=== PATIENT | female | born 1945 | race Caucasian/White ===

== ENCOUNTER 2017-10-24 13:12 | Day surgery (SDC) | payer MEDICARE, OTHER, SELFPAY ==
--- NOTE | 2017-10-24 | PATH_ITS ---
[facility] Accession Number: [id number] . 01 Material submitted: . PART A: ASCENDING COLON BIOPSY PART B: TRANSVERSE COLON BIOPSY . 02 Diagnosis: A. Ascending Colon Polyp, Biopsy: Tubular adenoma. . B. Transverse Colon Polyp, Biopsy: Tubular adenoma. MRV/10/25/2017 . 02 Electronically signed: . Shireen Yee MD, Pathologist NPI- [id number] . 01 Gross description: . Received two formalin-filled containers, both labeled with the patient's name: . A. In a container labeled ascending colon, the specimen consists of a 0.3 cm portion of tissue, entirely submitted in cassette A. B. In a container labeled transverse colon, the specimen consists of three 0.1-0.2 cm portions of tissue, entirely submitted in cassette B. ([id number]) /FRR . 02 Pathologist provided ICD-10: D12.2, D12.3 . 02 CPT . 359688, [id number] Performed at: 01 [facility] [address] [facility], [place], [place] [id number] MD Manny Evans MD Phone: [phone] Performed at: 02 [facility] [address] [place], [place] [id number] MD Shin Crenshaw MD Phone: [phone]
--- NOTE | 2017-10-24 13:34 | PM.HP.1 ---
History of Present Illness Date Patient Seen: 10/24/17 Chief complaint: [id number] COLONOSCOPY W/POSS BX Narrative: 72-year-old female with a family history of colon cancer in her father who is here for screening colonoscopy. She has had 3 prior colonoscopies all of which have been normal. Her last colonoscopy was performed 7 years ago. She is otherwise asymptomatic from a GI standpoint and is stable for the procedure Review of Systems Review of Systems All systems reviewed & are unremarkable except as noted in HPI and below Exam Narrative Exam Narrative: General: Patient is well developed, not in apparent distress Cardiovascular: Regular rate and rhythm, no murmurs, rubs, or gallops; no evidence of edema; no palpable abdominal aortic aneurysm Gastrointestinal: Normoactive bowel sounds, soft, nontender, nondistended, no rebound tenderness, no hepatosplenomegaly, no evidence of hernia Assessment & Plan Plan: Assessment/Plan Narrative: 72-year-old with a family history of colon cancer in her father who is here for screening colonoscopy. Her mother was recently diagnosed with colon cancer as well. Regarding the procedure(s), the risks and potential complications, benefits, and alternatives (including not doing the procedure) were discussed with the patient. The risks include but are not limited to bleeding, infection, perforation which may require surgical intervention, missed lesions, and adverse reactions to sedative medicines. After a question and answer period, the patient agreed to proceed with the procedure(s) and gives informed consent.
[2017-10-24 13:35] VITALS: BP 119/73; PULSE 74; RESP 15; TEMP 36.1; O2SAT 97; BMI 24.3
[2017-10-24] MEDS: SODIUM CHLORIDE 0.9% 1,000 ML 70 ML IV (13:35)
--- NOTE | 2017-10-24 14:14 | P.OP.ENDO_ITS ---
Operative Date/Time/Diagnoses Date of procedure: 10/24/17 Procedure Notes Procedure in detail: Surgeon: Barber George MD Procedure: Colonoscopy with polypectomy Preoperative diagnosis: Colon cancer screening, family history of colon cancer , last colonoscopy 7 years ago Postoperative diagnosis: Colon polyps status post polypectomy, sigmoid diverticulosis, grade 1 internal hemorrhoids Medications: Conscious sedation using 6 mg IV of Midazolam and 150 mcg IV of Fentanyl Preanesthesia Assessment An H and P was performed/updated and the Px?s ASA class is 2. The procedure was discussed in detail with the patient. The potential risks and complications including infection, bleeding, missed lesions, perforation, need for surgery in case of perforation, prolonged hospital stay, and were explained. A brief question and answer period was allotted and once all questions were answered, informed consent was obtained. The patient was brought back to the procedure room and placed on standard monitoring. The patient?s vital signs were monitored continuously throughout the entire procedure. Prior to starting, a timeout was performed to confirm the patient?s identity, allergies, medications, and procedure. Procedure in detail The patient was placed in left lateral decubitus position and once adequate sedation was obtained a NE[place] was performed. The digital rectal examination revealed no palpable lesions. The tip of the colonoscope was placed in the anal canal and advanced with some difficulty to the cecum. There was note of significant looping in the sigmoid colon which was rectified by increasing sedation and shortening of the scope. The cecum was identified by the appendiceal orifice and ileocecal valve. The terminal ileum was intubated to a distance of 5 cm with no note of mucosal abnormality. The colonoscope was brought back to the cecum and careful examination of all dwyer of the colon was performed with irrigation of any residual stool. In the ascending colon there was note of a 3 mm sessile polyp which was removed in its entirety by means of a cold Jumbo forceps with minimal bleeding. In the transverse colon there was note of a 3 mm sessile polyp removed in its entirety by means of cold Jumbo forceps with minimal bleeding. In the sigmoid colon there is note of a few medium-sized diverticula. Further examination of the remainder of the colon revealed no other mucosal abnormalities. Retroflexion was performed in the rectum which revealed grade 1 internal hemorrhoids The patient tolerated the procedure well and will be brought back to the recovery area to be discharged once criteria are met. The prep was judged to be good/excellent and adequate to identify polyps less than 5 mm. The withdrawal time was 11 min. The total procedure time from initial sedation was 24 min. Complications There were no complications and estimated blood loss was minimal. Recommendations: Resume previous diet Continue outPx medications Follow up pathology results Repeat colonoscopy in 5 years for surveillance An emergency contact number was given to the patient for any complications related to the procedure
--- NOTE | 2017-10-24 14:22 | SUR.OPER ---
SHORT PERIOD OF EXTERNAL ABDOMINAL PRESSURE
[2017-10-24] MEDS: MIDAZOLAM 5 MG/5 ML VIAL IV (14:24)
[2017-10-24] MEDS: fentaNYL 250 MCG/5 ML INJ IV (14:25)
[2017-10-24 14:40] VITALS: BP 123/72; PULSE 60; RESP 15; TEMP 36.6; O2SAT 100
--- NOTE | 2017-10-24 14:40 | PM.DS.1 ---
History of Present Illness Chief complaint: [id number] COLONOSCOPY W/POSS BX Narrative: 72-year-old female with a family history of colon cancer in her father who is here for screening colonoscopy. She has had 3 prior colonoscopies all of which have been normal. Her last colonoscopy was performed 7 years ago. She is otherwise asymptomatic from a GI standpoint and is stable for the procedure Discharge Providers Primary care physician: Gita Pabon MD Discharge provider: Barber George MD Exam Vital Signs (past 8 hours): - 10/24/17 13:35 Temperature 96.9 F L Pulse Rate 74 Respiratory Rate 15 Blood Pressure 119/73 Pulse Oximetry 97 Oxygen Delivery Method Room Air Narrative Exam Narrative: General: Patient is well developed, not in apparent distress Cardiovascular: Regular rate and rhythm, no murmurs, rubs, or gallops; no evidence of edema; no palpable abdominal aortic aneurysm Gastrointestinal: Normoactive bowel sounds, soft, nontender, nondistended, no rebound tenderness, no hepatosplenomegaly, no evidence of hernia Discharge Plan Discharge Plan Patient Disposition: Home, Self-Care Discharge Med Rec/Prescriptions Discharge Orders: Discharge (Order); Ordered 10/24/17 Ordered By: Barber George Provider Discharge Instructions Diet: Diet as Tolerated Visit Report/Discharge Packet Stand Alone Forms: Surgery Discharge Discharge Data Primary Care Provider: Gita Pabon Attending Provider: Barber George
[2017-10-24 15:15] VITALS: BP 139/72; PULSE 56; RESP 16; TEMP 36.2; O2SAT 100
== END 2017-10-24 15:39 | disposition home or self-care (01) ==
PROVIDERS: Family Provider Internal Medicine; PCP Internal Medicine; Visit Provider Internal Medicine Gastroenterology
PROC: 0DJD8ZZ Inspection of Lower Intestinal Tract, Via Natural or Artificial Opening Endoscopic (ICD-10-PCS; CPT 45378; principal; 2017-10-24 14:00)
DX: Z12.11 Encounter for screening for malignant neoplasm of colon (principal); Z80.0 Family history of malignant neoplasm of digestive organs; K57.30 Diverticulosis of large intestine without perforation or abscess without bleeding; K64.0 First degree hemorrhoids; D12.2 Benign neoplasm of ascending colon; D12.3 Benign neoplasm of transverse colon
CPT/HCPCS: 45380; 88305; J2250; J3010

== ENCOUNTER → 2017-12-19 12:34 | Outpatient (CLI) | payer MEDICARE, SELFPAY ==
--- NOTE | 2017-12-19 | DI.MG.S_ITS ---
BILATERAL DIGITAL SCREENING MAMMOGRAM 3D/2D WITH CAD: 12/19/2017 CLINICAL: Routine screening. Comparison is made to exams dated: 12/27/2016 mammogram, 12/27/2015 mammogram, and 11/19/2014 mammogram - [facility]. There are scattered fibroglandular elements in both breasts. Current study was also evaluated with a Computer Aided Detection (CAD) system. There is a benign biopsy clip in the left breast. There are bilateral linear scar markers overlying the breasts bilaterally. No significant masses, calcifications, or other findings are seen in either breast. There has been no significant interval change. IMPRESSION: There is no mammographic evidence of malignancy. A 1 year screening mammogram is recommended.(12/20/2018) This exam was interpreted at Station ID: [id number]. NOTE: For mammograms, a report in lay terms will be sent to the patient. Approximately 15% of breast malignancies will not be visualized mammographically. In the management of a palpable breast mass, a negative mammogram must not discourage biopsy of a clinically suspicious lesion. Electronically Signed By: Damaso Mcgraw M.D. ecl/:12/20/2017 05:42:47 letter sent: Normal Exam ACR BI-RADS Category 2: Benign Finding(s) 3342F
== END ==
PROVIDERS: Family Provider Internal Medicine; PCP Internal Medicine; Visit Provider Internal Medicine
DX: Z12.31 Encounter for screening mammogram for malignant neoplasm of breast (principal)
CPT/HCPCS: 77063; 77067

== ENCOUNTER → 2017-12-20 10:46 | Outpatient (CLI) | payer MEDICARE, OTHER, SELFPAY ==
--- NOTE | 2017-12-20 | DI.US.S_ITS ---
PROCEDURE: US THYROID INDICATIONS: INFLAMED THYROID GLAND TECHNIQUE: Real-time scanning was performed of the thyroid gland, with image documentation. COMPARISON: None. FINDINGS: Right: Thyroid lobe measures 4.1 x 1.6 x 1.7 cm. Left: Thyroid lobe measures 3.3 x 1.4 x 1 cm, and is homogenous in echotexture. Isthmus: 2 mm thick. Nodule number: 1 Location: Right inferior thyroid Size: 0.7 x 0.4 x 0.6 cm. Composition: Solid Echogenicity: Hypoechoic Shape: wider than tall. Margins: Smooth Echogenic foci: None Total points: 4 ACR TI-RADS category: 4, moderately suspicious. No specific imaging followup is recommended for this subcentimeter nodule. IMPRESSION: Subcentimeter right thyroid nodule, for which no specific imaging followup is recommended by published criteria. Dictated by: Akshat Madden M.D. on 12/20/2017 at 10:37 Approved by: Akshat Madden M.D. on 12/20/2017 at 10:39
== END ==
PROVIDERS: Family Provider Internal Medicine; PCP Internal Medicine; Visit Provider Internal Medicine
DX: E06.9 Thyroiditis, unspecified (principal); E04.1 Nontoxic single thyroid nodule
CPT/HCPCS: 76536

== ENCOUNTER 2018-01-22 05:41 | Emergency (ER) | payer MEDICARE, OTHER, SELFPAY ==
--- NOTE | 2018-01-22 05:59 | DI.US.S_ITS ---
PROCEDURE: US ABDOMEN COMPLETE INDICATIONS: PAIN TECHNIQUE: Real-time scanning was performed of the abdominal and retroperitoneal organs, with image documentation. COMPARISON: None. FINDINGS: Liver: Liver is normal in size and homogeneous in echotexture. Gallbladder: There is a 1.8 cm gallstone lodged in the gallbladder neck. No gallbladder wall thickening, pericholecystic fluid or sonographic Smith's sign. Biliary ducts: Intrahepatic bile ducts are non-dilated. Extrahepatic bile duct caliber measures 5.6 mm. Normal is 6-7 mm or less in diameter, or 10 mm or less post-cholecystectomy. Pancreas: Visualized portions of the pancreas are sonographically normal. Spleen: Spleen is normal in size and homogeneous in echotexture. Kidneys: Kidneys are normal in size and echotexture. Right kidney measures 10.0 cm long; left kidney measures 10.2 cm long. No hydronephrosis or nephrolithiasis. No solid masses. Aorta: Visualized aorta is normal in caliber at less than 3 cm. Iliacs: Proximal common iliac arteries are obscured by overlying bowel gas. IVC: Intrahepatic inferior vena cava is patent. Miscellaneous: No free abdominal fluid. IMPRESSION: Cholelithiasis. There is a 1.8 cm gallstone lodged in the gallbladder neck. No ultrasound evidence for acute cholecystitis. Recommend clinical correlation. Dictated by: Tara Decker M.D. on 01/22/2018 at 8:14 Approved by: Tara Decker M.D. on 01/22/2018 at 8:16
[2018-01-22 06:00] VITALS: BP 129/49; PULSE 83; RESP 18; TEMP 36.9; O2SAT 100; BMI 25.1
--- NOTE | 2018-01-22 06:00 | DI.RAD.S_ITS ---
PROCEDURE: XR CHEST 1V INDICATIONS: chest pain TECHNIQUE: One view of the chest was acquired. COMPARISON: None. FINDINGS: Surgical changes and devices: Surgical clips in the left breast. Lungs and pleura: Hyperinflation suggesting COPD. There is left basilar scars. No pleural effusions or pneumothorax. Mediastinum: Mediastinal contours appear normal. Heart size is normal. Bones and chest wall: There is a round sclerotic density in the left humeral head. Overlying soft tissues appear unremarkable. IMPRESSION: 1. Suspect COPD. 2. Left basilar scars. 3. A round sclerosis in the left humeral head. X-ray of the left shoulder is suggested for followup. Dictated by: Tara Decker M.D. on 01/22/2018 at 8:32 Approved by: Tara Decker M.D. on 01/22/2018 at 8:33
--- NOTE | 2018-01-22 06:03 | ED_ITS ---
HPI - Chest Pain General Chief Complaint: Chest Pain Stated Complaint: SEVERE CHEST PAIN Time Seen by Provider: 01/22/18 05:54 Source: patient Mode of arrival: ambulatory Limitations: no limitations History of Present Illness HPI narrative: The patient is a 72-year-old female presents with epigastric pain. She thought it was indigestion as kept her from sleeping and radiates up to her right shoulder. She feels nauseated no vomiting. She denies any shortness of breath no fever. She has no heart palpitations though she does have a history of heart palpitations. Related Data Previous Rx's Medication Instructions Recorded hydrocodone-acetaminophen 1 tab PO Q4-6H PRN #10 tab 01/22/18 ondansetron 4 mg PO Q6-8H PRN #10 tab 01/22/18 Allergies Allergy/AdvReac Type Severity Reaction Status Date / Time chlorhexidine Allergy Unknown Verified 01/22/18 06:07 Review of Systems Review of Systems GENERAL: Denies chills, fatigue, malaise, fever, sweats, travel HEENT: Denies sinus pain, ear pain, sore throat, difficulty swallowing, neck pain RESPIRATORY: Denies dyspnea, cough, wheezing, hemoptysis, sputum. CARDIOVASCULAR: Chest pain, see HPI GASTROINTESTINAL: + epigastric pain : Denies dysuria, frequency, incontinence, hematuria, urinary retention, flank pain. MUSCULOSKELETAL: Denies weakness, joint pain, or bony pain SKIN: No rash, no erythema, no pruritus NEUROLOGIC: Denies weakness, dizziness, headache, numbness, change in speech, confusion PSYCHIATRIC: No concerning psychosocial issues. 12 point review of systems is negative except for those stated above and HPI [facility] Social History household members: spouse Smoking Status: Never smoker Exam Initial Vital Signs Initial Vital Signs: Vital Signs Temperature 98.5 F 01/22/18 06:00 Pulse Rate 83 01/22/18 06:00 Respiratory Rate 18 01/22/18 06:00 Blood Pressure 129/49 L 01/22/18 06:00 Pulse Oximetry 100 01/22/18 06:00 GENERAL: Alert oriented x3 and in no acute distress. HEENT: Head atraumatic,EOMI, pupils reactive, face symmetric, moist mucous membranes CARDIOVASCULAR: Regular rate and rhythm without murmurs, rubs or gallops. RESPIRATORY: Breath sounds equal bilaterally, no wheezes rales or rhonchi. ABDOMEN: Soft, tender epigastric area and right upper quadrant positive Smith sign no lower abdominal pain no guarding or rebound EXTREMITIES: Normal range of motion, no clubbing or edema. Neurovascularly intact NEUROLOGICAL: Alert and oriented x4.Normal gait and speech. Cranial nerves II through XII grossly intact. SKIN: Warm, dry, no laceration, no petechiae, no rashes or lesions. Course Orders Ordered: Discontinued Medications Sodium Chloride (Normal Saline 0.9%) 1,000 mls @ 150 mls/hr IV CONT DALJIT Last Infusion: 01/22/18 09:00 Dose: 150 mls/hr Admin: 01/22/18 06:10 Dose: 150 mls/hr Ketorolac Tromethamine (Toradol) 15 mg IV NOW ONE Stop: 01/22/18 06:00 Last Admin: 01/22/18 06:10 Dose: 15 mg Morphine Sulfate (Morphine) 2 mg IV NOW ONE Stop: 01/22/18 07:47 Ondansetron HCl (Zofran) 4 mg IV NOW ONE Stop: 01/22/18 06:00 Last Admin: 01/22/18 06:10 Dose: 4 mg MDM - Chest Pain Lab Data Attestation: I reviewed the patient's lab results. Result diagrams: 01/22/18 05:52 01/22/18 05:52 Lab Results 01/22/18 01/22/18 Range/Units 05:52 05:52 WBC 11.0 (4.5-11.0) X10^3/uL RBC 3.74 L (4.0-5.2) X10^6/uL Hgb 11.9 L (12.0-16.0) g/dL Hct 33.8 L (36-46) % MCV 90.6 (80-100) fL MCH 31.9 (26-34) PG MCHC 35.3 (30-36) % RDW 13.2 (11.6-14.8) % Plt Count 349 (150-400) X10^3/uL Neut % (Auto) 71.2 (50-75) % Lymph % (Auto) 16.8 L (25-40) % Mora % (Auto) 9.6 (3-14) % Eos % (Auto) 1.1 L (2-4) % Baso % (Auto) 1.3 (0-2) % Neut # (Auto) 7800 H (2669-2442) /uL Sodium 138 (137-145) mmol/L Potassium 3.7 (3.4-5.1) mmol/L Chloride 100 (98-107) mmol/L Carbon Dioxide 27 (22-32) mmol/L BUN 11 (7-17) mg/dL Creatinine 0.70 (0.52-1.04) mg/dL Estimated GFR > 60.0 (>60) mL/min BUN/Creatinine Ratio 15.7 (6-22) Glucose 117 H (80-110) mg/dL Calcium 9.0 (8.4-10.2) mg/dL Total Bilirubin 0.6 (0.2-1.3) mg/dL AST 35 (14-36) IU/L ALT 25 (9-52) IU/L Alkaline Phosphatase 159 H (38-126) U/L Total Creatine Kinase < 20 L (30-135) U/L CK-MB (CK-2) TNP CK-MB (CK-2) Rel Index TNP Troponin I < 0.012 (0.01-0.034) ng/mL Total Protein 7.5 (6.3-8.2) g/dL Albumin 4.1 (3.5-5.0) g/dL Globulin 3.4 (1.7-4.1) g/dL Albumin/Globulin Ratio 1.2 (1.0-2.8) Lipase 87 (23-300) U/L Imaging Data US - abdomen: Radiologist's impression: PROCEDURE: US ABDOMEN COMPLETE INDICATIONS: PAIN TECHNIQUE: Real-time scanning was performed of the abdominal and retroperitoneal organs, with image documentation. COMPARISON: None. FINDINGS: Liver: Liver is normal in size and homogeneous in echotexture. Gallbladder: There is a 1.8 cm gallstone lodged in the gallbladder neck. No gallbladder wall thickening, pericholecystic fluid or sonographic Smith's sign. Biliary ducts: Intrahepatic bile ducts are non-dilated. Extrahepatic bile duct caliber measures 5.6 mm. Normal is 6-7 mm or less in diameter, or 10 mm or less post-cholecystectomy. Pancreas: Visualized portions of the pancreas are sonographically normal. Spleen: Spleen is normal in size and homogeneous in echotexture. Kidneys: Kidneys are normal in size and echotexture. Right kidney measures 10.0 cm long; left kidney measures 10.2 cm long. No hydronephrosis or nephrolithiasis. No solid masses. Aorta: Visualized aorta is normal in caliber at less than 3 cm. Iliacs: Proximal common iliac arteries are obscured by overlying bowel gas. IVC: Intrahepatic inferior vena cava is patent. Miscellaneous: No free abdominal fluid. IMPRESSION: Cholelithiasis. There is a 1.8 cm gallstone lodged in the gallbladder neck. No ultrasound evidence for acute cholecystitis. Recommend clinical correlation. Dictated by: Tara Decker M.D. on 01/22/2018 at 8:14 Chest x-ray: Radiologist's impression: PROCEDURE: XR CHEST 1V INDICATIONS: chest pain TECHNIQUE: One view of the chest was acquired. COMPARISON: None. FINDINGS: Surgical changes and devices: Surgical clips in the left breast. Lungs and pleura: Hyperinflation suggesting COPD. There is left basilar scars. No pleural effusions or pneumothorax. Mediastinum: Mediastinal contours appear normal. Heart size is normal. Bones and chest wall: There is a round sclerotic density in the left humeral head. Overlying soft tissues appear unremarkable. IMPRESSION: 1. Suspect COPD. 2. Left basilar scars. 3. A round sclerosis in the left humeral head. X-ray of the left shoulder is suggested for followup. Dictated by: Tara Decker M.D. on 01/22/2018 at 8:32 ECG Data Attestation: I personally reviewed and interpreted this ECG as follows: Prior ECG tracings: not available for review Interpretation: sinus rhythm rate [address] changes artifact noted CA interval 184 QRS 90 QTC 430 MDM Narrative Medical decision making narrative: patient has no leukocytosis with normal bilirubin and afebrile. Discussed case with Dr. ENRIQUEZ, patient can follow up as outpatient. I discussed all findings with the patient and , Education has been performed regarding treatment plan, diagnosis, warning signs and symptoms and all concerns have been addressed. Verbally agree with and understood all of the above. Discharge Plan Departure Patient Disposition: Home Clinical Impression: Cholelithiasis Discharge Date/Time: 01/22/18 08:08 Interventions: ED Discharge Assessment Last Done: 01/22/18 08:06 Instructions: DI for Gallstones Activity Restrictions/Additional Instructions: *You have been diagnosed with gallstones *What to do: You will need gallbladder surgery however it is not emergent at this time. It is better if it is an elective surgery. *Continue to take medications as directed -Zofran 4 mg every 6-8 hours if needed for nausea or vomiting -Motrin 600 mg every 6-8 hours if needed for [id number] -[place] 1 tablet every 6 hr if needed for severe pain *Follow up with your primary care provider in 2-3 days, [facility] today to schedule follow-up appointment. I did talk with Dr. Enriquez today *Return to ER if you should have fever, increasing pain, persistent vomiting or any new, worsening or concerning symptoms Prescriptions: New hydrocodone-acetaminophen 5-325 mg tablet 1 tab PO Q4-6H PRN (Reason: pain) Qty: 10 RF: 0 ondansetron 4 mg tablet,disintegrating 4 mg PO Q6-8H PRN (Reason: nausea and vomiting) Qty: 10 RF: 0 Referrals: [facility] [Provider Group] (Cholelithiasis) Gita Pabon MD [Primary Care Provider] -
[2018-01-22 06:09] LABS: Add Manual Diff / Slide Review NO; Basophils Percent Auto 1.3 % (0-2); Eosinophils Percent Auto 1.1 % (2-4); Hematocrit 33.8 % (36-46); Hemoglobin 11.9 g/dL (12.0-16.0); Lymphocytes Percent Auto 16.8 % (25-40); Mean Corpuscular HGB Conc 35.3 % (30-36); Mean Corpuscular Hemoglobin 31.9 PG (26-34); Mean Corpuscular Volume 90.6 fL (80-100); Monocytes Percent Auto 9.6 % (3-14); Neutrophils Absolute Auto 7800 /uL (3000-5900); Neutrophils Percent Auto 71.2 % (50-75); Platelet Count 349 X10^3/uL (150-400); Red Blood Cell Count 3.74 X10^6/uL (4.0-5.2); Red Cell Distribution Width 13.2 % (11.6-14.8)
[2018-01-22] MEDS: KETOROLAC 60 MG/2 ML VIAL 15 MG IV (06:10)
[2018-01-22] MEDS: ONDANSETRON 4 MG/2 ML INJ IV (06:10)
[2018-01-22] MEDS: SODIUM CHLORIDE 0.9% 1,000 ML 150 ML IV (06:10)
[2018-01-22 06:15] LABS: Alanine Aminotransferase 25 IU/L (9-52); Albumin 4.1 g/dL (3.5-5.0); Albumin Globulin Ratio 1.2 (1.0-2.8); Alkaline Phosphatase 159 U/L (38-126); Aspartate Aminotransferase 35 IU/L (14-36); BUN Creatinine Ratio 15.7 (6-22); Bilirubin Total 0.6 mg/dL (0.2-1.3); Blood Urea Nitrogen 11 mg/dL (7-17); Carbon Dioxide 27 mmol/L (22-32); Chloride 100 mmol/L (98-107); Creatine Kinase < 20 U/L (30-135); Estimated Glomerular Filt Rate > 60.0 mL/min (>60); Globulin 3.4 g/dL (1.7-4.1); Glucose 117 mg/dL (80-110); HEMOLYSIS < 15 (0-50); Lipase 87 U/L (23-300); Potassium 3.7 mmol/L (3.4-5.1); Sodium 138 mmol/L (137-145); Total Protein 7.5 g/dL (6.3-8.2)
[2018-01-22 06:28] LABS: Troponin I < 0.012 ng/mL (0.01-0.034)
[2018-01-22 06:50] VITALS: BP 126/45; PULSE 71; RESP 16; O2SAT 99
[2018-01-22 07:30] VITALS: BP 130/46; PULSE 79; RESP 21; O2SAT 90
[2018-01-22 08:06] VITALS: BP 134/55; PULSE 75; RESP 18; O2SAT 100
== END 2018-01-22 08:08 | disposition home or self-care (01) ==
PROVIDERS: Emergency Provider Emergency Medicine; Family Provider Internal Medicine; PCP Internal Medicine
DX: K80.20 Calculus of gallbladder without cholecystitis without obstruction (principal)
CPT/HCPCS: 36591; 71045; 76700; 80053; 82550; 83690; 84484; 85025; 93005; J1885; J2405

== ENCOUNTER 2018-01-22 20:00 | Emergency (ER) | payer MEDICARE, OTHER, SELFPAY ==
[2018-01-22 20:12] VITALS: BP 144/60; PULSE 87; RESP 18; TEMP 38.2; O2SAT 97
[2018-01-22 20:48] VITALS: BP 128/53; PULSE 88; RESP 14; O2SAT 97
[2018-01-22 20:56] LABS: Add Manual Diff / Slide Review NO; Basophils Percent Auto 0.5 % (0-2); Eosinophils Percent Auto 0.1 % (2-4); Hematocrit 35.6 % (36-46); Hemoglobin 12.3 g/dL (12.0-16.0); Lymphocytes Percent Auto 4.3 % (25-40); Mean Corpuscular HGB Conc 34.4 % (30-36); Mean Corpuscular Hemoglobin 31.2 PG (26-34); Mean Corpuscular Volume 90.5 fL (80-100); Monocytes Percent Auto 3.1 % (3-14); Neutrophils Absolute Auto 14600 /uL (3000-5900); Platelet Count 334 X10^3/uL (150-400); Red Blood Cell Count 3.93 X10^6/uL (4.0-5.2); Red Cell Distribution Width 12.8 % (11.6-14.8); White Blood Cell Count 15.8 X10^3/uL (4.5-11.0)
[2018-01-22 21:08] LABS: Alanine Aminotransferase 268 IU/L (9-52); Albumin 4.2 g/dL (3.5-5.0); Albumin Globulin Ratio 1.2 (1.0-2.8); Alkaline Phosphatase 432 U/L (38-126); Aspartate Aminotransferase 414 IU/L (14-36); Bilirubin Total 2.9 mg/dL (0.2-1.3); Blood Urea Nitrogen 7 mg/dL (7-17); Calcium 8.7 mg/dL (8.4-10.2); Carbon Dioxide 26 mmol/L (22-32); Chloride 96 mmol/L (98-107); Estimated Glomerular Filt Rate > 60.0 mL/min (>60); Globulin 3.5 g/dL (1.7-4.1); Glucose 147 mg/dL (80-110); HEMOLYSIS < 15 (0-50); Lactate (Lactic Acid) 1.4 mmol/L (0.7-2.1); Potassium 3.5 mmol/L (3.4-5.1); Sodium 134 mmol/L (137-145); Total Protein 7.7 g/dL (6.3-8.2)
[2018-01-22 21:14] VITALS: TEMP 38.2
[2018-01-22] MEDS: SODIUM CHLORIDE 0.9% 1,000 ML 1000 ML IV (21:14)
[2018-01-22] MEDS: ACETAMINOPHEN 325 MG TABLET 650 MG PO (21:14)
[2018-01-22] MEDS: levoFLOXacin 750 MG/150 ML PIGGYBACK 100 MG IV (21:15)
--- NOTE | 2018-01-22 21:32 | PC.NURSE ---
reports sudden right upper abdominal pain onset last night, with radiating pain right shoulder and rib area, with abdominal distentions, normal bm yesterday. pt has been treated for GERD with nausea and fever today. pt alert and talkative, skin hot to touch, dry pink, s/p right knee arthroscopy 2 weeks ago.
--- NOTE | 2018-01-22 21:33 | DI.US.S_ITS ---
PROCEDURE: US ABDOMEN LIMITED INDICATIONS: KNOWN GALLSTONE; WORSENING PAIN TECHNIQUE: Real-time focused scanning was performed of the abdomen, with image documentation. COMPARISON: [facility], , US ABDOMEN COMPLETE, 01/22/2018, 7:09. FINDINGS: 2.1 cm mobile stone present gallbladder wall is thickened and edematous measuring 8.9 mm. Positive sonographic Smith sign. No biliary dilatation. IMPRESSION: Cholelithiasis with thickened edematous gallbladder wall and positive sonographic Smith sign consistent with acute cholecystitis. Note: These findings are concordant with the preliminary interpretation. Dictated by: Gutierrez Hassan [facility] Interpreted: Ryan Barroso MD on 01/23/2018 at 8:14 Approved by: Ryan Barroso M.D. on 01/23/2018 at 10:36
--- NOTE | 2018-01-22 21:34 | PC.NURSE ---
had applesauce at 530pm.
[2018-01-22 21:45] VITALS: BP 111/55; PULSE 83; RESP 16; O2SAT 97
[2018-01-22 22:01] LABS: Lipase 4778 U/L (23-300)
[2018-01-22 22:15] VITALS: BP 125/40; PULSE 80; RESP 14; O2SAT 96
[2018-01-22 22:22] VITALS: TEMP 37.9
[2018-01-22] MEDS: MORPHINE 2 MG/ML INJ IV (22:22)
--- NOTE | 2018-01-22 22:29 | PC.NURSE ---
noted pt desat at 88% with good pleth. oxygen at 2lpm via nc applied.
--- NOTE | 2018-01-23 00:01 | ED_ITS ---
HPI - Abdominal Pain General Chief Complaint: Abdominal Pain Stated Complaint: GALLBLADDER PAIN Time Seen by Provider: 01/22/18 20:40 Source: patient and old records reviewed Mode of arrival: ambulatory Limitations: no limitations History of Present Illness HPI narrative: patient is a 72-year-old female who presents with right upper quadrant pain diagnosed with cholelithiasis this morning now presenting with fever. She has had increased pain over the afternoon developed a fever as well. She has been nauseated no vomiting. MD complaint: abdominal pain Onset (ago): hour(s) Pain Consistency: constant Related Data Home Medications Medication Instructions Recorded Confirmed amitriptyline 10 mg PO DAILY 01/22/18 01/22/18 aspirin 162 mg PO DAILY 01/22/18 01/22/18 diltiazem HCl [DILT-XR] 120 mg PO DAILY 01/22/18 01/22/18 gabapentin 100 mg PO DAILY 01/22/18 01/22/18 omeprazole 20 mg PO BID 01/22/18 01/22/18 Previous Rx's Medication Instructions Recorded hydrocodone-acetaminophen 1 tab PO Q4-6H PRN #10 tab 01/22/18 ondansetron 4 mg PO Q6-8H PRN #10 tab 01/22/18 Allergies Allergy/AdvReac Type Severity Reaction Status Date / Time chlorhexidine Allergy Unknown Verified 01/22/18 06:07 epinephrine AdvReac Verified 01/22/18 21:25 Review of Systems Review of Systems All systems reviewed & are unremarkable except as noted in HPI and below Constitutional Reports fever(s) Cardiovascular Denies chest pain, Denies irregular heart rhythm, Denies lightheadedness, Denies palpitations, Denies dyspnea, Denies dyspnea on exertion and Denies orthopnea Respiratory Denies cough, Denies dyspnea, Denies dyspnea on exertion and Denies wheezing Gastrointestinal Gastrointestinal: Reports as per HPI Musculoskeletal Denies back pain, Denies muscle weakness, Denies numbness and Denies tingling Integumentary/Breasts Denies pruritus, Denies erythema, Denies rash and Denies wounds Neurologic Denies numbness and Denies tingling Endocrine Denies palpitations Allergic/Immunologic Denies wheezing PFSH Medical History Hypertension (Acute) Social History household members: spouse Smoking Status: Never smoker Exam Initial Vital Signs Initial Vital Signs: Vital Signs Temperature 100.8 F H 01/22/18 20:12 Pulse Rate 87 01/22/18 20:12 Respiratory Rate 18 01/22/18 20:12 Blood Pressure 144/60 H 01/22/18 20:12 Pulse Oximetry 97 01/22/18 20:12 GENERAL: patient appears in pain does appear slightly worse than this morning but overall alert and oriented x3 HEENT: Head atraumatic,EOMI, pupils reactive, face symmetric CARDIOVASCULAR: Regular rate and rhythm without murmurs, rubs or gallops. RESPIRATORY: Breath sounds equal bilaterally, no wheezes rales or rhonchi. ABDOMEN: Soft, n tender right upper quadrant positive Smith's mild epigastric pain no guarding no rebound EXTREMITIES: Normal range of motion, no clubbing or edema. Neurovascularly intact NEUROLOGICAL: Alert and oriented x4.Normal gait and speech. Cranial nerves II through XII grossly intact. SKIN: Warm, dry, no laceration, no petechiae, no rashes or lesions. Course Orders Ordered: ED Orders 01/22/18 20:31 CBC [Complete Blood Count AUTO DIFF] Stat CMP [Comprehensive Metabolic Panel] Stat Lactate (Lactic Acid) Stat Lipase Stat 01/22/18 21:03 Blood Culture Stat 01/22/18 21:33 US abdomen limited Stat Discontinued Medications Acetaminophen (Tylenol) 650 mg PO NOW ONE Stop: 01/22/18 21:01 Last Admin: 01/22/18 21:14 Dose: 650 mg Levofloxacin (Levaquin) 750 mg in 150 mls @ 100 mls/hr IV NOW ONE Stop: 01/22/18 22:29 Last Infusion: 01/22/18 22:49 Dose: 0 mls/hr Admin: 01/22/18 21:15 Dose: 100 mls/hr Sodium Chloride (Normal Saline 0.9%) 1,000 mls @ 1,000 mls/hr IV BOLUS ONE Stop: 01/22/18 21:59 Last Infusion: 01/22/18 23:27 Dose: 0 mls/hr Infusion: 01/22/18 22:36 Dose: 1,000 mls/hr Infusion: 01/22/18 21:15 Dose: 350 mls/hr Admin: 01/22/18 21:14 Dose: 1,000 mls/hr Sodium Chloride (Normal Saline 0.9%) 1,000 mls @ 1,000 mls/hr IV BOLUS ONE Stop: 01/23/18 00:59 Last Infusion: 01/23/18 01:57 Dose: 0 mls/hr Admin: 01/23/18 00:20 Dose: 1,000 mls/hr Morphine Sulfate (Morphine) 2 mg IV NOW ONE Stop: 01/22/18 22:17 Last Admin: 01/22/18 22:22 Dose: 2 mg Vital Signs - 8 hr 01/22/18 20:12 01/22/18 20:48 01/22/18 21:14 Temperature 100.8 F H 100.8 F H Pulse Rate 87 88 Respiratory Rate 18 14 Blood Pressure 144/60 H Blood Pressure [Left Arm] 128/53 L Pulse Oximetry 97 97 01/22/18 21:45 01/22/18 22:15 01/22/18 22:22 Temperature 100.3 F H Pulse Rate 83 80 Respiratory Rate 16 14 Blood Pressure Blood Pressure [Left Arm] 111/55 L 125/40 L Pulse Oximetry 97 96 01/23/18 00:25 Temperature 98.6 F Pulse Rate 80 Respiratory Rate 14 Blood Pressure Blood Pressure [Left Arm] 122/52 L Pulse Oximetry 98 MDM - Abdominal Pain Medical Records Attestation: I reviewed the patient's medical records. Lab Data Attestation: I reviewed the patient's lab results. Result diagrams: 01/22/18 20:31 01/22/18 20:31 Lab Results 01/22/18 01/22/18 01/22/18 Range/Units 20:31 20:31 20:31 WBC 15.8 H (4.5-11.0) X10^3/uL RBC 3.93 L (4.0-5.2) X10^6/uL Hgb 12.3 (12.0-16.0) g/dL Hct 35.6 L (36-46) % MCV 90.5 (80-100) fL MCH 31.2 (26-34) PG MCHC 34.4 (30-36) % RDW 12.8 (11.6-14.8) % Plt Count 334 (150-400) X10^3/uL Neut % (Auto) 92.0 H D (50-75) % Lymph % (Auto) 4.3 L (25-40) % Lamar % (Auto) 3.1 (3-14) % Eos % (Auto) 0.1 L (2-4) % Baso % (Auto) 0.5 (0-2) % Neut # (Auto) 91211 H (9028-2756) /uL Sodium 134 L (137-145) mmol/L Potassium 3.5 (3.4-5.1) mmol/L Chloride 96 L (98-107) mmol/L Carbon Dioxide 26 (22-32) mmol/L BUN 7 (7-17) mg/dL Creatinine 0.50 L (0.52-1.04) mg/dL Estimated GFR > 60.0 (>60) mL/min BUN/Creatinine Ratio 14.0 (6-22) Glucose 147 H (80-110) mg/dL Lactate 1.4 (0.7-2.1) mmol/L Calcium 8.7 (8.4-10.2) mg/dL Total Bilirubin 2.9 H (0.2-1.3) mg/dL AST 414 H (14-36) IU/L ALT 268 H (9-52) IU/L Alkaline Phosphatase 432 H D (38-126) U/L Total Protein 7.7 (6.3-8.2) g/dL Albumin 4.2 (3.5-5.0) g/dL Globulin 3.5 (1.7-4.1) g/dL Albumin/Globulin Ratio 1.2 (1.0-2.8) Lipase (23-300) U/L 01/22/18 Range/Units 20:31 WBC (4.5-11.0) X10^3/uL RBC (4.0-5.2) X10^6/uL Hgb (12.0-16.0) g/dL Hct (36-46) % MCV (80-100) fL MCH (26-34) PG MCHC (30-36) % RDW (11.6-14.8) % Plt Count (150-400) X10^3/uL Neut % (Auto) (50-75) % Lymph % (Auto) (25-40) % Lamar % (Auto) (3-14) % Eos % (Auto) (2-4) % Baso % (Auto) (0-2) % Neut # (Auto) (8664-7546) /uL Sodium (137-145) mmol/L Potassium (3.4-5.1) mmol/L Chloride (98-107) mmol/L Carbon Dioxide (22-32) mmol/L BUN (7-17) mg/dL Creatinine (0.52-1.04) mg/dL Estimated GFR (>60) mL/min BUN/Creatinine Ratio (6-22) Glucose (80-110) mg/dL Lactate (0.7-2.1) mmol/L Calcium (8.4-10.2) mg/dL Total Bilirubin (0.2-1.3) mg/dL AST (14-36) IU/L ALT (9-52) IU/L Alkaline Phosphatase (38-126) U/L Total Protein (6.3-8.2) g/dL Albumin (3.5-5.0) g/dL Globulin (1.7-4.1) g/dL Albumin/Globulin Ratio (1.0-2.8) Lipase 4778 H D (23-300) U/L Imaging Data US - abdomen: 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 Very distended measuring 4.6 cm in diameter 2 cm nonobstructing stone with thickened wall and edematous appearance. Common bile duct measures 5.5 mm MDM Narrative Medical decision making narrative: patient has gallstone pancreatitis she has a normal common bile duct however based on blood work possibility of stone. Pain is improved after morphine. She is hemodynamically stable does not appear septic. 10:[address] Marquez, updated on patient's symptoms test results current lab recommends patient be transferred will likely need an ERCP 11:30 p.m. spoke with surgery at [facility] will need ERCP is unsure if it is available tomorrow. ERCP is not available tomorrow, recommend transferring to another facility midnight: Dr. Shay, hospitalist at [facility] updated on patient's symptoms and test results happily accepts patient. Discharge Plan Departure Patient Disposition: [facility] Clinical Impression: Choledocholithiasis with acute cholecystitis Prescriptions: No Action hydrocodone-acetaminophen 5-325 mg tablet 1 tab PO Q4-6H PRN (Reason: pain) Qty: 10 RF: 0 ondansetron 4 mg tablet,disintegrating 4 mg PO Q6-8H PRN (Reason: nausea and vomiting) Qty: 10 RF: 0 aspirin 81 mg Tablet,Chewable 162 mg PO DAILY RF: 0 amitriptyline 10 mg tablet 10 mg PO DAILY RF: 0 diltiazem HCl [DILT-XR] 120 mg capsule,ext.rel 24h degradable 120 mg PO DAILY RF: 0 omeprazole 20 mg capsule,delayed release(DR/EC) 20 mg PO BID RF: 0 gabapentin 100 mg capsule 100 mg PO DAILY RF: 0
[2018-01-23] MEDS: SODIUM CHLORIDE 0.9% 1,000 ML 1000 ML IV (00:20)
[2018-01-23 00:25] VITALS: BP 122/52; PULSE 80; RESP 14; TEMP 37; O2SAT 98
--- NOTE | 2018-01-23 00:49 | PC.NURSE ---
pt ambulated to the restroom unassisted. slow and steady gate. urine sample provided. Pt returned to room and reattached to monitor.
--- NOTE | 2018-01-23 01:58 | PC.NURSE ---
Pt ambulated to restroom. steady gate. denies needs at this time.
[2018-01-23] MEDS: MORPHINE 2 MG/ML INJ IV (02:38)
== END 2018-01-23 02:41 | disposition short-term general hospital (02) ==
PROVIDERS: Emergency Provider Emergency Medicine; Family Provider Internal Medicine; PCP Internal Medicine
DX: K80.42 Calculus of bile duct with acute cholecystitis without obstruction (principal); K80.20 Calculus of gallbladder without cholecystitis without obstruction
CPT/HCPCS: 36591; 71045; 76700; 76705; 80053; 82550; 83605; 83690; 84484; 85025; 87040; 93005; 96361; 96365; 96366; 96375; 96376; 99283; 99285; J1885; J1956; J2270; J2405

== ENCOUNTER 2018-02-16 14:37 | Emergency (ER) | payer MEDICARE, OTHER, SELFPAY ==
--- NOTE | 2018-02-16 14:52 | ED_ITS ---
HPI - General Adult General Chief complaint: Arrhythmia/Palpitations Stated complaint: IRREGULAR PULSE Time Seen by Provider: 02/16/18 14:51 Source: patient Mode of arrival: ambulatory Limitations: no limitations History of Present Illness HPI narrative: Patient is a 72-year-old female here for evaluation of palpitations and a slow heart rate. Patient states that earlier today she was sitting looking at pictures when she suddenly felt her heart pounding heart. Had no other symptoms associated with it to include no chest pain, shortness of breath, lightheadedness. She states she took her pulse and it was in the 40s. She states she has had a history of atrial fibrillation in the past. She is on diltiazem. States she feels better after arrival here in the ER. Related Data Home Medications Medication Instructions Recorded Confirmed amitriptyline 10 mg PO DAILY 01/22/18 01/22/18 aspirin 162 mg PO DAILY 01/22/18 01/22/18 diltiazem HCl [DILT-XR] 120 mg PO DAILY 01/22/18 01/22/18 gabapentin 100 mg PO DAILY 01/22/18 01/22/18 omeprazole 20 mg PO BID 01/22/18 01/22/18 Previous Rx's Medication Instructions Recorded hydrocodone-acetaminophen 1 tab PO Q4-6H PRN #10 tab 01/22/18 ondansetron 4 mg PO Q6-8H PRN #10 tab 01/22/18 Allergies Allergy/AdvReac Type Severity Reaction Status Date / Time chlorhexidine Allergy Unknown Verified 02/16/18 15:01 epinephrine AdvReac Verified 02/16/18 15:01 Review of Systems Constitutional Denies fever(s) and Denies headache(s) ENT Ears, Nose, Mouth, and Throat: Denies vertigo, Denies dizziness and Denies headache(s) Cardiovascular Denies chest pain, Denies chest pain with activity, Denies diaphoresis, Reports irregular heart rhythm, Denies leg edema, Denies lightheadedness, Reports palpitations, Denies dyspnea and Reports slow heart rate Respiratory Denies dyspnea Gastrointestinal Gastrointestinal: Denies abdominal pain, Denies nausea and Denies vomiting Genitourinary Denies dysuria Musculoskeletal Denies myalgias and Denies arthralgias Integumentary/Breasts Denies rash Neurologic Denies vertigo, Denies dizziness and Denies headache(s) Endocrine Reports palpitations PFSH Medical History Atrial fibrillation (Acute) Hypertension (Acute) Surgical History History of cholecystectomy (Acute) Social History marital status: household members: spouse Smoking Status: Never smoker Exam Initial Vital Signs Initial Vital Signs: Vital Signs Temperature 97.7 F 02/16/18 14:57 Pulse Rate 56 L 02/16/18 14:57 Respiratory Rate 20 02/16/18 14:57 Blood Pressure 147/59 H 02/16/18 14:57 Pulse Oximetry 99 02/16/18 14:57 Const General: cooperative, comfortable, well developed, well groomed and No acute distress Orientation: alert, awake and oriented x3 Resp Effort & Inspection: normal respiratory effort Auscultation: clear to auscultation bilaterally Cardio Rate: bradycardic Rhythm: regular rhythm Heart Sounds: no murmurs Pulses: radial pulses present GI Inspection: non-distended Palpation: soft, No firm and No tender Skin Lesions: no lesions Rashes: no rashes Neuro General: alert, awake and oriented x3 Extrem General: No edema Psych Appearance: grossly normal and well kempt Course Orders Ordered: ED Orders 02/16/18 14:53 EKG-12 Lead Stat 02/16/18 15:05 Basic Metabolic Panel Stat Complete Blood Count AUTO DIFF Stat Hepatic (Liver) Panel Stat Lipase Stat Magnesium Stat Phosphorous Stat Troponin I Stat Vital Signs - 8 hr 02/16/18 14:57 02/16/18 16:00 Temperature 97.7 F Pulse Rate 56 L 53 L Respiratory Rate 20 17 Blood Pressure 147/59 H Blood Pressure [Left Arm] 126/47 L Pulse Oximetry 99 97 Medical Decision Making Lab Data Lab results reviewed: Yes I reviewed the patient's lab results. Result diagrams: 02/16/18 15:05 02/16/18 15:05 Lab Results 02/16/18 02/16/18 02/16/18 Range/Units 15:05 15:05 15:05 WBC 8.2 (4.5-11.0) X10^3/uL RBC 4.42 (4.0-5.2) X10^6/uL Hgb 13.6 (12.0-16.0) g/dL Hct 40.2 (36-46) % MCV 90.9 (80-100) fL MCH 30.8 (26-34) PG MCHC 33.9 (30-36) % RDW 13.4 (11.6-14.8) % Plt Count 369 (150-400) X10^3/uL Neut % (Auto) 43.7 L (50-75) % Lymph % (Auto) 37.9 (25-40) % [place] % (Auto) 8.1 (3-14) % Eos % (Auto) 8.9 H (2-4) % Baso % (Auto) 1.4 (0-2) % Neut # (Auto) 3600 (9896-4790) /uL Sodium 144 (137-145) mmol/L Potassium 3.8 (3.4-5.1) mmol/L Chloride 101 (98-107) mmol/L Carbon Dioxide 28 (22-32) mmol/L BUN 14 (7-17) mg/dL Creatinine 0.70 (0.52-1.04) mg/dL Estimated GFR > 60.0 (>60) mL/min BUN/Creatinine Ratio 20.0 (6-22) Glucose 104 (80-110) mg/dL Calcium 10.0 (8.4-10.2) mg/dL Phosphorus 4.0 (2.8-4.1) mg/dL Magnesium 2.0 (1.6-2.3) mg/dL Total Bilirubin 0.5 (0.2-1.3) mg/dL Conjugated Bilirubin 0.0 (0.0-0.3) md/dL Unconjugated Bilirubin 0.1 (0.0-1.1) mg/dL AST 36 (14-36) IU/L ALT 27 (9-52) IU/L Alkaline Phosphatase 150 H (38-126) U/L Troponin I < 0.012 (0.01-0.034) ng/mL Total Protein 8.8 H (6.3-8.2) g/dL Albumin 4.8 (3.5-5.0) g/dL Globulin 4.0 (1.7-4.1) g/dL Albumin/Globulin Ratio 1.2 (1.0-2.8) Lipase 133 (23-300) U/L ECG Data Attestation: I personally reviewed and interpreted this ECG as follows: Prior ECG tracings: not available for review Interpretation: Sinus rhythm Ventricular rate of 48 Pac Normal QRS Normal axis Normal QTC Nonspecific ST T wave changes MDM Narrative Medical decision making narrative: Patient has sinus rhythm however heart rate is in the 50s. She was able to ambulate to the bathroom without symptoms. Patient is taking 180 mg Cardizem on a daily basis. She has been doing this for the past 2 weeks. Discussed with the patient regarding her symptoms. Will have her check her heart rate tomorrow and if it is less than 70 will have her skip her dose of Cardizem. Will have her call her primary care doctor on Sunday for follow-up. She was given return precautions. Both her and her expressed understanding and agreement with plan. Discharge Plan Departure Patient Disposition: Home Clinical Impression: Palpitations, Bradycardia Instructions: DI for Bradycardia, DI for Palpitations Activity Restrictions/Additional Instructions: Recommend that tomorrow morning before you take your dose of Cardizem that you check your heart rate. If it is less than 70 recommend you skip your dose of Cardizem. On Sunday contact your primary doctor for follow-up. Return to the emergency department for any new symptoms, worsening symptoms, lightheadedness, chest pain, shortness of breath or any other concerning symptoms. Prescriptions: No Action hydrocodone-acetaminophen 5-325 mg tablet 1 tab PO Q4-6H PRN (Reason: pain) Qty: 10 RF: 0 ondansetron 4 mg tablet,disintegrating 4 mg PO Q6-8H PRN (Reason: nausea and vomiting) Qty: 10 RF: 0 aspirin 81 mg Tablet,Chewable 162 mg PO DAILY RF: 0 amitriptyline 10 mg tablet 10 mg PO DAILY RF: 0 diltiazem HCl [DILT-XR] 120 mg capsule,ext.rel 24h degradable 120 mg PO DAILY RF: 0 omeprazole 20 mg capsule,delayed release(DR/EC) 20 mg PO BID RF: 0 gabapentin 100 mg capsule 100 mg PO DAILY RF: 0
[2018-02-16 14:57] VITALS: BP 147/59; PULSE 56; RESP 20; TEMP 36.5; O2SAT 99; BMI 25.1
[2018-02-16 15:16] LABS: Add Manual Diff / Slide Review NO; Basophils Percent Auto 1.4 % (0-2); Eosinophils Percent Auto 8.9 % (2-4); Hematocrit 40.2 % (36-46); Hemoglobin 13.6 g/dL (12.0-16.0); Lymphocytes Percent Auto 37.9 % (25-40); Mean Corpuscular HGB Conc 33.9 % (30-36); Mean Corpuscular Hemoglobin 30.8 PG (26-34); Mean Corpuscular Volume 90.9 fL (80-100); Monocytes Percent Auto 8.1 % (3-14); Neutrophils Absolute Auto 3600 /uL (3000-5900); Neutrophils Percent Auto 43.7 % (50-75); Platelet Count 369 X10^3/uL (150-400); Red Blood Cell Count 4.42 X10^6/uL (4.0-5.2); Red Cell Distribution Width 13.4 % (11.6-14.8); White Blood Cell Count 8.2 X10^3/uL (4.5-11.0)
[2018-02-16 15:27] LABS: Alanine Aminotransferase 27 IU/L (9-52); Albumin 4.8 g/dL (3.5-5.0); Albumin Globulin Ratio 1.2 (1.0-2.8); Alkaline Phosphatase 150 U/L (38-126); Aspartate Aminotransferase 36 IU/L (14-36); Bilirubin Total 0.5 mg/dL (0.2-1.3); Bilirubin Unconjugated 0.1 mg/dL (0.0-1.1); HEMOLYSIS < 15 (0-50); Lipase 133 U/L (23-300); Total Protein 8.8 g/dL (6.3-8.2)
[2018-02-16 15:28] LABS: Blood Urea Nitrogen 14 mg/dL (7-17); Carbon Dioxide 28 mmol/L (22-32); Chloride 101 mmol/L (98-107); Estimated Glomerular Filt Rate > 60.0 mL/min (>60); Glucose 104 mg/dL (80-110); HEMOLYSIS < 15 (0-50); Potassium 3.8 mmol/L (3.4-5.1); Sodium 144 mmol/L (137-145)
[2018-02-16 15:46] LABS: Troponin I < 0.012 ng/mL (0.01-0.034)
[2018-02-16 16:00] VITALS: BP 126/47; PULSE 53; RESP 17; O2SAT 97
[2018-02-16 16:30] VITALS: BP 129/50; PULSE 55; RESP 16; O2SAT 99
== END 2018-02-16 16:59 | disposition home or self-care (01) ==
PROVIDERS: Emergency Provider Emergency Medicine; Family Provider Internal Medicine; PCP Internal Medicine
DX: R00.1 Bradycardia, unspecified (principal); R00.2 Palpitations
CPT/HCPCS: 36591; 80048; 80076; 83690; 83735; 84100; 84484; 85025; 93005; 99282; 99284

== ENCOUNTER → 2018-04-18 09:36 | Outpatient (CLI) | payer MEDICARE, OTHER, SELFPAY ==
[2018-04-18 10:13] LABS: Add Manual Diff / Slide Review NO; Basophils Absolute Auto 100 /uL (0-100); Basophils Percent Auto 1.1 % (0-2); Eosinophils Absolute Auto 500 /uL (0-450); Eosinophils Percent Auto 5.8 % (2-4); Hematocrit 38.4 % (36-46); Hemoglobin 13.3 g/dL (12.0-16.0); Lymphocytes Absolute Auto 3200 /uL (1100-4500); Lymphocytes Percent Auto 35.5 % (25-40); Mean Corpuscular HGB Conc 34.6 % (30-36); Mean Corpuscular Hemoglobin 31.1 PG (26-34); Mean Corpuscular Volume 89.8 fL (80-100); Monocytes Absolute Auto 800 /uL (0-900); Monocytes Percent Auto 9.4 % (3-14); Neutrophils Absolute Auto 4300 /uL (1500-7000); Neutrophils Percent Auto 48.2 % (50-75); Platelet Count 276 X10^3/uL (150-400); Red Blood Cell Count 4.27 X10^6/uL (4.0-5.2); White Blood Cell Count 8.9 X10^3/uL (4.5-11.0)
[2018-04-18 10:16] LABS: BUN Creatinine Ratio 21.3 (6-22); Blood Urea Nitrogen 17 mg/dL (7-17); Calcium 9.7 mg/dL (8.4-10.2); Carbon Dioxide 30 mmol/L (22-32); Chloride 99 mmol/L (98-107); Cholesterol 211 mg/dL (140-199); Estimated Glomerular Filt Rate > 60.0 mL/min (>60); Glucose 97 mg/dL (80-110); HDL Cholesterol 55 mg/dL (40-60); HEMOLYSIS < 15 (0-50); LDL Cholesterol Calculated 137 mg/dL (<100); Potassium 4.8 mmol/L (3.4-5.1); Sodium 138 mmol/L (137-145); Triglycerides 95 mg/dL (35-150)
== END ==
PROVIDERS: Family Provider Internal Medicine; PCP Internal Medicine; Visit Provider Internal Medicine Cardiovascular Disease
DX: I10 Essential (primary) hypertension (principal)
CPT/HCPCS: 36415; 80048; 80061; 85025

== ENCOUNTER 2018-11-06 12:53 | Day surgery (SDC) | payer MEDICARE, OTHER, SELFPAY ==
[2018-11-06] VITALS (7 sets, daily range): BP systolic 126–154; BP diastolic 62–70; PULSE 60–68; RESP 12–18; TEMP 36.3–36.9; O2SAT 91–100; BMI 25.1
--- NOTE | 2018-11-06 | PATH_ITS ---
[facility] Accession Number: [id number] . 01 Material submitted: . PART A: gastrointestinal site - GASTRIC BIOPSIES PART B: esophagus - ESOPHAGEAL BIOPSIES . 01 Clinical history: . A: RULE OUT H.PYLORI . 02 Diagnosis: A. Gastric Biopsy: Mild chronic gastritis involving antral mucosa. Negative for evidence of Helicobacter on H/E stain. Negative for intestinal metaplasia. Negative for dysplasia and malignancy. . B. Esophageal Biopsies: Fragments of squamous mucosa with mild chronic esophagitis and reactive squamous epithelial changes. No glandular mucosa identified. Negative for dysplasia and malignancy. [facility]/11/08/2018 . 02 Electronically signed: . Zaid Macdonald MD, Pathologist NPI- [id number] . 01 Gross description: . Part A: GASTRIC BIOPSIES: Received in formalin are 2 fragment(s) of givens, soft tissue measuring 0.3 x 0.2 x 0.2 cm to 0.2 x 0.1 x 0.1 cm submitted entirely in 1 cassette(s) Part B: ESOPHAGEAL BIOPSIES: Received in formalin are multiple fragment(s) of givens, soft tissue measuring 0.2 x 0.1 x 0.1 cm submitted entirely in 1 cassette(s) /CKI /CKI . 02 Pathologist provided ICD-10: K29.70 . 02 CPT . 903637, [id number] Performed at: 01 [facility] [address] [place] [address], [place], [place] [id number] MD Manny Evans MD Phone: [phone] Performed at: 02 [facility] [address] [place], [place] [id number] MD Shireen Yee MD Phone: [phone]
--- NOTE | 2018-11-06 13:54 | PM.HP.1 ---
History of Present Illness Date Patient Seen: 11/06/18 Time Patient Seen: 13:54 Chief complaint: [id number] EGD W/BX Narrative: GE reflux and hoarseness Patient History Medical History (Updated 11/05/18 @ 15:45 by Margret Serrato RN) Gastric reflux (Acute) History of pancreatitis (Acute) Hoarseness (Acute) Atrial fibrillation (Acute) Hypertension (Acute) Surgical History (Updated 11/05/18 @ 15:45 by Margret Serrato RN) History of arthroscopy (Acute) History of lumpectomy (Acute) History of tonsillectomy (Acute) History of cholecystectomy (Acute) Social History (Updated 02/16/18 @ 15:28 by Italo Smith DO) marital status: household members: spouse Smoking Status: Never smoker Family & Social History Social History: household members spouse Tobacco & Substance use: Smoking Status Never smoker alcohol intake frequency holiday/special occasion Substance Use Type does not use Meds Home Medications Medication Instructions Recorded Confirmed Type amitriptyline 10 mg PO DAILY 01/22/18 01/22/18 History aspirin 162 mg PO DAILY 01/22/18 01/22/18 History diltiazem HCl [DILT-XR] 120 mg PO DAILY 01/22/18 01/22/18 History gabapentin 100 mg PO DAILY 01/22/18 01/22/18 History hydrocodone-acetaminophen 1 tab PO Q4-6H PRN #10 tab 01/22/18 Rx omeprazole 20 mg PO BID 01/22/18 01/22/18 History ondansetron 4 mg PO Q6-8H PRN #10 tab 01/22/18 Rx Allergies Allergy/AdvReac Type Severity Reaction Status Date / Time chlorhexidine Allergy Unknown Verified 02/16/18 15:01 epinephrine AdvReac Verified 02/16/18 15:01 Exam Narrative Exam Narrative: Oropharynx free of lesions Chest clear to auscultation percussion Cardiac exam reveals no S3 or murmur Assessment & Plan Assessment & Plan narrative: GE reflux with hoarseness rule out underlying esophagitis. Risks, benefits, alternatives have been explained. EGD will be performed today.
--- NOTE | 2018-11-06 13:55 | PM.OP.ENDO ---
Operative Date/Time/Diagnoses Date of procedure: 11/06/18 Time of procedure: 13:55 Pre-op diagnosis: See indication and findings Procedure & Clinicians Study performed: EGD Same procedure as scheduled: Yes Indications: GE reflux and hoarseness Surgeon: Zen Wade Procedure Notes Procedure in detail: After informed consent was obtained the patient was placed in left lateral decubitus position. The video upper scope was placed into the oropharynx with the patient's health swallowed into the esophagus. The esophagus, stomach, duodenum were carefully examined. On withdrawal, retroflexed view the GE junction was performed. The scope was removed. The patient tolerated the procedure well. Blood loss none Complications none Sedation Total sedation time 5 mg fentanyl 100 mg IV titration Findings 1. Subtle furrows in the distal esophagus biopsies taken to rule out eosinophilic esophagitis 2. Linear gastric erythema in the antrum biopsies taken to rule out Helicobacter 3. Normal duodenal bulb and sweep Patient will be called by the office to be set up for a [employer] LPR monitor to help workup her hoarseness.
[2018-11-06] MEDS: MIDAZOLAM 5 MG/5 ML VIAL IV (16:07)
[2018-11-06] MEDS: fentaNYL 250 MCG/5 ML INJ IV (16:08)
== END 2018-11-06 16:51 | disposition home or self-care (01) ==
PROVIDERS: Family Provider Internal Medicine; PCP Internal Medicine; Visit Provider Internal Medicine Gastroenterology
PROC: 0DJ08ZZ Inspection of Upper Intestinal Tract, Via Natural or Artificial Opening Endoscopic (ICD-10-PCS; CPT 43235; principal; 2018-11-06 15:00)
DX: K21.0 Gastro-esophageal reflux disease with esophagitis (principal); K29.50 Unspecified chronic gastritis without bleeding; R49.0 Dysphonia; I10 Essential (primary) hypertension; I48.91 Unspecified atrial fibrillation
CPT/HCPCS: 43239; 88305; J2250; J3010

== ENCOUNTER → 2018-12-20 11:07 | Outpatient (CLI) | payer MEDICARE, OTHER, SELFPAY ==
--- NOTE | 2018-12-20 | DI.MG.S_ITS ---
BILATERAL DIGITAL SCREENING MAMMOGRAM 3D/2D WITH CAD: 12/20/2018 CLINICAL: Routine screening. Comparison is made to exams dated: 12/19/2017 mammogram - [facility], 01/12/2017 specimen, and 01/12/2017 stereotactic biopsy - [facility] [place] [facility]. There are scattered fibroglandular elements in both breasts. Current study was also evaluated with a Computer Aided Detection (CAD) system. There are benign post operative findings in the right breast. There also are benign post operative findings and biopsy clip in the left breast. No significant masses, calcifications, or other findings are seen in either breast. There has been no significant interval change. IMPRESSION: There is no mammographic evidence of malignancy. A 1 year screening mammogram is recommended. This exam was interpreted at Station ID: [id number]. NOTE: For mammograms, a report in lay terms will be sent to the patient. Approximately 15% of breast malignancies will not be visualized mammographically. In the management of a palpable breast mass, a negative mammogram must not discourage biopsy of a clinically suspicious lesion. Electronically Signed By: Florinda neff/toi:12/20/2018 14:40:21 letter sent: Normal Exam ACR BI-RADS Category 2: Benign Finding(s) 3342F
== END ==
PROVIDERS: Family Provider Internal Medicine; PCP Internal Medicine; Visit Provider Internal Medicine
DX: Z12.31 Encounter for screening mammogram for malignant neoplasm of breast (principal)
CPT/HCPCS: 77063; 77067

== ENCOUNTER → 2019-12-22 12:10 | Outpatient (CLI) | payer MEDICARE, OTHER, SELFPAY ==
--- NOTE | 2019-12-22 | DI.MG.S_ITS ---
BILATERAL DIGITAL SCREENING MAMMOGRAM 3D/2D WITH CAD: 12/22/2019 CLINICAL: Routine screening. Comparison is made to exams dated: 12/20/2018 mammogram, 12/19/2017 mammogram, 12/27/2016 mammogram, 12/27/2015 mammogram, and 11/19/2014 mammogram - [facility]. There are scattered fibroglandular elements in both breasts. Current study was also evaluated with a Computer Aided Detection (CAD) system. There are benign post operative findings in both breasts. No significant masses, calcifications, or other findings are seen in either breast. There has been no significant interval change. IMPRESSION: BENIGN There is no mammographic evidence of malignancy. A 1 year screening mammogram is recommended. This exam was interpreted at Station ID: [id number]. NOTE: For mammograms, a report in lay terms will be sent to the patient. Approximately 15% of breast malignancies will not be visualized mammographically. In the management of a palpable breast mass, a negative mammogram must not discourage biopsy of a clinically suspicious lesion. Electronically Signed By: Gianluca johnson/toi:12/22/2019 15:06:58 letter sent: Normal Exam ACR BI-RADS Category 2: Benign Finding(s) 3342F
== END ==
PROVIDERS: Family Provider Internal Medicine; PCP Internal Medicine; Referring Provider Internal Medicine; Visit Provider Internal Medicine
DX: Z12.31 Encounter for screening mammogram for malignant neoplasm of breast (principal)
CPT/HCPCS: 77063; 77067

== ENCOUNTER → 2019-12-23 09:23 | Outpatient (CLI) | payer MEDICARE, OTHER, SELFPAY ==
[2019-12-23 11:56] LABS: Alanine Aminotransferase 19 IU/L (<35); Albumin 4.6 g/dL (3.5-5.0); Albumin Globulin Ratio 1.4 (1.0-2.8); Alkaline Phosphatase 101 U/L (38-126); Aspartate Aminotransferase 30 IU/L (14-36); BUN Creatinine Ratio 15.6 (6-22); Bilirubin Total 0.6 mg/dL (0.2-1.3); Blood Urea Nitrogen 12 mg/dL (7-17); Calcium 9.6 mg/dL (8.4-10.2); Carbon Dioxide 32 mmol/L (22-32); Chloride 90 mmol/L (98-107); Cholesterol 212 mg/dL (140-199); Estimated Glomerular Filt Rate > 60.0 mL/min (>60); Globulin 3.2 g/dL (1.7-4.1); Glucose 88 mg/dL (80-110); HDL Cholesterol 51 mg/dL (40-60); HEMOLYSIS < 15 (0-50); LDL Cholesterol Calculated 118 mg/dL (<100); Potassium 4.7 mmol/L (3.4-5.1); Sodium 130 mmol/L (137-145); Total Protein 7.8 g/dL (6.3-8.2); Triglycerides 214 mg/dL (35-150)
== END ==
PROVIDERS: Family Provider Internal Medicine; PCP Internal Medicine; Referring Provider Internal Medicine; Visit Provider Internal Medicine
DX: I10 Essential (primary) hypertension (principal); E78.5 Hyperlipidemia, unspecified
CPT/HCPCS: 36415; 80053; 80061

== ENCOUNTER 2020-01-13 11:12 | Emergency (ER) | payer MEDICARE, OTHER, SELFPAY ==
[2020-01-13] VITALS (24 sets, daily range): BP systolic 141–218; BP diastolic 71–130; PULSE 58–134; RESP 8–34; TEMP 36.7; O2SAT 94–100; BMI 25.0
--- NOTE | 2020-01-13 11:31 | ED_ITS ---
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 Symptoms started this morning. She took her regular dose of diltiazem and then took an extra dose of the diltiazem in the still feeling palpitations. No chest pain. No shortness of breath. No lightheadedness. Related Data Home Medications Medication Instructions Recorded Confirmed amitriptyline 10 mg PO DAILY 01/22/18 11/06/18 aspirin 162 mg PO DAILY 01/22/18 11/06/18 gabapentin 100 mg PO DAILY 01/22/18 11/06/18 omeprazole 20 mg PO BID 01/22/18 11/06/18 fluticasone propionate [Flonase 1 spray INTRANASAL DAILY 11/06/18 11/06/18 Allergy Relief] diltiazem HCl 30 mg PO BID 01/13/20 01/13/20 Allergies Allergy/AdvReac Type Severity Reaction Status Date / Time chlorhexidine Allergy Unknown Verified 01/13/20 11:26 epinephrine AdvReac Verified 01/13/20 11:26 Review of Systems Constitutional Constitutional: Denies fever(s) and Denies headache(s) ENT Ears, Nose, Mouth, and Throat: Denies headache(s) Cardiovascular Cardiovascular: Denies chest pain, Reports rapid heart rate, Reports irregular h eart rhythm and Denies dyspnea Respiratory Respiratory: Denies dyspnea Gastrointestinal Gastrointestinal: Denies abdominal pain, Denies nausea and Denies vomiting Integumentary/Breasts Skin/Breast: Denies lesions and Denies rash Neurologic Neurologic: Denies behavioral changes and Denies headache(s) Psychiatric Psychiatric: Denies behavioral changes Hematologic/Lymphatic Hematologic/Lymphatic: Denies easy bleeding and Denies easy bruising Patient History Medical History Atrial fibrillation (Acute) Gastric reflux (Acute) History of pancreatitis (Acute) Hoarseness (Acute) Hypertension (Acute) Surgical History (Updated 11/05/18 @ 15:45 by Margret Serrato RN) History of arthroscopy (Acute) History of cholecystectomy (Acute) History of lumpectomy (Acute) History of tonsillectomy (Acute) Social History marital status: household members: spouse Smoking Status: Never smoker Smoking Status: Never smoker alcohol intake frequency: holidays/special occasions only Substance Use Type: does not use Exam Initial Vital Signs Initial Vital Signs: Vital Signs Temperature 98.1 F 01/13/20 11:15 Pulse Rate 122 H 01/13/20 11:15 Respiratory Rate 24 01/13/20 11:15 Blood Pressure 185/83 H 01/13/20 11:15 Pulse Oximetry 95 01/13/20 11:15 Const General: cooperative and comfortable Limitations: mental status not altered HENMT Head: normal to inspection and normocephalic Resp Effort & Inspection: normal respiratory effort Auscultation: clear to auscultation bilaterally Cardio Rate: tachycardic Rhythm: abnormal rhythm Pulses: radial pulses present Skin Lesions: no lesions Rashes: no rashes Neuro General: patient alert and patient awake Cognition: normal cognition Speech: speech normal Extrem General: normal to inspection, capillary refill normal and No edema Psych Appearance: grossly normal and well kempt Procedures Cardioversion Consent Signed: Yes Indication: AFib Stability: Stable Number of attempts (shocks): 1 Joules used: 150 Cardiac rhythm post-cardioversion: Sinus rhythm Procedural Sedation Consent signed: Yes Time out performed: Yes Indication: cardioversion Presedation Evaluation: See note ASA Class: II Mallampati Airway Classification: Class II Preparation: security monitor applied, pulse oximeter, capnometry used, supplemental O2 applied and suction/airway equipment at bedside Fentanyl: IV Fentanyl dose (mcg): 50 IV Propofol dose (mg): 80 ED Sedation Level: Moderate (Concious) Complications: hypoventilation Interventions: Airway repositioned and Assist by BVM Scores GCS [place] coma scale eye opening: Spontaneous [place] coma scale verbal response: Orientated [place] coma scale motor response: Obey commands Rito coma scale total score: 15 Course Orders Ordered: ED Orders 01/13/20 11:15 EKG-12 Lead Stat 01/13/20 12:11 EKG-12 Lead Stat Sodium Chloride (Normal Saline 0.9%) 1,000 mls @ 125 mls/hr IV CONT DALJIT Last Infusion: 01/13/20 13:07 Dose: 0 mls/hr Documented by: Admin: 01/13/20 11:53 Dose: 125 mls/hr Documented by: MARLEEN Discontinued Medications Fentanyl (Sublimaze) 50 mcg IV NOW ONE Stop: 01/13/20 11:37 Last Admin: 01/13/20 12:00 Dose: 50 mcg Documented by: MARLEEN Propofol (Diprivan) 80 mg 1 mg/kg (80 mg) IV NOW ONE Stop: 01/13/20 11:37 Last Admin: 01/13/20 12:02 Dose: 80 mg Documented by: MARLEEN Vital Signs Vital signs: Vital Signs - 8 hr 01/13/20 11:15 01/13/20 11:31 01/13/20 11:33 Temperature 98.1 F Pulse Rate 122 H 107 H 106 H Respiratory Rate 24 33 H 30 H Blood Pressure 185/83 H 218/130 H Pulse Oximetry 95 94 99 01/13/20 11:35 01/13/20 11:40 01/13/20 11:45 Temperature Pulse Rate 134 H 101 H 90 Respiratory Rate 34 H 11 L 12 Blood Pressure 185/112 H Pulse Oximetry 98 99 100 01/13/20 11:50 01/13/20 11:57 01/13/20 12:00 Temperature Pulse Rate 92 H 101 H 98 H Respiratory Rate 22 27 H 28 H Blood Pressure 205/129 H 185/104 H Pulse Oximetry 99 99 98 01/13/20 12:05 01/13/20 12:10 01/13/20 12:11 Temperature Pulse Rate 93 H 69 68 Respiratory Rate 21 28 H 24 Blood Pressure 193/125 H 179/106 H Pulse Oximetry 100 100 100 01/13/20 12:15 01/13/20 12:16 01/13/20 12:20 Temperature Pulse Rate 67 67 66 Respiratory Rate 25 H 24 18 Blood Pressure 171/71 H 141/75 H Pulse Oximetry 100 99 99 01/13/20 12:25 01/13/20 12:30 01/13/20 12:35 Temperature Pulse Rate 63 64 58 L Respiratory Rate 24 17 25 H Blood Pressure 145/88 H 146/96 H 143/91 H Pulse Oximetry 99 98 99 01/13/20 12:40 01/13/20 12:45 01/13/20 12:50 Temperature Pulse Rate 61 64 58 L Respiratory Rate 20 15 16 Blood Pressure 143/98 H Pulse Oximetry 98 96 100 01/13/20 12:55 01/13/20 13:00 Temperature Pulse Rate 59 L 62 Respiratory Rate 8 L 9 L Blood Pressure 155/83 H Pulse Oximetry 99 97 MDM - Arrhythmia/Palpitations Lab Data Labs: Point of Care Testing Test Results Not applicable ECG Data Attestation: I personally reviewed and interpreted this ECG as follows: Prior ECG tracings: not available for review Interpretation: AFib Ventricular rate 103 Normal axis Normal QRS QTC No ST T wave changes Post cardioversion EKG Sinus rhythm Ventricular rate is 71 Normal axis Normal QRS Normal QTC No ST T wave changes MDM Narrative Medical decision making narrative: Patient is stable AFib with RVR that has persisted after taking her normal dose of diltiazem and also a extra dose. She is certain that she has taking her anticoagulation every day for at least the last month and she thinks at least for the past several months she has been on anticoagulation on a daily basis without missing a dose. Discussed with her the risks and benefits of sedation and cardioversion after this discussion she did sign consent form. Patient was sedated with propofol and converted with 1 150 joule shock. Post cardioversion EKG shows sinus rhythm. Patient did have a short episode of apnea after the propofol but had no desaturations and recovered quickly. Bag-valve mask was provided for assistance in helping her breathe during this time. Will have her continue all of her medications to include her anticoagulation however contact her primary provider. She expressed understanding and agreement. Discharge Plan Departure Patient Disposition: Home Clinical Impression: Atrial fibrillation Instructions: DI for Atrial Fibrillation Activity Restrictions/Additional Instructions: Continue all of your medications as directed to include your diltiazem and also your blood thinners. Contact her primary provider for follow-up. Return to the emergency department for any new or worsening symptoms Prescriptions: No Action aspirin 81 mg Tablet,Chewable 162 mg PO DAILY RF: 0 amitriptyline 10 mg tablet 10 mg PO DAILY RF: 0 omeprazole 20 mg capsule,delayed release(DR/EC) 20 mg PO BID RF: 0 gabapentin 100 mg capsule 100 mg PO DAILY RF: 0 fluticasone propionate [Flonase Allergy Relief] 50 mcg/actuation [place],Susp ension 1 spray INTRANASAL DAILY RF: 0 diltiazem HCl 30 mg tablet 30 mg PO BID RF: 0 Referrals: Gita Pabon MD [Primary Care Provider] -
[2020-01-13] MEDS: SODIUM CHLORIDE 0.9% 1,000 ML 125 ML IV (11:53)
[2020-01-13] MEDS: fentaNYL 100 MCG/2 ML INJ 50 MCG IV (12:00)
[2020-01-13] MEDS: propofoL 200 MG/20 ML VIAL 80 MG IV (12:02)
== END 2020-01-13 13:27 | disposition home or self-care (01) ==
PROVIDERS: Emergency Provider Emergency Medicine; Family Provider Internal Medicine; PCP Internal Medicine
DX: I48.91 Unspecified atrial fibrillation (principal); R00.0 Tachycardia, unspecified; Z79.01 Long term (current) use of anticoagulants
CPT/HCPCS: 36415; 92960; 93005; 93010; 94770; 96360; 99285; 99291; J2704; J3010

== ENCOUNTER → 2020-01-15 09:24 | Outpatient (CLI) | payer MEDICARE, OTHER, SELFPAY ==
[2020-01-15 11:32] LABS: BUN Creatinine Ratio 19.4 (6-22); Blood Urea Nitrogen 14 mg/dL (7-17); Calcium 9.5 mg/dL (8.4-10.2); Carbon Dioxide 31 mmol/L (22-32); Chloride 100 mmol/L (98-107); Estimated Glomerular Filt Rate > 60.0 mL/min (>60); Glucose 91 mg/dL (80-110); HEMOLYSIS < 15 (0-50); Potassium 4.1 mmol/L (3.4-5.1); Sodium 136 mmol/L (137-145)
== END ==
PROVIDERS: Family Provider Internal Medicine; PCP Internal Medicine; Referring Provider Internal Medicine; Visit Provider Internal Medicine
DX: I10 Essential (primary) hypertension (principal)
CPT/HCPCS: 36415; 80048

== ENCOUNTER → 2020-08-31 09:37 | Outpatient (CLI) | payer MEDICARE, OTHER, SELFPAY ==
[2020-08-31 11:56] LABS: BUN Creatinine Ratio 18.9 (6-22); Blood Urea Nitrogen 14 mg/dL (7-17); Calcium 9.4 mg/dL (8.4-10.2); Carbon Dioxide 28 mmol/L (22-32); Chloride 100 mmol/L (98-107); Estimated Glomerular Filt Rate > 60.0 mL/min (>60); Glucose 81 mg/dL (80-110); HEMOLYSIS < 15 (0-50); Magnesium 2.1 mg/dL (1.6-2.3); Potassium 4.8 mmol/L (3.4-5.1); Sodium 136 mmol/L (137-145)
[2020-08-31 12:22] LABS: Thyroid Stimulating Hormone 2.24 uIU/mL (0.47-4.68)
--- OUTSIDE RECORDS SUMMARY | 2020-09-08 08:18 | XMS_ITS | Referral Summary ---
:[address] [facility] Address [address] [place] [id number] Care Team Providers Name Role Phone Aram PabonHomer Primary Care Provider Reason for Referral Diagnostic Imaging (Routine) Status Reason Specialty Diagnoses / Referred By Referred To Procedures Contact Contact Authorized Specialty Radiology Diagnoses Typical atrial flutter (CMS/HCC) Pramod Mansfield, [facility] Special Services Required Procedures SI EP ABLATION SVT Imaging [facility] [address] [place] [address] [place] [address] Phone: Electronically signed by Pramod Mansfield MD atConsultation (Routine) Status Reason Specialty Diagnoses / Referred By Referred To Procedures Contact Contact Closed Specialty Diagnoses Paroxysmal atrial fibrillation (CMS/HCC) Typical atrial flutter (CMS/HCC) [facility] Trenton Colunga MD [address] [facility] [address] [place] [address] [address] [phone] [place], [place] Phone: [phone] Electronically signed by Eros Amaya MD atDurable Medical Equipment (Routine) Status Reason Specialty Diagnoses / Procedures Referred By C ontact Referred To Contact Closed Cardiology Diagnoses Paroxysmal atrial fibrillation (CMS/HCC) Typical atrial flutter (CMS/HCC) Eros Amaya, Elise Nelda Cardiology Procedures Monitor - 7 Day Placed During Visit [facility], [address] [place] [address] [address] [place] [phone] Phone: Phone: Fax: Electronically signed by Eros Amaya MD at Reason for Visit Reason Comments Palpitations Atrial Fibrillation Encounter Details Date Type Department Care Team Description 08/30/2020 Office Visit [facility] Eros Amaya Paroxysmal atrial fibrillation (CMS/HCC) (Primary Dx); Clinics Cardiology SMD Homer Palpitations; [place] [address] [place] [address] Typical atrial flutter (CMS/ HCC); [address] [place] [address], [address] Essential hypertension; [address] [place], [place] [id number] Allergies Active Allergy Reactions Severity Noted Date Comments Budesonide Rash Low 01/15/2017 Chlorhexidine Rash Low 11/15/2015 Other reaction (s): red rash, itchi ng, burning Skin prep Other reaction( s): red rash, itchi ng, burning Epinephrine Other (see comments) 12/31/2009 Pulse i s increasing Other reaction( s): rapid pulse Other reaction( s): rapid pulse Triamcinolone Acetonide Rash Medium 01/15/2017 documented as of this encounter (statuses as of 09/07/2020) Medications Medication Sig Dispensed Refills Start End Date Status Date fexofenadine Take 180 mg by 0 Ac tive (MICHAEL) 60 mg mouth as needed tablet prn ycxjfcoe-ccv-zjog- daily. 0 A ctive FA-lutein (CENTRUM 0 SILVER WOMEN) 8 mg iron-400 mcg-300 mcg tablet clindamycin apply by 0 Active (CLEOCIN T) 1 % topical route 2 5 lotion times every day a thin layer to the affected area(s) for 4 weeks clobetasol every 12 hours. 0 Act jon (TEMOVATE) 0.05 % prn 5 external solution omeprazole 40 mg 2 (two) 0 Activ e (PriLOSEC) 20 mg times a day capsule magnesium 250 mg Take by mouth 0 Active tablet daily. CHOLECALCIFEROL, Take by mouth 0 Active VITAMIN D3, daily. (D3-2000 ORAL) CYANOCOBALAMIN, Take by mouth. 0 Active VITAMIN B-12, (LIQUID B 12 ORAL) biotin 1 mg tablet Take 1,000 mcg 0 Active by mouth daily. timolol (TIMOPTIC) Administer 1 0 Active 0.25 % ophthalmic drop into both solution eyes 2 (two) times a day acetaminophen Take 650 mg by 0 A ctive (TYLENOL) 650 mg 8 mouth daily hr tablet with breakfast loratadine Take 10 mg by 0 Activ e (CLARITIN) 10 mg mouth as needed tablet amitriptyline Take 20-30 mg 0 Ac tive (ELAVIL) 10 mg by mouth tablet nightly calcium daily 0 Active carbonate-vitamin D3 500 mg(1,250mg) -200 unit per tablet gabapentin Take 200 mg by 0 Acti ve (NEURONTIN) 100 mg mouth nightly capsule famotidine (PEPCID Take 1 tablet 0 Active ORAL) by mouth daily apixaban (ELIQUIS) Take 1 tablet 180 tablet 3 Active 5 mg tablet (5 mg total) by 0 mouth 2 (two) times a day flecainide Take 2 tablets 6 tablet 1 Acti ve (TAMBOCOR) 100 mg (200 mg total) 0 tablet by mouth daily as needed (Persistent atrial fibrillation) Go to ER to be monitored on first use. Do not take more than 200 mg in any 24 hr period. losartan (COZAAR) Take 50 mg by 0 08/31/19 Discontinued 100 mg tablet mouth daily 0 21 diltiazem Take 1 tablet 270 tablet 3 08/31/19 Disco ntinued (CARDIZEM) 30 mg (30 mg total) 0 21 (Dose tablet by mouth 3 adjustmen t) (three) times a day diltiazem CD Take 180 mg by 0 09/05/19 Di scontinued (CARDIZEM CD) 180 mouth 2 (two) 1 21 (Reorder) mg 24 hr capsule times a day documented as of this encounter (statuses as of 09/07/2020) Active Problems Problem Noted Date Dyslipidemia 05/30/2018 Palpitations 04/15/2018 Paroxysmal atrial fibrillation 04/15/2018 Essential hypertension 04/15/2018 SVT (supraventricular tachycardia) 04/15/2018 Raynaud's phenomenon without gangrene 04/15/2018 Hypokalemia 04/15/2018 Tear of meniscus of right knee as current injury 12/05 Overview: Added automatically from request for christen walsh [id number] Lateral knee pain, right 10/17/2017 Status post unicompartmental knee replacement, right 1 Osteoarthritis of right knee 01/02/2017 Last Assessment & Plan: Impression: The diagnosis of osteoarthritis of the l ateral knee as the primary source of the patient's symptoms was discussed with the patient. The natural history of the disease and the principles of management we re reviewed. Nonsurgical management util izing activity modifications, braces and orthotic appliances, assisted devices, medications for pain management, physical therapy, and injections were reviewed with the patient. An injection of synvisc mixed with corti sone was performed today using proper aseptic technique. Written consent was obtained from the patient. Plan: Synvisc with cortisone injection given t sofi. I hope you will obtain sustained relief from this. Please refer to the injection handout. You are welcome to return as you see indicated. Eczema 03/23/2014 documented as of this encounter (statuses as of 09/07/2020) Social History Tobacco Use Types Packs/Day Years Used Date Never Smoker Smokeless Tobacco: Never Used Alcohol Use Standard Drinks/Week Comments Yes 2 (1 standard drink = 0.6 oz pure alcoho l) Sex Assigned at Date Recorded Not on file Job Start Date Occupation Industry Not on file Not on file Not on file documented as of this encounter Last Filed Vital Signs Vital Sign Reading Time Taken Comments Blood Pressure 158/60 08/30/2020 2:07 PM PDT Pulse 82 08/30/2020 2:07 PM PDT Temperature - - Respiratory Rate - - Oxygen Saturation - - Inhaled Oxygen Concentration - - Weight 83.9 kg (185 lb) 08/30/2020 2:07 PM PDT Height 176.5 cm (5' 9.49) 08/30/2020 2:07 PM PDT Body Mass Index 26.94 08/30/2020 2:07 PM PDT documented in this encounter Patient Instructions Patient InstructionsEros Amaya MD - 08/30/2020 2:00 PM PDT Images from the original note were not included. Patient Education A-fib (Atrial Fibrillation) WHAT YOU NEED TO KNOW: A-fib may come and go, or it may be a long-term condition. A-fib can cause blood clots, stroke, or heart failure. These conditions may become life-threatening. It is important to treat and manage A-fibto help prevent a blood clot, stroke, or heart failure. DISCHARGE INSTRUCTIONS: Call your local emergency number (911 in the ) or have someone call if: ?? You have any of the following signs of a heart attack: ? Squeezing, pressure, or pain in your chest ? You may also have any of the following: ?? Discomfort or pain in your back, neck, jaw, stomach, or arm ?? Shortness of breath ?? Nausea or vomiting ?? Lightheadedness or a sudden cold sweat ?? You have any of the following signs of a stroke: ? Numbness or drooping on one side of your face ? Weakness in an arm or leg ? Confusion or difficulty speaking ? Dizziness, a severe headache, or vision loss Call your doctor or journeyman power plant operator if: ?? Your arm or leg feels warm, tender, and painful. It may look swollen and red. ?? Your heart rate is more than 110 beats per minute. ?? You have new or worsening swelling in your legs, feet, ankles, or abdomen. ?? You are short of breath, even at rest. ?? You have questions or concerns about your condition or care. Medicines: You may need any of the following: ?? Heart medicines help control your heart rate or rhythm. You may need more than one medicine to treat your symptoms. ?? Blood thinners help prevent blood clots. Clots can cause strokes, heart attacks, and . The following are general safety guidelines to follow while you are taking a blood thinner: ? Watch for bleeding and bruising while you take blood thinners. Watch for bleeding from your gums or nose. Watch for blood in your urine and bowel movements. Use a soft washcloth on your skin, and a soft toothbrush to brush your teeth. This can keep your skin and gums from bleeding. If you shave, usean electric shaver. Do not play contact sports. ? Tell your dentist and other healthcare providers that you take a blood thinner. Wear a bracelet ornecklace that says you take this medicine. ? Do not start or stop any other medicines unless your healthcare provider tells you to. Many medicines cannot be used with blood thinners. ? Take your blood thinner exactly as prescribed by your healthcare provider. Do not skip does or take less than prescribed. Tell your provider right away if you forget to take your blood thinner, or ifyou take too much. ? Warfarin is a blood thinner that you may need to take. The following are things you should be aware of if you take warfarin: ?? Foods and medicines can affect the amount of warfarin in your blood. Do not make major changes toyour diet while you take warfarin. Warfarin works best when you eat about the same amount of vitaminK every day. Vitamin K is found in green leafy vegetables and certain other foods. Ask for more information about what to eat when you are taking warfarin. ?? You will need to see your healthcare provider for follow-up visits when you are on warfarin. You will need regular blood tests. These tests are used to decide how much medicine you need. ?? Antiplatelets , such as aspirin, help prevent blood clots. Take your antiplatelet medicine exactly as directed. These medicines make it more likely for you to bleed or bruise. If you are told to take aspirin, do not take acetaminophen or ibuprofen instead. ?? Take your medicine as directed. Contact your healthcare provider if you think your medicine is not helping or if you have side effects. Tell him or her if you are allergic to any medicine. Keep a list of the medicines, vitamins, and herbs you take. Include the amounts, and when and why you take them. Bring the list or the pill bottles to follow-up visits. Carry your medicine list with you in caseof an emergency. Manage A-fib: ?? Know your target heart rate. Learn how to check your pulse and monitor your heart rate. ?? Know the risks if you choose to drink alcohol. Alcohol can increase your risk for A-fib or make A-fib harder to manage. Ask your healthcare provider if it is okay for you to drink any alcohol. He or she can help you set limits for the number of drinks you have in 24 hours and in a week. A drink ofalcohol is 12 ounces of beer, 5 ounces of wine, or 1?? ounces of liquor. ?? Do not smoke. Nicotine can cause heart damage and make it more difficult to manage your A-fib. Do not use e-cigarettes or smokeless tobacco in place of cigarettes or to help you quit. They still contain nicotine. Ask your healthcare provider for information if you currently smoke and need help quitting. ?? Eat heart-healthy foods. Heart healthy foods will help keep your cholesterol low. These include fruits, vegetables, whole-grain breads, low-fat dairy products, beans, lean meats, and fish. Replace butter and margarine with heart- healthy oils such as olive oil and canola oil. ?? Maintain a healthy weight. Ask your healthcare provider what a healthy weight is for you. Ask him or her to help you create a safe weight loss plan if you are overweight. Even a small goal of a 10%weight loss can improve your heart health. ?? Get regular physical activity. Physical activity helps improve your heart health. Get at least 150 minutes of moderate aerobic physical activity each week. Your healthcare provider can help you create an activity plan. ?? Manage other health conditions. This includes high blood pressure or cholesterol, sleep apnea, diabetes, and other heart conditions. Take medicine as directed and follow your treatment plan. Your healthcare provider may need to change a medicine you are taking if it is causing your A-fib. Do not stop taking any medicine unless directed by your provider. Follow up with your doctor or journeyman power plant operator as directed: You will need regular blood tests and monitoring. Write down your questions so you remember to ask them during your visits. ?? Copyright [employer] 2019 Information is for End User's use only and may not be sold, redistributed or otherwise used for commercial purposes. All illustrations and images included in CareNotes?? are the copyrighted property of [employer] or [employer] The above information is an home care and home health aides teacher only. It is not intended as medical advice for individual conditions or treatments. Talk to your doctor, nurse or pharmacist before following any medical regimen to see if it is safe and effective for you. documented in this encounter Progress Notes Eros Amaya MD - 08/30/2020 2:00 PM PDT Subjective Patient ID: Abby Bartlett is a 75 y.o. female that had concerns including Palpitations and AtrialFibrillation. HPI: This 75 years old present female who has history of atrial fibrillation In with fast ventricular rate during acute cholecystitis and gallstone pancreatitis for which she had laparoscopic cholecystectomy at [facility], status post IV diltiazem drip, conversion to sinus rhythm, later on bradycardia on Cardizem 180 mg daily dose for which does was decreased to 120 mg daily followed by short acting Cardizem 30 mg twice a day, recurrence of A. fib on Holter monitor, seen by EP in January 2020 with recommendation of flecainide as pill in pocket approach, history of essential hypertension, fibromyalgia, Raynaud disease, history of SVT in remote past for which she was started on calcium channel veronica many years ago, who refused statin, now on anticoagulation with Eliquis 5 mg twice a day today came for follow-up. Patient on February 22, 2020 presented in the ER with recurrence of the A. fib. She was hypertensive as well. Losartan was decreased from 100 to 25 mg daily however Cardizem was increased 280 mg daily. She presented to the ER few weeks later with palpitation and found to be in sinus rhythm. CartiaXT was further increased to 120 mg twice a day. She was seen by journeyman power plant operator Dr. Mccoy at [place]. As she had 3 episodes of A. fib since December 2019, she was referred for A. fib ablation. subsequently patient underwent atrial fibrillation by in [place] on July 06, 2020. With this background history today she came for follow-up. According to the patient after A. fib ablation she was given Holter monitor and there was no recurrence of A. fib however from August 24, 2020, she is in and out of atrial fibrillation. When she gets A. fib she feels fatigued and tired. Most of the episodes happens in the night during sleep. Drinks 2 cups of coffee and 1 glass of wine 3-4 times a week. No typical anginal pain or bleeding or strokelike symptoms. She is taking Eliquis 5 mg twice a day regularly as well as after ablation Cardizem CD was increased to 180 mg twice a day whichshe has been taking it. She never took flecainide. ?ECHO: March 04, 2020: At [facility]: LVEF 65 to 70%, normal RV, moderate aortic regurgitation, mild TR and pulmonary artery systolic pressure 35 to 40 mmHg with mild left atrial enlargement. 2-D echo on January 24, 2018: INTERPRETATION SUMMARY Mild concentric left ventricular hypertrophy and normal systolic function with an estimated ejectionfraction of 60-65%. Normal right ventricular size and systolic function. Mild mitral regurgitation. Mild aortic valve insufficiency. Mild tricuspid regurgitation with right ventricular systolic pressure at upper limits of normal; 30-35 mmHg. Borderline left atrial enlargement. Rhythm is atrial fibrillation. ?? HOLTER: Holter monitor for about 6 days started January 07, 2020: Predominant underlying rhythm was Sinus with min HR of 51 bpm, max HR of 171 bpm, and avg HR of 71 bpm. 8 Supraventricular Tachycardia runs occurred, the run with the fastest interval lasting 9 beats with a max rate of 148 bpm, the longest lasting 9 beats with an avg rate of 106 bpm. Some episodes of Supraventricular Tachycardia may be possible Atrial Tachycardia with variable block and short runs of Atrial Flutter/afib. Atrial Flutter occurred (5% burden), ranging from 73-171 bpm (avg of 116 bpm), the longest lasting 6 hours 31 mins with an avg rate of 116 bpm happened on January 13, 2020 at about 5:24. Atrial Flutter was detected within +/- 45 seconds of symptomatic patient event(s) with symptoms of palpitation,lightheadedness, pounding etc Holter monitor done on April 24, 2018 for about 7 days. Predominant rhythm sinus with average heart rate 68 minimum 52 maximum 129 and first-degree AV block. 7 short run of SVT seen. No obvious A. fib seen. No ventricular tachycardia. Overall PVCs PACs burden less than 1%. In April 14, 2018 at about 10:15 p.m. she was lying on bed and felt irregular heart beat and heart racing that time rhythm was sinus with hearted about 81 and some isolated PACs. STRESS TEST: ?? Exercise stress test in May 14, 2018: Patient walked on Akash protocol for 5 minutes 19 seconds, achieved functional aerobic impairment +3%, 101% of target heart rate and hypertensive blood pressure response. Peak blood pressure 205/88. Baseline EKG revealed sinus rhythm with flattening as well as up to 0.[address] depression in inferolateral leads. During exercise there was up to 1 mm some horizontal and upsloping ST depression in inferolateral leads. Those changes quickly returned to baseline in recovery. In the recovery patient has PACs, atrial couplets as well as short burst of atrial tachycardia. No obvious A. fib. Occasional PVCs. No ventricular tachycardia. No chest discomfort. Had shortness of breath, nausea and fatigue. Conclusion: Exercise stress test is inconclusive for inducible ischemia due to baseline EKG changes.In recovery patient has some PACs, atrial couplets as well as short burst of atrial tachycardia. No A. fib or ventricular tachycardia. Hypertensive blood pressure response. Diminished exercise capacity. LABS: ?? April 18, 2018 sodium 138 potassium 4.8 BUN 17 creatinine 0.8 calcium 9.7, total cholesterol 211, HDL 55, LDL 137, triglyceride 95 my hemoglobin 13.3, platelets 276 In January 25, 2018, hemoglobin 10.2 with MCV 91.6, platelets 311, normal CPK and troponin I, BUN 5,creatinine 0.67, sodium 140, potassium 3.4, bilirubin 1.6, alkaline phosphatase 285, AST 107, ALT 142, lipase 145. In January 23, 2018 lipase 661, magnesium 1.8, TSH 1.25 ?? With this background history today she came for follow-up. According to the patient she was on Cardizem 120 mg daily for long time but her heart rate was in 50s hence discontinued by PCP. Then for blood pressure control she was started on amlodipine 5 mg daily. November 22, she felt irregular heart rate up to 80s lasted for couple of hours. That time she took 1. 120 mg Cardizem tablet. On November 28 and she felt lightheaded. She was laying down in the night and turned to the right side and she was very much lightheaded. No typical vertigo- like episodes. Denies any deafness or tinnitus or fever. On she was working on the floor and when she stood up she felt lightheaded. Her blood pressure was in 100 systolic. No significant bradycardia at that time. Since then she is doing okay. No fever or chills or bleeding or PND or orthopnea or chest pain or strokelike symptoms. EK08/30/2020: Typical atrial flutter with variable AV block, ventricular rate about 82 bpm. QTc 4 4 2 ms. Past Medical History: Diagnosis Date ??? Arrhythmia ??? Arthritis ??? Atypical ductal hyperplasia of breast, bilateral ??? Fibromyalgia ??? GERD (gastroesophageal reflux disease) ??? History of palpitations ??? Hyperlipidemia ??? Hypertension ??? Pneumonia ??? Syncope 2002 ??? 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 BREAST SURGERY tala bx ??? CATARACT EXTRACTION, BILATERAL 2016 ??? EXCISION / CURETTAGE TUMOR RADIUS Right ??? KNEE ARTHROSCOPY Right 2010 ??? PARTIAL KNEE ARTHROPLASTY Right 2017 ??? MS KNEE SCOPE,MED/LAT MENISECTOMY Right 01/07/2018 Procedure: RIGHT KNEE ARTHROSCOPY WITH MEDIAL MENISCECTOMY; Surgeon: Ankush Pryor MD; Location: [facility]; Service: Orthopedics ??? MS PLASTY KNEE,MED OR LAT COMPARTMT Right 01/15/2017 Procedure: RIGHT MEDIAL UNI KNEE ARTHROPLAST; Surgeon: Ankush Pryor MD; Location: [facility] OR; Service: Orthopedics ??? VASCULAR SURGERY vein stripping Family History Problem Relation Age of Onset ??? Cancer Mother ??? Heart attack Mother 80 [place] ??? Heart disease Mother ??? Arthritis Mother ??? Cancer Father ??? Cancer Maternal Grandmother ??? Cancer Maternal Grandfather Social History Socioeconomic History ??? Marital status: Spouse name: Not on file ??? Number of children: Not on file ??? Years of education: Not on file ??? Highest education level: Not on file Tobacco Use ??? Smoking status: Never Smoker ??? Smokeless tobacco: Never Used Substance and Sexual Activity ??? Alcohol use: Yes Alcohol/week: 2.0 - 3.0 standard drinks Types: 2 - 3 Glasses of wine per week ??? Drug use: No ??? Sexual activity: Defer control/protection: Post-menopausal Allergies Allergen Reactions ??? Triamcinolone Acetonide Rash ??? Epinephrine Other (see comments) Pulse is increasing Other reaction(s): rapid pulse Other reaction(s): rapid pulse ??? Budesonide Rash ??? Chlorhexidine Rash Other reaction(s): red rash, itching, burning Skin prep Other reaction(s): red rash, itching, burning Current Medication List Sig acetaminophen (TYLENOL) 650 mg 8 hr tablet Take 650 mg by mouth daily with breakfast amitriptyline (ELAVIL) 10 mg tablet Take 20-30 mg by mouth nightly apixaban (ELIQUIS) 5 mg tablet Take 1 tablet (5 mg total) by mouth 2 (two) times a day biotin 1 mg tablet Take 1,000 mcg by mouth daily. calcium carbonate-vitamin D3 500 mg(1,250mg) -200 unit per tablet daily CHOLECALCIFEROL, VITAMIN D3, (D3-2000 ORAL) Take by mouth daily. clindamycin (CLEOCIN T) 1 % lotion apply by topical route 2 times every day a thin layer to the affected area(s) for 4 weeks clobetasol (TEMOVATE) 0.05 % external solution every 12 hours. prn CYANOCOBALAMIN, VITAMIN B-12, (LIQUID B 12 ORAL) Take by mouth. diltiazem CD (CARDIZEM CD) 180 mg 24 hr capsule Take 180 mg by mouth 2 (two) times a day famotidine (PEPCID ORAL) Take 1 tablet by mouth daily fexofenadine (MICHAEL) 60 mg tablet Take 180 mg by mouth as needed prn flecainide (TAMBOCOR) 100 mg tablet Take 2 tablets (200 mg total) by mouth daily as needed (Persistent atrial fibrillation) Go to ER to be monitored on first use. Do not take more than 200 mg in any 24 hr period. gabapentin (NEURONTIN) 100 mg capsule Take 200 mg by mouth nightly loratadine (CLARITIN) 10 mg tablet Take 10 mg by mouth as needed magnesium 250 mg tablet Take by mouth daily. tgyiglsi-bft-xokk-FA-lutein (CENTRUM SILVER WOMEN) 8 mg iron-400 mcg-300 mcg tablet daily. omeprazole (PriLOSEC) 20 mg capsule 40 mg 2 (two) times a day timolol (TIMOPTIC) 0.25 % ophthalmic solution Administer 1 drop into both eyes 2 (two) times a day diltiazem (CARDIZEM) 30 mg tablet (Discontinued) Take 1 tablet (30 mg total) by mouth 3 (three) times a day losartan (COZAAR) 100 mg tablet (Discontinued) Take 50 mg by mouth daily Review of Systems Constitutional: Positive for fatigue. Negative for fever. HENT: Negative for hearing loss. Eyes: Negative for visual disturbance. Respiratory: Negative for chest tightness and shortness of breath. Cardiovascular: Positive for palpitations. Negative for chest pain and leg swelling. Gastrointestinal: Negative for blood in stool. Endocrine: Negative for polydipsia. Genitourinary: Negative for hematuria. Musculoskeletal: Negative for gait problem. Skin: Negative for rash. Neurological: Negative for dizziness, weakness and light-headedness. Hematological: Does not bruise/bleed easily. Psychiatric/Behavioral: Negative for agitation. The patient is not nervous/anxious. Objective BP (!) 158/60 (BP Location: Left arm, Patient Position: Sitting) Pulse 82 Ht 1.765 m Wt 83.9 kg LMP (LMP Unknown) BMI 26.94 kg/m?? Physical Exam: General Appearance: Overweight, pleasant, cooperative, no apparent distress HENT: No obvious jaundice, no xanthelasma Neck: No obvious JVD Respiratory: clear to auscultation and percussion, no rales or wheeze Cardiovascular: Irregular rhythm, S1 variable, P2 appears normal, no S3 no S4, no significant murmur Pulses: No carotid bruit, no obvious abdominal bruit, no evidence of critical limb ischemia Abdomen: Nontender, no hepatosplenomegaly, no obvious pulsatile mass Extremities: No clubbing, cyanosis or significant edema. Bilateral varicose veins Neuro: Alert oriented to time place and person, no obvious motor or sensory deficit. Psych: Appropriate affect, normal mentation and memory Skin: No gangrene Or ulcer ?? Assessment/Plan Diagnoses and all orders for this visit: Paroxysmal atrial fibrillation (CMS/HCC) - ECG 12 Lead (Clinic - Same Day) - Basic Metabolic Panel Expires 12 Months; Future - Magnesium Expires 12 Months; Future - TSH; Future - Monitor - 7 Day Placed During Visit; Future - [facility] MV Referral to [facility] Sleep Clinic Palpitations Typical atrial flutter (CMS/HCC) - Monitor - 7 Day Placed During Visit; Future - [facility] MV Referral to [facility] Sleep Clinic Essential hypertension - Basic Metabolic Panel Expires 12 Months; Future - Magnesium Expires 12 Months; Future - TSH; Future Dyslipidemia Assessment/Plan Comments: At present patient is in typical atrial flutter with controlled ventricular rate. She has variable AV block. After A. fib ablation which was done in [place] on July 06, 2020, Cardizem CD was increased to 180 mg twice a day. I discussed with the patient about DC cardioversion however at present patient decided to wait. She agreed to have repeat Holter monitor to assess persistent versus paroxysmal nature of atrial flutter/fib. We will repeat electrolytes again. At home blood pressure is controlled with about 135/69 mmHg. 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 Patient understood. ER precautions discussed. Follow-up after the tests. In the interim, if patient develops worsening of cardiovascular symptoms, advised to call us. This note was generated utilizing voice recognition software. While attempts have been made to correct mistakes, common errors may occur, including substitution of words that sound phonetically similar to the intended word as well as random substitution errors. Please take this into consideration and use clinical context when necessary. Electronically signed by Eros Amaya MD 08/30/2020 4:01 PM documented in this encounter Miscellaneous Notes Addendum Note - Pramod Mansfield MD - 08/30/2020 2:00 PM PDT Addended by: PRAMOD MANSFIELD on: 09/02/2020 06:44 PM Modules accepted: Orders, SmartSet documented in this encounter Plan of Treatment Upcoming Encounters Date Type Specialty Care Team Description 10/05/2020 Appointment Radiology Pramod Mansfield MD [address] [place], [place] [phone] Pending Results Name Type Priority Associated Diagnoses Date/Ti me ECG 12 Lead (Clinic ECG Routine Paroxysmal atrial 09/2020 2:06 PM PDT - Same Day) fibrillation ([facility]) Scheduled Orders Name Type Priority Associated Diagnoses Order S chedule Monitor - 7 Day Cardiac Services Routine Paroxysmal atrial Exp ected: Placed During Visit fibrillation ([facility]) 08/30/2020, Typical atrial flutter Expir es: ([facility]) 08/30/2022 SI EP ABLATION SVT Imaging Routine Typical atrial flutter Expected: (CMS/HCC) 10/05/2020, Expires: 12/03/2021 Scheduled Referrals Name Type Priority Associated Diagnoses Order S neris [facility] MV Referral to Outpatient Referral Routine Paroxysmal atri al Ordered: [facility] Sleep Clinic fibrillation 08/30/2020 (CMS/HCC) Typical atrial flutter ([facility]/HCC) documented as of this encounter Implants Implanted Type Area Nurse Practitioner Home Assessments Device Identifier Shelf Model / Expiration Serial / Lot Date Cement, Palacos R Radiopaque - [id number] - [id number] Right: Lloyd 09/22/2021 [id number] / Implanted: Qty: 1 on 01/15/2017 by Ankush Luu MD at [facility] Knee [id number] / [id number] Tibial, Partial F R Medial - [id number] - [id number] Right: BIOMET [id number] 06/23/2026 [id number] / Implanted: Qty: 1 on 01/15/2017 by Ankush Luu MD at [facility] Knee [id number] / [id number] Surface, Art Part Sz F 8mm - [id number] - [id number] Right: BI OMET 10/23/2020 [id number] / Implanted: Qty: 1 on 01/15/2017 by Ankush Luu MD at [facility] Knee [id number] / [id number] Femur, Partial Sz 3 R Medial - [id number] - [id number] Rig t: BIOMET [id number] 04/25/2026 [id number] / Implanted: Qty: 1 on 01/15/2017 by Ankush Luu MD at [facility] Knee [id number] / [id number] documented as of this encounter Results TSH (08/31/2020) Specimen Blood - Venous blood (substance) Narrative Performed At This result has an attachment that is no t available. Magnesium Expires 12 Months (08/31/2020) Specimen Blood - Venous blood (substance) Narrative Performed At This result has an attachment that is no t available. Basic Metabolic Panel Expires 12 Months (08/31/2020) Specimen Blood - Venous blood (substance) Narrative Performed At This result has an attachment that is no t available. documented in this encounter Visit Diagnoses Diagnosis Paroxysmal atrial fibrillation (CMS/HCC) - Primary Atrial fibrillation Palpitations Typical atrial flutter (CMS/HCC) Essential hypertension Unspecified essential hypertension Dyslipidemia Other and unspecified hyperlipidemia documented in this encounter Insurance Payer Benefit Plan / Subscriber ID Effective Dates Phone Addre ss Type Group MEDICARE MEDICARE PART A [id number] 2009-Present AND B [facility] [id number] 2016-Present [facility] [employer] SUPP documented as of this encounter Advance Directives Documents on File Type Date Recorded 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
== END ==
PROVIDERS: Family Provider Internal Medicine; PCP Internal Medicine; Referring Provider Internal Medicine Cardiovascular Disease; Visit Provider Internal Medicine Cardiovascular Disease
DX: I48.0 Paroxysmal atrial fibrillation (principal); I10 Essential (primary) hypertension
CPT/HCPCS: 36415; 80048; 83735; 84443

== ENCOUNTER → 2020-10-02 10:03 | Outpatient (CLI) | payer MEDICARE, OTHER, SELFPAY ==
[2020-10-02 11:15] LABS: COVID19 -Nasal RAPID Negative (Negative)
== END ==
PROVIDERS: Family Provider Internal Medicine; PCP Internal Medicine; Referring Provider Physician Assistant; Visit Provider Physician Assistant
DX: Z01.812 Encounter for preprocedural laboratory examination (principal); Z20.822 Contact with and (suspected) exposure to COVID-19
CPT/HCPCS: 87635; C9803

== ENCOUNTER → 2020-12-23 11:11 | Outpatient (CLI) | payer MEDICARE, OTHER, SELFPAY ==
--- NOTE | 2020-12-23 | DI.MG.S_ITS ---
BILATERAL DIGITAL SCREENING MAMMOGRAM 3D/2D WITH CAD: 12/23/2020 CLINICAL: Routine screening. Comparison is made to exams dated: 12/22/2019 mammogram, 12/20/2018 mammogram, and 12/19/2017 mammogram - [facility]. There are scattered fibroglandular elements in both breasts. Current study was also evaluated with a Computer Aided Detection (CAD) system. There are benign post operative findings in both breasts. No significant masses, calcifications, or other findings are seen in either breast. There has been no significant interval change. IMPRESSION: BENIGN There is no mammographic evidence of malignancy. A 1 year screening mammogram is recommended. This exam was interpreted at Station ID: [id number]. NOTE: For mammograms, a report in lay terms will be sent to the patient. Approximately 15% of breast malignancies will not be visualized mammographically. In the management of a palpable breast mass, a negative mammogram must not discourage biopsy of a clinically suspicious lesion. Electronically Signed By: Leroy Gilman acr/penrad:12/23/2020 11:53:40 letter sent: Normal Exam ACR BI-RADS Category 2: Benign Finding(s) 3342F
== END ==
PROVIDERS: Family Provider Internal Medicine; PCP Internal Medicine; Referring Provider Internal Medicine; Visit Provider Internal Medicine
DX: Z12.31 Encounter for screening mammogram for malignant neoplasm of breast (principal)
CPT/HCPCS: 77063; 77067

== ENCOUNTER 2020-12-28 18:39 | Inpatient (IN) | payer MEDICARE, OTHER, SELFPAY ==
[2020-12-28] VITALS (15 sets, daily range): BP systolic 158–201; BP diastolic 73–88; PULSE 70–121; RESP 15–41; TEMP 36.2; O2SAT 81–99; BMI 26.2
--- NOTE | 2020-12-28 | DI.ECHO.S_ITS ---
[facility] +---------+ [facility] +---------+ : : [address] : : : : [id number] : : : : Phone: [phone]+ Echocardiogram Report + + :Name: MORRIS LARIOS Study Date: 12/29/2020 Height: 69 in : :[facility] ReadingLocation: Weight: 178 lb: : Gender: Female BSA: 2.0 m2 : :: 1945 Age: 75 yrs : :Reason For Study: ARF CHF VS COPD : :Ordering Physician: NYDIA, : :PAULINA Performed By: Thuy Nicole : :Referring: PAULINA STAFFORD : + + Interpretation Summary The ejection fraction is estimated to be 60-65%. Unable to grade diastolic function. The right ventricle is at the upper limits of normal in size. The right ventricular systolic function is normal. Visually the left atrium is moderately dilated. There is mild mitral regurgitation. There is mild aortic regurgitation. Pulmonary artery pressures cannot be estimated. Procedure: A two-dimensional transthoracic echocardiogram with color flow and Doppler was performed. The study quality was technically difficult. The patient had an echocardiogram, but there is no comparison study available. The patient was in atrial fibrillation with heart rates between 94-118 bpm during the exam. Left Ventricle: The left ventricle is normal in size and wall thickness. The ejection fraction is estimated to be 60-65%. Diastolic function could not be accurately assessed due to unobtainable data. Right Ventricle: The right ventricle is at the upper limits of normal in size. The right ventricular systolic function is normal. Atria: Visually the left atrium is moderately dilated. Right atrial size is normal. There is no Doppler evidence for an interatrial shunt. Mitral Valve: The mitral valve leaflets appear mildly thickened, but open well. There is mild mitral annular calcification. There is mild mitral regurgitation. Aortic Valve: The aortic valve is trileaflet. The aortic valve opens well. There is no aortic valve stenosis. There is mild aortic regurgitation. Tricuspid Valve: The tricuspid valve is normal in structure and function. There is trace tricuspid regurgitation. Pulmonary artery pressures cannot be estimated because of the lack of a measurable TR jet velocity. Pulmonic Valve: The pulmonic valve is not well visualized. There is trace pulmonic regurgitation. Great Vessels: The aortic root is normal size. The dimensions of the ascending aorta are normal. The IVC is of normal diameter and collapses greater than 50% with a sniff. This suggests a low right atrial pressure of 3 mm Hg. Pericardium/ Pleura There is no pericardial effusion. There is no pleural effusion. MMode/2D Measurements & Calculations LVIDd: 3.8 cm LVOT diam: 2.1 cm LVIDs: 2.6 cm Ao root diam: 3.4 cm FS: 30.4 % asc Aorta Diam: 3.0 cm IVSd: 0.91 cm Ao Arch Diam (Prox Trans): 2.6 cm LVPWd: 0.99 cm LV pereira. diameter/BSA (cm/m^2): 1.9 LV sys. diameter/BSA (cm/m^2): 1.3 LA A2 area: 22.9 cm2 RA long axis: 4.8 cm LA A4 area: 25.9 cm2 RA area: 17.7 cm2 LA length (vol): 6.2 cm RA vol: 56.2 ml LA vol: 81.3 ml RA : 28.6 ml/m2 LA vol index: 41.4 ml/m2 IVC diam: 1.5 cm RVD1 (basal): 4.1 cm RVD2 (mid): 3.7 cm TAPSE: 2.1 cm Doppler Measurements & Calculations Ao V2 max: 114.5 cm/sec LVOT Max Deion: 93.9 cm/sec Ao V2 mean: 77.6 cm/sec LV V1 max P.5 mmHg Ao max P.2 mmHg LV V1 VTI: 19.6 cm Ao mean P.7 mmHg DOUGLAS(I,D): 3.7 cm2 Ao V2 VTI: 18.7 cm DOUGLAS(V,D): 2.9 cm2 sev ratio: 1.0 DOUGLAS indexed to BSA (cm^2/m^2): 1.9 AI P1/2t: 730.4 msec AI dec slope: 177.2 cm/sec2 MV E max deion: 111.6 cm/sec TR max deion: 224.1 cm/sec MV A max deion: 2.3 cm/sec TR max P.1 mmHg MV E/A: 49.6 PA V2 max: 94.6 cm/sec Med Peak E' Deion: 10.4 cm/sec PA V2 mean: 59.7 cm/sec E/E' med: 10.8 PA mean P.7 mmHg Lat Peak E' Deion: 11.3 cm/sec PA pr(Accel): 39.6 mmHg E/E' lat: 9.8 E/e' average: 10.3 MV dec time: 0.17 sec SVLVOT): 69.1 ml Reading Physician:11:52 AM
[2020-12-28 19:13] LABS: COVID19 -Nasal RAPID Negative (Negative)
--- NOTE | 2020-12-28 19:17 | DI.RAD.S_ITS ---
PROCEDURE: XR CHEST 1V INDICATIONS: shortness of breath TECHNIQUE: One view of the chest was acquired. COMPARISON: [facility], CR, XR CHEST 1V, 01/22/2018, 5:58. FINDINGS: Surgical changes and devices: None. Lungs and pleura: Diffuse interstitial reticulations are seen throughout both lungs. Possible mild blunting of the bilateral costophrenic angles could indicate small pleural effusions. No pneumothorax. Lungs are mildly hyperexpanded. Mediastinum: Mediastinal contours appear normal. Heart size is normal. Bones and chest wall: Previously seen sclerosis projecting over the left humeral head is no longer present, possibly outside of the patient on the prior study. Overlying soft tissues appear unremarkable. IMPRESSION: 1. Diffuse bilateral interstitial thickening is nonspecific, but could represent pulmonary edema versus an atypical pneumonia or less likely chronic fibrotic changes. 2. Mild blunting of the costophrenic angles could represent tiny bilateral pleural effusions. 3. Hyperexpanded lungs can be seen in the setting of COPD. Dictated by: Kishor Medellin M.D. on 12/28/2020 at 19:34 Approved by: Kishor Medellin M.D. on 12/28/2020 at 19:38
--- NOTE | 2020-12-28 19:27 | ED.SOB ---
HPI - SOB/Dyspnea General Chief Complaint: Shortness of Breath/Dyspnea Stated Complaint: SOB, Time Seen by Provider: 12/28/20 19:11 Source: patient and family (spouse) Mode of arrival: Ambulatory Limitations: no limitations History of Present Illness HPI Narrative: This is a 75-year-old female comes in with increasing dyspnea with exertion which has rapidly progressed in the last 24 hours. Patient states she noted initially just with walking long distance. She also noticed she felt tired in her upper shoulders, had no energy. She states her primary care told her CRP was 2 times and engage her to start prednisone but they discussed she continued to feel short of breath and they discussed there was concern for CHF. Patient states she has only felt short of breath she denied any chest pain or pressure had any point. No abdominal pain. No fevers, cough cold or congestion. She denies any orthopnea. She has not had any edema in her lower extremities. She felt mildly bloated in her abdomen today but that improved with bowel movement. She has had some chronic underlying constipation was also with Colace. No bright red blood or melanotic stools. No issues with urination. She has felt lightheaded occasionally but not for the past 2 weeks. She does have a history significant for ablation x2 initially for AFib in July 06 in [place] followed by atrial flutter in October [address] Mansfield at [facility]. She does not take any diuretics Lasix. She is on Eliquis b.i.d.. She has not had any pulmonary emboli. She was started on flecainide 50 mg b.i.d. a couple weeks and her diltiazem was decreased from 180 mg b.i.d. to 180 mg daily. He has also had some prior cholecystectomy, knee replacement. No tobacco, 1-2 alcoholic drinks weekly, no illicit. Her primary care is Dr. Pabon, Dr. Amaya is her coating and baking operator and Dr. Mansfield is her EP. Related Data Home Medications Medication Instructions Recorded Confirmed amitriptyline 10 mg tablet 10 mg PO DAILY 01/22/18 12/28/20 aspirin 81 mg chewable tablet 162 mg PO DAILY 01/22/18 12/28/20 gabapentin 100 mg capsule 100 mg PO DAILY 01/22/18 12/28/20 omeprazole 20 mg capsule,delayed 20 mg PO BID 01/22/18 12/28/20 release diltiazem HCl 30 mg tablet 30 mg PO BID 01/13/20 12/21/20 apixaban 5 mg tablet (Eliquis) 5 mg PO BID 12/21/20 12/28/20 famotidine 20 mg tablet 20 mg PO BEDTIME 12/21/20 12/28/20 timolol maleate 0.25 % eye drops drp EYE-BOTH 12/21/20 12/21/20 (Timoptic) flecainide 50 mg tablet 50 mg PO Q12H 12/28/20 12/28/20 Allergies Allergy/AdvReac Type Severity Reaction Status Date / Time chlorhexidine Allergy Unknown Verified 12/21/20 09:55 budesonide AdvReac Unknown hives Verified 12/21/20 09:55 epinephrine AdvReac Verified 12/21/20 09:55 Review of Systems Review of Systems ROS Unobtainable: All systems reviewed & are unremarkable except as noted in HPI and below Patient History Medical History (Updated 12/29/20 @ 03:49 by MORGAN Moore) Atrial fibrillation Gastric reflux History of infection due to Haemophilus influenzae type B History of pancreatitis History of pneumonia Hoarseness Hypertension Insomnia Surgical History History of arthroscopy History of cholecystectomy History of lumpectomy History of tonsillectomy Family History (Updated 12/29/20 @ 03:48 by MORGAN Moore) Mother Sick sinus syndrome Heart attack Colon cancer Father Colon cancer Social History marital status: household members: spouse Smoking Status: Never smoker Smoking Status: Never smoker alcohol intake frequency: holidays/special occasions only Substance Use Type: does not use Exam Narrative Exam Narrative: GENERAL: Alert and oriented x three, female in distress. HEENT: Head normocephalic, atraumatic, EOMI, pupils reactive, face symmetric, moist mucous membranes, patient has nasal cannula in place. NECK: Supple, full range of motion CARDIOVASCULAR: Regular rate and rhythm without murmurs, rubs or gallops. No JVD. No swelling bilateral lower extremities. RESPIRATORY: Breath sounds equal bilaterally, no wheezes, rhonchi. Patient has crackles bilateral bases. Positive for tachypnea. Patient speaks in 4-5 word sentences. ABDOMEN: Soft, nontender. Normoactive bowel sounds all 4 quadrants. No guarding or rebound, rigidity, no mass : No CVA tenderness EXTREMITIES: Normal range of motion, no clubbing or edema. Neurovascularly intact. 2+ pulses bilateral lower extremities. NEUROLOGICAL: Cranial nerves II through XII grossly intact. Moving all extremities SKIN: Warm, dry, no petechiae, no rashes or lesions. Initial Vital Signs Initial Vital Signs: Vital Signs Temperature 97.2 F L 12/28/20 18:45 Pulse Rate 76 12/28/20 18:45 Respiratory Rate 28 H 12/28/20 18:45 Blood Pressure 201/88 H 12/28/20 18:45 Pulse Oximetry 92 12/28/20 18:45 Course Orders Ordered: ED Orders 12/28/20 18:51 COVID19 -Nasal swab/Pre-Proc Stat 12/28/20 18:58 EKG-12 Lead Routine 12/28/20 19:10 Complete Blood Count AUTO DIFF Stat Comprehensive Metabolic Panel Stat D Dimer Stat Lactate (Lactic Acid) Stat Magnesium Urgent NT-proBNP (BNP-Adult 18+) Stat Phosphorous Urgent Procalcitonin Stat Prothrombin Time INR Stat Troponin & CK Cardiac Panel Stat 12/28/20 19:17 XR chest 1V Stat Measure peak expiratory flow ONCE RT Consult Eval and Treat Now 12/28/20 20:20 Urinalysis and Microscopic Stat 12/28/20 21:17 Blood Culture Stat 12/28/20 21:32 Education, smoking cessation ONGOING 12/28/20 21:37 RT Consult Eval and Treat Now 12/28/20 21:39 Respiratory Panel (Film Array) Urgent 12/29/20 05:00 Complete Blood Count AUTO DIFF DAILY Comprehensive Metabolic Panel DAILY Lipid Panel Routine NT-proBNP (BNP-Adult 18+) Routine 12/30/20 05:00 Complete Blood Count AUTO DIFF DAILY Comprehensive Metabolic Panel DAILY 12/31/20 05:00 Complete Blood Count AUTO DIFF DAILY Comprehensive Metabolic Panel DAILY 01/01/21 05:00 Complete Blood Count AUTO DIFF DAILY Comprehensive Metabolic Panel DAILY Acetaminophen (Acetaminophen 325 Mg Tablet) 650 mg PO Q6HR PRN PRN Reason: Fever/Mild Pain (1-3) Albuterol (Albuterol 2.5 Mg/3 Ml Neb (Adult)) 2.5 mg INH [id number] PRN PRN Reason: Shortness Of Breath Albuterol/Ipratropium (Albuterol/Ipratropium 3 Ml Ampul) 3 ml INH [id number] DALJIT Naloxone HCl (Naloxone 0.4 Mg/Ml Vial) 0.2 mg IV Q2MIN PRN PRN Reason: Opiate Reversal Ondansetron HCl (Ondansetron 4 Mg/2 Ml Inj) 4 mg IV Q8HR PRN PRN Reason: Nausea And Vomiting Prednisone (Prednisone 20 Mg Tablet) 40 mg PO DAILY DALJIT Stop: 01/03/21 08:59 Discontinued Medications Albuterol/Ipratropium (Albuterol/Ipratropium 3 Ml Ampul) 3 ml INH NOW ONE Stop: 12/28/20 19:26 Last Admin: 12/28/20 19:28 Dose: 3 ml Documented by: KURT Furosemide (Furosemide 40 Mg/4 Ml Vial) 40 mg IV NOW ONE Stop: 12/28/20 19:26 Last Admin: 12/28/20 19:48 Dose: 40 mg Documented by: VALENCIA Methylprednisolone (Methylprednisolone 125 Mg/2 Ml Vial) 125 mg IV NOW ONE Stop: 12/28/20 20:30 Last Admin: 12/28/20 20:47 Dose: 125 mg Documented by: VALENCIA Metoprolol Tartrate (Metoprolol Tartrate 5 Mg/5 Ml Inj) 5 mg IV Q5M ONE Stop: 12/29/20 00:02 Last Admin: 12/29/20 00:14 Dose: 5 mg Documented by: VALENCIA Consultations Consultation #1: DEMAR Burch accepts for admission, Consultation #2: Dr. Langley, states the recommend getting an echo in the morning. He with state read contacting with Cardiology. Would be appropriate to give Lasix at felt was appropriate clinically. He does note that typically patients who are on flecainide with her history have been evaluated to make sure that all have any coronary artery disease or CHF is this medication be contraindicated in this patient. But he does not have access the patient's records. Time: 21:07 Vital Signs Vital signs: Vital Signs - 8 hr 12/28/20 20:00 12/28/20 20:30 12/28/20 20:39 Pulse Rate 73 70 Respiratory Rate 17 21 26 H Blood Pressure Pulse Oximetry 93 96 81 L 12/28/20 21:00 12/28/20 21:27 12/28/20 21:30 Pulse Rate 72 97 H 103 H Respiratory Rate 28 H 26 H 37 H Blood Pressure 184/75 H Pulse Oximetry 94 95 93 MDM - SOB/Dyspnea Lab Data Result diagrams: 12/28/20 19:10 12/28/20 19:10 Labs: Lab Results 12/28/20 12/28/20 12/28/20 Range/Units 18:51 19:10 19:10 WBC 7.7 (4.5-11.0) X10^3/uL RBC 3.76 L (4.0-5.2) X10^6/uL Hgb 11.0 L (12.0-16.0) g/dL Hct 32.5 L (36-46) % MCV 86.3 (80-100) fL MCH 29.3 (26-34) PG MCHC 34.0 (30-36) % RDW 14.6 (11.6-14.8) % Plt Count 356 (150-400) X10^3/uL Neut % (Auto) 61.5 (50-75) % Lymph % (Auto) 26.0 (25-40) % [place] % (Auto) 9.3 (3-14) % Eos % (Auto) 1.9 L (2-4) % Baso % (Auto) 1.3 (0-2) % Neut # (Auto) 4700 (9053-6210) /uL Lymph # (Auto) 2000 (9125-4489) /uL [place] # (Auto) 700 (0-900) /uL Eos # (Auto) 100 (0-450) /uL Baso # (Auto) 100 (0-100) /uL PT (10.1-12.7) SECONDS INR (0.9-1.3) D-Dimer (<230) ng/mL Sodium 130 L (137-145) mmol/L Potassium 4.4 (3.4-5.1) mmol/L Chloride 94 L (98-107) mmol/L Carbon Dioxide 29 (22-32) mmol/L BUN 19 H (7-17) mg/dL Creatinine 0.80 (0.52-1.04) mg/dL Estimated GFR > 60.0 (>60) mL/min BUN/Creatinine Ratio 23.8 H (6-22) Glucose 110 (80-110) mg/dL Lactate (0.7-2.1) mmol/L Calcium 9.6 (8.4-10.2) mg/dL Phosphorus (2.8-4.1) mg/dL Magnesium (1.6-2.3) mg/dL Total Bilirubin 0.4 (0.2-1.3) mg/dL AST 108 H (14-36) IU/L ALT 78 H (<35) IU/L Alkaline Phosphatase 138 H (38-126) U/L Total Creatine Kinase (30-135) U/L CK-MB (CK-2) CK-MB (CK-2) Rel Index Troponin I (0.01-0.034) ng/mL NT-Pro-B Natriuret Pep 228 (<450) pg/mL Total Protein 8.2 (6.3-8.2) g/dL Albumin 4.6 (3.5-5.0) g/dL Globulin 3.6 (1.7-4.1) g/dL Albumin/Globulin Ratio 1.3 (1.0-2.8) Procalcitonin (<0.5) ng/mL Urine Color Urine Appearance Urine pH (4.5-8.0) Ur Specific [place] (1.000-1.035) Urine Protein (Negative) Urine Glucose (UA) (Negative) g/dL Urine Ketones (NEGATIVE) Urine Occult Blood (Negative) Urine Nitrate (Negative) Urine Bilirubin (NEGATIVE) Urine Urobilinogen (0.2) E.U./dL Ur Leukocyte Esterase (NEGATIVE) Urine RBC (0-5/HPF) Urine WBC (0-5/HPF) Ur Squamous Epith Cells (0-5/HPF) Urine Bacteria (None) Ur Culture Indicated? Chlamy pneumoniae PCR (Not Detect) Adenovirus (PCR) (Not Detect) B. pertussis DNA (PCR) (Not Detecte) B.parapertussis DNA PCR (Not Detecte) Coronavirus OC43 (PCR) (Not Detect) Coronavirus HKU1 (PCR) (Not Detect) Coronavirus 229E (PCR) (Not Detect) SARS-CoV-2 (PCR) Negative (Negative) Coronavirus NL63 (PCR) (Not Detect) Human Metapneumovir PCR (Not Detect) Influenza Type A (PCR) (Not Detect) Influenza Type B (PCR) (Not Detect) M. pneumoniae (PCR) (Not Detect) Parainfluenza 1 (PCR) (Not Detect) Parainfluenza 2 (PCR) (Not Detect) Parainfluenza 3 (PCR) (Not Detect) Parainfluenza 4 (PCR) (Not Detect) RSV (PCR) (Not Detect) Entero/Rhino (PCR) (Not Detect) 12/28/20 12/28/20 12/28/20 Range/Units 19:10 19:10 19:10 WBC (4.5-11.0) X10^3/uL RBC (4.0-5.2) X10^6/uL Hgb (12.0-16.0) g/dL Hct (36-46) % MCV (80-100) fL MCH (26-34) PG MCHC (30-36) % RDW (11.6-14.8) % Plt Count (150-400) X10^3/uL Neut % (Auto) (50-75) % Lymph % (Auto) (25-40) % [place] % (Auto) (3-14) % Eos % (Auto) (2-4) % Baso % (Auto) (0-2) % Neut # (Auto) (2598-8453) /uL Lymph # (Auto) (1182-5055) /uL [place] # (Auto) (0-900) /uL Eos # (Auto) (0-450) /uL Baso # (Auto) (0-100) /uL PT 13.8 H (10.1-12.7) SECONDS INR 1.2 (0.9-1.3) D-Dimer < 200 (<230) ng/mL Sodium (137-145) mmol/L Potassium (3.4-5.1) mmol/L Chloride (98-107) mmol/L Carbon Dioxide (22-32) mmol/L BUN (7-17) mg/dL Creatinine (0.52-1.04) mg/dL Estimated GFR (>60) mL/min BUN/Creatinine Ratio (6-22) Glucose (80-110) mg/dL Lactate 0.9 (0.7-2.1) mmol/L Calcium (8.4-10.2) mg/dL Phosphorus (2.8-4.1) mg/dL Magnesium (1.6-2.3) mg/dL Total Bilirubin (0.2-1.3) mg/dL AST (14-36) IU/L ALT (<35) IU/L Alkaline Phosphatase (38-126) U/L Total Creatine Kinase (30-135) U/L CK-MB (CK-2) CK-MB (CK-2) Rel Index Troponin I (0.01-0.034) ng/mL NT-Pro-B Natriuret Pep (<450) pg/mL Total Protein (6.3-8.2) g/dL Albumin (3.5-5.0) g/dL Globulin (1.7-4.1) g/dL Albumin/Globulin Ratio (1.0-2.8) Procalcitonin (<0.5) ng/mL Urine Color Urine Appearance Urine pH (4.5-8.0) Ur Specific [place] (1.000-1.035) Urine Protein (Negative) Urine Glucose (UA) (Negative) g/dL Urine Ketones (NEGATIVE) Urine Occult Blood (Negative) Urine Nitrate (Negative) Urine Bilirubin (NEGATIVE) Urine Urobilinogen (0.2) E.U./dL Ur Leukocyte Esterase (NEGATIVE) Urine RBC (0-5/HPF) Urine WBC (0-5/HPF) Ur Squamous Epith Cells (0-5/HPF) Urine Bacteria (None) Ur Culture Indicated? Chlamy pneumoniae PCR (Not Detect) Adenovirus (PCR) (Not Detect) B. pertussis DNA (PCR) (Not Detecte) B.parapertussis DNA PCR (Not Detecte) Coronavirus OC43 (PCR) (Not Detect) Coronavirus HKU1 (PCR) (Not Detect) Coronavirus 229E (PCR) (Not Detect) SARS-CoV-2 (PCR) (Negative) Coronavirus NL63 (PCR) (Not Detect) Human Metapneumovir PCR (Not Detect) Influenza Type A (PCR) (Not Detect) Influenza Type B (PCR) (Not Detect) M. pneumoniae (PCR) (Not Detect) Parainfluenza 1 (PCR) (Not Detect) Parainfluenza 2 (PCR) (Not Detect) Parainfluenza 3 (PCR) (Not Detect) Parainfluenza 4 (PCR) (Not Detect) RSV (PCR) (Not Detect) Entero/Rhino (PCR) (Not Detect) 12/28/20 12/28/20 12/28/20 Range/Units 19:10 19:10 19:10 WBC (4.5-11.0) X10^3/uL RBC (4.0-5.2) X10^6/uL Hgb (12.0-16.0) g/dL Hct (36-46) % MCV (80-100) fL MCH (26-34) PG MCHC (30-36) % RDW (11.6-14.8) % Plt Count (150-400) X10^3/uL Neut % (Auto) (50-75) % Lymph % (Auto) (25-40) % [place] % (Auto) (3-14) % Eos % (Auto) (2-4) % Baso % (Auto) (0-2) % Neut # (Auto) (0278-6955) /uL Lymph # (Auto) (1108-2591) /uL [place] # (Auto) (0-900) /uL Eos # (Auto) (0-450) /uL Baso # (Auto) (0-100) /uL PT (10.1-12.7) SECONDS INR (0.9-1.3) D-Dimer (<230) ng/mL Sodium (137-145) mmol/L Potassium (3.4-5.1) mmol/L Chloride (98-107) mmol/L Carbon Dioxide (22-32) mmol/L BUN (7-17) mg/dL Creatinine (0.52-1.04) mg/dL Estimated GFR (>60) mL/min BUN/Creatinine Ratio (6-22) Glucose (80-110) mg/dL Lactate (0.7-2.1) mmol/L Calcium (8.4-10.2) mg/dL Phosphorus 4.2 H (2.8-4.1) mg/dL Magnesium 2.0 (1.6-2.3) mg/dL Total Bilirubin (0.2-1.3) mg/dL AST (14-36) IU/L ALT (<35) IU/L Alkaline Phosphatase (38-126) U/L Total Creatine Kinase 33 (30-135) U/L CK-MB (CK-2) TNP CK-MB (CK-2) Rel Index TNP Troponin I < 0.012 (0.01-0.034) ng/mL NT-Pro-B Natriuret Pep (<450) pg/mL Total Protein (6.3-8.2) g/dL Albumin (3.5-5.0) g/dL Globulin (1.7-4.1) g/dL Albumin/Globulin Ratio (1.0-2.8) Procalcitonin < 0.03 (<0.5) ng/mL Urine Color Urine Appearance Urine pH (4.5-8.0) Ur Specific [place] (1.000-1.035) Urine Protein (Negative) Urine Glucose (UA) (Negative) g/dL Urine Ketones (NEGATIVE) Urine Occult Blood (Negative) Urine Nitrate (Negative) Urine Bilirubin (NEGATIVE) Urine Urobilinogen (0.2) E.U./dL Ur Leukocyte Esterase (NEGATIVE) Urine RBC (0-5/HPF) Urine WBC (0-5/HPF) Ur Squamous Epith Cells (0-5/HPF) Urine Bacteria (None) Ur Culture Indicated? Chlamy pneumoniae PCR (Not Detect) Adenovirus (PCR) (Not Detect) B. pertussis DNA (PCR) (Not Detecte) B.parapertussis DNA PCR (Not Detecte) Coronavirus OC43 (PCR) (Not Detect) Coronavirus HKU1 (PCR) (Not Detect) Coronavirus 229E (PCR) (Not Detect) SARS-CoV-2 (PCR) (Negative) Coronavirus NL63 (PCR) (Not Detect) Human Metapneumovir PCR (Not Detect) Influenza Type A (PCR) (Not Detect) Influenza Type B (PCR) (Not Detect) M. pneumoniae (PCR) (Not Detect) Parainfluenza 1 (PCR) (Not Detect) Parainfluenza 2 (PCR) (Not Detect) Parainfluenza 3 (PCR) (Not Detect) Parainfluenza 4 (PCR) (Not Detect) RSV (PCR) (Not Detect) Entero/Rhino (PCR) (Not Detect) 12/28/20 12/28/20 Range/Units 20:20 21:39 WBC (4.5-11.0) X10^3/uL RBC (4.0-5.2) X10^6/uL Hgb (12.0-16.0) g/dL Hct (36-46) % MCV (80-100) fL MCH (26-34) PG MCHC (30-36) % RDW (11.6-14.8) % Plt Count (150-400) X10^3/uL Neut % (Auto) (50-75) % Lymph % (Auto) (25-40) % [place] % (Auto) (3-14) % Eos % (Auto) (2-4) % Baso % (Auto) (0-2) % Neut # (Auto) (8114-1492) /uL Lymph # (Auto) (9577-2069) /uL [place] # (Auto) (0-900) /uL Eos # (Auto) (0-450) /uL Baso # (Auto) (0-100) /uL PT (10.1-12.7) SECONDS INR (0.9-1.3) D-Dimer (<230) ng/mL Sodium (137-145) mmol/L Potassium (3.4-5.1) mmol/L Chloride (98-107) mmol/L Carbon Dioxide (22-32) mmol/L BUN (7-17) mg/dL Creatinine (0.52-1.04) mg/dL Estimated GFR (>60) mL/min BUN/Creatinine Ratio (6-22) Glucose (80-110) mg/dL Lactate (0.7-2.1) mmol/L Calcium (8.4-10.2) mg/dL Phosphorus (2.8-4.1) mg/dL Magnesium (1.6-2.3) mg/dL Total Bilirubin (0.2-1.3) mg/dL AST (14-36) IU/L ALT (<35) IU/L Alkaline Phosphatase (38-126) U/L Total Creatine Kinase (30-135) U/L CK-MB (CK-2) CK-MB (CK-2) Rel Index Troponin I (0.01-0.034) ng/mL NT-Pro-B Natriuret Pep (<450) pg/mL Total Protein (6.3-8.2) g/dL Albumin (3.5-5.0) g/dL Globulin (1.7-4.1) g/dL Albumin/Globulin Ratio (1.0-2.8) Procalcitonin (<0.5) ng/mL Urine Color Yellow Urine Appearance Clear Urine pH 6.5 (4.5-8.0) Ur Specific [place] 1.015 (1.000-1.035) Urine Protein Negative (Negative) Urine Glucose (UA) Negative (Negative) g/dL Urine Ketones Negative (NEGATIVE) Urine Occult Blood Negative (Negative) Urine Nitrate Negative (Negative) Urine Bilirubin Negative (NEGATIVE) Urine Urobilinogen 0.2 (0.2) E.U./dL Ur Leukocyte Esterase Negative (NEGATIVE) Urine RBC None seen (0-5/HPF) Urine WBC 0-1/hpf (0-5/HPF) Ur Squamous Epith Cells 0-1 /hpf (0-5/HPF) Urine Bacteria None seen (None) Ur Culture Indicated? Cult not indicated Chlamy pneumoniae PCR Not detected (Not Detect) Adenovirus (PCR) Not detected (Not Detect) B. pertussis DNA (PCR) Not detected (Not Detecte) B.parapertussis DNA PCR Not detected (Not Detecte) Coronavirus OC43 (PCR) Not detected (Not Detect) Coronavirus HKU1 (PCR) Not detected (Not Detect) Coronavirus 229E (PCR) Not detected (Not Detect) SARS-CoV-2 (PCR) Not detected (Negative) Coronavirus NL63 (PCR) Not detected (Not Detect) Human Metapneumovir PCR Not detected (Not Detect) Influenza Type A (PCR) Not detected (Not Detect) Influenza Type B (PCR) Not detected (Not Detect) M. pneumoniae (PCR) Not detected (Not Detect) Parainfluenza 1 (PCR) Not detected (Not Detect) Parainfluenza 2 (PCR) Not detected (Not Detect) Parainfluenza 3 (PCR) Not detected (Not Detect) Parainfluenza 4 (PCR) Not detected (Not Detect) RSV (PCR) Not detected (Not Detect) Entero/Rhino (PCR) Not detected (Not Detect) Imaging Data Chest x-ray: Radiologist's Impression: [address] [address] XRay Report Signed Patient: Abby Bartlett MR#: [id number] : 1945 Acct:[id number] Age/Sex: 75 / F Date of Service: 12/28/20 Loc: ED Accession Number: [id number] ?? Procedure: XR chest 1V Ordering Provider: Raquel Hudson D.O. PROCEDURE:? XR CHEST 1V ? INDICATIONS:? shortness of breath ? TECHNIQUE:? One view of the chest was acquired.? ? COMPARISON:? [facility], CR, XR CHEST 1V, 01/22/2018, 5:58. ? FINDINGS:? ? Surgical changes and devices:? None.? ? Lungs and pleura:? Diffuse interstitial reticulations are seen throughout both lungs.? Possible mild blunting of the bilateral costophrenic angles could indicate small pleural effusions.? No pneumothorax.? Lungs are mildly hyperexpanded. ? Mediastinum:? Mediastinal contours appear normal.? Heart size is normal.? ? Bones and chest wall:? Previously seen sclerosis projecting over the left humeral head is no longer present, possibly outside of the patient on the prior study.? Overlying soft tissues appear unremarkable.? ? IMPRESSION:? 1. Diffuse bilateral interstitial thickening is nonspecific, but could represent pulmonary edema versus an atypical pneumonia or less likely chronic fibrotic changes. ? 2. Mild blunting of the costophrenic angles could represent tiny bilateral pleural effusions. ? 3. Hyperexpanded lungs can be seen in the setting of COPD. ? ? Dictated by: Kishor Medellin M.D. on 12/28/2020 at 19:34 ? ? Approved by: Kishor Medellin M.D. on 12/28/2020 at 19:38?? ECG Data Attestation: I personally reviewed and interpreted this ECG as follows: Prior ECG tracings: available for review Interpretation: Rate of 75 DC 222, QRS of 100 and QTC of 446. Nonspecific change. Patient has first-degree block. Patient has prior EKG from 01/13/2020 which does not show any new significant EKG changes. MDM Narrative Medical decision making narrative: Female comes emergency department with complaint of worsening exertional dyspnea which has become acutely more progressive even when seated not exerting himself. She is hypoxic and drops down to the 80s on room air with ambulation. She does respond about 3 L of O2. Patient's hemoglobin is 11 today but no other signs of acute bleeding. She is appropriately anticoagulated, negative D-dimer. Patient's sodium is 130, 19 is slightly elevated BUN but otherwise no major electrolyte abnormalities except for chloride of 94. Patient does a mild elevation her LFTs but was significantly more elevated in the past after she had a choledocholithiasis. Troponin is negative BNP is negative as well. Chest x-ray shows interstitial changes, some blunting of the costophrenic angles with pulmonary edema verses infection. Patient has been sinus rhythm so far in the department with no acute EKG changes appreciated. She has recently had her medications adjusted with flecainide added in her diltiazem decreased secondary to frequent irregular beats this is about 3 weeks ago. She does not any known history of CHF coronary artery disease and does have a history of ablation in the past. She does note the remotely she had a muscle is influenza pneumonia and afterwards had to see a access specialist for asthma. She has COPD like changes on exam and was given steroids and a breathing treatment which had minimal improvement. She was also given Lasix for diuresis and case was also discussed with coating and baking operator as well as the hospitalist who accepts for admission. Discharge Plan Departure Patient Disposition: Admitted As Inpatient Clinical Impression: Acute exacerbation of chronic obstructive airways disease Admit Date/Time: 12/28/20 21:47 Admit Provider: Irina Burch
[2020-12-28] MEDS: ALBUTEROL/IPRATROPIUM 3 ML AMPUL INH (19:28)
[2020-12-28] MEDS: FUROSEMIDE 40 MG/4 ML VIAL IV (19:48)
[2020-12-28 19:51] LABS: Add Manual Diff / Slide Review NO; Basophils Absolute Auto 100 /uL (0-100); Basophils Percent Auto 1.3 % (0-2); Eosinophils Absolute Auto 100 /uL (0-450); Eosinophils Percent Auto 1.9 % (2-4); Hematocrit 32.5 % (36-46); Lymphocytes Absolute Auto 2000 /uL (1100-4500); Mean Corpuscular Hemoglobin 29.3 PG (26-34); Mean Corpuscular Volume 86.3 fL (80-100); Monocytes Absolute Auto 700 /uL (0-900); Monocytes Percent Auto 9.3 % (3-14); Neutrophils Absolute Auto 4700 /uL (1500-7000); Neutrophils Percent Auto 61.5 % (50-75); Platelet Count 356 X10^3/uL (150-400); Red Blood Cell Count 3.76 X10^6/uL (4.0-5.2); Red Cell Distribution Width 14.6 % (11.6-14.8); White Blood Cell Count 7.7 X10^3/uL (4.5-11.0)
[2020-12-28 19:54] LABS: INR 1.2 (0.9-1.3); Prothrombin Time 13.8 SECONDS (10.1-12.7)
--- NOTE | 2020-12-28 19:54 | PC.NURSE ---
Pt 88% on 2L. increased to 3L. Speaking in short few word sentences. state she feels a band around her chest. COVID neg and vaccinated. anterior lungs wheezy, posterior lungs with some rales. given breathing tx without relief. given lasix at this time. commode at bedside and call peterson in reach.
[2020-12-28 19:57] LABS: Lactate (Lactic Acid) 0.9 mmol/L (0.7-2.1)
[2020-12-28 19:58] LABS: Alanine Aminotransferase 78 IU/L (<35); Albumin 4.6 g/dL (3.5-5.0); Albumin Globulin Ratio 1.3 (1.0-2.8); Alkaline Phosphatase 138 U/L (38-126); Aspartate Aminotransferase 108 IU/L (14-36); BUN Creatinine Ratio 23.8 (6-22); Bilirubin Total 0.4 mg/dL (0.2-1.3); Blood Urea Nitrogen 19 mg/dL (7-17); Calcium 9.6 mg/dL (8.4-10.2); Carbon Dioxide 29 mmol/L (22-32); Chloride 94 mmol/L (98-107); Estimated Glomerular Filt Rate > 60.0 mL/min (>60); Globulin 3.6 g/dL (1.7-4.1); Glucose 110 mg/dL (80-110); HEMOLYSIS < 15 (0-50); Potassium 4.4 mmol/L (3.4-5.1); Sodium 130 mmol/L (137-145); Total Protein 8.2 g/dL (6.3-8.2)
[2020-12-28 19:59] LABS: Creatine Kinase 33 U/L (30-135)
[2020-12-28 20:07] LABS: D Dimer < 200 ng/mL (<230); NT-proBNP (BNP-Adult 18+) 228 pg/mL (<450)
[2020-12-28 20:10] LABS: Troponin I < 0.012 ng/mL (0.01-0.034)
[2020-12-28] MEDS: ONDANSETRON 4 MG/2 ML INJ (20:24)
[2020-12-28 20:38] LABS: Appearance Urine UA CLEAR; Bilirubin Urine UA NEGATIVE (NEGATIVE); Color Urine UA YELLOW; Glucose Urine UA NEGATIVE (Negative); Ketones Urine UA NEGATIVE (NEGATIVE); Leukocyte Esterase Urine UA NEGATIVE (NEGATIVE); Nitrite Urine UA NEGATIVE (Negative); Occult Blood Urine UA NEGATIVE (Negative); Protein Urine UA NEGATIVE (Negative); Specific Gravity Urine UA 1.015 (1.000-1.035); Urobilinogen Urine UA 0.2 E.U./dL (0.2)
[2020-12-28 20:41] LABS: pH Urine UA 6.5 (4.5-8.0)
[2020-12-28] MEDS: methylPREDNISolone 125 MG/2 ML VIAL IV (20:47)
[2020-12-28 20:55] LABS: Bacteria Urine None Seen; Culture Indicated Urine Cult Not Indicated; RBC Urine None Seen (0-5/HPF); Squamous Epithelial Cell Urine 0-1 /HPF (0-5/HPF); WBC Urine 0-1/HPF (0-5/HPF)
--- NOTE | 2020-12-28 21:00 | PC.NURSE ---
Pt asking to take her night meds. Provider ok for pt to take personal dose of eliquis 5mg but to hold the flecainide
--- NOTE | 2020-12-28 21:12 | PC.NURSE ---
Pt to and from commode. after transferring from commode pt HR increases to 106-110 and pt gets nauseous and weak. the last transfer from commode to bed pt more SOB, 81% on 3L, and pt converted into AFib at 110. remains in afib at 95-100. Dr Hudson made aware. Pt to use bed reed for future voiding.
[2020-12-28 21:53] LABS: Phosphorous 4.2 mg/dL (2.8-4.1)
[2020-12-28 22:11] LABS: Procalcitonin < 0.03 ng/mL (<0.5)
--- NOTE | 2020-12-28 22:46 | PC.NURSE ---
Pt boarding in the ED maikel. states she is taking her gabapentin and amitriptyline from home. OK'd by ED provider. pt declined to have an inpatient bed brought into her room at this time. Advised if she is uncomfortable throughout the night, make RN aware and inpt bed can be provided. HR 116 ST. Pt converts intermittently to Afib. BP 184/75. 96% on 3L NC. SPO2 seems to be improving s/p lasix. Pt able to speak in longer sentences and appears more comfortable when resting. breathing continues to be labored with exertion when voiding.
[2020-12-28 23:32] LABS: Adenovirus Not Detected (Not Detect); SARS- CoV-2 Not Detected (Not Detecte)
[2020-12-28 23:33] LABS: B. parapertussis Not Detected (Not Detecte); Bordetella pertussis Not Detected (Not Detecte); Chlamydophila pneumoniae Not Detected (Not Detect); Coronavirus 229E Not Detected (Not Detect); Coronavirus HKU1 Not Detected (Not Detect); Coronavirus NL 63 Not Detected (Not Detect); Coronavirus OC43 Not Detected (Not Detect); Human Metapneumovirus Not Detected (Not Detect); Human Rhinovirus/Enterovirus Not Detected (Not Detect); Influenza A Not Detected (Not Detect); Influenza B Not Detected (Not Detect); Mycoplasma pneumoniae Not Detected (Not Detect); Parainfluenza Virus 1 Not Detected (Not Detect); Parainfluenza Virus 2 Not Detected (Not Detect); Parainfluenza Virus 3 Not Detected (Not Detect); Parainfluenza Virus 4 Not Detected (Not Detect); Respiratory Syncytial Virus Not Detected (Not Detect)
[2020-12-29] VITALS (33 sets, daily range): BP systolic 110–172; BP diastolic 54–76; PULSE 68–127; RESP 13–24; TEMP 36–36.7; O2SAT 93–99; BMI 26.2
[2020-12-29] MEDS: METOPROLOL TARTRATE 5 MG/5 ML INJ IV (00:14)
--- NOTE | 2020-12-29 01:02 | PC.NURSE ---
Pt weaned from 3L to 2L and sustaining 97%. Given Lopressor IV for HR which improved to 90-100 ST with intermittent Afib. BP 120/56. Handoff report given to GRACE Justice.
--- NOTE | 2020-12-29 02:56 | P.HP_ITS ---
History of Present Illness History of Present Illness Date Patient Seen: 12/28/20 Time Patient Seen: 21:40 Chief complaint: SOB, Narrative: Abby Bartlett is a 75-year-old female with a significant history of atrial fibrillation with RVR on Eliquis, hypertension, GERD, and insomnia comes in with increasing dyspnea with exertion which has rapidly progressed in the last 24 hours.? Patient states she noted SOB initially just with walking long distance starting about one month ago.? Then eariler today about 1pm today after returning from the store, she notes that her symptoms significantly worsened, noticing she felt tired in her upper shoulders, had no energy.? Patient notes that when she has been getting up at night to use the restroom she has had an elevated heart rate and felt as if she has been having atrial fib exacerbation symptoms and chest tightness. Patient was recently evaluated and recommended for a sleep study for evaluation of insomnia related to respiratory distress and discomfort in relation to her atrial fibrillation. She states her primary care told her CRP was elevated x2 and engaged her to start prednisone but they discussed she continued to feel short of breath and they discussed there was concern for CHF.? Patient states she has only felt short of breath she denied any chest pain, only tightness that began today.? No abdominal pain, nausea, vomting, urinary/bowel symptoms, hematuria or melena.? No fevers, cough cold or congestion.? No recent exposure to illness, other than her neighbors who were all postive for COVID-19 and hospitalized 3 months ago and approximately 4-5 months ago her had positive blood cultures for strep and later was diagnosed & continues f/u for endocarditis at [facility]. Patient denies any orthopnea.? She has not had any edema in her lower extremities.? She felt mildly bloated in her abdomen today but that improved with bowel movement.?She has felt lightheaded occasionally, at night when she gets up to use the bathroom and has an elevated irregular heartbeat.? She does have a history significant for atrial fibrillation with RVR, ablation x2 initially for AFib in July 06 2020 in [place] followed by atrial flutter in October 05, [address] Mansfield at [facility].? She does not take any diuretics.? She is on Eliquis b.i.d..? She denies hx of blood clots.? She was started on flecainide 50 mg b.i.d. a couple weeks and her diltiazem was decreased from 180 mg b.i.d. to 180 mg daily.? Patient does report that she was exposed to her stepfather's cigar smoking as a child, also had Haemophilus B infection several years ago has had severe pneumonia x3, and had been advised previously that she has an at risk respiratory system. Never smoked, 1-2 alcoholic drinks weekly, no illicit.? Her primary care is Dr. Pabon, Dr. Amaya is her rug shampooer and Dr. Mansfield is her EP.? Patient was examined for admit down in the emergency department patient's initial presenting blood pressure in the ED was 201/88, with a heart rate in the 60s and 70s in normal sinus rhythm patient was complaining of shortness of breath. As patient was getting up to urinate following IV Lasix dosage patient demonstrated atrial fibrillation with RVR blood pressure 184/75 heart rate bet ween 104 in 126 with a respiratory rate tachypneic at 39, patient was satting at 94% on 3 L nasal cannula. Initial workup demonstrated patient's HGB 11, HCT 32.5 which is decreased from her baseline mild hyponatremia sodium 130, chloride 94, BUN 19, PT 13.8, with elevated liver enzymes AST 108, ALT 78, alk-phos 138, phosphorus 4.2. Urinalysis, lactate, troponin, procalcitonin, D-dimer, COVID, respiratory panel, and BNP all WNL. The patient's chest x-ray demonstrated nonspecific diffuse bilateral interstitial thickening that could represent pulmonary edema versus an atypical pneumonia or less likely chronic fibrotic changes. Noted mild blunting of the costophrenic angles could represent tiny bilateral pleural effusions and hyperexpanded lungs suggestive of COPD. Patient's EKG had nonspecific changes with a ventricular rate of 75, with first- degree AV block initially in ED, on admit patient continued to a cycle in and out of atrial fibrillation with RVR rate between 104-146. Patient admitted with acute respiratory failure with hypoxia, elevated transaminase, hyponatremia, and atrial fibrillation with RVR. Patient History Medical History (Updated 12/29/20 @ 03:49 by JENNIFER Moore-JEANNA) Atrial fibrillation Gastric reflux History of infection due to Haemophilus influenzae type B History of pancreatitis History of pneumonia Hoarseness Hypertension Insomnia Surgical History (Updated 12/29/20 @ 03:50 by MORGAN Moore) History of arthroscopy History of cholecystectomy History of lumpectomy History of tonsillectomy Personal history of prior ablation treatment Family & Social History Family History (Updated 12/29/20 @ 03:48 by MORGAN Moore) Mother Sick sinus syndrome Heart attack Colon cancer Father Colon cancer Social History: household members spouse Safety & Behavioral: Feels Safe in Current Yes Environment Been Physically Hurt or No Threatened By a Person Tobacco & Substance use: Smoking Status Never smoker alcohol intake frequency holiday/special occasion Substance Use Type does not use Meds Home Medications and Allergies Home Medications Medication Instructions Recorded Confirmed Type amitriptyline 10 mg tablet 10 mg PO DAILY 01/22/18 12/28/20 History aspirin 81 mg chewable tablet 162 mg PO DAILY 01/22/18 12/28/20 History gabapentin 100 mg capsule 100 mg PO DAILY 01/22/18 12/28/20 History omeprazole 20 mg capsule,delayed 20 mg PO BID 01/22/18 12/28/20 History release diltiazem HCl 30 mg tablet 30 mg PO BID 01/13/20 12/21/20 History apixaban 5 mg tablet (Eliquis) 5 mg PO BID 12/21/20 12/28/20 History famotidine 20 mg tablet 20 mg PO BEDTIME 12/21/20 12/28/20 History timolol maleate 0.25 % eye drops drp EYE-BOTH 12/21/20 12/21/20 History (Timoptic) flecainide 50 mg tablet 50 mg PO Q12H 12/28/20 12/28/20 History Allergies Allergy/AdvReac Type Severity Reaction Status Date / Time chlorhexidine Allergy Unknown Verified 12/21/20 09:55 budesonide AdvReac Unknown hives Verified 12/21/20 09:55 epinephrine AdvReac Verified 12/21/20 09:55 Review of Systems Review of Systems Narrative: All 12 point systems reviewed with the patient and are negative except otherwise documented. Exam Vital Signs (past 8 hours): - 12/28/20 19:20 12/28/20 19:34 12/28/20 19:37 Pulse Rate 74 74 Respiratory Rate 24 15 24 Blood Pressure Pulse Oximetry 92 95 92 12/28/20 20:00 12/28/20 20:30 12/28/20 20:39 Pulse Rate 73 70 Respiratory Rate 17 21 26 H Blood Pressure Pulse Oximetry 93 96 81 L 12/28/20 21:00 12/28/20 21:27 12/28/20 21:30 Pulse Rate 72 97 H 103 H Respiratory Rate 28 H 26 H 37 H Blood Pressure 184/75 H Pulse Oximetry 94 95 93 12/28/20 22:00 12/28/20 22:30 12/28/20 23:00 Pulse Rate 108 H 110 H 107 H Respiratory Rate 16 28 H 30 H Blood Pressure Pulse Oximetry 98 97 12/28/20 23:30 12/28/20 23:58 12/29/20 00:00 Pulse Rate 121 H 119 H 116 H Respiratory Rate 29 H 41 H 15 Blood Pressure 158/73 H Pulse Oximetry 99 97 12/29/20 00:01 12/29/20 00:30 12/29/20 01:00 Pulse Rate 109 H 112 H 102 H Respiratory Rate 17 18 13 Blood Pressure 172/66 H 142/70 H 120/56 L Pulse Oximetry 99 96 95 Oxygen Delivery Method Nasal Cannula Oxygen Flow Rate 2 Narrative Exam Narrative: General: Patient is a well-developed, well-nourished pleasant female mild SOB with talking and movement causing elevated HR due to Atrial Fib with RVR, in mild distress at this time. HEENT: Normocephalic, atraumatic, extraocular muscles intact, oral pharynx is clear and mucous membranes are moist. Neck is supple and symmetric, trachea is midline, no adenopathy, no thyroid enlargement, nontender, no masses palpated. Negative for JVD Chest: Normal AP diameter and contour without kyphoscoliosis, no nasal flaring, or retractions. Positive tachypneic labored work of breathing. Lungs: Auscultation of all lung alvarado are decreased but equal without wheezes, positive for bilateral crackles in bases. Patient is able to speak in almost full sentences. Cardio: Irregular rate and rhythm without murmur, rubs, or gallops, no carotid bruit, no cardiac pulsations present. Abdomen: Soft nontender, negative for organomegaly, or masses. Bowel sounds are present hypoactive in all 4 quadrants without guarding or rebound, no CVA tenderness. Musculoskeletal: Muscle strength and tone are equal within normal limits, no deformity, crepitus, effusions, cyanosis, or clubbing present. Full range of motion intact radial and pedal pulses are normal. Skin: Warm dry and intact without rashes, ulcerations or petechiae. Neuro: Alert and orientated x3, strength is +5/5 in all extremities, sensation to touch intact, no gross deficits noted of cranial nerves. Psych: Patient has a well-kept appearance, appropriate affect, mental status attitude thought context and judgment are appropriate for age. Objective Labs Result Diagrams: 12/28/20 19:10 12/28/20 19:10 Labs: Laboratory Results - last 24 hr 12/28/20 12/28/20 12/28/20 18:51 19:10 19:10 WBC 7.7 RBC 3.76 L Hgb 11.0 L Hct 32.5 L MCV 86.3 MCH 29.3 MCHC 34.0 RDW 14.6 Plt Count 356 Neut % (Auto) 61.5 Lymph % (Auto) 26.0 [place] % (Auto) 9.3 Eos % (Auto) 1.9 L Baso % (Auto) 1.3 Neut # (Auto) 4700 Lymph # (Auto) 2000 [place] # (Auto) 700 Eos # (Auto) 100 Baso # (Auto) 100 PT INR D-Dimer Sodium 130 L Potassium 4.4 Chloride 94 L Carbon Dioxide 29 BUN 19 H Creatinine 0.80 Estimated GFR > 60.0 BUN/Creatinine Ratio 23.8 H Glucose 110 Lactate Calcium 9.6 Phosphorus Magnesium Total Bilirubin 0.4 AST 108 H ALT 78 H Alkaline Phosphatase 138 H Total Creatine Kinase CK-MB (CK-2) CK-MB (CK-2) Rel Index Troponin I NT-Pro-B Natriuret Pep 228 Total Protein 8.2 Albumin 4.6 Globulin 3.6 Albumin/Globulin Ratio 1.3 Procalcitonin Urine Color Urine Appearance Urine pH Ur Specific [place] Urine Protein Urine Glucose (UA) Urine Ketones Urine Occult Blood Urine Nitrate Urine Bilirubin Urine Urobilinogen Ur Leukocyte Esterase Urine RBC Urine WBC Ur Squamous Epith Cells Urine Bacteria Ur Culture Indicated? Chlamy pneumoniae PCR Adenovirus (PCR) B. pertussis DNA (PCR) B.parapertussis DNA PCR Coronavirus OC43 (PCR) Coronavirus HKU1 (PCR) Coronavirus 229E (PCR) SARS-CoV-2 (PCR) Negative Coronavirus NL63 (PCR) Human Metapneumovir PCR Influenza Type A (PCR) Influenza Type B (PCR) M. pneumoniae (PCR) Parainfluenza 1 (PCR) Parainfluenza 2 (PCR) Parainfluenza 3 (PCR) Parainfluenza 4 (PCR) RSV (PCR) Entero/Rhino (PCR) 12/28/20 12/28/20 12/28/20 19:10 19:10 19:10 WBC RBC Hgb Hct MCV MCH MCHC RDW Plt Count Neut % (Auto) Lymph % (Auto) [place] % (Auto) Eos % (Auto) Baso % (Auto) Neut # (Auto) Lymph # (Auto) [place] # (Auto) Eos # (Auto) Baso # (Auto) PT 13.8 H INR 1.2 D-Dimer < 200 Sodium Potassium Chloride Carbon Dioxide BUN Creatinine Estimated GFR BUN/Creatinine Ratio Glucose Lactate 0.9 Calcium Phosphorus Magnesium Total Bilirubin AST ALT Alkaline Phosphatase Total Creatine Kinase CK-MB (CK-2) CK-MB (CK-2) Rel Index Troponin I NT-Pro-B Natriuret Pep Total Protein Albumin Globulin Albumin/Globulin Ratio Procalcitonin Urine Color Urine Appearance Urine pH Ur Specific [place] Urine Protein Urine Glucose (UA) Urine Ketones Urine Occult Blood Urine Nitrate Urine Bilirubin Urine Urobilinogen Ur Leukocyte Esterase Urine RBC Urine WBC Ur Squamous Epith Cells Urine Bacteria Ur Culture Indicated? Chlamy pneumoniae PCR Adenovirus (PCR) B. pertussis DNA (PCR) B.parapertussis DNA PCR Coronavirus OC43 (PCR) Coronavirus HKU1 (PCR) Coronavirus 229E (PCR) SARS-CoV-2 (PCR) Coronavirus NL63 (PCR) Human Metapneumovir PCR Influenza Type A (PCR) Influenza Type B (PCR) M. pneumoniae (PCR) Parainfluenza 1 (PCR) Parainfluenza 2 (PCR) Parainfluenza 3 (PCR) Parainfluenza 4 (PCR) RSV (PCR) Entero/Rhino (PCR) 12/28/20 12/28/20 12/28/20 19:10 19:10 19:10 WBC RBC Hgb Hct MCV MCH MCHC RDW Plt Count Neut % (Auto) Lymph % (Auto) [place] % (Auto) Eos % (Auto) Baso % (Auto) Neut # (Auto) Lymph # (Auto) [place] # (Auto) Eos # (Auto) Baso # (Auto) PT INR D-Dimer Sodium Potassium Chloride Carbon Dioxide BUN Creatinine Estimated GFR BUN/Creatinine Ratio Glucose Lactate Calcium Phosphorus 4.2 H Magnesium 2.0 Total Bilirubin AST ALT Alkaline Phosphatase Total Creatine Kinase 33 CK-MB (CK-2) TNP CK-MB (CK-2) Rel Index TNP Troponin I < 0.012 NT-Pro-B Natriuret Pep Total Protein Albumin Globulin Albumin/Globulin Ratio Procalcitonin < 0.03 Urine Color Urine Appearance Urine pH Ur Specific [place] Urine Protein Urine Glucose (UA) Urine Ketones Urine Occult Blood Urine Nitrate Urine Bilirubin Urine Urobilinogen Ur Leukocyte Esterase Urine RBC Urine WBC Ur Squamous Epith Cells Urine Bacteria Ur Culture Indicated? Chlamy pneumoniae PCR Adenovirus (PCR) B. pertussis DNA (PCR) B.parapertussis DNA PCR Coronavirus OC43 (PCR) Coronavirus HKU1 (PCR) Coronavirus 229E (PCR) SARS-CoV-2 (PCR) Coronavirus NL63 (PCR) Human Metapneumovir PCR Influenza Type A (PCR) Influenza Type B (PCR) M. pneumoniae (PCR) Parainfluenza 1 (PCR) Parainfluenza 2 (PCR) Parainfluenza 3 (PCR) Parainfluenza 4 (PCR) RSV (PCR) Entero/Rhino (PCR) 12/28/20 12/28/20 20:20 21:39 WBC RBC Hgb Hct MCV MCH MCHC RDW Plt Count Neut % (Auto) Lymph % (Auto) [place] % (Auto) Eos % (Auto) Baso % (Auto) Neut # (Auto) Lymph # (Auto) [place] # (Auto) Eos # (Auto) Baso # (Auto) PT INR D-Dimer Sodium Potassium Chloride Carbon Dioxide BUN Creatinine Estimated GFR BUN/Creatinine Ratio Glucose Lactate Calcium Phosphorus Magnesium Total Bilirubin AST ALT Alkaline Phosphatase Total Creatine Kinase CK-MB (CK-2) CK-MB (CK-2) Rel Index Troponin I NT-Pro-B Natriuret Pep Total Protein Albumin Globulin Albumin/Globulin Ratio Procalcitonin Urine Color Yellow Urine Appearance Clear Urine pH 6.5 Ur Specific [place] 1.015 Urine Protein Negative Urine Glucose (UA) Negative Urine Ketones Negative Urine Occult Blood Negative Urine Nitrate Negative Urine Bilirubin Negative Urine Urobilinogen 0.2 Ur Leukocyte Esterase Negative Urine RBC None seen Urine WBC 0-1/hpf Ur Squamous Epith Cells 0-1 /hpf Urine Bacteria None seen Ur Culture Indicated? Cult not indicated Chlamy pneumoniae PCR Not detected Adenovirus (PCR) Not detected B. pertussis DNA (PCR) Not detected B.parapertussis DNA PCR Not detected Coronavirus OC43 (PCR) Not detected Coronavirus HKU1 (PCR) Not detected Coronavirus 229E (PCR) Not detected SARS-CoV-2 (PCR) Not detected Coronavirus NL63 (PCR) Not detected Human Metapneumovir PCR Not detected Influenza Type A (PCR) Not detected Influenza Type B (PCR) Not detected M. pneumoniae (PCR) Not detected Parainfluenza 1 (PCR) Not detected Parainfluenza 2 (PCR) Not detected Parainfluenza 3 (PCR) Not detected Parainfluenza 4 (PCR) Not detected RSV (PCR) Not detected Entero/Rhino (PCR) Not detected Assessment & Plan Assessment & Plan narrative: Abby Bartlett is a 75-year-old female with a significant history of atrial fibrillation with RVR on Eliquis, (previous ablat ion x2) hypertension, GERD, and insomnia comes in with increasing dyspnea with exertion which has rapidly progressed in the last 24 hours. Patient admitted with acute respiratory failure with hypoxia, elevated transaminase, hyponatremia, and atrial fibrillation with RVR. 1. Acute respiratory failure with hypoxia, acute, present on admission -suspect acute respiratory failure with hypoxia in the setting of chronic COPD exacerbation acute on chronic, versus possible CHF exacerbation -do want to rule out diaphragmatic inflammation secondary to pancreatitis, pleural effusion or acute respiratory distress syndrome. -patient on 3 L nasal cannula, Urinalysis, WBC, lactate, troponin, procalcitonin, D-dimer, COVID, respiratory panel, and BNP all WNL. -chest x-ray demonstrated nonspecific diffuse bilateral interstitial thickening that could represent pulmonary edema versus an atypical pneumonia or less likely chronic fibrotic changes. Noted mild blunting of the costophrenic angles could represent tiny bilateral pleural effusions and hyperexpanded lungs suggestive of COPD. -IV Lasix 40 mg given in the ED- IV Lasix 20mg Qday -respiratory rate tachypneic at 39, patient was satting at 94% on 3 L nasal cannula. -titrate oxygen to and O2 saturation goal of > 94% -DuoNeb q.6 hours as needed for shortness of breath -prednisone 40 mg q.day x 5 days -Repeat BNP -blood cultures collected in the ED pending-exposure to spouse's strep bacteremia leading to endocarditis 2. 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 -Tele-medicine, pt boarding in ED until bed available -continue patient's Elidorys Diltiazem -Dr. Langley cardiology consulted via phone in ED recommended holding patient's flecainide overnight and and reconsult with him tomorrow following echo results. -hold patient's flecainide-as it is not recommended in patients with coronary artery disease or CHF.-echo for further evaluation -patient have echo tomorrow -metoprolol 5 mg Q 15 minutes x3 to be given if heart rate sustained greater than 115 for longer than 30 minute. -Goal SBP< 180 - DBP <100 3. Hyponatremia, acute, present on admission - sodium 130, chloride 94, BUN 19- monitor electrolytes -R/o hypertonic hyponatremia, pseudo hyponatremia due to hyperlipidemia, SIADH, hypothyroidism, secondary adrenal insufficiency, acquired reset Osmostat of chronic illness, thiazide- induced hyponatremia. -this is possibly secondary to undiagnosised heart failure. -may start gentle hydration with NS@60cc/Hr based on fluid balance -CMP, TSH in am 4. Elevated transaminase, acute, present on admission -rule out pancreatitis (possible risk with severe acute pancreatitis-dyspnea due to diaphragmatic inflammatory secondary to pancreatitis), peptic ulcer disease, Family Hx of Colon Cancer (metastatic disease) -AST 108, ALT 78, alk-phos 138, phosphorus 4.2. -hemoglobin 11, hematocrit 32.5- repeat CBC in am -ordered: Amylase and lipase- if elevated recommend ABD u/s 5. Insomnia, acute on chronic, present on admission -Continue patient's gabapentin and amitriptyline 6. GERD, chronic, present on admission -Continue patient's omeprazole Code status:Full Surrogate decision maker: Spouse COVID PCR:Negative COVID vaccination: Complete May 2020 [employer] DVT/VTE prophylaxis: SCDs only patient on Eliquis Disposition: Patient admitted to acute care expected length of stay longer than 2 midnights. I have utilized all available immediate resources to obtain, update, or review the patient's current medications. I confirmed that the patient's advanced care plan is present, Code status is documented and/or surrogate decision maker is listed in the patient's medical record. Time Spent With Patient Critical Care time: I spent a total of [] minutes of critical care time on this patient's care today; this time is exclusive of procedural time.
[2020-12-29 04:43] LABS: Add Manual Diff / Slide Review NO; Basophils Absolute Auto 100 /uL (0-100); Basophils Percent Auto 0.6 % (0-2); Eosinophils Absolute Auto 0 /uL (0-450); Eosinophils Percent Auto 0.1 % (2-4); Hematocrit 35.8 % (36-46); Hemoglobin 11.9 g/dL (12.0-16.0); Lymphocytes Absolute Auto 800 /uL (1100-4500); Lymphocytes Percent Auto 8.4 % (25-40); Mean Corpuscular HGB Conc 33.2 % (30-36); Mean Corpuscular Hemoglobin 28.7 PG (26-34); Mean Corpuscular Volume 86.4 fL (80-100); Monocytes Absolute Auto 100 /uL (0-900); Monocytes Percent Auto 1.3 % (3-14); Neutrophils Absolute Auto 8200 /uL (1500-7000); Neutrophils Percent Auto 89.6 % (50-75); Platelet Count 359 X10^3/uL (150-400); Red Blood Cell Count 4.14 X10^6/uL (4.0-5.2); Red Cell Distribution Width 14.2 % (11.6-14.8); White Blood Cell Count 9.2 X10^3/uL (4.5-11.0)
[2020-12-29 04:47] LABS: Alanine Aminotransferase 73 IU/L (<35); Albumin 4.9 g/dL (3.5-5.0); Albumin Globulin Ratio 1.3 (1.0-2.8); Alkaline Phosphatase 152 U/L (38-126); Amylase 55 U/L (30-110); Aspartate Aminotransferase 85 IU/L (14-36); Bilirubin Total 0.6 mg/dL (0.2-1.3); Blood Urea Nitrogen 17 mg/dL (7-17); Calcium 9.7 mg/dL (8.4-10.2); Carbon Dioxide 32 mmol/L (22-32); Chloride 92 mmol/L (98-107); Cholesterol 234 mg/dL (140-199); Estimated Glomerular Filt Rate > 60.0 mL/min (>60); Globulin 3.8 g/dL (1.7-4.1); Glucose 167 mg/dL (80-110); HDL Cholesterol 62 mg/dL (40-60); HEMOLYSIS < 15 (0-50); LDL Cholesterol Calculated 156 mg/dL (<100); Lipase 57 U/L (23-300); Potassium 3.5 mmol/L (3.4-5.1); Sodium 135 mmol/L (137-145); Total Protein 8.7 g/dL (6.3-8.2); Triglycerides 82 mg/dL (35-150)
[2020-12-29 04:55] LABS: NT-proBNP (BNP-Adult 18+) 564 pg/mL (<450)
[2020-12-29 06:19] LABS: TSH w/ Reflex to FT4 1.22 uIU/mL (0.47-4.68)
--- NOTE | 2020-12-29 10:11 | PC.NURSE ---
Pt received from ER in bed at approximately 0906. No acute distress. Denies pain. Resting comfortably in bed. Stand by assist up to bathroom and pt voiding without difficulty. Tele leads applied and pt remains in a-fib with variable HR in low 100's. Admission assessment completed. Pt does not want to lock up any of her valuables at bedside at this time. Oriented to room/call light and to call when she needs to get up to use restroom. SCD's applied by Carolyn CUEVAS. Will continue to monitor.
[2020-12-29] MEDS: INFLUENZA HD VACCINE 0.7 ML SYRINGE IM (10:54)
[2020-12-29] MEDS: FUROSEMIDE 20 MG/2 ML VIAL IV (10:56)
[2020-12-29] MEDS: predniSONE 20 MG TABLET 40 MG PO (10:56)
[2020-12-29] MEDS: APIXABAN 5 MG TABLET PO ×2 (11:51→22:32)
[2020-12-29] MEDS: dilTIAZem CD 180 MG CAP PO (11:51)
[2020-12-29] MEDS: METOPROLOL ER 50 MG TABLET PO ×2 (16:22→22:32)
[2020-12-29] MEDS: GABAPENTIN 100 MG CAPSULE PO ×2 (22:32→23:59)
[2020-12-29] MEDS: FAMOTIDINE 20 MG TABLET PO (22:32)
[2020-12-29] MEDS: AMITRIPTYLINE 10 MG TABLET PO (22:33)
[2020-12-29] MEDS: AMITRIPTYLINE 10 MG TABLET 20 MG PO (23:58)
[2020-12-30] VITALS (7 sets, daily range): BP systolic 107–126; BP diastolic 64–72; PULSE 66–67; RESP 14–18; TEMP 36.1–36.4; O2SAT 96–100
[2020-12-30 06:11] LABS: Add Manual Diff / Slide Review NO; Basophils Absolute Auto 0 /uL (0-100); Basophils Percent Auto 0.1 % (0-2); Eosinophils Absolute Auto 0 /uL (0-450); Hematocrit 33.1 % (36-46); Hemoglobin 10.9 g/dL (12.0-16.0); Lymphocytes Absolute Auto 1400 /uL (1100-4500); Lymphocytes Percent Auto 8.4 % (25-40); Mean Corpuscular Hemoglobin 28.6 PG (26-34); Mean Corpuscular Volume 86.5 fL (80-100); Monocytes Absolute Auto 1500 /uL (0-900); Monocytes Percent Auto 8.6 % (3-14); Neutrophils Absolute Auto 14100 /uL (1500-7000); Neutrophils Percent Auto 82.9 % (50-75); Platelet Count 365 X10^3/uL (150-400); Red Blood Cell Count 3.82 X10^6/uL (4.0-5.2); Red Cell Distribution Width 14.5 % (11.6-14.8)
[2020-12-30 06:21] LABS: Alanine Aminotransferase 44 IU/L (<35); Albumin 4.3 g/dL (3.5-5.0); Albumin Globulin Ratio 1.3 (1.0-2.8); Alkaline Phosphatase 120 U/L (38-126); Aspartate Aminotransferase 38 IU/L (14-36); BUN Creatinine Ratio 30.4 (6-22); Bilirubin Total 0.3 mg/dL (0.2-1.3); Blood Urea Nitrogen 21 mg/dL (7-17); Calcium 9.4 mg/dL (8.4-10.2); Carbon Dioxide 29 mmol/L (22-32); Chloride 95 mmol/L (98-107); Estimated Glomerular Filt Rate > 60.0 mL/min (>60); Globulin 3.3 g/dL (1.7-4.1); Glucose 112 mg/dL (80-110); HEMOLYSIS < 15 (0-50); Sodium 132 mmol/L (137-145); Total Protein 7.6 g/dL (6.3-8.2)
[2020-12-30] MEDS: PANTOPRAZOLE DR 20 MG TABLET PO (06:42)
[2020-12-30] MEDS: FUROSEMIDE 20 MG/2 ML VIAL 40 MG IV (09:45)
[2020-12-30] MEDS: ASPIRIN 81 MG CHEW TAB 162 MG PO (09:48)
[2020-12-30] MEDS: APIXABAN 5 MG TABLET PO (09:48)
[2020-12-30] MEDS: dilTIAZem CD 180 MG CAP PO (09:48)
[2020-12-30] MEDS: METOPROLOL ER 50 MG TABLET PO (09:48)
--- NOTE | 2020-12-30 11:14 | P.DS_ITS ---
History of Present Illness History of Present Illness Chief complaint: SOB, Narrative: Per Irina Burch Abby Bartlett is a 75-year-old female with a significant history of atrial fibrillation with RVR on Eliquis, hypertension, GERD, and? insomnia comes in with increasing dyspnea with exertion which has rapidly progressed in the last 24 hours.? Patient states she noted SOB? initially just with walking long distance starting about one month ago.? Then eariler today about 1pm today after returning from the store, she notes that her symptoms significantly worsened, noticing she felt tired in her upper shoulders, had no energy.? Patient notes that when she has been getting up at night to use the restroom she has had an elevated heart rate and felt as if she has been having atrial fib exacerbation symptoms and chest tightness.? Patient was recently evaluated and recommended for a sleep study for evaluation of insomnia related to respiratory distress and discomfort in relation to her atrial fibrillation. She states her primary care told her CRP was elevated x2 and engaged her to start prednisone but they discussed she continued to feel short of breath and they discussed there was concern for CHF.? Patient states she has only felt short of breath she denied any chest pain, only tightness that began today.? No abdominal pain, nausea, vomting, urinary/bowel symptoms, hematuria or melena.? No fevers, cough cold or congestion.? No recent? exposure to illness, other than her neighbors who were all postive for COVID-19 and hospitalized 3 months ago and approximately 4-5 months ago her had positive blood cultures for strep and later was diagnosed & [place] [facility] [place] denies any orthopnea.? She has not had any edema in her lower extremities.? She felt mildly bloated in her abdomen today but that improved with bowel movement.?She has felt lightheaded occasionally, at night when she gets up to use the bathroom and has an elevated irregular heartbeat.? She does have a history significant for atrial fibrillation with RVR, ablation x2 initially for AFib in July 06 2020 in [place] followed by atrial flutter in October 05, [address] Mansfield at [facility].? She does not take any diuretics.? She is on Eliquis b.i.d..? She denies hx of blood clots.? She was started on flecainide 50 mg b.i.d. a couple weeks and her diltiazem was decreased from 180 mg b.i.d. to 180 mg daily.? Patient does report that she was exposed to her stepfather's cigar smoking as a child, also had Haemophilus B infection several years ago has had? severe pneumonia x3, and had been advised previously that she has an at risk respiratory system. Never smoked, 1-2 alcoholic drinks weekly, no illicit.? Her primary care is Dr. Pabon, Dr. Amaya is her cosmetic account coordinator and Dr. Mansfield is her EP.? Patient was examined for admit down in the emergency department patient's initial presenting blood pressure in the ED was 201/88, with a heart rate in the 60s and 70s in normal sinus rhythm patient was complaining of shortness of breath.? As patient was getting up to urinate following IV Lasix dosage patient demonstrated atrial fibrillation with RVR blood pressure 184/75 heart rate between 104 in 126 with a respiratory rate tachypneic at 39, patient was satting at 94% on 3 L nasal cannula.? Initial workup demonstrated patient's HGB 11, HCT 32.5 which is decreased from her baseline mild hyponatremia sodium 130, chloride 94, BUN 19, PT 13.8, with elevated liver enzymes AST 108, ALT 78, alk-phos 138, phosphorus 4.2. Urinalysis, lactate, troponin, procalcitonin, D-dimer, COVID, respiratory panel, and BNP all WNL.? The patient's chest x-ray demonstrated nonspecific?diffuse bilateral interstitial thickening that could represent pulmonary edema versus an atypical pneumonia or less likely chronic fibrotic changes. Noted mild blunting of the costophrenic angles could represent tiny bilateral pleural effusions and hyperexpanded lungs suggestive of COPD.? Patient's EKG had nonspecific changes with a ventricular rate of 75, with first- degree AV block initially in ED, on admit patient continued to a cycle in and out of atrial fibrillation with RVR rate between 104-146.? Patient admitted with acute respiratory failure with hypoxia, elevated transaminase, hyponatremia,? and atrial fibrillation with RVR. Discharge Providers Provider Date of admission: 12/28/20 21:47 Discharge Date: 12/30/20 Primary care physician: Gita Pabon MD Discharge provider: Julius Thornton MD Summary Hospital Course Discharge Diagnosis: 1. Acute respiratory failure with acute congestive heart failure with reduced EF 2. Atrial fibrillation with RVR, paroxysmal 3. GERD 4. Insomnia Hospital Course: Ms. Bartlett was admitted with shortness of breath, found to be in CHF exacerbation. She was diuresed and quickly her respiratory status improved to baseline. She also had afib with RVR. It was thought her precipitating factor was probably the fleicanide, this was stopped after discussion with cardiology. She also had salty foods prior to this admission. She was continued on diltiazem, and started on metoprolol. Her heart rate improved and she remained in paroxysmal afib. Her ECHO showed a preserved EF. She had an elevated white count likely due to getting steroids, as initially there was a concern about reactive airway causing her symptoms, but steroids were discontinued. Exam Vital Signs (past 8 hours): Oxygen Delivery Method Room Air Oxygen Flow Rate 0 Narrative Exam Narrative: General no acute distress CV irregular, rate controlled Pulm clear bilaterally Objective Labs Result Diagrams: 12/30/20 05:30 12/30/20 05:30 [facility] Medical History (Updated 12/29/20 @ 03:49 by JENNIFER Moore-JEANNA) Atrial fibrillation Gastric reflux History of infection due to Haemophilus influenzae type B History of pancreatitis History of pneumonia Hoarseness Hypertension Insomnia Surgical History (Updated 12/29/20 @ 03:50 by MORGAN Moore) History of arthroscopy History of cholecystectomy History of lumpectomy History of tonsillectomy Personal history of prior ablation treatment Family History (Updated 12/29/20 @ 03:48 by MORGAN Moore) Mother Sick sinus syndrome Heart attack Colon cancer Father Colon cancer Social History marital status: household members: spouse Smoking Status: Never smoker Discharge Plan Discharge Plan Patient Disposition: Home Provider Discharge Comment: Ms. Bartlett came in to the hospital with trouble breathing, she was retaining fluid. She was in atrial fibrillation. She had good improvement with lasix to remove fluid. This may have been caused by fleicanide so this was stopped. She was started on metoprolol and her heart improved. In addition she is being considered for possibly having polymyalgia rheumatica, she will hold off on her steroids for now and follow up closely with her PCP to see if she should start this medication. Discharge orders & Medications Prescriptions: New metoprolol succinate 50 mg Tablet Extended Release 24 Hr 50 mg PO BID Qty: 60 RF: 0 Continued diltiazem HCl 180 mg capsule,extended release 24hr 180 mg PO DAILY RF: 0 amitriptyline 10 mg tablet 10 mg PO DAILY RF: 0 omeprazole 20 mg capsule,delayed release(DR/EC) 20 mg PO BID RF: 0 gabapentin 100 mg capsule 100 mg PO DAILY RF: 0 Eliquis 5 mg tablet 5 mg PO BID RF: 0 timolol maleate [Timoptic] 0.25 % drops 0.25 drp EYE-BOTH BID RF: 0 famotidine 20 mg tablet 20 mg PO BEDTIME RF: 0 Discontinued flecainide 50 mg Tablet 50 mg PO Q12H RF: 0 aspirin 81 mg Tablet,Chewable 162 mg PO DAILY RF: 0 Follow up/Referrals: Eros Amaya MD [Physician] - 01/07/21 1:50 pm (01/07 @ 1:50 @ [facility] cardiology in [facility] please arrive 15 min prior to your scheduled appointment time new CHF, recently started fleicanide, now stopped, replaced with metoprolol, in afib with rvr initially but controlled with metoprolol) Gita Pabon MD [Primary Care Provider] - Diet/Activity/Treatments Diet: Low-sodium Discharge Data Primary Care Provider: Gita Pabon Quality VTE Deep Vein Thrombosis/Pulmonary Embolism Present on Admission: No
--- NOTE | 2020-12-30 13:20 | CM.IDA ---
Initial DCP Assessment Note Pt is a 75 yo female, resident of [place], presents SOB in resp. distress, h/o heart ablation x2, afib w/RVR on Eliquis, hypertension, GERD, followed by Compliance Lead: Dr Amaya PCP: Gita Pabon Payer: [facility] Reviewed chart, pt discussed in multidisciplinary rounds this morning. Patient is indp. at her baseline, drove herself and spouse to the ER because spouse does not drive. Dr Thornton expects to DC patient home if her heart rate can be controlled today Met w/patient, introduced role. Patient is in good spirits, explains that her middle son just arrived at [facility] this morning, from [place], and will be staying over the weekend. Patient expects no DC needs from this ACCESS TECH, left contact information in case any DC needs or concerns arise. No needs expected from DC planning team although will remain available in case this changes today. PAYAM Rhoades Discharge Planning/Care Management CM Discharge Assessment Start: 12/30/20 13:13 Freq: Status: Active Protocol: Document 12/30/20 13:13 PHILIPP (Rec: 12/30/20 13:19 PHILIPP [id number]) Discharge Planning Assessment Assigned [employer] PAYAM Vega DPOA/Assigned Designee Name Pablo Bartlett spouse Contact Information [phone] Advance Directives? Yes Advance Directives on File No History Provided By Patient Prior Living Arrangements House Household Members spouse Comment Spouse suffered a stroke a few months ago, no longer drives Type of transporation used prior to Drives own vehicle admit Independent with ADL's Yes Is patient alert and oriented? Yes Barriers to Discharge No Discharge Plan Home Transportation Arrangement Friend vs taxi, spouse does not drive Referrals Initiated None needed Additional Comment At this time Whiteboard Updated in Patient Room with Yes name and ext. # of [employer]
--- NOTE | 2020-12-30 13:33 | PC.NURSE ---
Patient given discharge instructions regarding f/u with [employer] Operator and PCP, discontinuation of medication and new Rx for Metoprolol. Discussed s/s of worsening condition. Patient verbalized understanding. IV removed without complication, tele off. Patient getting dressed independently. Denies belongings in safe or pharmacy. Awaiting ride.
== END 2020-12-30 14:39 | disposition home or self-care (01) | DRG 291 ==
LOC: ED 19:11 → AC 21:48
PROVIDERS: Admitting Provider Nurse Practitioner Family; Emergency Provider Emergency Medicine; Family Provider Internal Medicine; PCP Internal Medicine; Referring Provider Emergency Medicine; Visit Provider Nurse Practitioner Family
DX: I11.0 Hypertensive heart disease with heart failure (principal); J96.01 Acute respiratory failure with hypoxia; I50.33 Acute on chronic diastolic (congestive) heart failure; E87.1 Hypo-osmolality and hyponatremia; R74.01 Elevation of levels of liver transaminase levels; I48.0 Paroxysmal atrial fibrillation; T46.2X5A Adverse effect of other antidysrhythmic drugs, initial encounter; G47.00 Insomnia, unspecified; K21.9 Gastro-esophageal reflux disease without esophagitis; Z79.01 Long term (current) use of anticoagulants; Z20.822 Contact with and (suspected) exposure to COVID-19; Z23 Encounter for immunization
CPT/HCPCS: 36415; 71045; 80053; 80061; 81001; 82150; 82550; 83605; 83690; 83735; 83880; 84100; 84145; 84443; 84484; 85025; 85379; 85610; 87040; 87633; 87635; 90471; 90662; 93005; 93306; 94150; 94640; 96374; 96375; 99285; C9803; A9270; J1940; J2405; J2930

== ENCOUNTER → 2021-01-11 10:48 | Outpatient (CLI) | payer MEDICARE, OTHER, SELFPAY ==
[2020-12-29 09:06] VITALS: BMI 26.2
[2021-01-11 11:35] LABS: BUN Creatinine Ratio 22.9 (6-22); Blood Urea Nitrogen 22 mg/dL (7-17); Calcium 9.7 mg/dL (8.4-10.2); Carbon Dioxide 31 mmol/L (22-32); Chloride 96 mmol/L (98-107); Estimated Glomerular Filt Rate 56.5 mL/min (>60); Glucose 78 mg/dL (80-110); HEMOLYSIS < 15 (0-50); Potassium 4.1 mmol/L (3.4-5.1); Sodium 135 mmol/L (137-145)
== END ==
PROVIDERS: Internal Medicine Cardiovascular Disease; Family Provider Internal Medicine; PCP Internal Medicine; Referring Provider Internal Medicine; Visit Provider Internal Medicine
DX: I48.0 Paroxysmal atrial fibrillation (principal); I50.9 Heart failure, unspecified
CPT/HCPCS: 36415; 80048

== ENCOUNTER 2021-01-18 05:17 | Inpatient (IN) | payer MEDICARE, OTHER, SELFPAY ==
[2020-12-29 09:06] VITALS: BMI 26.2
[2021-01-18] VITALS (22 sets, daily range): BP systolic 98–211; BP diastolic 41–93; PULSE 62–108; RESP 16–30; TEMP 36.1–36.7; O2SAT 86–97; BMI 27.6
--- NOTE | 2021-01-18 05:25 | DI.RAD.S_ITS ---
PROCEDURE: XR CHEST 1V INDICATIONS: SOB TECHNIQUE: One view of the chest was acquired. COMPARISON: [facility], CR, XR CHEST 1V, 12/28/2020, 19:24. FINDINGS: Surgical changes and devices: Surgical clips in the left breast.. Lungs and pleura: Bilateral interstitial thickening not significantly changed compared to December 28, 2020. No pleural effusions or pneumothorax. Lungs hyperinflated suggesting COPD. Mediastinum: Mediastinal contours appear normal. Heart size is normal. Bones and chest wall: No suspicious bony lesions. Overlying soft tissues appear unremarkable. IMPRESSION: Bilateral, diffuse lung interstitial thickening. Finding could represent chronic lung disease, pulmonary edema or atypical pneumonia. Dictated by: Crystal Freeman MD, PhD on 01/18/2021 at 7:42 Approved by: Crystal Freeman MD, PhD on 01/18/2021 at 7:44
--- NOTE | 2021-01-18 05:37 | ED.GENADULT ---
HPI - General Adult <Italo Smith DO - Last Filed: 01/18/21 18:11> General Chief complaint: Shortness of Breath/Dyspnea Stated complaint: hard time breathing x1 day Time Seen by Provider: 01/18/21 05:24 Source: patient Mode of arrival: Ambulatory History of Present Illness HPI narrative: Patient is a 75-year-old female. Has a history of atrial fibrillation port is on anticoagulation. Also has a history of COPD. Is currently on steroids per approximately 2 weeks ago was admitted to the hospital for shortness of breath. She was diuresed. [place] better. Had an echocardiogram. Flecainide was discontinued and she is now on diltiazem and metoprolol. She did take her metoprolol dose last evening. Over the past 24 hours has had progressive worsening shortness of breath. EMS was called early this morning. They evaluated her. Oxygen saturations were in the mid 90s. She declined to come by EMS and came by private vehicle. She denies chest pain. No abdominal pain. No headache. No sore throat. Related Data Home Medications Medication Instructions Recorded Confirmed amitriptyline 10 mg tablet 10 mg PO DAILY 01/22/18 12/29/20 gabapentin 100 mg capsule 100 mg PO DAILY 01/22/18 12/29/20 omeprazole 20 mg capsule,delayed 20 mg PO BID 01/22/18 12/29/20 release apixaban 5 mg tablet (Eliquis) 5 mg PO BID 12/21/20 12/29/20 famotidine 20 mg tablet 20 mg PO BEDTIME 12/21/20 12/29/20 timolol maleate 0.25 % eye drops 0.25 drp EYE-BOTH BID 12/21/20 12/30/20 (Timoptic) diltiazem HCl 180 mg 180 mg PO DAILY 12/29/20 12/29/20 capsule,extended release 24 hr Previous Rx's Medication Instructions Recorded metoprolol succinate 50 mg 50 mg PO BID #60 tab 12/30/20 tablet,extended release 24 hr Allergies Allergy/AdvReac Type Severity Reaction Status Date / Time chlorhexidine Allergy Unknown Verified 01/18/21 05:32 budesonide AdvReac Unknown hives Verified 01/18/21 05:32 epinephrine AdvReac Verified 01/18/21 05:32 Review of Systems <Italo Smith DO - Last Filed: 01/18/21 18:11> Constitutional Constitutional: Reports system reviewed and no additional complaints, except as documented ENT Ears, Nose, Mouth, and Throat: Reports as per HPI Cardiovascular Cardiovascular: Reports as per HPI and Reports system reviewed and no additional complaints, except as documented Respiratory Respiratory: Reports as per HPI and Reports system reviewed and no additional complaints, except as documented Gastrointestinal Gastrointestinal: Reports system reviewed and no additional complaints, except as documented Genitourinary Genitourinary: Reports system reviewed and no additional complaints, except as documented Musculoskeletal Musculoskeletal: Reports system reviewed and no additional complaints, except as documented Integumentary/Breasts Skin/Breast: Reports system reviewed and no additional complaints, except as documented Neurologic Neurologic: Reports system reviewed and no additional complaints, except as documented Hematologic/Lymphatic On Anticoagulants: Yes Allergic/Immunologic Allergic/Immunologic: Reports system reviewed and no additional complaints, except as documented Patient History <Italo Smith DO - Last Filed: 01/18/21 18:11> Medical History Atrial fibrillation Gastric reflux History of infection due to Haemophilus influenzae type B History of pancreatitis History of pneumonia Hoarseness Hypertension Insomnia Surgical History History of arthroscopy History of cholecystectomy History of lumpectomy History of tonsillectomy Personal history of prior ablation treatment Family History Mother Sick sinus syndrome Heart attack Colon cancer Father Colon cancer Social History marital status: household members: spouse Smoking Status: Never smoker Smoking Status: Never smoker alcohol intake frequency: holidays/special occasions only Substance Use Type: does not use Exam <Italo Smith DO - Last Filed: 01/18/21 18:11> Initial Vital Signs Initial Vital Signs: Vital Signs Temperature 98.0 F 01/18/21 05:29 Pulse Rate 64 01/18/21 05:29 Respiratory Rate 24 01/18/21 05:29 Blood Pressure 211/93 H 01/18/21 05:29 Pulse Oximetry 86 L 01/18/21 05:29 Const General: cooperative HENMT Head: normal to inspection and normocephalic Resp Effort & Inspection: not able to speak in complete sentences, no cough, labored, no retractions and tachypneic Auscultation: diminished lung sounds Cardio Rate: regular rate Rhythm: regular rhythm GI Inspection: normal to inspection Palpation: soft Skin General: no rashes or lesions noted Neuro General: patient alert, patient awake and patient oriented x3 Extrem General: No edema Psych Appearance: grossly normal and well kempt <Marsha Hawley, DO - Last Filed: 01/18/21 18:23> Initial Vital Signs Initial Vital Signs: Vital Signs Temperature 98.0 F 01/18/21 05:29 Pulse Rate 64 01/18/21 05:29 Respiratory Rate 24 01/18/21 05:29 Blood Pressure 211/93 H 01/18/21 05:29 Pulse Oximetry 86 L 01/18/21 05:29 Course <Italo Smith, DO - Last Filed: 01/18/21 18:11> Orders Ordered: Acetaminophen (Acetaminophen 325 Mg Tablet) 650 mg PO Q6HR PRN PRN Reason: Fever/Mild Pain (1-3) Last Admin: 01/18/21 14:33 Dose: 650 mg Documented by: SERINA Amitriptyline HCl (Amitriptyline 10 Mg Tablet) 10 mg PO DAILY [facility] Apixaban (Apixaban 5 Mg Tablet) 5 mg PO BID [facility] Last Admin: 01/18/21 14:16 Dose: Not Given Documented by: SERINA Azithromycin (Azithromycin 250 Mg Tablet) 500 mg PO DAILY [facility] Stop: 01/20/21 09:01 Last Admin: 01/18/21 14:32 Dose: 500 mg Documented by: SERINA Diltiazem HCl (Diltiazem Cd 180 Mg Cap) 180 mg PO DAILY [facility] Famotidine (Famotidine 20 Mg Tablet) 20 mg PO BEDTIME [facility] Gabapentin (Gabapentin 100 Mg Capsule) 100 mg PO BEDTIME [facility] Ipratropium [place] (Ipratropium 0.5 Mg/2.5 Ml Neb) 0.5 mg INH RTQ4HR [facility] Last Admin: 01/18/21 14:16 Dose: Not Given Documented by: MARY Metoprolol Succinate (Metoprolol Er 50 Mg Tablet) 50 mg PO BID [facility] Last Admin: 01/18/21 14:16 Dose: Not Given Documented by: SERINA Naloxone HCl (Naloxone 0.4 Mg/Ml Vial) 0.2 mg IV Q2MIN PRN PRN Reason: Opiate Reversal Ondansetron HCl (Ondansetron 4 Mg/2 Ml Inj) 4 mg IV Q8HR PRN PRN Reason: Nausea And Vomiting Pantoprazole Sodium (Pantoprazole Dr 20 Mg Tablet) 20 mg PO 0700,2100 [facility] Timolol Maleate (Timolol 0.25% Ophth) 1 drops EYE-BOTH BID [facility] Last Admin: 01/18/21 14:32 Dose: 1 1000units Documented by: SERINA Discontinued Medications Albuterol (Albuterol 2.5 Mg/3 Ml Neb (Adult)) 2.5 mg INH NOW ONE Stop: 01/18/21 05:45 Last Admin: 01/18/21 05:49 Dose: 2.5 mg Documented by: SHINE Albuterol (Albuterol 2.5 Mg/3 Ml Neb (Adult)) 2.5 mg INH NOW ONE Stop: 01/18/21 06:47 Last Admin: 01/18/21 07:49 Dose: 2.5 mg Documented by: ROSA Apixaban (Apixaban 5 Mg Tablet) 5 mg PO NOW ONE Stop: 01/18/21 09:00 Last Admin: 01/18/21 10:35 Dose: 5 mg Documented by: SERINA Furosemide (Furosemide 100 Mg/10 Ml Vial) 60 mg IV NOW ONE Stop: 01/18/21 05:45 Last Admin: 01/18/21 05:49 Dose: 60 mg Documented by: ELBERT Gabapentin (Gabapentin 100 Mg Capsule) 100 mg PO DAILY [facility] Metoprolol Succinate (Metoprolol Er 50 Mg Tablet) 50 mg PO NOW ONE Stop: 01/18/21 09:00 Last Admin: 01/18/21 10:35 Dose: 50 mg Documented by: SERINA Nitroglycerin (Nitroglycerin Oint 1 Inch/Gm Oint...G.) 1 inch TOP NOW ONE Stop: 01/18/21 05:45 Last Admin: 01/18/21 05:49 Dose: 1 inch Documented by: ELBERT Prednisone (Prednisone 20 Mg Tablet) 20 mg PO NOW ONE Stop: 01/18/21 09:02 Last Admin: 01/18/21 10:36 Dose: 20 mg Documented by: SERINA Vital Signs Vital signs: Vital Signs - 8 hr 01/18/21 05:29 01/18/21 05:30 01/18/21 05:31 Temperature 98.0 F Pulse Rate 64 64 64 Respiratory Rate 24 27 H 24 Blood Pressure 211/93 H 201/84 H Pulse Oximetry 86 L 94 97 01/18/21 05:49 01/18/21 05:56 01/18/21 06:00 Temperature Pulse Rate 64 62 Respiratory Rate 28 H 23 Blood Pressure 173/71 H 159/60 H Pulse Oximetry 94 97 93 01/18/21 06:30 01/18/21 07:50 Temperature Pulse Rate 89 92 H Respiratory Rate 19 16 Blood Pressure 161/68 H Pulse Oximetry 95 93 <Marsha Hawley, - Last Filed: 01/18/21 18:23> Orders Ordered: Acetaminophen (Acetaminophen 325 Mg Tablet) 650 mg PO Q6HR PRN PRN Reason: Fever/Mild Pain (1-3) Last Admin: 01/18/21 14:33 Dose: 650 mg Documented by: SERINA Amitriptyline HCl (Amitriptyline 10 Mg Tablet) 10 mg PO DAILY [facility] Apixaban (Apixaban 5 Mg Tablet) 5 mg PO BID [facility] Last Admin: 01/18/21 14:16 Dose: Not Given Documented by: SERINA Azithromycin (Azithromycin 250 Mg Tablet) 500 mg PO DAILY [facility] Stop: 01/20/21 09:01 Last Admin: 01/18/21 14:32 Dose: 500 mg Documented by: SERINA Diltiazem HCl (Diltiazem Cd 180 Mg Cap) 180 mg PO DAILY [facility] Famotidine (Famotidine 20 Mg Tablet) 20 mg PO BEDTIME [facility] Gabapentin (Gabapentin 100 Mg Capsule) 100 mg PO BEDTIME [facility] Ipratropium [place] (Ipratropium 0.5 Mg/2.5 Ml Neb) 0.5 mg INH RTQ4HR [facility] Last Admin: 01/18/21 14:16 Dose: Not Given Documented by: MARY Metoprolol Succinate (Metoprolol Er 50 Mg Tablet) 50 mg PO BID [facility] Last Admin: 01/18/21 14:16 Dose: Not Given Documented by: SERINA Naloxone HCl (Naloxone 0.4 Mg/Ml Vial) 0.2 mg IV Q2MIN PRN PRN Reason: Opiate Reversal Ondansetron HCl (Ondansetron 4 Mg/2 Ml Inj) 4 mg IV Q8HR PRN PRN Reason: Nausea And Vomiting Pantoprazole Sodium (Pantoprazole Dr 20 Mg Tablet) 20 mg PO 0700,2100 [facility] Timolol Maleate (Timolol 0.25% Ophth) 1 drops EYE-BOTH BID [facility] Last Admin: 01/18/21 14:32 Dose: 1 1000units Documented by: SERINA Discontinued Medications Albuterol (Albuterol 2.5 Mg/3 Ml Neb (Adult)) 2.5 mg INH NOW ONE Stop: 01/18/21 05:45 Last Admin: 01/18/21 05:49 Dose: 2.5 mg Documented by: SHINE Albuterol (Albuterol 2.5 Mg/3 Ml Neb (Adult)) 2.5 mg INH NOW ONE Stop: 01/18/21 06:47 Last Admin: 01/18/21 07:49 Dose: 2.5 mg Documented by: ROSA Apixaban (Apixaban 5 Mg Tablet) 5 mg PO NOW ONE Stop: 01/18/21 09:00 Last Admin: 01/18/21 10:35 Dose: 5 mg Documented by: SERINA Furosemide (Furosemide 100 Mg/10 Ml Vial) 60 mg IV NOW ONE Stop: 01/18/21 05:45 Last Admin: 01/18/21 05:49 Dose: 60 mg Documented by: ELBERT Gabapentin (Gabapentin 100 Mg Capsule) 100 mg PO DAILY [facility] Metoprolol Succinate (Metoprolol Er 50 Mg Tablet) 50 mg PO NOW ONE Stop: 01/18/21 09:00 Last Admin: 01/18/21 10:35 Dose: 50 mg Documented by: SERINA Nitroglycerin (Nitroglycerin Oint 1 Inch/Gm Oint...G.) 1 inch TOP NOW ONE Stop: 01/18/21 05:45 Last Admin: 01/18/21 05:49 Dose: 1 inch Documented by: ELBERT Prednisone (Prednisone 20 Mg Tablet) 20 mg PO NOW ONE Stop: 01/18/21 09:02 Last Admin: 01/18/21 10:36 Dose: 20 mg Documented by: SERINA Vital Signs Vital signs: Vital Signs - 8 hr 01/18/21 05:29 01/18/21 05:30 01/18/21 05:31 Temperature 98.0 F Pulse Rate 64 64 64 Respiratory Rate 24 27 H 24 Blood Pressure 211/93 H 201/84 H Pulse Oximetry 86 L 94 97 01/18/21 05:49 01/18/21 05:56 01/18/21 06:00 Temperature Pulse Rate 64 62 Respiratory Rate 28 H 23 Blood Pressure 173/71 H 159/60 H Pulse Oximetry 94 97 93 01/18/21 06:30 01/18/21 07:50 Temperature Pulse Rate 89 92 H Respiratory Rate 19 16 Blood Pressure 161/68 H Pulse Oximetry 95 93 Medical Decision Making <Italo Smith, DO - Last Filed: 01/18/21 18:11> Lab Data Lab results reviewed: Yes I reviewed the patient's lab results. Result diagrams: 01/18/21 05:25 01/18/21 05:25 Labs: Lab Results 01/18/21 01/18/21 01/18/21 Range/Units 05:20 05:25 05:25 WBC 18.1 H (4.5-11.0) X10^3/uL RBC 3.87 L (4.0-5.2) X10^6/uL Hgb 11.0 L (12.0-16.0) g/dL Hct 33.2 L (36-46) % MCV 85.7 (80-100) fL MCH 28.3 (26-34) PG MCHC 33.1 (30-36) % RDW 15.1 H (11.6-14.8) % Plt Count 426 H (150-400) X10^3/uL Neut % (Auto) 74.9 (50-75) % Lymph % (Auto) 18.0 L (25-40) % Sullivan % (Auto) 5.6 (3-14) % Eos % (Auto) 0.7 L (2-4) % Baso % (Auto) 0.8 (0-2) % Neut # (Auto) 08013 H (2530-1674) /uL Lymph # (Auto) 3300 (9345-0852) /uL Sullivan # (Auto) 1000 H (0-900) /uL Eos # (Auto) 100 (0-450) /uL Baso # (Auto) 100 (0-100) /uL PT (10.1-12.7) SECONDS INR (0.9-1.3) APTT (26.4-36.2) SECONDS Sodium 137 (137-145) mmol/L Potassium 3.8 (3.4-5.1) mmol/L Chloride 96 L (98-107) mmol/L Carbon Dioxide 34 H (22-32) mmol/L BUN 14 (7-17) mg/dL Creatinine 0.77 (0.52-1.04) mg/dL Estimated GFR > 60.0 (>60) mL/min BUN/Creatinine Ratio 18.2 (6-22) Glucose 104 (80-110) mg/dL Calcium 9.4 (8.4-10.2) mg/dL Magnesium 2.2 (1.6-2.3) mg/dL Total Bilirubin 0.6 (0.2-1.3) mg/dL AST 68 H (14-36) IU/L ALT 108 H (<35) IU/L Alkaline Phosphatase 118 (38-126) U/L Total Creatine Kinase < 20 L (30-135) U/L CK-MB (CK-2) TNP CK-MB (CK-2) Rel Index TNP Troponin I < 0.012 (0.01-0.034) ng/mL NT-Pro-B Natriuret Pep 825 H (<450) pg/mL Total Protein 8.1 (6.3-8.2) g/dL Albumin 4.6 (3.5-5.0) g/dL Globulin 3.5 (1.7-4.1) g/dL Albumin/Globulin Ratio 1.3 (1.0-2.8) Lipase 73 (23-300) U/L Procalcitonin < 0.03 (<0.5) ng/mL Chlamy pneumoniae PCR (Not Detect) Adenovirus (PCR) (Not Detect) B. pertussis DNA (PCR) (Not Detecte) B.parapertussis DNA PCR (Not Detecte) Coronavirus OC43 (PCR) (Not Detect) Coronavirus HKU1 (PCR) (Not Detect) Coronavirus 229E (PCR) (Not Detect) SARS-CoV-2 (PCR) Negative (Negative) Coronavirus NL63 (PCR) (Not Detect) Human Metapneumovir PCR (Not Detect) Influenza Type A (PCR) (Not Detect) Influenza Type B (PCR) (Not Detect) M. pneumoniae (PCR) (Not Detect) Parainfluenza 1 (PCR) (Not Detect) Parainfluenza 2 (PCR) (Not Detect) Parainfluenza 3 (PCR) (Not Detect) Parainfluenza 4 (PCR) (Not Detect) RSV (PCR) (Not Detect) Entero/Rhino (PCR) (Not Detect) 01/18/21 01/18/21 Range/Units 06:32 06:34 WBC (4.5-11.0) X10^3/uL RBC (4.0-5.2) X10^6/uL Hgb (12.0-16.0) g/dL Hct (36-46) % MCV (80-100) fL MCH (26-34) PG MCHC (30-36) % RDW (11.6-14.8) % Plt Count (150-400) X10^3/uL Neut % (Auto) (50-75) % Lymph % (Auto) (25-40) % Sullivan % (Auto) (3-14) % Eos % (Auto) (2-4) % Baso % (Auto) (0-2) % Neut # (Auto) (1166-7435) /uL Lymph # (Auto) (4249-7952) /uL Sullivan # (Auto) (0-900) /uL Eos # (Auto) (0-450) /uL Baso # (Auto) (0-100) /uL PT 13.2 H (10.1-12.7) SECONDS INR 1.2 (0.9-1.3) APTT 32 (26.4-36.2) SECONDS Sodium (137-145) mmol/L Potassium (3.4-5.1) mmol/L Chloride (98-107) mmol/L Carbon Dioxide (22-32) mmol/L BUN (7-17) mg/dL Creatinine (0.52-1.04) mg/dL Estimated GFR (>60) mL/min BUN/Creatinine Ratio (6-22) Glucose (80-110) mg/dL Calcium (8.4-10.2) mg/dL Magnesium (1.6-2.3) mg/dL Total Bilirubin (0.2-1.3) mg/dL AST (14-36) IU/L ALT (<35) IU/L Alkaline Phosphatase (38-126) U/L Total Creatine Kinase (30-135) U/L CK-MB (CK-2) CK-MB (CK-2) Rel Index Troponin I (0.01-0.034) ng/mL NT-Pro-B Natriuret Pep (<450) pg/mL Total Protein (6.3-8.2) g/dL Albumin (3.5-5.0) g/dL Globulin (1.7-4.1) g/dL Albumin/Globulin Ratio (1.0-2.8) Lipase (23-300) U/L Procalcitonin (<0.5) ng/mL Chlamy pneumoniae PCR Not detected (Not Detect) Adenovirus (PCR) Not detected (Not Detect) B. pertussis DNA (PCR) Not detected (Not Detecte) B.parapertussis DNA PCR Not detected (Not Detecte) Coronavirus OC43 (PCR) Not detected (Not Detect) Coronavirus HKU1 (PCR) Not detected (Not Detect) Coronavirus 229E (PCR) Not detected (Not Detect) SARS-CoV-2 (PCR) Not detected (Negative) Coronavirus NL63 (PCR) Not detected (Not Detect) Human Metapneumovir PCR Not detected (Not Detect) Influenza Type A (PCR) Not detected (Not Detect) Influenza Type B (PCR) Not detected (Not Detect) M. pneumoniae (PCR) Not detected (Not Detect) Parainfluenza 1 (PCR) Not detected (Not Detect) Parainfluenza 2 (PCR) Not detected (Not Detect) Parainfluenza 3 (PCR) Not detected (Not Detect) Parainfluenza 4 (PCR) Not detected (Not Detect) RSV (PCR) Not detected (Not Detect) Entero/Rhino (PCR) Not detected (Not Detect) Imaging Data Chest x-ray: Radiologist's Impression: Hazy interstitial and airspace opacities bilateral which may indicate edema or pneumonia ECG Data Attestation: I personally reviewed and interpreted this ECG as follows: Interpretation: Sinus rhythm Ventricular rate of 65 Normal axis Normal QRS Normal QTC No ST T wave changes MDM Narrative Medical decision making narrative: Arrived in mild respiratory distress. Speaking in one-word sentences. Was hypertensive. In sinus rhythm. Received a nebulizer treatment which she states helped her symptoms quite a bit. Nitro paste was placed in this improved her blood pressure. She did diurese approximately 900 cc of urine. BNP slightly elevated. Chest x-ray does show fluid. He is improving. Plan will be is to repeat nebulizer treatment is the seems to help her symptoms quite a bit. Care turned over to Dr. Hawley to follow up and disposition. <Marsha Hawley, DO - Last Filed: 01/18/21 18:23> Lab Data Labs: Lab Results 01/18/21 01/18/21 01/18/21 Range/Units 05:20 05:25 05:25 WBC 18.1 H (4.5-11.0) X10^3/uL RBC 3.87 L (4.0-5.2) X10^6/uL Hgb 11.0 L (12.0-16.0) g/dL Hct 33.2 L (36-46) % MCV 85.7 (80-100) fL MCH 28.3 (26-34) PG MCHC 33.1 (30-36) % RDW 15.1 H (11.6-14.8) % Plt Count 426 H (150-400) X10^3/uL Neut % (Auto) 74.9 (50-75) % Lymph % (Auto) 18.0 L (25-40) % Sullivan % (Auto) 5.6 (3-14) % Eos % (Auto) 0.7 L (2-4) % Baso % (Auto) 0.8 (0-2) % Neut # (Auto) 71291 H (4457-3173) /uL Lymph # (Auto) 3300 (6853-0354) /uL Sullivan # (Auto) 1000 H (0-900) /uL Eos # (Auto) 100 (0-450) /uL Baso # (Auto) 100 (0-100) /uL PT (10.1-12.7) SECONDS INR (0.9-1.3) APTT (26.4-36.2) SECONDS Sodium 137 (137-145) mmol/L Potassium 3.8 (3.4-5.1) mmol/L Chloride 96 L (98-107) mmol/L Carbon Dioxide 34 H (22-32) mmol/L BUN 14 (7-17) mg/dL Creatinine 0.77 (0.52-1.04) mg/dL Estimated GFR > 60.0 (>60) mL/min BUN/Creatinine Ratio 18.2 (6-22) Glucose 104 (80-110) mg/dL Calcium 9.4 (8.4-10.2) mg/dL Magnesium 2.2 (1.6-2.3) mg/dL Total Bilirubin 0.6 (0.2-1.3) mg/dL AST 68 H (14-36) IU/L ALT 108 H (<35) IU/L Alkaline Phosphatase 118 (38-126) U/L Total Creatine Kinase < 20 L (30-135) U/L CK-MB (CK-2) TNP CK-MB (CK-2) Rel Index TNP Troponin I < 0.012 (0.01-0.034) ng/mL NT-Pro-B Natriuret Pep 825 H (<450) pg/mL Total Protein 8.1 (6.3-8.2) g/dL Albumin 4.6 (3.5-5.0) g/dL Globulin 3.5 (1.7-4.1) g/dL Albumin/Globulin Ratio 1.3 (1.0-2.8) Lipase 73 (23-300) U/L Procalcitonin < 0.03 (<0.5) ng/mL Chlamy pneumoniae PCR (Not Detect) Adenovirus (PCR) (Not Detect) B. pertussis DNA (PCR) (Not Detecte) B.parapertussis DNA PCR (Not Detecte) Coronavirus OC43 (PCR) (Not Detect) Coronavirus HKU1 (PCR) (Not Detect) Coronavirus 229E (PCR) (Not Detect) SARS-CoV-2 (PCR) Negative (Negative) Coronavirus NL63 (PCR) (Not Detect) Human Metapneumovir PCR (Not Detect) Influenza Type A (PCR) (Not Detect) Influenza Type B (PCR) (Not Detect) M. pneumoniae (PCR) (Not Detect) Parainfluenza 1 (PCR) (Not Detect) Parainfluenza 2 (PCR) (Not Detect) Parainfluenza 3 (PCR) (Not Detect) Parainfluenza 4 (PCR) (Not Detect) RSV (PCR) (Not Detect) Entero/Rhino (PCR) (Not Detect) 01/18/21 01/18/21 Range/Units 06:32 06:34 WBC (4.5-11.0) X10^3/uL RBC (4.0-5.2) X10^6/uL Hgb (12.0-16.0) g/dL Hct (36-46) % MCV (80-100) fL MCH (26-34) PG MCHC (30-36) % RDW (11.6-14.8) % Plt Count (150-400) X10^3/uL Neut % (Auto) (50-75) % Lymph % (Auto) (25-40) % Sullivan % (Auto) (3-14) % Eos % (Auto) (2-4) % Baso % (Auto) (0-2) % Neut # (Auto) (7028-3171) /uL Lymph # (Auto) (4928-0527) /uL Sullivan # (Auto) (0-900) /uL Eos # (Auto) (0-450) /uL Baso # (Auto) (0-100) /uL PT 13.2 H (10.1-12.7) SECONDS INR 1.2 (0.9-1.3) APTT 32 (26.4-36.2) SECONDS Sodium (137-145) mmol/L Potassium (3.4-5.1) mmol/L Chloride (98-107) mmol/L Carbon Dioxide (22-32) mmol/L BUN (7-17) mg/dL Creatinine (0.52-1.04) mg/dL Estimated GFR (>60) mL/min BUN/Creatinine Ratio (6-22) Glucose (80-110) mg/dL Calcium (8.4-10.2) mg/dL Magnesium (1.6-2.3) mg/dL Total Bilirubin (0.2-1.3) mg/dL AST (14-36) IU/L ALT (<35) IU/L Alkaline Phosphatase (38-126) U/L Total Creatine Kinase (30-135) U/L CK-MB (CK-2) CK-MB (CK-2) Rel Index Troponin I (0.01-0.034) ng/mL NT-Pro-B Natriuret Pep (<450) pg/mL Total Protein (6.3-8.2) g/dL Albumin (3.5-5.0) g/dL Globulin (1.7-4.1) g/dL Albumin/Globulin Ratio (1.0-2.8) Lipase (23-300) U/L Procalcitonin (<0.5) ng/mL Chlamy pneumoniae PCR Not detected (Not Detect) Adenovirus (PCR) Not detected (Not Detect) B. pertussis DNA (PCR) Not detected (Not Detecte) B.parapertussis DNA PCR Not detected (Not Detecte) Coronavirus OC43 (PCR) Not detected (Not Detect) Coronavirus HKU1 (PCR) Not detected (Not Detect) Coronavirus 229E (PCR) Not detected (Not Detect) SARS-CoV-2 (PCR) Not detected (Negative) Coronavirus NL63 (PCR) Not detected (Not Detect) Human Metapneumovir PCR Not detected (Not Detect) Influenza Type A (PCR) Not detected (Not Detect) Influenza Type B (PCR) Not detected (Not Detect) M. pneumoniae (PCR) Not detected (Not Detect) Parainfluenza 1 (PCR) Not detected (Not Detect) Parainfluenza 2 (PCR) Not detected (Not Detect) Parainfluenza 3 (PCR) Not detected (Not Detect) Parainfluenza 4 (PCR) Not detected (Not Detect) RSV (PCR) Not detected (Not Detect) Entero/Rhino (PCR) Not detected (Not Detect) MDM Narrative Medical decision making narrative: Arrived in mild respiratory distress. Speaking in one-word sentences. Was hypertensive. In sinus rhythm. Received a nebulizer treatment which she states helped her symptoms quite a bit. Nitro paste was placed in this improved her blood pressure. She did diurese approximately 900 cc of urine. BNP slightly elevated. Chest x-ray does show fluid. He is improving. Plan will be is to repeat nebulizer treatment is the seems to help her symptoms quite a bit. Care turned over to Dr. Hawley to follow up and disposition. [id number] seen and evaluated patient myself. Currently sleeping on room air 88% easily awakens and O2 goes up to 92%. She states she is overall significantly better. She is back in AFib but rate controlled in the 90s. She says she goes in and out of atrial fibrillation frequently. She overall feels significantly better she. She has mild leukocytosis likely secondary to prednisone rather than infection. She started prednisone for probable new diagnosis of polymyalgia rheumatica. Patient ambulated O2 sat dropped to 86% dyspneic. She remains in rate controlled atrial fibrillation. He unlikely pulmonary embolism she is anticoagulated on Eliquis. She has urinated quite a bit Lasix. Dr. sands updated patient's symptoms test results and happily accepts patient Discharge Plan Departure Patient Disposition: Admitted as Observation Clinical Impression: Acute exacerbation of chronic obstructive airways disease, Insomnia Congestive heart failure Qualifiers: Heart failure type: other Qualified Code(s): I50.9 - Heart failure, unspecified Atrial fibrillation Qualifiers: Atrial fibrillation type: paroxysmal Qualified Code(s): I48.0 - Paroxysmal atrial fibrillation Admit Date/Time: 01/18/21 08:48 Admit Provider: Laurie Sands
[2021-01-18 05:40] LABS: COVID19 -Nasal RAPID Negative (Negative)
[2021-01-18 05:43] LABS: Add Manual Diff / Slide Review NO; Basophils Absolute Auto 100 /uL (0-100); Basophils Percent Auto 0.8 % (0-2); Eosinophils Absolute Auto 100 /uL (0-450); Eosinophils Percent Auto 0.7 % (2-4); Hematocrit 33.2 % (36-46); Lymphocytes Absolute Auto 3300 /uL (1100-4500); Mean Corpuscular HGB Conc 33.1 % (30-36); Mean Corpuscular Hemoglobin 28.3 PG (26-34); Mean Corpuscular Volume 85.7 fL (80-100); Monocytes Absolute Auto 1000 /uL (0-900); Monocytes Percent Auto 5.6 % (3-14); Neutrophils Absolute Auto 13600 /uL (1500-7000); Neutrophils Percent Auto 74.9 % (50-75); Platelet Count 426 X10^3/uL (150-400); Red Blood Cell Count 3.87 X10^6/uL (4.0-5.2); Red Cell Distribution Width 15.1 % (11.6-14.8); White Blood Cell Count 18.1 X10^3/uL (4.5-11.0)
[2021-01-18] MEDS: NITROGLYCERIN OINT 1 INCH/GM OINT...G. TOP (05:49)
[2021-01-18] MEDS: FUROSEMIDE 100 MG/10 ML VIAL 60 MG IV (05:49)
[2021-01-18] MEDS: ALBUTEROL 2.5 MG/3 ML NEB (ADULT) INH ×2 (05:49→07:49)
[2021-01-18 05:52] LABS: Alanine Aminotransferase 108 IU/L (<35); Albumin 4.6 g/dL (3.5-5.0); Albumin Globulin Ratio 1.3 (1.0-2.8); Alkaline Phosphatase 118 U/L (38-126); Aspartate Aminotransferase 68 IU/L (14-36); BUN Creatinine Ratio 18.2 (6-22); Bilirubin Total 0.6 mg/dL (0.2-1.3); Blood Urea Nitrogen 14 mg/dL (7-17); Calcium 9.4 mg/dL (8.4-10.2); Carbon Dioxide 34 mmol/L (22-32); Chloride 96 mmol/L (98-107); Creatine Kinase < 20 U/L (30-135); Estimated Glomerular Filt Rate > 60.0 mL/min (>60); Globulin 3.5 g/dL (1.7-4.1); Glucose 104 mg/dL (80-110); HEMOLYSIS < 15 (0-50); Lipase 73 U/L (23-300); Magnesium 2.2 mg/dL (1.6-2.3); Potassium 3.8 mmol/L (3.4-5.1); Sodium 137 mmol/L (137-145); Total Protein 8.1 g/dL (6.3-8.2)
[2021-01-18 06:04] LABS: NT-proBNP (BNP-Adult 18+) 825 pg/mL (<450); Troponin I < 0.012 ng/mL (0.01-0.034)
[2021-01-18 06:08] LABS: Procalcitonin < 0.03 ng/mL (<0.5)
--- NOTE | 2021-01-18 06:42 | PC.NURSE ---
Up to bedside commode, patient reports she could feel her heart go into irregular rhythm. Patient in afib on monitor. Dr Smith aware.
[2021-01-18 06:48] LABS: INR 1.2 (0.9-1.3); Prothrombin Time 13.2 SECONDS (10.1-12.7)
[2021-01-18 06:51] LABS: PTT Partial Thromboplastin Tim 32 SECONDS (26.4-36.2)
[2021-01-18 07:26] LABS: Adenovirus Not Detected (Not Detect); B. parapertussis Not Detected (Not Detecte); Bordetella pertussis Not Detected (Not Detecte); Chlamydophila pneumoniae Not Detected (Not Detect); Coronavirus 229E Not Detected (Not Detect); Coronavirus HKU1 Not Detected (Not Detect); Coronavirus NL 63 Not Detected (Not Detect); Coronavirus OC43 Not Detected (Not Detect); Human Metapneumovirus Not Detected (Not Detect); Human Rhinovirus/Enterovirus Not Detected (Not Detect); Influenza A Not Detected (Not Detect); Influenza B Not Detected (Not Detect); Mycoplasma pneumoniae Not Detected (Not Detect); Parainfluenza Virus 1 Not Detected (Not Detect); Parainfluenza Virus 2 Not Detected (Not Detect); Parainfluenza Virus 3 Not Detected (Not Detect); Parainfluenza Virus 4 Not Detected (Not Detect); Respiratory Syncytial Virus Not Detected (Not Detect); SARS- CoV-2 Not Detected (Not Detecte)
--- NOTE | 2021-01-18 07:41 | PC.NURSE ---
Nitro paste off at [address] Hawley
--- NOTE | 2021-01-18 08:29 | PC.NURSE ---
Ambulated with pt around the ER. O2 dropped to 87%. When resting back in bed her O2 sat returns to 95%
[2021-01-18] MEDS: METOPROLOL ER 50 MG TABLET PO (10:35)
[2021-01-18] MEDS: APIXABAN 5 MG TABLET PO ×2 (10:35→21:28)
[2021-01-18] MEDS: predniSONE 20 MG TABLET PO (10:36)
--- NOTE | 2021-01-18 11:13 | PC.NURSE ---
Pt received into room 202 at 0945. Pt is A & O x 4. She c/o SOB with activity but sats are mid 90's at rest and she is on RA. Pt has been placed on tele per ER order and given her morning meds.
--- NOTE | 2021-01-18 13:57 | P.HP_ITS ---
History of Present Illness History of Present Illness Date Patient Seen: 01/18/21 Time Patient Seen: 14:00 Chief complaint: Dyspnea, chest heaviness Narrative: This is a late entry history and physical as the patient was admitted at 7:00 a.m.. Ailyn Wright is a 75-year-old female with a history of paroxysmal atrial fibrillation currently anticoagulated on apixaban that was diagnosed approximately 3 years ago. At 5:00 p.m. yesterday she got ?winded while she was at the pharmacy picking up her 's medications. Then she developed chest heaviness at 11:00 p.m.. Normally sleeps on her right side and was not able to sleep on her right side last night. She went to a recliner at 3:30 a.m. to for she continued to have a heavy sensation in her chest with no pain. She called EMS, they took her vitals and shoulder her blood pressure was quite high. She denies a productive or dry cough or fever. Her who was recently had a stroke with right-sided visual cut defects cannot drive so she drove herself to the emergency department. She has had a headache continuously since this morning. She complains of bloating, she has no nausea or vomiting but she has been urinating a lot due to the Lasix they gave her. She does not have any ankle swelling. She takes Colace for constipation and has significant leg cramps that she takes magnesium for. Patient had had postoperative atrial fibrillation after having a gallbladder removal in 2017 which was managed well until later this year. In June of this year when she was in [facility] and developed atrial fibrillation and was cardioverted in the emergency department there. She returned to this area and went into atrial fibrillation and underwent ablation. In November she was started on flecainide but found that it made her feel really horrible so she discontinued that. Her last echocardiogram was done on the 28 of December and saw atrial fibrillation and was determined to have a 60-65% ejection fraction. She was actually started on oral prednisone 20 mg daily appearing to have started this on January 13, and referred to Rheumatology for a diagnosis of polymyalgia rheumatica. Chest x-ray done in the emergency department indicated ?Bilateral, diffuse lung interstitial thickening.? Finding could represent chronic lung disease, pulmonary edema or atypical pneumonia. ED note stated that did not administer her antibiotics because they felt that the elevated white count was due to her taking prednisone. She was diuresed with IV Lasix with good effect. Current vitals are temperature of 97.6?, blood pressure 134/71, heart rate 101, respi ratory rate 18, she has an oxygen saturation of 95% on 2 L, she weighs 80 kg with a BMI of 27.6. Her white count is 18.1, RBC 3.87 hemoglobin 11 hematocrit 33.2 platelet count 426 neutrophil count was 13,600, sodium 137 potassium 3.8 chloride 94 bicarb 34 BUN 14 creatinine 0.77 with a GFR greater than 60 Mag 2.2 AST 68 ALT 108 total bili 0.6 creatinine kinase is less than 20 proBNP 825 lipase 73 and procalcitonin normal, COVID-19 PCR is negative. Patient History Medical History Atrial fibrillation Gastric reflux History of infection due to Haemophilus influenzae type B History of pancreatitis History of pneumonia Hoarseness Hypertension Insomnia Surgical History History of arthroscopy History of cholecystectomy History of lumpectomy History of tonsillectomy Personal history of prior ablation treatment Family & Social History Family History Mother Sick sinus syndrome Heart attack Colon cancer Father Colon cancer Social History: household members spouse Prior Living Arrangements House Safety & Behavioral: Feels Safe in Current Yes Environment Been Physically Hurt or No Threatened By a Person Suicidal Ideation Description None Suicide Plan Description No Plan Tobacco & Substance use: Smoking Status Never smoker alcohol intake frequency holiday/special occasion Substance Use Type does not use Meds Home Medications and Allergies Home Medications Medication Instructions Recorded Confirmed Type amitriptyline 10 mg tablet 10 mg PO DAILY 01/22/18 12/29/20 History gabapentin 100 mg capsule 100 mg PO DAILY 01/22/18 12/29/20 History omeprazole 20 mg capsule,delayed 20 mg PO BID 01/22/18 12/29/20 History release apixaban 5 mg tablet (Eliquis) 5 mg PO BID 12/21/20 12/29/20 History famotidine 20 mg tablet 20 mg PO BEDTIME 12/21/20 12/29/20 History timolol maleate 0.25 % eye drops 0.25 drp EYE-BOTH BID 12/21/20 12/30/20 History (Timoptic) diltiazem HCl 180 mg 180 mg PO DAILY 12/29/20 12/29/20 History capsule,extended release 24 hr metoprolol succinate 50 mg 50 mg PO BID #60 tab 12/30/20 Rx tablet,extended release 24 hr Allergies Allergy/AdvReac Type Severity Reaction Status Date / Time chlorhexidine Allergy Unknown Verified 01/18/21 05:32 budesonide AdvReac Unknown hives Verified 01/18/21 05:32 epinephrine AdvReac Verified 01/18/21 05:32 Review of Systems Review of Systems ROS: Yes All systems reviewed with the patient and are negative except as otherwise documented Exam Vital Signs (past 8 hours): - 01/18/21 06:00 01/18/21 06:30 01/18/21 07:00 Temperature Pulse Rate 62 89 91 H Respiratory Rate 23 19 17 Blood Pressure 159/60 H 161/68 H Pulse Oximetry 93 95 89 L 01/18/21 07:01 01/18/21 07:30 01/18/21 07:31 Temperature Pulse Rate 94 H 92 H 90 Respiratory Rate 25 H 28 H 21 Blood Pressure 149/70 H 136/62 Pulse Oximetry 89 L 93 91 01/18/21 07:50 01/18/21 08:00 01/18/21 08:01 Temperature Pulse Rate 92 H 103 H 108 H Respiratory Rate 16 30 H Blood Pressure 120/53 L Pulse Oximetry 93 90 L 92 01/18/21 08:16 01/18/21 09:35 Temperature 97.6 F Pulse Rate 97 H 101 H Respiratory Rate 21 18 Blood Pressure 124/58 L 134/71 Pulse Oximetry 95 95 Oxygen Delivery Method Room Air Oxygen Flow Rate 2 Narrative Exam Narrative: Gen: Alert, oriented, well-developed 75 y.o. female, appears to be resting comfortably HEENT: normocephalic, atraumatic, conjunctiva clear, sclera non-icteric, oral mucosa pink and moist Neck: supple, full ROM, no JVD, trachea is midline Resp: Lungs CTA, no wheezes or rhonchi non-labored breathing CV: RRR, no murmur or rubs Abd: soft, non-tender, normoactive BTs Skin: no lesions or rashes, dry and intact Neuro: Alert and oriented X 4 w/no focal deficits. Speech clear and coherent. Extremities: no edema currently, moves all 4 extremities, is ambulatory, negative Jose Manuel?s sign Psyche: normal mood and affect. Objective Labs Result Diagrams: 01/18/21 05:25 01/18/21 05:25 Labs: Laboratory Results - last 24 hr 01/18/21 01/18/21 01/18/21 05:20 05:25 05:25 WBC 18.1 H RBC 3.87 L Hgb 11.0 L Hct 33.2 L MCV 85.7 MCH 28.3 MCHC 33.1 RDW 15.1 H Plt Count 426 H Neut % (Auto) 74.9 Lymph % (Auto) 18.0 L [place] % (Auto) 5.6 Eos % (Auto) 0.7 L Baso % (Auto) 0.8 Neut # (Auto) 45635 H Lymph # (Auto) 3300 [place] # (Auto) 1000 H Eos # (Auto) 100 Baso # (Auto) 100 PT INR APTT Sodium 137 Potassium 3.8 Chloride 96 L Carbon Dioxide 34 H BUN 14 Creatinine 0.77 Estimated GFR > 60.0 BUN/Creatinine Ratio 18.2 Glucose 104 Calcium 9.4 Magnesium 2.2 Total Bilirubin 0.6 AST 68 H ALT 108 H Alkaline Phosphatase 118 Total Creatine Kinase < 20 L CK-MB (CK-2) TNP CK-MB (CK-2) Rel Index TNP Troponin I < 0.012 NT-Pro-B Natriuret Pep 825 H Total Protein 8.1 Albumin 4.6 Globulin 3.5 Albumin/Globulin Ratio 1.3 Lipase 73 Procalcitonin < 0.03 Chlamy pneumoniae PCR Adenovirus (PCR) B. pertussis DNA (PCR) B.parapertussis DNA PCR Coronavirus OC43 (PCR) Coronavirus HKU1 (PCR) Coronavirus 229E (PCR) SARS-CoV-2 (PCR) Negative Coronavirus NL63 (PCR) Human Metapneumovir PCR Influenza Type A (PCR) Influenza Type B (PCR) M. pneumoniae (PCR) Parainfluenza 1 (PCR) Parainfluenza 2 (PCR) Parainfluenza 3 (PCR) Parainfluenza 4 (PCR) RSV (PCR) Entero/Rhino (PCR) 01/18/21 01/18/21 06:32 06:34 WBC RBC Hgb Hct MCV MCH MCHC RDW Plt Count Neut % (Auto) Lymph % (Auto) [place] % (Auto) Eos % (Auto) Baso % (Auto) Neut # (Auto) Lymph # (Auto) [place] # (Auto) Eos # (Auto) Baso # (Auto) PT 13.2 H INR 1.2 APTT 32 Sodium Potassium Chloride Carbon Dioxide BUN Creatinine Estimated GFR BUN/Creatinine Ratio Glucose Calcium Magnesium Total Bilirubin AST ALT Alkaline Phosphatase Total Creatine Kinase CK-MB (CK-2) CK-MB (CK-2) Rel Index Troponin I NT-Pro-B Natriuret Pep Total Protein Albumin Globulin Albumin/Globulin Ratio Lipase Procalcitonin Chlamy pneumoniae PCR Not detected Adenovirus (PCR) Not detected B. pertussis DNA (PCR) Not detected B.parapertussis DNA PCR Not detected Coronavirus OC43 (PCR) Not detected Coronavirus HKU1 (PCR) Not detected Coronavirus 229E (PCR) Not detected SARS-CoV-2 (PCR) Not detected Coronavirus NL63 (PCR) Not detected Human Metapneumovir PCR Not detected Influenza Type A (PCR) Not detected Influenza Type B (PCR) Not detected M. pneumoniae (PCR) Not detected Parainfluenza 1 (PCR) Not detected Parainfluenza 2 (PCR) Not detected Parainfluenza 3 (PCR) Not detected Parainfluenza 4 (PCR) Not detected RSV (PCR) Not detected Entero/Rhino (PCR) Not detected Assessment & Plan Assessment & Plan narrative: Abby Bartlett is a 75-year-old female admitted for a COPD exacerbation likely bacterial in nature, mild congestive heart failure exacerbation. 1. COPD exacerbation, acute, present on admission * She is given ipratropium/albuterol nebulizers q.4 hours as needed for dyspnea * I have started her on oral azithromycin for presumed bacterial pneumonia given x-ray findings were other than her elevated white count which may be due to prednisone intake 2. Question new onset CHF, acute, present on admission * Daily weights with a low-sodium diet * Her last echo was done on December 28 with the ejection fraction of 60-65% an atrial fibrillation 3. Atrial fibrillation, chronic, paroxysmal with recent ablation * She has had 2 cardiac ablations this year and sees Dr. Howard, cardiology * Continue metoprolol 50 mg twice daily and diltiazem that she takes mid day of 180 mg * Continue anticoagulation with apixaban 5 mg p.o. b.i.d. 4. Hypertension, appears to be controlled at this time present on admission * Continue metoprolol and diltiazem 5. Leg cramps, chronic normally takes magnesium * Magnesium is normal at 2.2 and will hold VTE Prophylaxis: Wells risk score 3Patient is currently anticoagulated on Apixaban. Patient is admitted to the inpatient service due to the severity of disease, risks of further disease progression and this stay is expected to exceed 2 midnights. FEN: IV fluids: saline lock, diet: low sodium heart healthy diet, labs: CBC, C/BMP, liver enzymes, Mag, PT/INR Consultants None Dispo: Probable discharge to home Code status: Full codeas discussed with the patient who identifies Pablo Rosenthal surrogate and POA. [X] I have utilized all available immediate resources to obtain, update, or review of the patient's current medications COVID-19 COVID-19 status: Negative Result date/Date tested (Pos, Neg/Pending): 01/18/21 Time Spent With Patient Critical Care time: I spent a total of [] minutes of critical care time on this patient's care today; this time is exclusive of procedural time. Scores Wells' Criteria for PE Clinical signs and symptoms of DVT: Yes PE is #1 Dx or equally likely: No Heart rate > 100: No Immobilization at least 3 days or surg in previous 4 weeks: No History of PE or DVT: No Hemoptysis: No Malignancy w/Treatment within 6 months or palliative: No Wells' PE Score total: 3 Quality VTE Deep Vein Thrombosis/Pulmonary Embolism Present on Admission: No MIPS - Admit I confirm the patient?s Advance Care Plan is present, Code status is documented, Surrogate decision maker is in patient?s record [If Yes, STOP here]: Yes MIPS - DC The patient has current or prior documentation of left ventricular ejection fraction (LVEF) less than 40%, or moderate or severely depressed left ventricular systolic function.: No
[2021-01-18] MEDS: AZITHROMYCIN 250 MG TABLET 500 MG PO (14:32)
[2021-01-18] MEDS: TIMOLOL 0.25% OPHTH 1 DROPS EYE-BOTH ×2 (14:32→22:14)
[2021-01-18] MEDS: ACETAMINOPHEN 325 MG TABLET 650 MG PO (14:33)
[2021-01-18] MEDS: GABAPENTIN 100 MG CAPSULE PO (21:27)
[2021-01-18] MEDS: FAMOTIDINE 20 MG TABLET PO (22:13)
[2021-01-18] MEDS: PANTOPRAZOLE DR 20 MG TABLET PO (22:14)
[2021-01-18] MEDS: AMITRIPTYLINE 10 MG TABLET PO (22:37)
[2021-01-19] VITALS (15 sets, daily range): BP systolic 87–120; BP diastolic 41–67; PULSE 67–99; RESP 14–18; TEMP 36.2–36.9; O2SAT 94–99
[2021-01-19] MEDS: IPRATROPIUM 0.5 MG/2.5 ML NEB INH ×2 (07:41→11:28)
[2021-01-19] MEDS: AZITHROMYCIN 250 MG TABLET 500 MG PO (09:06)
[2021-01-19] MEDS: PANTOPRAZOLE DR 20 MG TABLET PO ×2 (09:06→21:53)
[2021-01-19] MEDS: METOPROLOL ER 50 MG TABLET PO (09:08)
[2021-01-19] MEDS: APIXABAN 5 MG TABLET PO ×2 (09:09→21:25)
[2021-01-19] MEDS: TIMOLOL 0.25% OPHTH 1 DROPS EYE-BOTH ×2 (09:10→21:26)
--- NOTE | 2021-01-19 10:34 | CM.DANOTE ---
DCP: Case received, EMR reviewed and met with patient. Introduced self and role. Was able to obtain information regarding patient's baseline activity status prior to hospitalization. DCP assessment completed with information currently available. Patient is a 75 year old female who admitted yesterday morning to the care of the hospitalist team. PCP: Dr. Gita Pabon. Payer: confirmed: Medicare. Patient came to the hospital via family vehicle secondary to her having chest pain. EMS had already been to her house, and patient decided to drive herself after being checked by them. Patient was also having some shortness of breath. Patient does have cardiac history. Patient was hospitalized for COPD exacerbation. Met with patient in her room. She is alert and oriented, pleasant. She resides here in [place] with her , Pablo. Patient is independent, her does have health issues, and is no longer driving secondary to his visual alvarado secondary to hemorrhagic CVA. P: DCP to continue to follow. Patient should be able to go home when she is deemed medically stable. Jeanette Lee RN/Computerized Table Cutter Discharge Planning/Care Management Advanced directive, confirm from FAMILY Start: 01/18/21 10:58 Freq: Q24H Status: Active Protocol: Document 01/18/21 10:58 [facility] (Rec: 01/18/21 11:04 [facility] [id number]) Advance Directive, confirm on record Time 10:45 Person contacted patient Copy received No CM Discharge Assessment Start: 01/19/21 09:33 Freq: Status: Active Protocol: Document 01/19/21 09:33 (Rec: 01/19/21 09:37 [id number]) Discharge Planning Assessment Assigned Maintenance Journeyman Jeanette Lee RN/Computerized Table Cutter Advance Directives? Yes Advance Directives on File No History Provided By Patient,Medical Record Prior Living Arrangements House Household Members spouse Type of transporation used prior to Drives own vehicle admit Independent with ADL's Yes Is patient alert and oriented? Yes Caregiver for Another has health problems, but highly functional Barriers to Discharge No Discharge Plan Home Transportation Arrangement Friend vs taxi, spouse does not drive Referrals Initiated None needed Additional Comment At this time Whiteboard Updated in Patient Room with Yes name and ext. # of Maintenance Journeyman Review Status In Process Next Review Type Continued Stay Review
[2021-01-19] MEDS: dilTIAZem CD 180 MG CAP PO (14:59)
--- NOTE | 2021-01-19 17:13 | PM.PN.1 ---
Subjective Subjective Date Patient Seen: 01/19/21 Interval history: Patient is a 75-year-old female with a history of atrial fibrillation, diastolic dysfunction, admitted to the hospital with a rapid atrial fibrillation and shortness of breath. Patient received 60 mg of Lasix last night. Breathing is improved. Patient does report still feeling weak, although no further palpitations. Her heart rate is improved. Held though her blood pressure is somewhat low. Exam Vital Signs (past 8 hours): - 01/19/21 11:29 01/19/21 12:24 01/19/21 12:30 Temperature 98.4 F Pulse Rate 85 67 Pulse Rate [Orthostatic Lying] Pulse Rate [Orthostatic Sitting] Pulse Rate [Orthostatic Standing] Respiratory Rate 14 Blood Pressure 101/55 L 102/67 Blood Pressure [Orthostatic Lying] Blood Pressure [Orthostatic Sitting] Blood Pressure [Orthostatic Standing] Pulse Oximetry 97 98 01/19/21 13:30 01/19/21 15:15 Temperature 97.1 F L Pulse Rate 92 H Pulse Rate [Orthostatic Lying] 85 Pulse Rate [Orthostatic Sitting] 89 Pulse Rate [Orthostatic Standing] 89 Respiratory Rate 17 Blood Pressure 98/56 L Blood Pressure [Orthostatic Lying] 100/52 L Blood Pressure [Orthostatic Sitting] 90/41 L Blood Pressure [Orthostatic Standing] 95/48 L Pulse Oximetry 98 Oxygen Delivery Method Room Air Oxygen Flow Rate 0 Narrative Exam Narrative: Pleasant female lying in bed in no obvious distress Resp Other: Lungs clear to auscultation Cardio Other: Cardiac exam: Irregularly irregular, normal S1-S2 GI Other: Abdomen: Soft nontender nondistended Extrem Other: Extremities: No edema Objective Labs Result Diagrams: 01/18/21 05:25 01/18/21 05:25 [facility] Medical History Atrial fibrillation Gastric reflux History of infection due to Haemophilus influenzae type B History of pancreatitis History of pneumonia Hoarseness Hypertension Insomnia Surgical History History of arthroscopy History of cholecystectomy History of lumpectomy History of tonsillectomy Personal history of prior ablation treatment Family History Mother Sick sinus syndrome Heart attack Colon cancer Father Colon cancer Social History marital status: household members: spouse Smoking Status: Never smoker Assessment & Plan Assessment & Plan narrative: 1. Chronic paroxysmal atrial fibrillation -patient very symptomatic with rapid ventricular response, in addition to rate control -she has had ablation x2, and DC cardioversion -patient reports morning dizziness, likely related to hypotension. She has had previous hypotensive episodes where she has actually passed out. -discussed with Dr. Donovan, will decrease Cardizem CD to 120 q.day. will continue metoprolol at 50 b.i.d. and continue apixaban -Dr. Childress will arrange outpatient DC cardioversion next week 2. Congestive heart failure Echo finding he ejection fraction is estimated to be 60-65%. Unable to grade diastolic function.The right ventricle is at the upper limits of normal in size.The right ventricular systolic function is normal. Visually the left atrium is moderately dilated.There is mild mitral regurgitation.There is mild aortic regurgitation. Patient to start on spironolactone 12.5 daily 3. COPD -patient has no history of COPD, she is not a smoker, has not been diagnosed. -discontinue nebulized 4. GERD continue pepcid Time Spent With Patient Critical Care time: I spent a total of [] minutes of critical care time on this patient's care today; this time is exclusive of procedural time. Quality VTE Deep Vein Thrombosis/Pulmonary Embolism Present on Admission: No
--- NOTE | 2021-01-19 19:12 | PC.NURSE ---
Addendum entered by Cynthia Watkins R.N. 01/19/21 22:39: Blood pressures repeated several times utilizing manual and automatic cuff. VAHID Burch was informed of all readings obtained this evening and orders to hold hs metoprolol obtained. Pt denies concerns or complaints. Home meds reconciled by Yajaira menezes RN, and pt's home med doses adjusted with VAHID Burch as per discussion with pt. Original Note: Pt resting quietly in bed awake, alert. Able to speak in complete sentences. Denies dyspnea when up to bathroom. Denies pain. Telemetry in place. Orthostatic blood pressure and pulse by TRAINING AND QUALITY MANAGER. Pt does become hypotensive with standing and admits feels need to sit down. Requested pt use bedside commode with these findings and with this statement by pt. Pt is agreeable.
--- NOTE | 2021-01-19 21:09 | PC.NURSE ---
Addendum entered by Miguelangel Greene 01/19/21 22:28: This student RN spoke to Nurse Practitioner Irina regarding this patient's blood pressures from the evening and whether or not to hold the 50 mg of metoprolol. Per DEMAR Arevalo this student nurse was instructed to take a manual blood pressure while patient was supine, as well as a blood pressure with MAP. Her manual BP was 112/62 on Left arm. Automatic BP on Left arm was 94/59 with MAP of 73. Right arm automatic BP was 115/55 with MAP of 75. Reported all of these to PHOTOGRAMMETRIC STEREO COMPILER Irina and was told to hold the 50 mg of metoprolol. Original Note: Patient blood pressure is 112/66 and HR of 82 when supine. After 5 minutes of standing her blood pressure was 99/54 and HR 91. Medications were reconciled with GRACE Gates, see updated home medication list for reference.
[2021-01-19] MEDS: FAMOTIDINE 20 MG TABLET PO (21:26)
[2021-01-19] MEDS: AMITRIPTYLINE 10 MG TABLET 30 MG PO (21:53)
[2021-01-19] MEDS: GABAPENTIN 100 MG CAPSULE 200 MG PO (21:53)
[2021-01-19] MEDS: SODIUM CHLORIDE 0.9% FLUSH 10 ML IV (21:54)
[2021-01-20] VITALS (7 sets, daily range): BP systolic 92–142; BP diastolic 50–70; PULSE 58–127; RESP 16–19; TEMP 36.1–36.6; O2SAT 96–99
[2021-01-20 06:27] LABS: Add Manual Diff / Slide Review NO; Basophils Absolute Auto 100 /uL (0-100); Eosinophils Absolute Auto 300 /uL (0-450); Eosinophils Percent Auto 2.6 % (2-4); Hematocrit 34.3 % (36-46); Hemoglobin 11.3 g/dL (12.0-16.0); Lymphocytes Absolute Auto 3400 /uL (1100-4500); Lymphocytes Percent Auto 34.3 % (25-40); Mean Corpuscular Hemoglobin 28.2 PG (26-34); Mean Corpuscular Volume 85.4 fL (80-100); Monocytes Absolute Auto 900 /uL (0-900); Monocytes Percent Auto 9.4 % (3-14); Neutrophils Absolute Auto 5300 /uL (1500-7000); Neutrophils Percent Auto 52.7 % (50-75); Platelet Count 388 X10^3/uL (150-400); Red Blood Cell Count 4.02 X10^6/uL (4.0-5.2)
[2021-01-20 06:35] LABS: BUN Creatinine Ratio 25.3 (6-22); Blood Urea Nitrogen 22 mg/dL (7-17); Calcium 8.8 mg/dL (8.4-10.2); Carbon Dioxide 33 mmol/L (22-32); Chloride 91 mmol/L (98-107); Estimated Glomerular Filt Rate > 60.0 mL/min (>60); Glucose 96 mg/dL (80-110); HEMOLYSIS < 15 (0-50); Potassium 3.7 mmol/L (3.4-5.1); Sodium 130 mmol/L (137-145)
[2021-01-20] MEDS: PANTOPRAZOLE DR 20 MG TABLET PO (06:56)
--- NOTE | 2021-01-20 08:15 | DI.CT.S_ITS ---
PROCEDURE: CT ANGIO CHEST PE PROTOCOL INDICATIONS: shortness of breath TECHNIQUE: After the administration of intravenous contrast, 2 mm thick sections acquired from the pulmonary apices to the posterior costophrenic angles. 3-dimensional maximum intensity projection (MIP) coronal and sagittal reformats were then acquired through the thorax. For radiation dose reduction, the following was used: automated exposure control, adjustment of mA and/or kV according to patient size. COMPARISON: None. FINDINGS: Image quality: Excellent. Pulmonary arteries: Pulmonary arteries are normal in size, and demonstrate no intraluminal filling defects to suggest central pulmonary embolism. Lungs and pleura: Nonspecific very subtle patchy bilateral ground-glass opacities. These are nonspecific. No airspace consolidation. Minimal right pleural effusion. Central and peripheral airways are patent. Mediastinum: Heart size is normal, without pericardial effusion. No mediastinal or hilar adenopathy. Thoracic aorta is normal in caliber and enhancement. Esophagus is normal in caliber, without hiatal hernia. Bones and chest wall: No suspicious bony lesions. Ribs and thoracic spine appear intact throughout. Thyroid gland is unremarkable. No axillary or supraclavicular adenopathy. Abdomen: Visualized upper abdominal solid organs appear normal in the early arterial phase of enhancement. IMPRESSION: 1. No evidence acute pulmonary emboli. 2. Minimal right pleural effusion. 3. Nonspecific very subtle patchy bilateral ground-glass opacities. This may potentially represent at active inflammation. Dictated by: Ben Garay M.D. on 01/20/2021 at 9:19 Approved by: Ben Garay M.D. on 01/20/2021 at 9:22
[2021-01-20 08:37] LABS: C-Reactive Protein Quant 4.7 mg/dL (<1.0)
[2021-01-20 08:55] LABS: Erythrocyte Sedimentation Rate 33 MM/HR (0-20)
[2021-01-20] MEDS: METOPROLOL ER 50 MG TABLET PO (09:10)
[2021-01-20] MEDS: APIXABAN 5 MG TABLET PO (09:11)
[2021-01-20] MEDS: SPIRONOLACTONE 25 MG TABLET 12.5 MG PO (09:11)
[2021-01-20] MEDS: TIMOLOL 0.25% OPHTH 1 DROPS EYE-BOTH (09:16)
[2021-01-20] MEDS: SODIUM CHLORIDE 0.9% FLUSH 10 ML IV (09:17)
[2021-01-20] MEDS: AMIODARONE 150 MG/100 ML PIGGYBACK 600 MG IV (10:46)
[2021-01-20] MEDS: AMIODARONE 200 MG TABLET 400 MG PO (10:46)
--- NOTE | 2021-01-20 11:49 | PC.NURSE ---
Pt is A&Ox3. She denies any SOB, or pain this a.m. VSS, afebrile on RA. LS CTA. BS + x4. No edema noted. MD at bedside this a.m. checking orthostatic BP with RN and noted approximately 20 pt drop in SBP from sitting to standing. Pt in SR HR 70's on telemetry. She is taken for CT angiogram and then per MD orders transferred to ICU for amiodorone IV. Pt ambulated in the hallway down to room in ICU on RA and tolerated activity well (98% on RA). Transported patient at approximately 0945 to room 227.
--- NOTE | 2021-01-20 15:39 | PM.DS.1 ---
History of Present Illness History of Present Illness Date Patient Seen: 01/20/21 Chief complaint: Dyspnea, chest heaviness Narrative: Ailyn Wright is a 75-year-old female with a history of paroxysmal atrial fibrillation currently anticoagulated on apixaban that was diagnosed approximately 3 years ago.? At 5:00 p.m. yesterday she got ?winded while she was at the pharmacy picking up her 's medications.? Then she developed chest heaviness at 11:00 p.m..? Normally sleeps on her right side and was not able to sleep on her right side last night.? She went to a recliner at 3:30 a.m. to for she continued to have a heavy sensation in her chest with no pain.? She called EMS, they took her vitals and shoulder her blood pressure was quite high.? She denies a productive or dry cough or fever. Her who was recently had a stroke with right-sided visual cut defects cannot drive so she drove herself to the emergency department.? She has had a headache continuously since this morning.? She complains of bloating, she has no nausea or vomiting but she has been urinating a lot due to the Lasix they gave her.? She does not have any ankle swelling.? She takes Colace for constipation and has significant leg cramps that she takes magnesium for. Patient had had postoperative atrial fibrillation after having a gallbladder removal in 2017 which was managed well until later this year.? In June of this year when she was in [facility] and developed atrial fibrillation and was cardioverted in the emergency department there.? She returned to this area and went into atrial fibrillation and underwent ablation.? In November she was started on flecainide but found that it made her feel really horrible so she discontinued that.? Her last echocardiogram was done on the 28 of December and saw atrial fibrillation and was determined to have a 60-65% ejection fraction.? She was actually started on oral prednisone 20 mg daily appearing to have started this on January 13, and referred to Rheumatology for a diagnosis of polymyalgia rheumatica. Chest x-ray done in the emergency department indicated ?Bilateral, diffuse lung interstitial thickening.? Finding could represent chronic lung disease, pulmonary edema or atypical pneumonia. ED note stated that did not administer her antibiotics because they felt that the elevated white count was due to her taking prednisone.? She was?diuresed with IV Lasix with good effect.? Current vitals are temperature of 97.6?, blood pressure 134/71, heart rate 101, respiratory rate 18, she has an oxygen saturation of 95% on 2 L, she weighs 80 kg with a BMI of 27.6.? Her white count is 18.1, RBC 3.87 hemoglobin 11 hematocrit 33.2 platelet count 426 neutrophil count was 13,600, sodium 137 potassium 3.8 chloride 94 bicarb 34 BUN 14 creatinine 0.77 with a GFR greater than 60 Mag 2.2 AST 68 ALT 108 total bili 0.6 creatinine kinase is less than 20 proBNP 825 lipase 73 and procalcitonin normal, COVID-19 PCR is negative. Discharge Providers Provider Date of admission: 01/18/21 08:48 Discharge Date: 01/20/21 Primary care physician: Gita Pabon MD Discharge provider: Laurie Sands MD Summary Hospital Course Discharge Diagnosis: 1. Paroxysmal atrial fibrillation 2. Acute congestive heart failure, secondary to diastolic dysfunction 3. COPD 4. Hypertension Hospital Course: Admitted to the hospital after evaluation in the emergency room for shortness of breath. She was given 60 mg of Lasix in the ER. In addition she also received albuterol and Atrovent inhalers. She was started on a prednisone as well. The patient had improvement of her shortness of breath. She had improvement of her atrial fibrillation as well. She was noted to be somewhat hypotensive. Her metoprolol was held in the evening twice. The patient had further workup of her complaints of shortness of breath to include a CT angio. This was negative for pulmonary embolus. The CTA did show nonspecific patchy bilateral ground-glass opacities. Unclear whether active inflammation or not. After discussion with Dr. Childress the patient's medications were adjusted. She was loaded on amiodarone, 150 mg IV. Patient will be discharged on amiodarone 400 mg twice daily for 7 days 200 mg twice daily for 7 days then 200 mg daily. Her Cardizem CD will be discontinued. She will continue on metoprolol 50 twice daily. In addition spironolactone 1212.5 mg daily will be added to her regimen for her diastolic dysfunction. Lasix which she was previously prescribed will be held. The patient was started on prednisone 20 mg a day for possible polymyalgia rheumatica. This was held and she will follow-up with Dr. Gita pabon regarding further treatment of this as well. Overall the patient appears to be improved. She was deemed appropriate for discharge and discharged home. Patient's ESR was 33, and CRP was elevated at 4.7. Status at Discharge Cognitive/behavioral status at discharge: oriented Functional status at discharge: independent ambulation Overall status at discharge: patient is progressing back to baseline Exam Vital Signs (past 8 hours): - 01/20/21 09:10 01/20/21 10:07 01/20/21 11:00 Pulse Rate 70 127 H 58 L Respiratory Rate 19 Blood Pressure 121/50 L 104/70 142/58 H Pulse Oximetry 97 Oxygen Delivery Method Room Air Oxygen Flow Rate 0 Narrative Exam Narrative: Pleasant female in no acute distress Resp Other: Lungs clear to auscultation Cardio Other: Cardiac exam: Regular rate and rhythm normal S1-S2 GI Other: Abdomen: Soft and non tender Extrem Other: Extremities: No edema Objective Labs Result Diagrams: 01/20/21 06:06 01/20/21 06:06 Labs: Laboratory Results - last 24 hr 01/20/21 01/20/21 01/20/21 06:06 06:06 06:06 WBC 10.0 RBC 4.02 Hgb 11.3 L Hct 34.3 L MCV 85.4 MCH 28.2 MCHC 33.0 RDW 15.0 H Plt Count 388 Neut % (Auto) 52.7 Lymph % (Auto) 34.3 [place] % (Auto) 9.4 Eos % (Auto) 2.6 Baso % (Auto) 1.0 Neut # (Auto) 5300 Lymph # (Auto) 3400 [place] # (Auto) 900 Eos # (Auto) 300 Baso # (Auto) 100 ESR Sodium 130 L Potassium 3.7 Chloride 91 L Carbon Dioxide 33 H BUN 22 H Creatinine 0.87 Estimated GFR > 60.0 BUN/Creatinine Ratio 25.3 H Glucose 96 Calcium 8.8 C-Reactive Protein 4.7 H 01/20/21 06:06 WBC RBC Hgb Hct MCV MCH MCHC RDW Plt Count Neut % (Auto) Lymph % (Auto) [place] % (Auto) Eos % (Auto) Baso % (Auto) Neut # (Auto) Lymph # (Auto) [place] # (Auto) Eos # (Auto) Baso # (Auto) ESR 33 H Sodium Potassium Chloride Carbon Dioxide BUN Creatinine Estimated GFR BUN/Creatinine Ratio Glucose Calcium C-Reactive Protein PFS Medical History Atrial fibrillation Gastric reflux History of infection due to Haemophilus influenzae type B History of pancreatitis History of pneumonia Hoarseness Hypertension Insomnia Surgical History History of arthroscopy History of cholecystectomy History of lumpectomy History of tonsillectomy Personal history of prior ablation treatment Family History Mother Sick sinus syndrome Heart attack Colon cancer Father Colon cancer Social History marital status: household members: spouse Smoking Status: Never smoker Discharge Assessment & Plan Assessment and Plan Assessment: Impression 1. Paroxysmal atrial fibrillation now in sinus rhythm 2. Acute congestive heart failure due to diastolic dysfunction 3. COPD 4. Hyponatremia 5. Hypertension 6. GERD Plan of Treatment: Discharge home as planned Follow-up with Dr. Mansfield next week Discharge Plan Discharge Plan Patient Disposition: Home Discharge orders & Medications Prescriptions: New spironolactone 25 mg Tablet 12.5 mg PO DAILY Qty: 30 RF: 0 amiodarone 200 mg Tablet 400 mg PO BIDWM Qty: 7 RF: 0 amiodarone 200 mg tablet 200 mg PO BID Qty: 60 RF: 0 Continued metoprolol succinate 50 mg Tablet Extended Release 24 Hr 50 mg PO BID Qty: 60 RF: 0 amitriptyline 10 mg tablet 30 mg PO BEDTIME RF: 0 omeprazole 20 mg capsule,delayed release(DR/EC) 40 mg PO BID RF: 0 gabapentin 100 mg capsule 200 mg PO BEDTIME RF: 0 Eliquis 5 mg tablet 5 mg PO BID RF: 0 timolol maleate [Timoptic] 0.25 % drops 0.25 drp EYE-BOTH BID RF: 0 famotidine 20 mg tablet 20 mg PO BEDTIME RF: 0 Discontinued diltiazem HCl 180 mg capsule,extended release 24hr 120 mg PO DAILY RF: 0 Follow up/Referrals: Gita Pabon MD [Primary Care Provider] - Discharge Data Primary Care Provider: Gita Pabon Quality VTE Deep Vein Thrombosis/Pulmonary Embolism Present on Admission: No
--- NOTE | 2021-01-20 17:41 | PC.NURSE ---
Patient with discharge orders, all discharge paperwork and education explained to and given to the patient. [facility]. Patient agreed to discharge and escorted in wheelchair by hospital staff to transportation.
== END 2021-01-20 17:20 | disposition home or self-care (01) | DRG 308 ==
LOC: ED 08:48 → AC 10:29 → ICU 01-20 09:23
PROVIDERS: Emergency Medicine; Nurse Practitioner Family; Admitting Provider Internal Medicine; Emergency Provider Emergency Medicine; Family Provider Internal Medicine; PCP Internal Medicine; Referring Provider Emergency Medicine; Visit Provider Internal Medicine
DX: I48.0 Paroxysmal atrial fibrillation (principal); I50.31 Acute diastolic (congestive) heart failure; I95.9 Hypotension, unspecified; I11.0 Hypertensive heart disease with heart failure; K21.9 Gastro-esophageal reflux disease without esophagitis; J44.9 Chronic obstructive pulmonary disease, unspecified; Z79.01 Long term (current) use of anticoagulants; Z20.822 Contact with and (suspected) exposure to COVID-19
CPT/HCPCS: 36415; 71045; 71275; 80048; 80053; 82550; 83690; 83735; 83880; 84145; 84484; 85025; 85610; 85651; 85730; 86140; 87633; 87635; 93005; 94640; 94762; 96374; 99284; 99285; C9803; A9270; J0282; J1940; J7613

== ENCOUNTER 2021-02-22 15:28 | Emergency (ER) | payer MEDICARE, OTHER, SELFPAY ==
[2021-01-18 10:40] VITALS: BMI 27.6
[2021-02-22 15:35] VITALS: BP 176/77; PULSE 65; RESP 14; TEMP 36.8; O2SAT 99; BMI 26.6
--- NOTE | 2021-02-22 15:49 | DI.RAD.S_ITS ---
PROCEDURE: XR FINGER RT MIN 2V INDICATIONS: fall TECHNIQUE: AP hand, 2 views of the right 4th finger(s) acquired. COMPARISON: None. FINDINGS: Bones: Nondisplaced fracture of the 4th distal phalanx. No definite disruption of the articular surface. There is a background of mild osteoarthritic change, more evident in the 3rd DIP joint. Bone alignment remains normal. Slightly decreased mineralization. Soft tissues: No suspicious soft tissue calcifications. No radiodense foreign bodies. IMPRESSION: Nondisplaced 4th distal phalanx fracture. Dictated by: Dulce Maria Izquierdo M.D. on 02/22/2021 at 16:51 Approved by: Dulce Maria Izquierdo M.D. on 02/22/2021 at 16:53
--- NOTE | 2021-02-22 15:49 | DI.CT.S_ITS ---
PROCEDURE: CT HEAD/BRAIN WO CON INDICATIONS: fall TECHNIQUE: Noncontrast 4.5 mm thick angled axial sections acquired from the foramen magnum to the vertex, with coronal and sagittal reformats. For radiation dose reduction, the following was used: automated exposure control, adjustment of mA and/or kV according to patient size. COMPARISON: None. FINDINGS: Image quality: Excellent. CSF spaces: Basal cisterns are patent. No extra-axial fluid collections. The ventricles are symmetric in size and shape. Brain: No intracranial bleeds or masses. There is cerebral volume loss for age, with resultant ventricular and sulcal prominence. There are periventricular and deep white matter chronic small vessel ischemic changes. There is intracranial internal carotid artery atherosclerosis. Skull and face: Calvarium and visualized facial bones appear intact, without suspicious lesions. Sinuses: Visualized sinuses and mastoids are clear. IMPRESSION: 1. Age-appropriate exam without CT evidence of acute intracranial trauma. 2. No visible fractures or significant soft tissue trauma. Dictated by: Dulce Maria Izquierdo M.D. on 02/22/2021 at 16:17 Approved by: Dulce Maria Izquierdo M.D. on 02/22/2021 at 16:18
--- NOTE | 2021-02-22 15:49 | DI.RAD.S_ITS ---
PROCEDURE: XR KNEE LT 3V INDICATIONS: fall TECHNIQUE: Three views of the knee were acquired. COMPARISON: None. FINDINGS: Bones: Moderate medial compartment joint space loss with spur formation. Minor lateral compartment joint space loss. There is hardware in the left patella which appears intact. Soft tissues: Moderate left joint effusion. Moderate lateral compartment chondrocalcinosis. IMPRESSION: 1. Interval development of moderate size left joint effusion. 2. Stable mild to moderate joint space loss and lateral compartment chondrocalcinosis. 3. Intact patellar hardware. Dictated by: Dulce Maria Izquierdo M.D. on 02/22/2021 at 16:49 Approved by: Dulce Maria Izquierdo M.D. on 02/22/2021 at 16:51
--- NOTE | 2021-02-22 16:47 | ED_ITS ---
HPI - Fall <Marquis Kimbrough PA-C - Last Filed: 02/22/21 18:57> General Chief Complaint: Fall Stated Complaint: fell backwards,left knee hurts, on blood thinners Time Seen by Provider: 02/22/21 16:22 Source: patient Mode of arrival: Ambulatory History of Present Illness HPI Narrative: Patient is a 75-year-old male presenting to the emergency department following a fall. Patient states that approximately 4 hours ago she fell while ascending stairs, noting that she fell backwards down 4 stairs. Patient states that she hit the left side of her head as a result of the fall but she denies feeling dizzy or lightheaded prior to falling and does not report loss of consciousness as a result of the fall. She presents today with pain in her right 4th finger and generalized left knee pain. Of note, patient is on Eliquis twice daily for atrial fibrillation. Patient denies fever, chills, chest pain, shortness of breath, cough, nausea, vomiting, diarrhea, abdominal pain, dysuria, hematuria, numbness or tingling, dizziness, or confusion. No other concerns reports that this time. Related Data Home Medications Medication Instructions Recorded Confirmed amitriptyline 10 mg tablet 30 mg PO BEDTIME 01/22/18 01/19/21 gabapentin 100 mg capsule 200 mg PO BEDTIME 01/22/18 01/19/21 omeprazole 20 mg capsule,delayed 40 mg PO BID 01/22/18 01/19/21 release apixaban 5 mg tablet (Eliquis) 5 mg PO BID 12/21/20 01/19/21 famotidine 20 mg tablet 20 mg PO BEDTIME 12/21/20 01/19/21 timolol maleate 0.25 % eye drops 0.25 drp EYE-BOTH BID 12/21/20 01/19/21 (Timoptic) Previous Rx's Medication Instructions Recorded metoprolol succinate 50 mg 50 mg PO BID #60 tab 12/30/20 tablet,extended release 24 hr amiodarone 200 mg tablet 200 mg PO BID #60 tab 01/20/21 amiodarone 200 mg tablet 400 mg PO BIDWM #7 tab 01/20/21 spironolactone 25 mg tablet 12.5 mg PO DAILY #30 tab 01/20/21 Allergies Allergy/AdvReac Type Severity Reaction Status Date / Time chlorhexidine Allergy Unknown Verified 02/22/21 15:42 budesonide AdvReac Unknown hives Verified 02/22/21 15:42 epinephrine AdvReac Verified 02/22/21 15:42 Review of Systems <Marquis Kimbrough PA-C - Last Filed: 02/22/21 18:57> Constitutional Constitutional: Denies chills, Denies fatigue, Denies fever(s), Denies frequent falls, Denies lethargy and Denies weakness Eyes Eyes: Denies loss of vision ENT Ears, Nose, Mouth, and Throat: Denies change in voice, Denies dizziness, Denies neck pain, Denies sore throat and Denies throat swelling Cardiovascular Cardiovascular: Denies chest pain, Denies irregular heart rhythm, Denies lightheadedness, Denies palpitations, Denies dyspnea, Denies dyspnea on exertion and Denies orthopnea Respiratory Respiratory: Denies cough, Denies dyspnea, Denies dyspnea on exertion and Denies wheezing Gastrointestinal Gastrointestinal: Denies abdominal pain, Denies change in bowel habits, Denies diarrhea, Denies nausea and Denies vomiting Genitourinary Genitourinary: Denies hematuria, Denies flank pain, Denies urinary incontinence and Denies urinary urgency Musculoskeletal Musculoskeletal: Denies back pain, Reports arthralgias (Left knee, right 4th finger), Reports joint swelling (Right 4th finger), Denies muscle weakness, Denies neck pain, Denies numbness and Denies tingling Integumentary/Breasts Skin/Breast: Denies pruritus, Denies erythema, Denies rash and Denies wounds Neurologic Neurologic: Denies behavioral changes, Denies confusion, Denies dizziness, Denies frequent falls, Denies loss of vision, Denies numbness, Denies tingling and Denies weakness Psychiatric Psychiatric: Denies behavioral changes and Denies confusion Endocrine Endocrine: Denies fatigue and Denies palpitations Allergic/Immunologic Allergic/Immunologic: Denies throat swelling and Denies wheezing Patient History <Marquis Kimbrough PA-C - Last Filed: 02/22/21 18:57> Medical History Atrial fibrillation Gastric reflux History of infection due to Haemophilus influenzae type B History of pancreatitis History of pneumonia Hoarseness Hypertension Insomnia Surgical History History of arthroscopy History of cholecystectomy History of lumpectomy History of tonsillectomy Personal history of prior ablation treatment Family History Mother Sick sinus syndrome Heart attack Colon cancer Father Colon cancer Social History marital status: household members: spouse Smoking Status: Never smoker Smoking Status: Never smoker alcohol intake frequency: holidays/special occasions only Substance Use Type: does not use Exam <Marquis Kimbrough PA-C - Last Filed: 02/22/21 18:57> Narrative Exam Narrative: GENERAL: 75 year old patient appears stated age. Well-developed patient, in no acute distress. HEAD: Atraumatic. Normocephalic. EYES: Pupils equal round and reactive. Extraocular motions intact. No scleral icterus. No injection or drainage. ENT: Nose without bleeding, purulent drainage. Throat without erythema, tonsillar hypertrophy or exudate. Airway patent. NECK: Trachea midline. Non tender CARDIOVASCULAR: Regular rate and rhythm without murmurs, gallops, or rubs. RESPIRATORY: Clear to auscultation. Breath sounds equal bilaterally. No wheezes, rales, or rhonchi. GASTROINTESTINAL: Abdomen soft, non-tender, nondistended. EXTREMITIES: Mild swelling noted about the left knee with mild popliteal fullness. Gross motor function intact throughout the bilateral lower extremities. Good sensation appreciated throughout the bilateral lower extremities to light touch. Mild swelling and ecchymosis noted over the right 4th finger DIP joint with tenderness to palpation. Patient able to flex and extend all fingers on the right hand. BACK: Nontender without deformity or crepitance. No flank tenderness. NEURO: AOx3. SKIN: No rash or erythema of visible areas Initial Vital Signs Initial Vital Signs: Vital Signs Temperature 98.2 F 02/22/21 15:35 Pulse Rate 65 02/22/21 15:35 Respiratory Rate 14 02/22/21 15:35 Blood Pressure 176/77 H 02/22/21 15:35 Pulse Oximetry 99 02/22/21 15:35 <Nathaniel Gayle MD - Last Filed: 03/08/21 01:33> Initial Vital Signs Initial Vital Signs: Vital Signs Temperature 98.2 F 02/22/21 15:35 Pulse Rate 65 02/22/21 15:35 Respiratory Rate 14 02/22/21 15:35 Blood Pressure 176/77 H 02/22/21 15:35 Pulse Oximetry 99 02/22/21 15:35 Course <Marquis Kimbrough PA-C - Last Filed: 02/22/21 18:57> Course Course Narrative: CT of the head, x-ray of the right hand, and x-ray of the left knee obtained. Orders Ordered: Discontinued Medications Acetaminophen (Acetaminophen 325 Mg Tablet) 975 mg PO NOW ONE Stop: 02/22/21 16:50 Last Admin: 02/22/21 17:01 Dose: 975 mg Documented by: LANCE Vital Signs Vital signs: Vital Signs - 8 hr 02/22/21 15:35 02/22/21 17:50 02/22/21 18:00 Temperature 98.2 F Pulse Rate 65 83 87 Respiratory Rate 14 Blood Pressure 176/77 H 162/75 H Pulse Oximetry 99 96 98 02/22/21 18:25 Temperature Pulse Rate 89 Respiratory Rate Blood Pressure 174/78 H Pulse Oximetry <Nathaniel Gayle MD - Last Filed: 03/08/21 01:33> Orders Ordered: Discontinued Medications Acetaminophen (Acetaminophen 325 Mg Tablet) 975 mg PO NOW ONE Stop: 02/22/21 16:50 Last Admin: 02/22/21 17:01 Dose: 975 mg Documented by: LANCE Vital Signs Vital signs: Vital Signs - 8 hr 02/22/21 15:35 02/22/21 17:50 02/22/21 18:00 Temperature 98.2 F Pulse Rate 65 83 87 Respiratory Rate 14 Blood Pressure 176/77 H 162/75 H Pulse Oximetry 99 96 98 02/22/21 18:25 Temperature Pulse Rate 89 Respiratory Rate Blood Pressure 174/78 H Pulse Oximetry MDM - Fall <Marquis Kimbrough PA-C - Last Filed: 02/22/21 18:57> Imaging Data Extremity x-ray #1: Radiologist's Impression: PROCEDURE:? XR KNEE LT 3V ? INDICATIONS:? fall ? TECHNIQUE:? Three views of the knee were acquired.? ? COMPARISON:? None. ? FINDINGS:? ? Bones:? Moderate medial compartment joint space loss with spur formation.? Minor lateral compartment joint space loss.? There is hardware in the left patella which appears intact. ? Soft tissues:? Moderate left joint effusion.? Moderate lateral compartment chondrocalcinosis. ? ? IMPRESSION:? 1. Interval development of moderate size left joint effusion. 2. Stable mild to moderate joint space loss and lateral compartment chondrocalcinosis. 3. Intact patellar hardware.? ? ? Dictated by: Dulce Maria Izquierdo M.D. on 02/22/2021 at 16:49 ? ? Approved by: Dulce Maria Izquierdo M.D. on 02/22/2021 at 16:51 ? Extremity x-ray #2: Radiologist's Impression: PROCEDURE:? XR FINGER RT MIN 2V ? INDICATIONS:? fall ? TECHNIQUE:? AP hand, 2 views of the right 4th finger(s) acquired.? ? COMPARISON:? None. ? FINDINGS:? ? Bones:? Nondisplaced fracture of the 4th distal phalanx.? No definite disruption of the articular surface.? There is a background of mild osteoarthritic change, more evident in the 3rd DIP joint.? Bone alignment remains normal.? Slightly decreased mineralization. ? Soft tissues:? No suspicious soft tissue calcifications.? No radiodense foreign bodies. ? IMPRESSION:? Nondisplaced 4th distal phalanx fracture. ? ? Dictated by: Dulce Maria Izquierdo M.D. on 02/22/2021 at 16:51 ? ? Approved by: Dulce Maria Izquierdo M.D. on 02/22/2021 at 16:53 ? CT scan - head: Radiologist's Impression: PROCEDURE:? CT HEAD/BRAIN WO CON ? INDICATIONS:? fall ? TECHNIQUE:? Noncontrast 4.5 mm thick angled axial sections acquired from the foramen magnum to the vertex, with coronal and sagittal reformats.? For radiation dose reduction, the following was used:? automated exposure control, adjustment of mA and/or kV according to patient size.? ? COMPARISON:? None. ? FINDINGS:? Image quality:? Excellent.? ? CSF spaces:? Basal cisterns are patent.? No extra-axial fluid collections.? The ventricles are symmetric in size and shape.? ? Brain:? No intracranial bleeds or masses.? There is cerebral volume loss for age, with resultant ventricular and sulcal prominence.? There are periventricular and deep white matter chronic small vessel ischemic changes.? There is intracranial internal carotid artery atherosclerosis.? ? Skull and face:? Calvarium and visualized facial bones appear intact, without suspicious lesions.? ? Sinuses:? Visualized sinuses and mastoids are clear.? ? IMPRESSION:? 1. Age-appropriate exam without CT evidence of acute intracranial trauma. 2. No visible fractures or significant soft tissue trauma.? ? ? Dictated by: Dulce Maria Izquierdo M.D. on 02/22/2021 at 16:17 ? ? Approved by: Dulce Maria Izquierdo M.D. on 02/22/2021 at 16:18 ? ECG Data Interpretation: Ventricular rate 85 beats per minute, atrial fibrillation, PRT axes * 56 71. MDM Narrative Medical decision making narrative: To consider fracture versus dislocation versus sprain versus strain versus epidural hematoma versus subdural hematoma. Overall physical examination history reassuring. Additionally imaging done in the emergency department today does show sign acute brain bleed. Discussed with patient the results of her imaging studies. At this time she feels comfortable being discharged home with strict return precautions discussed patient prior to discharge. Patient requested EKG prior to discharge stating ?I feel that I am in AFib. EKG did show AFib, however after discussing with patient she would prefer to not pursue any treatment at this time. Patient states that she feels comfortable with her current medication regimen and states that she has a recent upcoming appointment with her hosiery repairer. Discussed options to treat her AFib in the emergency department the patient declined. Discharge Plan Departure Patient Disposition: Home Clinical Impression: Effusion of left knee, Finger fracture, right Activity Restrictions/Additional Instructions: *You have been diagnosed with left knee effusion, right 4th finger fracture *What to do: *Please continue to take your regular medications as directed. [ ] New medication prescriptions sent to your pharmacy: [ ] [ ] New medication written as a paper prescription [X] No new medications given *Please follow up with your primary care provider in 2-3 days, call for an appointment. Let them know you were seen in the Emergency Department and that we ask that you be seen in follow up. We will electronically transmit a record of today's note if your PCP is in our system. *Please follow-up with [facility] for their earliest available appointment. Office can be reached at . *If you do not have a primary care provider please contact the [facility] Resource line at [phone]. They will ask some questions about your medical history and help get you set up with a doctor in the community. *Return to Emergency Department if you should have any new, worsening or co ncerning symptoms, such as [fever greater than 101 F, shaking chills, worsening pain, persistent vomiting or other bothersome symptoms] Prescriptions: No Action metoprolol succinate 50 mg Tablet Extended Release 24 Hr 50 mg PO BID Qty: 60 0RF amiodarone 200 mg Tablet 400 mg PO BIDWM Qty: 7 0RF spironolactone 25 mg Tablet 12.5 mg PO DAILY Qty: 30 0RF amiodarone 200 mg tablet 200 mg PO BID Qty: 60 0RF Rx Instructions: Take 400 mg twice daily for 7 days, then 200 mg twice daily for seven days, then 200 mg daily amitriptyline 10 mg tablet 30 mg PO BEDTIME 0RF omeprazole 20 mg capsule,delayed release(DR/EC) 40 mg PO BID 0RF gabapentin 100 mg capsule 200 mg PO BEDTIME 0RF Eliquis 5 mg tablet 5 mg PO BID 0RF timolol maleate [Timoptic] 0.25 % drops 0.25 drp EYE-BOTH BID 0RF Rx Instructions: One drop each eye, morning and night famotidine 20 mg tablet 20 mg PO BEDTIME 0RF Referrals: Maricruz Chua MD [Physician] - As soon as possible Gita Pabon MD [Primary Care Provider] - <Nathaniel Gayle MD - Last Filed: 03/08/21 01:33> Cosign ED Attending Cosignature Attestation: I was immediately available in the department for consultation. This documentation has been reviewed and I agree with assessment and plan. Supervised by Nathaniel Gayle MD
[2021-02-22] MEDS: ACETAMINOPHEN 325 MG TABLET 975 MG PO (17:01)
[2021-02-22 17:50] VITALS: BP 162/75; PULSE 83; O2SAT 96
[2021-02-22 18:00] VITALS: PULSE 87; O2SAT 98
--- NOTE | 2021-02-22 18:01 | PC.NURSE ---
While splinting pts finger, pt reports that she went into AFIB. States this happens all the time at home. Wanted to talk to provider before any new orders. Provider notified and EKG ordered. Pt agreeable to EKG
[2021-02-22 18:25] VITALS: BP 174/78; PULSE 89
== END 2021-02-22 18:25 | disposition home or self-care (01) ==
PROVIDERS: Emergency Provider Physician Assistant; Family Provider Internal Medicine; PCP Internal Medicine
DX: S62.664A Nondisplaced fracture of distal phalanx of right ring finger, initial encounter for closed fracture (principal); M25.462 Effusion, left knee; I48.91 Unspecified atrial fibrillation; W10.9XXA Fall (on) (from) unspecified stairs and steps, initial encounter; Z79.01 Long term (current) use of anticoagulants
CPT/HCPCS: 70450; 73140; 73562; 93005; 99284

== ENCOUNTER 2021-08-22 20:20 | Emergency (ER) | payer MEDICARE, OTHER, SELFPAY ==
[2021-01-18 10:40] VITALS: BMI 27.6
[2021-08-22] VITALS (11 sets, daily range): BP systolic 144–224; BP diastolic 65–94; PULSE 60–90; RESP 14–22; TEMP 36.8; O2SAT 92–100
--- NOTE | 2021-08-22 20:26 | DI.RAD.S_ITS ---
PROCEDURE: XR CHEST 1V INDICATIONS: chest pain TECHNIQUE: One view of the chest was acquired. COMPARISON: [facility], CR, XR CHEST 1V, 01/18/2021, 5:26. FINDINGS: Surgical changes and devices: There is a left chest wall pacemaker with leads projecting over the right atrium, right ventricle, and coronary sinus. Lungs and pleura: The visualized lungs are clear. There is hyperinflation of the lungs with flattening of the hemidiaphragms compatible with COPD. No pleural effusions or pneumothorax. Mediastinum: Mediastinal contours appear normal. Heart size is borderline enlarged. Bones and chest wall: No suspicious bony lesions. Overlying soft tissues appear unremarkable. IMPRESSION: 1. No definite acute cardiopulmonary disease. 2. Findings compatible with COPD. Dictated by: Manny Negrete M.D. on 08/22/2021 at 21:10 Approved by: Manny Negrete M.D. on 08/22/2021 at 21:16
[2021-08-22 20:43] LABS: Add Manual Diff / Slide Review NO; Basophils Absolute Auto 200 /uL (0-100); Eosinophils Absolute Auto 300 /uL (0-450); Hematocrit 39.9 % (36-46); Hemoglobin 13.6 g/dL (12.0-16.0); Lymphocytes Absolute Auto 2700 /uL (1100-4500); Lymphocytes Percent Auto 32.4 % (25-40); Mean Corpuscular HGB Conc 34.2 % (30-36); Mean Corpuscular Hemoglobin 32.9 PG (26-34); Mean Corpuscular Volume 96.3 fL (80-100); Monocytes Absolute Auto 1000 /uL (0-900); Monocytes Percent Auto 11.4 % (3-14); Neutrophils Absolute Auto 4300 /uL (1500-7000); Neutrophils Percent Auto 51.2 % (50-75); Platelet Count 273 X10^3/uL (150-400); Red Blood Cell Count 4.14 X10^6/uL (4.0-5.2); White Blood Cell Count 8.5 X10^3/uL (4.5-11.0)
--- NOTE | 2021-08-22 20:44 | ED.GENADULT ---
HPI - General Adult General Chief complaint: Hypertension Stated complaint: HIGH BLOOD PRESSURE Time Seen by Provider: 08/22/21 20:43 Source: patient Mode of arrival: Ambulatory History of Present Illness HPI narrative: 76-year-old woman with multiple episodes of atrial fibrillation, ablation, congestive heart failure. Initial ablation June 2020 in [place]. Recurrent atrial fibrillation that was treated with amiodarone. In December of 2020 she was admitted for congestive heart failure with atrial flutter. In June of 2021 she had an AV node ablation and pacemaker placed. Medications at changed significantly in her currently metoprolol succinate at HS 25 mg, spironolactone 25 mg daily in the morning and Xarelto 20 mg daily (initial Eliquis began to cause palm itching). In the past had been on amlodipine 2.5 mg and she did take half of an amlodipine prior to arrival today. She presents complaining of blood pressures increasing over the course of the day and on arrival initial triage blood pressure was 222/93. She complains of mild headache and mild neck pain. No other neurologic complaints, chest pain, patient has, abdominal pain, vomiting, abdominal pain, diarrhea, paresthesias or weakness in her does not note any cognitive deficits. Related Data Home Medications Medication Instructions Recorded Confirmed famotidine 20 mg tablet 20 mg PO BEDTIME 12/21/20 01/19/21 timolol maleate 0.25 % eye drops 0.25 drp EYE-BOTH BID 12/21/20 01/19/21 (Timoptic) rivaroxaban 20 mg tablet (Xarelto) 20 mg PO DAILY 08/22/21 08/22/21 spironolactone 25 mg tablet 25 mg PO DAILY 08/22/21 08/22/21 metoprolol succinate 25 mg mg PO BID 08/23/21 tablet,extended release 24 hr Allergies Allergy/AdvReac Type Severity Reaction Status Date / Time apixaban [From Eliquis] Allergy Mild ITCHING Verified 08/22/21 21:18 chlorhexidine Allergy Unknown Verified 02/22/21 15:42 budesonide AdvReac Unknown hives Verified 02/22/21 15:42 epinephrine AdvReac Verified 02/22/21 15:42 Review of Systems Review of Systems Narrative: Remainder of complete review of systems is otherwise unremarkable except for that included in the HPI. Patient History Medical History (Updated 08/23/21 @ 02:03 by Bertha Dill MD) Atrial fibrillation Gastric reflux History of infection due to Haemophilus influenzae type B History of pancreatitis History of pneumonia Hoarseness Hypertension Insomnia Pacemaker Surgical History (Updated 08/23/21 @ 01:55 by Bertha Dill MD) History of arthroscopy History of cholecystectomy History of lumpectomy History of tonsillectomy Hx of atrioventricular node ablation Personal history of prior ablation treatment Family History Mother Sick sinus syndrome Heart attack Colon cancer Father Colon cancer Social History marital status: household members: spouse Smoking Status: Never smoker Smoking Status: Never smoker alcohol intake frequency: holidays/special occasions only Substance Use Type: does not use Exam Initial Vital Signs Initial Vital Signs: Vital Signs Temperature 98.2 F 08/22/21 20:23 Pulse Rate 65 08/22/21 20:23 Respiratory Rate 18 08/22/21 20:23 Blood Pressure 224/94 H 08/22/21 20:23 Pulse Oximetry 100 08/22/21 20:23 General: Healthy appearing, in no acute distress. Able to give a complete and coherent history. Well-nourished well-developed HEENT: Moist mucous membranes, normal sclera with reactive pupils, Neck: No JVD, supple Respiratory: Lungs are clear to auscultation, no wheezing no rales no rhonchi. Full and symmetrical air movement Cardiac: Regular rate and rhythm no murmurs no bruits Abdomen: Soft, nontender, good bowel tones, no flank pain Skin: Warm and dry, no rashes Neurologic: Grossly neurologically intact with no obvious asymmetries or abnormalities Extremities: No trauma, well perfused Psych: Cooperative, appropriate insight and affect Course Orders Ordered: ED Orders 08/22/21 20:26 XR chest 1V Stat EKG-12 Lead Stat 08/22/21 20:35 Complete Blood Count AUTO DIFF Stat Comprehensive Metabolic Panel Stat Lipase Stat Magnesium Stat Troponin & CK Cardiac Panel Stat Discontinued Medications Acetaminophen (Acetaminophen 325 Mg Tablet) 975 mg PO NOW ONE Stop: 08/22/21 21:14 Last Admin: 08/22/21 21:27 Dose: 975 mg Documented by: ELBERT Amlodipine Besylate (Amlodipine 5 Mg Tablet) 2.5 mg PO NOW ONE Stop: 08/22/21 21:05 Last Admin: 08/22/21 21:27 Dose: 2.5 mg Documented by: ELBERT Metoprolol Tartrate (Metoprolol Ir 25 Mg Tablet) 25 mg PO NOW ONE Stop: 08/22/21 21:05 Last Admin: 08/22/21 21:28 Dose: 25 mg Documented by: ELBERT Vital Signs Vital signs: Vital Signs - 8 hr 08/22/21 20:23 08/22/21 20:42 08/22/21 20:46 Temperature 98.2 F Pulse Rate 65 66 66 Respiratory Rate 18 21 18 Blood Pressure 224/94 H 222/93 H Pulse Oximetry 100 92 99 08/22/21 21:00 08/22/21 21:26 08/22/21 21:30 Temperature Pulse Rate 65 63 62 Respiratory Rate 22 21 Blood Pressure 165/72 H Pulse Oximetry 96 95 08/22/21 22:00 08/22/21 22:03 08/22/21 22:30 Temperature Pulse Rate 60 60 60 Respiratory Rate 15 Blood Pressure 164/68 H Pulse Oximetry 97 97 96 08/22/21 22:31 08/22/21 23:32 Temperature Pulse Rate 60 90 Respiratory Rate 14 16 Blood Pressure 146/66 H 144/65 H Pulse Oximetry 95 96 Medical Decision Making Lab Data Result diagrams: 08/22/21 20:35 08/22/21 20:35 Labs: Lab Results 08/22/21 08/22/21 Range/Units 20:35 20:35 WBC 8.5 (4.5-11.0) X10^3/uL RBC 4.14 (4.0-5.2) X10^6/uL Hgb 13.6 (12.0-16.0) g/dL Hct 39.9 (36-46) % MCV 96.3 (80-100) fL MCH 32.9 (26-34) PG MCHC 34.2 (30-36) % RDW 13.0 (11.6-14.8) % Plt Count 273 (150-400) X10^3/uL Neut % (Auto) 51.2 (50-75) % Lymph % (Auto) 32.4 (25-40) % [place] % (Auto) 11.4 (3-14) % Eos % (Auto) 3.0 (2-4) % Baso % (Auto) 2.0 (0-2) % Neut # (Auto) 4300 (9192-6373) /uL Lymph # (Auto) 2700 (0054-1227) /uL [place] # (Auto) 1000 H (0-900) /uL Eos # (Auto) 300 (0-450) /uL Baso # (Auto) 200 H (0-100) /uL Sodium 139 (137-145) mmol/L Potassium 3.9 (3.4-5.1) mmol/L Chloride 98 (98-107) mmol/L Carbon Dioxide 30 (22-32) mmol/L BUN 13 (7-17) mg/dL Creatinine 1.27 H (0.52-1.04) mg/dL Estimated GFR 44 L (>60) mL/min BUN/Creatinine Ratio 10.2 (6-22) Glucose 102 (80-110) mg/dL Calcium 9.7 (8.4-10.2) mg/dL Magnesium 2.1 (1.6-2.3) mg/dL Total Bilirubin 0.6 (0.2-1.3) mg/dL AST 34 (14-36) IU/L ALT 18 (<35) IU/L Alkaline Phosphatase 105 (38-126) U/L Total Creatine Kinase 71 (30-135) U/L CK-MB (CK-2) TNP CK-MB (CK-2) Rel Index TNP Troponin I < 0.012 (0.01-0.034) ng/mL Total Protein 9.5 H (6.3-8.2) g/dL Albumin 5.2 H (3.5-5.0) g/dL Globulin 4.3 H (1.7-4.1) g/dL Albumin/Globulin Ratio 1.2 (1.0-2.8) Lipase 81 (23-300) U/L Urine Dip Bedside Urine Glucose Negative Bedside Urine Bilirubin - Negative Bedside Urine Ketone - Negative Urine Specific [place] 1.010 Bedside Urine Occult Blood - Negative Bedside Urine pH 6.5 Bedside Urine Protein - Negative Bedside Urine Urobilinogen - Negative Bedside Urine Nitrite - Negative Bedside Urine Leukocytes - Negative Esterase Point of care testing: Urine Dip Bedside Urine Glucose Negative Bedside Urine Bilirubin - Negative Bedside Urine Ketone - Negative Urine Specific [place] 1.010 Bedside Urine Occult Blood - Negative Bedside Urine pH 6.5 Bedside Urine Protein - Negative Bedside Urine Urobilinogen - Negative Bedside Urine Nitrite - Negative Bedside Urine Leukocytes - Negative Esterase Imaging Data Chest x-ray: Radiologist's Impression: FINDINGS:? ? Surgical changes and devices:? There is a left chest wall pacemaker with leads projecting over the right atrium, right ventricle, and coronary sinus. ? Lungs and pleura:? The visualized lungs are clear. There is hyperinflation of the lungs with flattening of the hemidiaphragms compatible with COPD. ? No pleural effusions or pneumothorax.? ? Mediastinum:? Mediastinal contours appear normal.? Heart size is borderline enlarged.? ? Bones and chest wall:? No suspicious bony lesions.? Overlying soft tissues appear unremarkable.? ? IMPRESSION:? ? 1. No definite acute cardiopulmonary disease. ? 2. Findings compatible with COPD. ? ? Dictated by: Manny Negrete M.D. on 08/22/2021 at 21:10 ? ? ECG Data Interpretation: Atrial sensed ventricular paced rhythm at a rate of 66 MDM Narrative Medical decision making narrative: 76-year-old woman with a history of atrial fibrillation, ablation x2, multiple medication changes over the last few months and had been doing well on the spironolactone 25 mg as well as metoprolol succinate 25 mg at . She has noticed that her blood pressures have been increasing over the last couple of days and today were increasing to ranges were she was uncomfortable without additional evaluation and she was noting a low-grade headache. On arrival in the emergency room she is alert and appropriate with no signs of acute coronary syndrome nor stroke or hypertensive emergency. She is given 25 mg of immediate release metoprolol as well as 2.5 mg of amlodipine. With rest she is feeling better and blood pressure is down to 145/67. Heart rate remains paced in the 60s. Workup is unremarkable and does not suggest need for additional workup or hospitalization at this time. Will ask her to her increase her metoprolol back to 25 mg succinate b.i.d., keep track of blood pressures and schedule appointment with either Dr. Pabon or Dr. Monique ray whichever has most immediate appointment. Questions are answered and she is safe for home discharge Discharge Plan Departure Patient Disposition: Home Clinical Impression: Hypertension Qualifiers: Hypertension type: primary hypertension Qualified Code(s): I10 - Essential (primary) hypertension Instructions: DI for High Blood Pressure Activity Restrictions/Additional Instructions: Thank you for coming in today Your blood pressure was significantly elevated in responded nicely to metoprolol 25 mg immediate release as well as 2.5 mg of amlodipine. Your blood work was reassuring and there is no evidence of acute stroke, heart attack or hypertensive crisis. There is no need for additional workup for hospital stay at this time. Your blood pressure has come down nicely with the addition of the oral medications. I a.m. going to suggest that we increase your metoprolol succinate 25 mg from once a day to twice a day. Of said you have enough medication to do this with out a changed prescription today. Please do keep track of your blood pressure You will need a follow-up appointment with either your power wood sawyer or your sleep medicine physician, I would suggest whichever has the earliest opening. If you find that you are getting worse or develop any new symptoms, please feel free to return to the emergency department for further evaluation. Prescriptions: No Action Xarelto 20 mg tablet 20 mg PO DAILY 0RF Label Comments: TAKE ONE TABLET BY MOUTH ONE TIME DAILY WITH FOOD spironolactone 25 mg tablet 25 mg PO DAILY 0RF metoprolol succinate 25 mg Tablet Extended Release 24 Hr PO BID 0RF timolol maleate [Timoptic] 0.25 % drops 0.25 drp EYE-BOTH BID 0RF Rx Instructions: One drop each eye, morning and night famotidine 20 mg tablet 20 mg PO BEDTIME 0RF Referrals: Gita Pabon MD [Primary Care Provider] -
[2021-08-22 20:56] LABS: Alanine Aminotransferase 18 IU/L (<35); Albumin 5.2 g/dL (3.5-5.0); Albumin Globulin Ratio 1.2 (1.0-2.8); Alkaline Phosphatase 105 U/L (38-126); Aspartate Aminotransferase 34 IU/L (14-36); BUN Creatinine Ratio 10.2 (6-22); Bilirubin Total 0.6 mg/dL (0.2-1.3); Blood Urea Nitrogen 13 mg/dL (7-17); Calcium 9.7 mg/dL (8.4-10.2); Carbon Dioxide 30 mmol/L (22-32); Chloride 98 mmol/L (98-107); Creatine Kinase 71 U/L (30-135); Estimated Glomerular Filt Rate 44 mL/min (>60); Globulin 4.3 g/dL (1.7-4.1); Glucose 102 mg/dL (80-110); HEMOLYSIS < 15 (0-50); Lipase 81 U/L (23-300); Magnesium 2.1 mg/dL (1.6-2.3); Potassium 3.9 mmol/L (3.4-5.1); Sodium 139 mmol/L (137-145); Total Protein 9.5 g/dL (6.3-8.2)
[2021-08-22 21:07] LABS: Troponin I < 0.012 ng/mL (0.01-0.034)
[2021-08-22] MEDS: AMLODIPINE 5 MG TABLET 2.5 MG PO (21:27)
[2021-08-22] MEDS: ACETAMINOPHEN 325 MG TABLET 975 MG PO (21:27)
[2021-08-22] MEDS: METOPROLOL IR 25 MG TABLET PO (21:28)
[2021-08-23 01:57] VITALS: BP 147/65; PULSE 60; O2SAT 94
== END 2021-08-23 02:13 | disposition home or self-care (01) ==
PROVIDERS: Emergency Provider Emergency Medicine; Family Provider Internal Medicine; PCP Internal Medicine
DX: I10 Essential (primary) hypertension (principal); R51.9 Headache, unspecified; M54.2 Cervicalgia; Z79.01 Long term (current) use of anticoagulants; R07.9 Chest pain, unspecified
CPT/HCPCS: 71045; 80053; 81003; 82550; 83690; 83735; 84484; 85025; 93005; 99283; 99284

== ENCOUNTER → 2021-12-29 15:55 | Outpatient (CLI) | payer MEDICARE, OTHER, SELFPAY ==
[2021-01-18 10:40] VITALS: BMI 27.6
--- NOTE | 2021-12-29 15:56 | DI.MG.S_ITS ---
BILATERAL DIGITAL SCREENING MAMMOGRAM 3D/2D WITH CAD: 12/29/2021 CLINICAL: Routine screening. Comparison is made to exams dated: 12/23/2020 mammogram, 12/22/2019 mammogram, and 12/20/2018 mammogram - [facility]. There are scattered areas of fibroglandular density in both breasts (category b / 25%-50% glandular tissue). Current study was also evaluated with a Computer Aided Detection (CAD) system. There are benign post operative findings in both breasts. No significant masses, calcifications, or other findings are seen in either breast. There has been no significant interval change. IMPRESSION: BENIGN There is no mammographic evidence of malignancy. A 1 year screening mammogram is recommended. Based on the Tyrer Cuzick model (a risk assessment model) the patient's lifetime risk is 14.1% and her 10 year risk is 0.0%. According to the ACR, ACS, and NCCN guidelines, an annual breast MRI exam along with mammogram is recommended if the patient's lifetime risk is 20% or greater. This exam was interpreted at Station ID: [id number]. NOTE: For mammograms, a report in lay terms will be sent to the patient. Approximately 15% of breast malignancies will not be visualized mammographically. In the management of a palpable breast mass, a negative mammogram must not discourage biopsy of a clinically suspicious lesion. Electronically Signed By: Vishal conde/toi:12/30/2021 08:41:22 letter sent: Normal Exam ACR BI-RADS Category 2: Benign Finding(s) 3342F
== END ==
PROVIDERS: Referring Provider Internal Medicine; Visit Provider Internal Medicine
DX: Z12.31 Encounter for screening mammogram for malignant neoplasm of breast (principal)
CPT/HCPCS: 77063; 77067

== ENCOUNTER → 2022-04-10 10:12 | Outpatient (CLI) | payer MEDICARE, OTHER, SELFPAY ==
[2021-01-18 10:40] VITALS: BMI 27.6
[2022-04-10 10:44] LABS: Add Manual Diff / Slide Review NO; Basophils Absolute Auto 100 /uL (0-100); Basophils Percent Auto 1.2 % (0-2); Eosinophils Absolute Auto 300 /uL (0-450); Eosinophils Percent Auto 4.9 % (2-4); Hemoglobin 12.8 g/dL (12.0-16.0); Lymphocytes Absolute Auto 1500 /uL (1100-4500); Mean Corpuscular HGB Conc 33.5 % (30-36); Mean Corpuscular Hemoglobin 30.9 PG (26-34); Mean Corpuscular Volume 92.2 fL (80-100); Monocytes Absolute Auto 600 /uL (0-900); Neutrophils Absolute Auto 2800 /uL (1500-7000); Neutrophils Percent Auto 53.9 % (50-75); Platelet Count 258 X10^3/uL (150-400); Red Blood Cell Count 4.12 X10^6/uL (4.0-5.2); Red Cell Distribution Width 13.3 % (11.6-14.8); White Blood Cell Count 5.2 X10^3/uL (4.5-11.0)
[2022-04-10 11:16] LABS: BUN Creatinine Ratio 18.4 (6-22); Blood Urea Nitrogen 14 mg/dL (7-17); Calcium 9.3 mg/dL (8.4-10.2); Carbon Dioxide 29 mmol/L (22-32); Chloride 100 mmol/L (98-107); Cholesterol 214 mg/dL (140-199); Estimated Glomerular Filt Rate > 60 mL/min (>60); Glucose 96 mg/dL (80-110); HDL Cholesterol 61 mg/dL (40-60); HEMOLYSIS < 15 (0-50); LDL Cholesterol Calculated 127 mg/dL (<100); Potassium 4.7 mmol/L (3.4-5.1); Sodium 137 mmol/L (137-145); Triglycerides 128 mg/dL (35-150)
== END ==
PROVIDERS: PCP Internal Medicine; Referring Provider Internal Medicine Cardiovascular Disease; Visit Provider Internal Medicine Cardiovascular Disease
DX: R07.89 Other chest pain (principal); E78.5 Hyperlipidemia, unspecified; I48.0 Paroxysmal atrial fibrillation
CPT/HCPCS: 36415; 80048; 80061; 85025

== ENCOUNTER 2022-06-01 10:03 | Emergency (ER) | payer MEDICARE, OTHER, SELFPAY ==
[2021-01-18 10:40] VITALS: BMI 27.6
[2022-06-01 10:10] VITALS: BP 128/58; PULSE 59; RESP 18; TEMP 36.6; O2SAT 98; BMI 26.2
--- NOTE | 2022-06-01 10:26 | DI.RAD.S_ITS ---
PROCEDURE: XR CHEST 1V INDICATIONS: cough, sick x 1 week, TECHNIQUE: One view of the chest was acquired. COMPARISON: [facility], CR, XR CHEST 1V, 08/22/2021, 21:01. FINDINGS: Surgical changes and devices: Pacemaker. Lungs and pleura: Lungs are clear. No pleural effusions or pneumothorax. Mediastinum: Mediastinal contours appear normal. Heart size is normal. Bones and chest wall: No suspicious bony lesions. Overlying soft tissues appear unremarkable. IMPRESSION: No acute pulmonary process. Dictated by: Saritha Crain M.D. on 06/01/2022 at 11:26 Approved by: Saritha Crain M.D. on 06/01/2022 at 11:26
[2022-06-01 11:27] LABS: Influenza A - CEPHEID Flu A NEGATIVE (NEGATIVE); Influenza B - CEPHEID Flu B NEGATIVE (NEGATIVE); Respiratory Syncytial Virus Negative (Negative)
[2022-06-01 11:28] LABS: COVID-19 CEPHEID 4-PLEX PCR Negative (Negative)
--- NOTE | 2022-06-01 13:26 | ED.URI ---
HPI - URI/Sore Throat <Feliciano Aden PA-C - Last Filed: 06/01/22 18:36> General Chief Complaint: Upper Respiratory Symptoms Stated Complaint: COC ref- saturation low need xray and labs SOB Time Seen by Provider: 06/01/22 13:13 Source: patient Mode of arrival: Ambulatory History of Present Illness HPI Narrative: This is a 77-year-old female presents to the emergency department due to a dry mild cough last week. She states that she is had no shortness of breath and denies any chest pain, nausea, vomiting, or any other concerning signs or symptoms. Her only concern is the mild dry cough. Denies any AMELIA inhibitor use. Denies any fevers. Related Data Home Medications Medication Instructions Recorded Confirmed famotidine 20 mg tablet 20 mg PO BEDTIME 12/21/20 06/01/22 timolol maleate 0.25 % eye drops 0.25 drp EYE-BOTH BID 12/21/20 06/01/22 (Timoptic) rivaroxaban 20 mg tablet (Xarelto) 20 mg PO DAILY 08/22/21 06/01/22 spironolactone 25 mg tablet 25 mg PO DAILY 08/22/21 06/01/22 metoprolol succinate 25 mg mg PO BID 08/23/21 06/01/22 tablet,extended release 24 hr amitriptyline PO 06/01/22 06/01/22 gabapentin PO 06/01/22 06/01/22 levothyroxine [Synthroid] PO 06/01/22 06/01/22 omeprazole PO 06/01/22 06/01/22 rosuvastatin PO 06/01/22 06/01/22 Previous Rx's Medication Instructions Recorded benzonatate 100 mg capsule 100 mg PO BID PRN cough 10 days 06/01/22 #20 caps Allergies Allergy/AdvReac Type Severity Reaction Status Date / Time apixaban [From Eliquis] Allergy Mild ITCHING Verified 06/01/22 09:32 chlorhexidine Allergy Unknown Verified 06/01/22 09:32 budesonide AdvReac Unknown hives Verified 06/01/22 09:32 epinephrine AdvReac Verified 06/01/22 09:32 Review of Systems <Feliciano Aden PA-C - Last Filed: 06/01/22 18:36> Review of Systems Narrative: GENERAL: Denies chills, fatigue, malaise, fever, sweats. HEENT: Reports dry mild cough. Denies any other symptoms. RESPIRATORY: Denies dyspnea, cough, wheezing, hemoptysis, sputum. CARDIOVASCULAR: Denies chest pain, palpitations, orthopnea, edema, GASTROINTESTINAL: Denies nausea, vomiting, abdominal pain, diarrhea, constipation, melena. : Denies dysuria, frequency, incontinence, hematuria, urinary retention. MUSCULOSKELETAL: denies weakness, joint pain, or bony pain SKIN: Denies rash, skin lesions, or other NEUROLOGIC: Denies weakness, headache, numbness, change in speech, confusion, seizures, incoordination. PSYCHIATRIC: No concerning psychosocial issues. 12 point review of systems is negative except for those stated above Patient History <Feliciano Aden PA-C - Last Filed: 06/01/22 18:36> Medical History Atrial fibrillation Gastric reflux History of infection due to Haemophilus influenzae type B History of pancreatitis History of pneumonia Hoarseness Hypertension Insomnia Pacemaker Surgical History History of arthroscopy History of cholecystectomy History of lumpectomy History of tonsillectomy Hx of atrioventricular node ablation Personal history of prior ablation treatment Family History Mother Sick sinus syndrome Heart attack Colon cancer Father Colon cancer Social History marital status: household members: spouse Smoking Status: Never smoker Smoking Status: Never smoker alcohol intake frequency: holidays/special occasions only Substance Use Type: does not use Exam <Feliciano Aden PA-C - Last Filed: 06/01/22 18:36> Narrative Exam Narrative: GENERAL: Well-developed patient, in mild distress. HEAD: Atraumatic. Normocephalic. EYES: Pupils equal round and reactive. Extraocular motions intact. No scleral icterus. No injection or drainage. ENT: Nose without bleeding, purulent drainage. Throat without erythema, tonsillar hypertrophy or exudate. Airway patent. NECK: Trachea midline. Non tender CARDIOVASCULAR: Regular rate and rhythm without murmurs, gallops, or rubs. RESPIRATORY: Clear to auscultation. Breath sounds equal bilaterally. No wheezes, rales, or rhonchi. GASTROINTESTINAL: Abdomen soft, non-tender, nondistended. EXTREMITIES: No edema or joint tenderness. BACK: Nontender without deformity or crepitance. No flank tenderness. NEURO: AOx3. SKIN: No rash or erythema of visible areas Initial Vital Signs Initial Vital Signs: Vital Signs Temperature 97.8 F 06/01/22 10:10 Pulse Rate 59 L 06/01/22 10:10 Respiratory Rate 18 06/01/22 10:10 Blood Pressure 128/58 L 06/01/22 10:10 Pulse Oximetry 98 06/01/22 10:10 Oxygen Delivery Method Room Air 06/01/22 10:10 <Raquel Hudson DO - Last Filed: 06/02/22 14:18> Initial Vital Signs Initial Vital Signs: Vital Signs Temperature 97.8 F 06/01/22 10:10 Pulse Rate 59 L 06/01/22 10:10 Respiratory Rate 18 06/01/22 10:10 Blood Pressure 128/58 L 06/01/22 10:10 Pulse Oximetry 98 06/01/22 10:10 Oxygen Delivery Method Room Air 06/01/22 10:10 Course <Feliciano Aden PA-C - Last Filed: 06/01/22 18:36> Orders Ordered: ED Orders 06/01/22 10:24 Covid-19 + FLU A/B + RSV - PCR Stat 06/01/22 10:26 XR chest 1V Stat Vital Signs Vital signs: Vital Signs - 8 hr 06/01/22 13:49 Temperature 98 F Pulse Rate 70 Respiratory Rate 18 Pulse Oximetry 97 Oxygen Delivery Method Room Air <Raquel Hudson DO - Last Filed: 06/02/22 14:18> Orders Ordered: ED Orders 06/01/22 10:24 Covid-19 + FLU A/B + RSV - PCR Stat 06/01/22 10:26 XR chest 1V Stat Vital Signs Vital signs: Vital Signs - 8 hr 06/01/22 13:49 Temperature 98 F Pulse Rate 70 Respiratory Rate 18 Pulse Oximetry 97 Oxygen Delivery Method Room Air MDM - URI/Sore Throat <ADITHYA Sorensen Last Filed: 06/01/22 18:36> Lab Data Labs: Lab Results 06/01/22 Range/Units 10:24 SARS-CoV-2 (PCR) Negative (Negative) Influenza A (RT-PCR) Flu a negative (NEGATIVE) Influenza B (RT-PCR) Flu b negative (NEGATIVE) RSV (PCR) Negative (Negative) Imaging Data Chest x-ray: Radiologist's Impression: [address] [id number] ReportSigned Patient: Abby Bartlett EMR#: [id number]: 5Acct:[id number]/Sex: 77 / FDate of Service: 06/01/22Loc: EDAccession Number: [id number] Procedure: XR chest 1V Ordering Provider: Raquel Hudson D.O. PROCEDURE: XR CHEST 1V INDICATIONS: cough, sick x 1 week, TECHNIQUE: One view of the chest was acquired. COMPARISON: [facility], CR, XR CHEST 1V, 08/22/2021, 21:01. FINDINGS: Surgical changes and devices: Pacemaker. Lungs and pleura: Lungs are clear. No pleural effusions or pneumothorax. Mediastinum: Mediastinal contours appear normal. Heart size is normal. Bones and chest wall: No suspicious bony lesions. Overlying soft tissues appear unremarkable. IMPRESSION: No acute pulmonary process. Dictated by: Saritha Crain M.D. on 06/01/2022 at 11:26 Approved by: Saritha Crain M.D. on 06/01/2022 at 11:26 MDM Narrative Medical decision making narrative: MDM * differential diagnosis includes but not limited to pneumonia, strep throat, PE, URI, COVID * Prior records reviewed: Per record review patient has a history of AFib, ablation, and CHF. Initial ablation was 2 years ago in [place]. In June 2021 she had a AV node ablation and pacemaker placed. History of hypertension, pancreatitis, pneumonia. Patient's ultimate seen in the emergency department due to acute shortness of breath where she was treated with a nebulizer treatment. * My lab interpretation: Viral panel negative * My imgaing interpretation: Negative for pneumonia or any other abnormal abnormalities * Clinical Decision Rules/Scores evaluated: Wells criteria - 0 * Independent discussions with: None ED Course: This is a 77-year-old female presents to the emergency department due to the so complaint of a dry cough for the last week. Possibly allergic in nature. Chest x-ray negative for any abnormalities. Negative for pneumonia. Recommended [id number] allergy medication in the event this is an allergic kind of reaction. Viral panel negative as well. Physical exam very reassuring, no evidence of acute pharyngitis, vitals within normal limits. Shared Decision Making: Discussed patient's with plan who is comfortable with discharge Social Considerations: None Disposition: Discharged to home <Raquel Hudson DO - Last Filed: 06/02/22 14:18> Lab Data Labs: Lab Results 06/01/22 Range/Units 10:24 SARS-CoV-2 (PCR) Negative (Negative) Influenza A (RT-PCR) Flu a negative (NEGATIVE) Influenza B (RT-PCR) Flu b negative (NEGATIVE) RSV (PCR) Negative (Negative) Discharge Plan Departure Patient Disposition: Home Clinical Impression: Cough Instructions: Cough Activity Restrictions/Additional Instructions: Thank you for coming to the [facility] Emergency Department today. Your chest x-ray was reassuring. There was no evidence of any kind pneumonia or other lung abnormality. Your viral panel was also negative. This cough may be allergic in nature. Please use the medications prescribed as well as an [id number] allergy medication to help with the symptoms. Your vitals are all within normal limits during this visit to the emergency department. I hope you feel better soon. Prescriptions: New benzonatate 100 mg capsule 100 mg PO BID PRN (Reason: cough) 10 Days Qty: 20 0RF No Action amitriptyline PO gabapentin PO levothyroxine [Synthroid] PO omeprazole PO rosuvastatin PO Xarelto 20 mg tablet 20 mg PO DAILY Patient Comments: TAKE ONE TABLET BY MOUTH ONE TIME DAILY WITH FOOD spironolactone 25 mg tablet 25 mg PO DAILY metoprolol succinate 25 mg Tablet Extended Release 24 Hr PO BID timolol maleate [Timoptic] 0.25 % drops 0.25 drp EYE-BOTH BID Rx Instructions: One drop each eye, morning and night famotidine 20 mg tablet 20 mg PO BEDTIME Referrals: Gita Pabon MD [Primary Care Provider] - Stand Alone Forms: Patient Portal/API <Raquel Hudson DO - Last Filed: 06/02/22 14:18> Cosign ED Attending Coslaurenature Attestation: I was immediately available in the department for consultation. Documentation has been reviewed.
[2022-06-01 13:49] VITALS: PULSE 70; RESP 18; TEMP 36.6; O2SAT 97
== END 2022-06-01 13:49 | disposition home or self-care (01) ==
PROVIDERS: Emergency Medicine; Emergency Provider Physician Assistant Medical; PCP Internal Medicine
DX: R05.9 Cough, unspecified (principal); Z20.822 Contact with and (suspected) exposure to COVID-19
CPT/HCPCS: 0241U; 71045; 99281; 99283

== ENCOUNTER 2022-11-02 18:31 | Emergency (ER) | payer MEDICARE, OTHER, SELFPAY ==
[2021-01-18 10:40] VITALS: BMI 27.6
[2022-11-02] VITALS (7 sets, daily range): BP systolic 132–150; BP diastolic 62–84; PULSE 60–64; RESP 18–23; TEMP 37.1; O2SAT 93–97; BMI 26.6
--- NOTE | 2022-11-02 18:56 | DI.RAD.S_ITS ---
PROCEDURE: XR CHEST 1V INDICATIONS: Shortness of breath TECHNIQUE: One view of the chest was acquired. COMPARISON: [facility], [place], XR CHEST 1V, 06/01/2022, 11:58. [facility], CR, XR CHEST 1V, 08/22/2021, 21:01. FINDINGS: Surgical changes and devices: None. Lungs and pleura: Lungs are clear. No pleural effusions or pneumothorax. Mediastinum: Mediastinal contours appear normal. Heart size is normal. Bones and chest wall: No suspicious bony lesions. Overlying soft tissues appear unremarkable. IMPRESSION: No acute cardiopulmonary process. Dictated by: Zeferino Churchill M.D. on 11/02/2022 at 19:52 Approved by: Zeferino Churchill M.D. on 11/02/2022 at 19:53
[2022-11-02 19:25] LABS: Add Manual Diff / Slide Review NO; Basophils Absolute Auto 100 /uL (0-100); Basophils Percent Auto 0.5 % (0-2); Eosinophils Absolute Auto 100 /uL (0-450); Eosinophils Percent Auto 0.4 % (2-4); Hematocrit 34.2 % (36-46); Lymphocytes Absolute Auto 1200 /uL (1100-4500); Lymphocytes Percent Auto 8.2 % (25-40); Mean Corpuscular HGB Conc 35.2 % (30-36); Mean Corpuscular Hemoglobin 32.3 PG (26-34); Mean Corpuscular Volume 91.7 fL (80-100); Monocytes Absolute Auto 1600 /uL (0-900); Monocytes Percent Auto 11.4 % (3-14); Neutrophils Absolute Auto 11400 /uL (1500-7000); Neutrophils Percent Auto 79.5 % (50-75); Platelet Count 230 X10^3/uL (150-400); Red Blood Cell Count 3.73 X10^6/uL (4.0-5.2); Red Cell Distribution Width 13.4 % (11.6-14.8); White Blood Cell Count 14.3 X10^3/uL (4.5-11.0)
[2022-11-02 19:32] LABS: INR 3.1 (0.9-1.3); Prothrombin Time 36.1 SECONDS (10.1-12.7)
[2022-11-02 19:36] LABS: Alanine Aminotransferase 41 IU/L (<35); Albumin 4.3 g/dL (3.5-5.0); Albumin Globulin Ratio 1.3 (1.0-2.8); Alkaline Phosphatase 165 U/L (38-126); Aspartate Aminotransferase 57 IU/L (14-36); BUN Creatinine Ratio 17.6 (6-22); Blood Urea Nitrogen 9 mg/dL (7-17); Carbon Dioxide 23 mmol/L (22-32); Chloride 95 mmol/L (98-107); Estimated Glomerular Filt Rate > 60 mL/min (>60); Globulin 3.4 g/dL (1.7-4.1); Glucose 122 mg/dL (80-110); HEMOLYSIS 15 (0-50); Potassium 3.8 mmol/L (3.4-5.1); Sodium 129 mmol/L (137-145); Total Protein 7.7 g/dL (6.3-8.2)
[2022-11-02 19:41] LABS: Lactate (Lactic Acid) 0.8 mmol/L (0.7-2.1)
[2022-11-02 19:47] LABS: NT-proBNP (BNP-Adult 18+) 1110 pg/mL (<450); Troponin I < 0.012 ng/mL (0.01-0.034)
[2022-11-02 21:16] LABS: Adenovirus Not Detected (Not Detect); Coronavirus 229E Not Detected (Not Detect); Coronavirus HKU1 Not Detected (Not Detect); Coronavirus NL 63 Not Detected (Not Detect); Coronavirus OC43 Not Detected (Not Detect); Human Metapneumovirus Not Detected (Not Detect); SARS- CoV-2 Not Detected (Not Detecte)
[2022-11-02 21:17] LABS: B. parapertussis Not Detected (Not Detecte); Bordetella pertussis Not Detected (Not Detecte); Chlamydophila pneumoniae Not Detected (Not Detect); Human Rhinovirus/Enterovirus Not Detected (Not Detect); Influenza A Not Detected (Not Detect); Influenza B Not Detected (Not Detect); Mycoplasma pneumoniae Not Detected (Not Detect); Parainfluenza Virus 1 Not Detected (Not Detect); Parainfluenza Virus 2 Not Detected (Not Detect); Parainfluenza Virus 3 Not Detected (Not Detect); Parainfluenza Virus 4 Not Detected (Not Detect); Respiratory Syncytial Virus Not Detected (Not Detect)
[2022-11-03] VITALS: PULSE 60; RESP 21; O2SAT 97
--- NOTE | 2022-11-03 00:06 | ED.SOB ---
HPI - SOB/Dyspnea General Chief Complaint: Shortness of Breath/Dyspnea Stated Complaint: SOB, L side pain Time Seen by Provider: 11/03/22 00:06 Source: patient Mode of arrival: Ambulatory Limitations: no limitations History of Present Illness HPI Narrative: Patient is a 77-year-old female history of atrial fibrillation with ablation pacemaker on Xarelto presenting today with increased difficulty breathing or last 3 days. She denies any orthopnea no real shortness of breath with exertion she is having small pain in her left lung she feels like her left lung isn't inflating all the way. She has no real chest pain. No abdominal pain nausea or vomiting. She is not had any fever or any other symptoms. Related Data Home Medications Medication Instructions Recorded Confirmed famotidine 20 mg tablet 20 mg PO BEDTIME 12/21/20 06/01/22 timolol maleate 0.25 % eye drops 0.25 drp EYE-BOTH BID 12/21/20 06/01/22 (Timoptic) rivaroxaban 20 mg tablet (Xarelto) 20 mg PO DAILY 08/22/21 06/01/22 spironolactone 25 mg tablet 25 mg PO DAILY 08/22/21 06/01/22 metoprolol succinate 25 mg mg PO BID 08/23/21 06/01/22 tablet,extended release 24 hr amitriptyline PO 06/01/22 06/01/22 gabapentin PO 06/01/22 06/01/22 levothyroxine [Synthroid] PO 06/01/22 06/01/22 omeprazole PO 06/01/22 06/01/22 rosuvastatin PO 06/01/22 06/01/22 Allergies Allergy/AdvReac Type Severity Reaction Status Date / Time apixaban [From Eliquis] Allergy Mild ITCHING Verified 11/02/22 18:50 chlorhexidine Allergy Unknown Verified 11/02/22 18:50 budesonide AdvReac Unknown hives Verified 11/02/22 18:50 epinephrine AdvReac Verified 11/02/22 18:50 Review of Systems Review of Systems ROS Unobtainable: All systems reviewed & are unremarkable except as noted in HPI and below Patient History Medical History Atrial fibrillation Gastric reflux History of infection due to Haemophilus influenzae type B History of pancreatitis History of pneumonia Hoarseness Hypertension Insomnia Pacemaker Surgical History History of arthroscopy History of cholecystectomy History of lumpectomy History of tonsillectomy Hx of atrioventricular node ablation Personal history of prior ablation treatment Family History Mother Sick sinus syndrome Heart attack Colon cancer Father Colon cancer Social History marital status: household members: spouse Smoking Status: Never smoker Smoking Status: Never smoker alcohol intake frequency: holidays/special occasions only Substance Use Type: does not use Exam Initial Vital Signs Initial Vital Signs: Vital Signs Temperature 98.8 F 11/02/22 18:43 Pulse Rate 64 11/02/22 18:43 Respiratory Rate 20 11/02/22 18:43 Blood Pressure 136/84 11/02/22 18:43 Pulse Oximetry 96 11/02/22 18:43 Oxygen Delivery Method Room Air 11/02/22 18:43 GENERAL: Alert very pleasant 77-year-old female HEENT: Head atraumatic,EOMI, pupils reactive, face symmetric, moist mucous membranes CARDIOVASCULAR: Regular rate and rhythm without murmurs, rubs or gallops. RESPIRATORY: Breath sounds equal bilaterally, no wheezes rales or rhonchi. No respiratory distress ABDOMEN: Soft, nontender. Normoactive bowel sounds all 4 quadrants. No guarding or rebound. Negative Smith sign EXTREMITIES: Normal range of motion, no clubbing or edema. Neurovascularly intact NEUROLOGICAL: Alert and oriented x4 SKIN: Warm, dry, no laceration, no petechiae, no rashes or lesions. Course Orders Ordered: ED Orders 11/02/22 18:54 Respiratory Panel (Film Array) Stat 11/02/22 18:56 XR chest 1V Stat EKG-12 Lead Stat Measure peak expiratory flow ONCE RT Consult Eval and Treat NOW 11/02/22 19:10 Complete Blood Count AUTO DIFF Stat Comprehensive Metabolic Panel Stat Lactate (Lactic Acid) Stat NT-proBNP (BNP-Adult 18+) Stat Prothrombin Time INR Stat Troponin I Stat Vital Signs Vital signs: Vital Signs - 8 hr 11/02/22 22:10 11/02/22 22:12 11/02/22 22:12 Pulse Rate 60 60 Respiratory Rate 21 22 Blood Pressure 145/66 H Pulse Oximetry 95 97 Oxygen Delivery Method 11/02/22 22:30 11/02/22 22:30 11/02/22 23:00 Pulse Rate 60 Respiratory Rate 18 Blood Pressure 135/62 150/65 H Pulse Oximetry 95 Oxygen Delivery Method 11/02/22 23:00 11/02/22 23:30 11/02/22 23:30 Pulse Rate 60 60 Respiratory Rate 23 18 Blood Pressure 144/65 H Pulse Oximetry 93 97 Oxygen Delivery Method Room Air Room Air 11/02/22 23:56 11/02/22 23:56 11/03/22 00:00 Pulse Rate 60 60 Respiratory Rate 22 21 Blood Pressure 132/73 Pulse Oximetry 95 97 Oxygen Delivery Method 11/03/22 00:30 Pulse Rate 60 Respiratory Rate 18 Blood Pressure Pulse Oximetry 96 Oxygen Delivery Method MDM - SOB/Dyspnea Lab Data 11/02/22 19:10 11/02/22 19:10 Labs: Lab Results 11/02/22 11/02/22 11/02/22 Range/Units 18:54 19:10 19:10 WBC 14.3 H (4.5-11.0) X10^3/uL RBC 3.73 L (4.0-5.2) X10^6/uL Hgb 12.0 (12.0-16.0) g/dL Hct 34.2 L (36-46) % MCV 91.7 (80-100) fL MCH 32.3 (26-34) PG MCHC 35.2 (30-36) % RDW 13.4 (11.6-14.8) % Plt Count 230 (150-400) X10^3/uL Neut % (Auto) 79.5 H (50-75) % Lymph % (Auto) 8.2 L (25-40) % [place] % (Auto) 11.4 (3-14) % Eos % (Auto) 0.4 L (2-4) % Baso % (Auto) 0.5 (0-2) % Neut # (Auto) 91845 H (6918-6271) /uL Lymph # (Auto) 1200 (5998-7523) /uL [place] # (Auto) 1600 H (0-900) /uL Eos # (Auto) 100 (0-450) /uL Baso # (Auto) 100 (0-100) /uL PT 36.1 H (10.1-12.7) SECONDS INR 3.1 H (0.9-1.3) Sodium (137-145) mmol/L Potassium (3.4-5.1) mmol/L Chloride (98-107) mmol/L Carbon Dioxide (22-32) mmol/L BUN (7-17) mg/dL Creatinine (0.52-1.04) mg/dL Estimated GFR (>60) mL/min BUN/Creatinine Ratio (6-22) Glucose (80-110) mg/dL Lactate (0.7-2.1) mmol/L Calcium (8.4-10.2) mg/dL Total Bilirubin (0.2-1.3) mg/dL AST (14-36) IU/L ALT (<35) IU/L Alkaline Phosphatase (38-126) U/L Troponin I (0.01-0.034) ng/mL NT-Pro-B Natriuret Pep (<450) pg/mL Total Protein (6.3-8.2) g/dL Albumin (3.5-5.0) g/dL Globulin (1.7-4.1) g/dL Albumin/Globulin Ratio (1.0-2.8) Chlamy pneumoniae PCR Not detected (Not Detect) Adenovirus (PCR) Not detected (Not Detect) B. pertussis DNA (PCR) Not detected (Not Detecte) B.parapertussis DNA PCR Not detected (Not Detecte) Coronavirus OC43 (PCR) Not detected (Not Detect) Coronavirus HKU1 (PCR) Not detected (Not Detect) Coronavirus 229E (PCR) Not detected (Not Detect) SARS-CoV-2 (PCR) Not detected (Not Detecte) Coronavirus NL63 (PCR) Not detected (Not Detect) Human Metapneumovir PCR Not detected (Not Detect) Influenza Type A (PCR) Not detected (Not Detect) Influenza Type B (PCR) Not detected (Not Detect) M. pneumoniae (PCR) Not detected (Not Detect) Parainfluenza 1 (PCR) Not detected (Not Detect) Parainfluenza 2 (PCR) Not detected (Not Detect) Parainfluenza 3 (PCR) Not detected (Not Detect) Parainfluenza 4 (PCR) Not detected (Not Detect) RSV (PCR) Not detected (Not Detect) Entero/Rhino (PCR) Not detected (Not Detect) 11/02/22 11/02/22 Range/Units 19:10 19:10 WBC (4.5-11.0) X10^3/uL RBC (4.0-5.2) X10^6/uL Hgb (12.0-16.0) g/dL Hct (36-46) % MCV (80-100) fL MCH (26-34) PG MCHC (30-36) % RDW (11.6-14.8) % Plt Count (150-400) X10^3/uL Neut % (Auto) (50-75) % Lymph % (Auto) (25-40) % [place] % (Auto) (3-14) % Eos % (Auto) (2-4) % Baso % (Auto) (0-2) % Neut # (Auto) (9451-7968) /uL Lymph # (Auto) (5087-5339) /uL [place] # (Auto) (0-900) /uL Eos # (Auto) (0-450) /uL Baso # (Auto) (0-100) /uL PT (10.1-12.7) SECONDS INR (0.9-1.3) Sodium 129 L (137-145) mmol/L Potassium 3.8 (3.4-5.1) mmol/L Chloride 95 L (98-107) mmol/L Carbon Dioxide 23 (22-32) mmol/L BUN 9 (7-17) mg/dL Creatinine 0.51 L (0.52-1.04) mg/dL Estimated GFR > 60 (>60) mL/min BUN/Creatinine Ratio 17.6 (6-22) Glucose 122 H (80-110) mg/dL Lactate 0.8 (0.7-2.1) mmol/L Calcium 9.0 (8.4-10.2) mg/dL Total Bilirubin 1.0 (0.2-1.3) mg/dL AST 57 H (14-36) IU/L ALT 41 H (<35) IU/L Alkaline Phosphatase 165 H (38-126) U/L Troponin I < 0.012 (0.01-0.034) ng/mL NT-Pro-B Natriuret Pep 1110 H (<450) pg/mL Total Protein 7.7 (6.3-8.2) g/dL Albumin 4.3 (3.5-5.0) g/dL Globulin 3.4 (1.7-4.1) g/dL Albumin/Globulin Ratio 1.3 (1.0-2.8) Chlamy pneumoniae PCR (Not Detect) Adenovirus (PCR) (Not Detect) B. pertussis DNA (PCR) (Not Detecte) B.parapertussis DNA PCR (Not Detecte) Coronavirus OC43 (PCR) (Not Detect) Coronavirus HKU1 (PCR) (Not Detect) Coronavirus 229E (PCR) (Not Detect) SARS-CoV-2 (PCR) (Not Detecte) Coronavirus NL63 (PCR) (Not Detect) Human Metapneumovir PCR (Not Detect) Influenza Type A (PCR) (Not Detect) Influenza Type B (PCR) (Not Detect) M. pneumoniae (PCR) (Not Detect) Parainfluenza 1 (PCR) (Not Detect) Parainfluenza 2 (PCR) (Not Detect) Parainfluenza 3 (PCR) (Not Detect) Parainfluenza 4 (PCR) (Not Detect) RSV (PCR) (Not Detect) Entero/Rhino (PCR) (Not Detect) Imaging Data Chest x-ray: Radiologist's Impression: PROCEDURE:? XR CHEST 1V ? INDICATIONS:? Shortness of breath ? TECHNIQUE:? One view of the chest was acquired.? ? COMPARISON:? [facility], , XR CHEST 1V, 06/01/2022, 11:58.? [facility], , XR CHEST 1V, 08/22/2021, 21:01. ? FINDINGS:? ? Surgical changes and devices:? None.? ? Lungs and pleura:? Lungs are clear.? No pleural effusions or pneumothorax.? ? Mediastinum:? Mediastinal contours appear normal.? Heart size is normal.? ? Bones and chest wall:? No suspicious bony lesions.? Overlying soft tissues appear unremarkable.? ? IMPRESSION:? No acute cardiopulmonary process. ? ? ? Dictated by: Zeferino Churchill M.D. on 11/02/2022 at 19:52 ECG Data Interpretation: Paced rhythm rate 60 looks like atrial flutter underlying a no ST changes MDM Narrative Medical decision making narrative: Patient is having some difficulty breathing left-sided pain. BNP is elevated 1100 higher than it has ever been. She is not clinically fluid overloaded not having any sort of respiratory distress not requiring oxygen. She reports that she is been in AFib more frequently which she says does cause some shortness of breath for her. Sodium is slightly low at 129 it previously was in the 130s. Liver enzymes also more elevated than they have been previously I suspect this is from some congestive heart failure. He is absolutely no abdominal pain and specifically right upper quadrant pain. I see no need for imaging at this time. She is a negative troponin. She overall appears well. Patient has a pacemaker she reports that Cardiology has been messing with a different modes and things to help with her frequent episodes of AFib. She is not had a syncopal episode. Offered pacemaker interrogation however declined at this time guess it happens regularly. Discharge Plan Departure Patient Disposition: Home Clinical Impression: Congestive heart failure Instructions: DI for Heart Failure Activity Restrictions/Additional Instructions: *You have been diagnosed with congestive heart failure *What to do: At this time please follow-up with Cardiology and her PCP. You need repeat blood work to check her sodium and other electrolytes next week. Have Cardiology check your pacemaker sounds like they have been messing with it *Continue to take medications as directed Lasix 20 mg once a day for the next 2-3 days then stop *Follow up with your primary care provider in 2-3 days or call [phone] *Return to ER if you should have increased shortness of breath chest pain passing out or any new, worsening or concerning symptoms Prescriptions: No Action amitriptyline PO gabapentin PO levothyroxine [Synthroid] PO omeprazole PO rosuvastatin PO Xarelto 20 mg tablet 20 mg PO DAILY Patient Comments: TAKE ONE TABLET BY MOUTH ONE TIME DAILY WITH FOOD spironolactone 25 mg tablet 25 mg PO DAILY metoprolol succinate 25 mg Tablet Extended Release 24 Hr PO BID timolol maleate [Timoptic] 0.25 % drops 0.25 drp EYE-BOTH BID Rx Instructions: One drop each eye, morning and night famotidine 20 mg tablet 20 mg PO BEDTIME Referrals: Gita Pabon MD [Primary Care Provider] - Stand Alone Forms: Patient Portal/API
[2022-11-03 00:30] VITALS: PULSE 60; RESP 18; O2SAT 96
== END 2022-11-03 00:49 | disposition home or self-care (01) ==
PROVIDERS: Emergency Provider Emergency Medicine; PCP Internal Medicine
DX: I50.9 Heart failure, unspecified (principal); R06.02 Shortness of breath; E87.1 Hypo-osmolality and hyponatremia; R79.89 Other specified abnormal findings of blood chemistry; Z95.0 Presence of cardiac pacemaker; Z79.01 Long term (current) use of anticoagulants; Z20.822 Contact with and (suspected) exposure to COVID-19
CPT/HCPCS: 36415; 71045; 80053; 83605; 83880; 84484; 85025; 85610; 87633; 93005; 93010; 99284

== ENCOUNTER → 2022-11-08 15:03 | Outpatient (CLI) | payer MEDICARE, OTHER, SELFPAY ==
[2021-01-18 10:40] VITALS: BMI 27.6
--- NOTE | 2022-11-08 | DI.US.S_ITS ---
PROCEDURE: US ABDOMEN LIMITED INDICATIONS: ABNORMAL LIVER FUNCTION/CHEST PAIN TECHNIQUE: Real-time focused scanning was performed of the abdomen, with image documentation. COMPARISON: [facility], CT, CT CHEST W CON, 11/08/2022, 15:27. [facility], US, US ABDOMEN LIMITED, 01/22/2018, 21:52. FINDINGS: The liver demonstrates normal size. The liver demonstrates generalized mildly increased echogenicity. This decreases ultrasound sensitivity for detection of hepatic masses. The gallbladder has been removed. There is no biliary dilatation, the common bile duct measures 6 mm. No significant pancreatic abnormality is seen on these images. IMPRESSION: Mild fatty liver infiltration. Status post cholecystectomy, without biliary dilatation. Dictated by: Akshat Madden M.D. on 11/08/2022 at 17:56 Approved by: Akshat Madden M.D. on 11/08/2022 at 17:57
--- NOTE | 2022-11-08 15:20 | DI.CT.S_ITS ---
PROCEDURE: CT CHEST W CON INDICATIONS: ABNORMAL LIVER FUNCTION/CHEST PAIN TECHNIQUE: After the administration of intravenous contrast, 5 mm thick sections acquired from the pulmonary apices to the posterior costophrenic angles. 1 mm axial lung, 5 mm thick coronal and sagittal reformats and 7 mm axial MIP were acquired. For radiation dose reduction, the following was used: automated exposure control, adjustment of mA and/or kV according to patient size. COMPARISON: [facility], CT, CT ANGIO CHEST PE PROTOCOL, 01/20/2021, 8:43. FINDINGS: Image quality: Excellent. Lungs and pleura: New patchy consolidation of the right middle lobe and lingula, without bronchiectasis period in a few regions of tree-in-bud nodules are also present. Mild smooth interstitial thickening. Minimal bronchial thickening. Mediastinum: Heart size is normal. No pericardial effusion. No mediastinal or hilar adenopathy by size criteria. Thoracic aorta and central pulmonary arteries are normal in size. Esophagus is normal in caliber. No hiatal hernia. Bones and chest wall: No suspicious bony lesions. No vertebral body compression fractures. No axillary or supraclavicular adenopathy by size criteria. Thyroid gland is unremarkable . Left chest wall pacemaker and ICD generator, with intravenous leads. Abdomen: Visualized upper abdominal solid organs appear normal. Upper abdominal bowel loops are normal in caliber. IMPRESSION: Patchy, mild consolidation in the right middle lobe and lingula, as well as superimposed tree-in-bud nodules. Findings could represents developing infection non tuberculosis mycoplasma bacterial infection or other nonspecific pneumonia. Recommend follow-up in 3-6 months to ensure resolution. Mild smooth interstitial thickening and bronchial thickening, suggestive of mild pulmonary edema. No findings in the left upper quadrant to explain the patient's pain. Dictated by: Zeferino Churchill M.D. on 11/08/2022 at 16:20 Approved by: Zeferino Churchill M.D. on 11/08/2022 at 16:23
== END ==
PROVIDERS: PCP Internal Medicine; Referring Provider Internal Medicine; Visit Provider Internal Medicine
DX: R07.9 Chest pain, unspecified (principal); R79.89 Other specified abnormal findings of blood chemistry; K76.0 Fatty (change of) liver, not elsewhere classified; Z90.49 Acquired absence of other specified parts of digestive tract
CPT/HCPCS: 71260; 76705

== ENCOUNTER → 2022-11-21 12:31 | Outpatient (CLI) | payer MEDICARE, OTHER, SELFPAY ==
[2021-01-18 10:40] VITALS: BMI 27.6
[2022-11-21 14:37] LABS: BUN Creatinine Ratio 17.4 (6-22); Blood Urea Nitrogen 12 mg/dL (7-17); Calcium 9.4 mg/dL (8.4-10.2); Carbon Dioxide 28 mmol/L (22-32); Chloride 96 mmol/L (98-107); Estimated Glomerular Filt Rate > 60 mL/min (>60); Glucose 108 mg/dL (80-110); HEMOLYSIS < 15 (0-50); Potassium 4.6 mmol/L (3.4-5.1); Sodium 133 mmol/L (137-145)
[2022-11-22 16:56] LABS: Osmolality, Serum 279 mOsmol/kg (280-301)
== END ==
PROVIDERS: PCP Internal Medicine; Referring Provider Internal Medicine Cardiovascular Disease; Visit Provider Internal Medicine Cardiovascular Disease
DX: E87.1 Hypo-osmolality and hyponatremia (principal)
CPT/HCPCS: 36415; 80048; 83930

== ENCOUNTER → 2022-12-11 13:46 | Outpatient (CLI) | payer MEDICARE, OTHER, SELFPAY ==
[2021-01-18 10:40] VITALS: BMI 27.6
[2022-12-11 14:27] LABS: BUN Creatinine Ratio 21.6 (6-22); Blood Urea Nitrogen 16 mg/dL (7-17); Calcium 9.9 mg/dL (8.4-10.2); Carbon Dioxide 28 mmol/L (22-32); Chloride 98 mmol/L (98-107); Estimated Glomerular Filt Rate > 60 mL/min (>60); Glucose 96 mg/dL (80-110); HEMOLYSIS < 15 (0-50); Potassium 4.5 mmol/L (3.4-5.1); Sodium 134 mmol/L (137-145)
== END ==
PROVIDERS: PCP Internal Medicine; Referring Provider Internal Medicine Cardiovascular Disease; Visit Provider Internal Medicine Cardiovascular Disease
DX: E87.1 Hypo-osmolality and hyponatremia (principal)
CPT/HCPCS: 36415; 80048

== ENCOUNTER → 2023-01-03 15:24 | Outpatient (CLI) | payer MEDICARE, OTHER, SELFPAY ==
[2021-01-18 10:40] VITALS: BMI 27.6
== END ==
PROVIDERS: PCP Internal Medicine; Referring Provider Family Medicine; Visit Provider Family Medicine
DX: Z23 Encounter for immunization (principal)
CPT/HCPCS: 90471; 90662

== ENCOUNTER → 2023-01-12 10:52 | Outpatient (CLI) | payer MEDICARE, OTHER, SELFPAY ==
[2021-01-18 10:40] VITALS: BMI 27.6
--- NOTE | 2023-01-12 | DI.MG.S_ITS ---
BILATERAL DIGITAL SCREENING MAMMOGRAM 3D/2D WITH CAD: 01/12/2023 CLINICAL: Routine screening. Comparison is made to exams dated: 12/29/2021 mammogram, 12/23/2020 mammogram, 12/22/2019 mammogram, and 12/20/2018 mammogram - [facility]. There are scattered areas of fibroglandular density in both breasts (category b / 25%-50% glandular tissue). Current study was also evaluated with a Computer Aided Detection (CAD) system. There are benign post operative findings in the right breast. There also are benign post operative findings and biopsy clip in the left breast. No significant masses, calcifications, or other findings are seen in either breast. There has been no significant interval change. IMPRESSION: BENIGN There is no mammographic evidence of malignancy. A 1 year screening mammogram is recommended. Based on the Tyrer Cuzick model (a risk assessment model) the patient's lifetime risk is 12.7% and her 10 year risk is 0.0%. According to the ACR, ACS, and NCCN guidelines, an annual breast MRI exam along with mammogram is recommended if the patient's lifetime risk is 20% or greater. This exam was interpreted at Station ID: [id number]. NOTE: For mammograms, a report in lay terms will be sent to the patient. Approximately 15% of breast malignancies will not be visualized mammographically. In the management of a palpable breast mass, a negative mammogram must not discourage biopsy of a clinically suspicious lesion. Electronically Signed By: Gianluca johnson/toi:01/12/2023 14:50:21 letter sent: Normal Exam ACR BI-RADS Category 2: Benign Finding(s) 3342F
== END ==
PROVIDERS: PCP Internal Medicine; Referring Provider Internal Medicine; Visit Provider Internal Medicine
DX: Z12.31 Encounter for screening mammogram for malignant neoplasm of breast (principal)
CPT/HCPCS: 77063; 77067

== ENCOUNTER 2023-01-22 11:08 | Day surgery (SDC) | payer MEDICARE, OTHER, SELFPAY ==
[2021-01-18 10:40] VITALS: BMI 27.6
--- NOTE | 2023-01-22 | PATH_ITS ---
[facility] Accession Number: [id number] No. of containers..02 Tissue . 01 Material submitted: . PART A: colon - ASCENDING COLON PART B: colon - SIGMOID COLON . 01 Diagnosis: A. Ascending Colon, Biopsy: Tubular adenoma. . B. Sigmoid Colon, Biopsy: Tubular adenoma. [facility] 01/26/2023 1514 Local . 01 Electronically signed: . Shireen Yee MD, Pathologist NPI- [id number] . 01 Gross description: . Part A: ASCENDING COLON: Received in formalin is 1 fragment(s) of givens, soft tissue measuring 0.3 x 0.3 x 0.3 cm submitted entirely in 1 cassette(s) Part B: SIGMOID COLON: Received in formalin is 1 fragment(s) of givens, soft tissue measuring 0.4 x 0.4 x 0.3 cm submitted entirely in 1 cassette(s) /[facility] 01/23/2023 1849 Local . 01 Pathologist provided ICD-10: D12.2, D12.5 . 01 CPT . 598353, 732641 Specimen Comment: A courtesy copy of this report has been sent to [phone] Performed at: 01 [facility] [address] [place] [address] [address], [place], [place] [id number] MD Manny Evans MD Phone: [phone]
[2023-01-22] MEDS: LACTATED RINGERS 1,000 ML 100 ML IV (11:30)
[2023-01-22 11:46] VITALS: BP 135/65; PULSE 67; RESP 16; TEMP 35.8; O2SAT 100; BMI 25.0
--- NOTE | 2023-01-22 12:11 | P.HP_ITS ---
History of Present Illness History of Present Illness Date Patient Seen: 01/22/23 Time Patient Seen: 12:12 Chief complaint: Dx Colonoscopy w/poss bx Narrative: 77-year-old female with a family history of colon cancer in both her parents and a personal history of colon polyps. She is here for surveillance. [facility] Medical History 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 History of pneumonia Insomnia History of pancreatitis Hoarseness Gastric reflux Atrial fibrillation Hypertension Surgical History Hx of atrioventricular node ablation Personal history of prior ablation treatment History of arthroscopy History of lumpectomy History of tonsillectomy History of cholecystectomy Family History Mother Sick sinus syndrome Heart attack Colon cancer Father Colon cancer Social History marital status: household members: spouse Smoking Status: Never smoker alcohol intake: current Meds Home Medications and Allergies Home Medications Medication Instructions Recorded Confirmed Type famotidine 20 mg tablet 20 mg PO BEDTIME 12/21/20 06/01/22 History timolol maleate 0.25 % eye drops 0.25 drp EYE-BOTH BID 12/21/20 06/01/22 History (Timoptic) rivaroxaban 20 mg tablet (Xarelto) 20 mg PO DAILY 08/22/21 06/01/22 History spironolactone 25 mg tablet 25 mg PO DAILY 08/22/21 06/01/22 History metoprolol succinate 25 mg mg PO BID 08/23/21 06/01/22 History tablet,extended release 24 hr gabapentin PO 06/01/22 06/01/22 History levothyroxine [Synthroid] PO 06/01/22 06/01/22 History omeprazole PO 06/01/22 06/01/22 History rosuvastatin PO 06/01/22 06/01/22 History diltiazem HCl 120 mg tablet 120 mg PO DAILY 01/22/23 01/22/23 History dofetilide 125 mcg capsule 125 mcg PO Q12H 01/22/23 01/22/23 History (Tikosyn) fluticasone propionate 50 1 spray intranasal DAILY 01/22/23 01/22/23 History mcg/actuation nasal spray,suspension furosemide 20 mg tablet (Lasix) 20 mg PO Q OTHER DAY 01/22/23 01/22/23 History Allergies Allergy/AdvReac Type Severity Reaction Status Date / Time flecainide Allergy Severe Anaphylaxis Verified 01/22/23 11:31 budesonide Allergy Unknown hives Verified 01/22/23 11:32 chlorhexidine Allergy Unknown Verified 01/22/23 11:31 triamcinolone Allergy Unknown Rash Verified 01/22/23 11:34 apixaban [From Eliquis] AdvReac Mild ITCHING Verified 01/22/23 11:32 epinephrine AdvReac Verified 01/22/23 11:30 Review of Systems Review of Systems ROS: Yes All systems reviewed with the patient and are negative except as otherwise documented Exam Vital Signs (past 8 hours): - 01/22/23 11:46 Temperature 96.5 F L Pulse Rate 67 Respiratory Rate 16 Blood Pressure 135/65 Pulse Oximetry 100 Oxygen Delivery Method Room Air Oxygen Delivery Method Room Air Const General: cooperative HENMT Head: normal to inspection Eyes General: appearance normal, both eyes and all related structures Neck Neck: normal visual inspection Chest Chest: normal inspection of the chest Resp Effort & Inspection: normal respiratory effort Cardio Rate: regular rate GI Inspection: normal to inspection Skin General: no rashes or lesions noted Neuro General: patient alert and patient awake Extrem General: normal to inspection and no pedal edema Psych Appearance: grossly normal Assessment & Plan Assessment & Plan narrative: 77-year-old female with family history of colon cancer and a personal history of colon polyps. She is off her Xarelto for 3 days. Colonoscopy is pursued today.
--- NOTE | 2023-01-22 12:13 | PM.PREOP ---
Pre-operative Note Interval Note History & Physical reviewed/Exam performed by Physician: Yes Changes to H&P: No ASA Class (for procedural sedation): III
--- NOTE | 2023-01-22 12:59 | PM.OP.COLON ---
Operative Date/Time/Diagnoses Date of procedure: 01/22/23 Time of procedure: 12:59 Pre-op diagnosis: Family history of colon cancer and a personal history of colon polyps. Post-op diagnosis: same Procedure & Clinicians Study performed: Colonoscopy with cold snare polypectomy and cold forceps polypectomy Same procedure as scheduled: Yes Indications: Family history of colon cancer and a personal history of colon polyps. Surgeon: Zaid Zamora Procedure Notes SCOAP/Timeout: Done Procedure in detail: After the risks and benefits were explained, written and verbal informed consent was obtained. The patient was brought into the procedure room and placed into the left lateral decubitus position. Please see anesthesia note for sedation details. Digital rectal examination was accomplished. The scope was introduced into the patient and advanced under direct visualization to the cecum as identified by the appendiceal orifice and ileocecal valve. The scope was slowly withdrawn to carefully examine the mucosa for any defects or lesions. Comprehensive imaging was accomplished throughout the rectum including the dentate line. The colon was decompressed, the scope was then removed from the patient who tolerated the procedure well. Pediatric colonoscope Bowel prep fair; with copious irrigation and suction this was rendered adequate. Scope withdrawal time: 18 minutes Sedation minutes: 25 Complications: none Impression: Patient had grade 2 internal hemorrhoids. There was diverticulosis all throughout the sigmoid. There was a diminutive polyp in the ascending colon removed with cold forceps. In the sigmoid colon there was an approximately 5 mm semi pedunculated polyp removed with cold snare. No additional significant pathology was appreciated. Endoscopic diagnosis 1. Hemorrhoids 2. Diverticulosis 3. Colon polyps Post-procedure Plan for aftercare: 1. Await histopathology 2. Repeat colonoscopy 5 years. 3. Okay to resume Xarelto starting tomorrow. Disposition: PACU
[2023-01-22 13:01] VITALS: BP 110/43; PULSE 61; RESP 17; TEMP 35.9; O2SAT 100
[2023-01-22 13:06] VITALS: BP 119/75; PULSE 60; RESP 26; O2SAT 100
[2023-01-22 13:11] VITALS: BP 136/63; PULSE 60; RESP 24; TEMP 36.3; O2SAT 98
[2023-01-22 13:13] VITALS: BP 134/71; PULSE 60; RESP 16; O2SAT 100
== END 2023-01-22 13:28 | disposition home or self-care (01) ==
PROVIDERS: PCP Internal Medicine; Referring Provider Internal Medicine Gastroenterology; Visit Provider Internal Medicine Gastroenterology
PROC: 0DJD8ZZ Inspection of Lower Intestinal Tract, Via Natural or Artificial Opening Endoscopic (ICD-10-PCS; CPT 45378; principal; 2023-01-22 12:30)
DX: Z12.11 Encounter for screening for malignant neoplasm of colon (principal); Z80.0 Family history of malignant neoplasm of digestive organs; Z86.010 Personal history of colon polyps; K64.8 Other hemorrhoids; K57.30 Diverticulosis of large intestine without perforation or abscess without bleeding; D12.2 Benign neoplasm of ascending colon; D12.5 Benign neoplasm of sigmoid colon
CPT/HCPCS: 45385; 45380; J2704

== ENCOUNTER → 2023-04-06 08:57 | Outpatient (CLI) | payer OTHER, SELFPAY ==
[2021-01-18 10:40] VITALS: BMI 27.6
[2023-04-06 10:09] LABS: Alanine Aminotransferase 15 IU/L (<35); Albumin 4.6 g/dL (3.5-5.0); Albumin Globulin Ratio 1.4 (1.0-2.8); Alkaline Phosphatase 88 U/L (38-126); Aspartate Aminotransferase 29 IU/L (14-36); BUN Creatinine Ratio 17.4 (6-22); Bilirubin Total 0.7 mg/dL (0.2-1.3); Blood Urea Nitrogen 12 mg/dL (7-17); Calcium 10.3 mg/dL (8.4-10.2); Carbon Dioxide 30 mmol/L (22-32); Chloride 100 mmol/L (98-107); Estimated Glomerular Filt Rate > 60 mL/min (>60); Globulin 3.4 g/dL (1.7-4.1); Glucose 98 mg/dL (80-110); HEMOLYSIS < 15 (0-50); Potassium 4.4 mmol/L (3.4-5.1); Sodium 137 mmol/L (137-145)
== END ==
LOC: LAB 09:01
PROVIDERS: PCP Internal Medicine; Referring Provider Physician Assistant Medical; Visit Provider Physician Assistant Medical
DX: I48.0 Paroxysmal atrial fibrillation (principal)
CPT/HCPCS: 36415; 80053; 83735

== ENCOUNTER 2023-08-12 14:33 | Emergency (ER) | payer OTHER, SELFPAY ==
[2021-01-18 10:40] VITALS: BMI 27.6
--- NOTE | 2023-08-12 | DI.RAD.S_ITS ---
PROCEDURE: XR WRIST LT MIN 3V INDICATIONS: FRACTURE TECHNIQUE: 4 views of the wrist were acquired. COMPARISON: None. FINDINGS: Bones: Comminuted distal intra-articular fracture of the radius with mild foreshortening. Nondisplaced distal ulnar styloid fracture. No suspicious bony lesions. Soft tissues: No suspicious soft tissue calcifications. IMPRESSION: Comminuted fracture of the distal radius and ulnar styloid. Dictated by: Nathaniel Smart M.D. on 08/12/2023 at 17:22 Approved by: Nathaniel Smart M.D. on 08/12/2023 at 17:25
[2023-08-12 14:40] VITALS: BP 165/67; PULSE 60; RESP 18; TEMP 36.4; O2SAT 99; BMI 24.8
--- NOTE | 2023-08-12 17:30 | PC.NURSE ---
Left wrist fracture from 08/10/23 when [place] fell [place]. Pt went to the ER at that time and had a splint placed. Pt reports since taking the flight home she has had increased swelling and pain which is not lowered with prescribed [place]. She states the ER told her she needed surgery and decided to fly home for care.
[2023-08-12] MEDS: OXYCODONE/ACETAMINOPHEN 5/325 TABLET 1 TAB PO (18:06)
--- NOTE | 2023-08-12 18:26 | ED.UPPEXIN ---
HPI - Extremity Injury (Upper) General Chief Complaint: Extremity Injury, Upper Stated Complaint: Left arm injury Time Seen by Provider: 08/12/23 17:34 Source: patient Mode of arrival: Ambulatory History of Present Illness HPI narrative: Patient 78-year-old female with unrelated history presenting today with left wrist pain. She fell and fractured her wrist 2 days ago in [place]. She went to the ED she was reduced and splinted. She flew on an airplane yesterday he did take 1 [place] while flying but today reports increase in pain and swelling. She has not been wearing her sling and has been icing intermittently. She is wanting referral orthopedics and different pain medication she reports that [place] is not working. She denies any numbness or tingling. She does have increased swelling in her fingertips today. Related Data Home Medications Medication Instructions Recorded Confirmed famotidine 20 mg tablet 20 mg PO BEDTIME 12/21/20 02/27/23 timolol maleate 0.25 % eye drops 0.25 drp EYE-BOTH BID 12/21/20 02/27/23 (Timoptic) rivaroxaban 20 mg tablet (Xarelto) 20 mg PO DAILY 08/22/21 02/27/23 spironolactone 25 mg tablet 25 mg PO DAILY 08/22/21 02/27/23 metoprolol succinate 25 mg 37.5 mg PO BID 08/23/21 02/27/23 tablet,extended release 24 hr gabapentin 300 mg PO DAILY 06/01/22 02/27/23 levothyroxine [Synthroid] 25 mcg PO DAILY 06/01/22 02/27/23 omeprazole 40 mg PO DAILY 06/01/22 02/27/23 rosuvastatin 5 mg PO DAILY 06/01/22 02/27/23 diltiazem HCl 120 mg tablet 120 mg PO DAILY 01/22/23 02/27/23 dofetilide 125 mcg capsule 125 mcg PO Q12H 01/22/23 02/27/23 (Tikosyn) fluticasone propionate 50 1 spray intranasal DAILY 01/22/23 02/27/23 mcg/actuation nasal spray,suspension furosemide 20 mg tablet (Lasix) 20 mg PO Q OTHER DAY 01/22/23 02/27/23 Previous Rx's Medication Instructions Recorded oxycodone-acetaminophen 5 mg-325 1 tab PO Q6H PRN pain #10 tabs 08/12/23 mg tablet (Percocet) Allergies Allergy/AdvReac Type Severity Reaction Status Date / Time flecainide Allergy Severe Anaphylaxis Verified 02/27/23 15:06 budesonide Allergy Unknown hives Verified 02/27/23 15:06 chlorhexidine Allergy Unknown Verified 02/27/23 15:06 triamcinolone Allergy Unknown Rash Verified 02/27/23 15:06 apixaban [From Eliquis] AdvReac Mild ITCHING Verified 02/27/23 15:06 epinephrine AdvReac Verified 02/27/23 15:06 Patient History Medical History 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 History of pneumonia Insomnia History of pancreatitis Hoarseness Gastric reflux Atrial fibrillation Hypertension Surgical History Hx of atrioventricular node ablation Personal history of prior ablation treatment History of arthroscopy History of lumpectomy History of tonsillectomy History of cholecystectomy Family History Mother Sick sinus syndrome Heart attack Colon cancer Father Colon cancer Social History marital status: household members: spouse Smoking Status: Never smoker alcohol intake: current Smoking Status: Never smoker alcohol intake frequency: a few times a week Substance Use Type: does not use Exam Initial Vital Signs Initial Vital Signs: Vital Signs Temperature 97.6 F 08/12/23 14:40 Pulse Rate 60 08/12/23 14:40 Respiratory Rate 18 08/12/23 14:40 Blood Pressure 165/67 H 08/12/23 14:40 Pulse Oximetry 99 08/12/23 14:40 Oxygen Delivery Method Room Air 08/12/23 14:40 GENERAL: Well-appearing, well-nourished and in no acute distress. CARDIOVASCULAR: peripheral pulses in tact, cap refill <2 sec RESPIRATORY: No respiratory distress, speaks in full sentences without difficulty EXTREMITIES: Normal range of motion, no clubbing or edema. Neurovascularly intact Left upper extremity splint is placed but cap refill less than 2 seconds, able to move fingertips NEUROLOGICAL: Cranial nerves II through XII grossly intact. Normal gait and speech. SKIN: Warm, dry, no petechiae, no rashes or lesions. Course Orders Ordered: Discontinued Medications Oxycodone/Acetaminophen (Oxycodone/Acetaminophen 5/325 Tablet) 1 tab PO NOW ONE Stop: 08/12/23 17:35 Last Admin: 08/12/23 18:06 Dose: 1 tab Documented By: LOW Oxycodone/Acetaminophen (Oxycodone/Apap 5/325 Prepack) 1 bottle MISC DIRECTED ONE Stop: 08/12/23 18:26 Last Admin: 08/12/23 18:33 Dose: 1 bottle Documented By: LOW Vital Signs Vital signs: Vital Signs - 8 hr 08/12/23 14:40 08/12/23 18:53 Temperature 97.6 F Pulse Rate 60 61 Respiratory Rate 18 16 Blood Pressure 165/67 H Pulse Oximetry 99 98 Oxygen Delivery Method Room Air Room Air MDM - Extremity Injury (Upper) Imaging Data Extremity x-ray #1: Radiologist's Impression: PROCEDURE: XR WRIST LT MIN 3V INDICATIONS: FRACTURE TECHNIQUE: 4 views of the wrist were acquired. COMPARISON: None. FINDINGS: Bones: Comminuted distal intra-articular fracture of the radius with mild foreshortening. Nondisplaced distal ulnar styloid fracture. No suspicious bony lesions. Soft tissues: No suspicious soft tissue calcifications. IMPRESSION: Comminuted fracture of the distal radius and ulnar styloid. Dictated by: Nathaniel Smart M.D. on 08/12/2023 at 17:22 MDM Narrative Medical decision making narrative: Patient is 78-year-old female with known distal radial fracture presents today with increasing pain and swelling. Fracture overall appears stable there is no evidence of compartment syndrome cast and splint is quite open. She says some swelling. We discussed elevation ice and supportive care. She does not feel like she is getting any sort of relief with [place] will try her on Percocet. Discussion that she will need a facial orthopedic referral from PCP but will give her the information. Discharge Plan Departure Patient Disposition: Home Clinical Impression: Distal radius fracture, left Instructions: DI for Wrist Fracture Activity Restrictions/Additional Instructions: *You have been diagnosed with distal radial fracture *What to do: Keep splint on at all times use a plastic bag in order to bathe. I recommend using sling while active. Elevate while at rest. Ice 20-30 minutes at a time. *Continue to take medications as directed Do not combine [place] and Percocet together Percocet 1-2 tablets every 6 hours if needed for severe pain->safeway *Follow up with your primary care provider in 2-3 days or call [phone] Call [facility] orthopedics tomorrow to schedule follow-up appointment *Return to ER if you should have increasing pain numbness tingling weakness or any new, worsening or concerning symptoms CONTROLLED SUBSTANCE DISCHARGE (Narcotoic/benzodiazepine/Flexeril/Phenergan) 1. You have been prescribed narcotic medications, it does have acetaminophen/Tylenol/paracetamol in it, DO NOT TAKE MORE THAN 4,00mg in 24 hours of Tylenol. TRAMADOL DOES NOT CONTAIN TYLENOL 2. Please understand that we cannot provide further refills of narcotics, benzodiazepines or controlled substances through the ED and her pain management will need to be through your provider. 3. While on these medications you cannot drive or operate heavy machinery. 4. You cannot sign legal documents or perform any duties such as this. 5. As long as you're taking opiate pain medications he should also be taking a stool softener such as Colace, Dulcolax, MiraLAX or prune juice, to help avoid constipation. Prescriptions: New oxycodone-acetaminophen [Percocet] 5-325 mg tablet 1 tab PO Q6H PRN (Reason: pain) Qty: 10 0RF No Action gabapentin 300 mg PO DAILY levothyroxine [Synthroid] 25 mcg PO DAILY omeprazole 40 mg PO DAILY rosuvastatin 5 mg PO DAILY dofetilide [Tikosyn] 125 mcg Capsule 125 mcg PO Q12H diltiazem HCl 120 mg tablet 120 mg PO DAILY furosemide [Lasix] 20 mg Tablet 20 mg PO Q OTHER DAY fluticasone propionate 50 mcg/actuation [place],Suspension 1 spray INTRANASAL DAILY Rx Instructions: administer into each nostril Xarelto 20 mg tablet 20 mg PO DAILY Patient Comments: TAKE ONE TABLET BY MOUTH ONE TIME DAILY WITH FOOD spironolactone 25 mg tablet 25 mg PO DAILY metoprolol succinate 25 mg Tablet Extended Release 24 Hr 37.5 mg PO BID timolol maleate [Timoptic] 0.25 % drops 0.25 drp EYE-BOTH BID Rx Instructions: One drop each eye, morning and night famotidine 20 mg tablet 20 mg PO BEDTIME Referrals: Gita Pabon MD [Primary Care Provider] - Stand Alone Forms: Patient Portal/API
[2023-08-12] MEDS: OXYCODONE/APAP 5/325 PREPACK 1 BOTTLE MISC (18:33)
[2023-08-12 18:53] VITALS: PULSE 61; RESP 16; O2SAT 98
== END 2023-08-12 18:57 | disposition home or self-care (01) ==
PROVIDERS: Emergency Provider Emergency Medicine; PCP Internal Medicine
DX: S52.502A Unspecified fracture of the lower end of left radius, initial encounter for closed fracture (principal); W19.XXXA Unspecified fall, initial encounter
CPT/HCPCS: 73110; 99283

== ENCOUNTER 2023-08-19 17:27 | Emergency (ER) | payer OTHER, SELFPAY ==
[2021-01-18 10:40] VITALS: BMI 27.6
[2023-08-19 17:49] VITALS: BP 140/60; PULSE 62; RESP 18; TEMP 36.2; O2SAT 94; BMI 24.3
--- NOTE | 2023-08-19 17:49 | DI.RAD.S_ITS ---
PROCEDURE: XR WRIST LT MIN 3V INDICATIONS: left wrist pain after surgery TECHNIQUE: 3 views of the wrist were acquired. COMPARISON: [facility], CR, XR WRIST LT MIN 3V, 08/12/2023, 17:35. FINDINGS: Bones: Overlying splint obscures the fine osseous soft tissue detail. The patient is status post fixation of comminuted intra-articular distal radial fracture using plate and screw construct. Alignment of fracture is similar compared to prior. Redemonstration of mildly displaced ulnar styloid tip fracture. No new fracture identified. Soft tissues: No suspicious soft tissue calcifications. IMPRESSION: Status post internal fixation of intra-articular comminuted distal radial fracture. No evidence of hardware complication. Mildly displaced ulnar styloid tip fracture. Approved by: Sana Loving M.D.,Ph.D. on 08/19/2023 at 17:56
--- NOTE | 2023-08-19 22:12 | ED_ITS ---
HPI - Recheck/Abnormal Lab/Rx General Chief Complaint: Recheck/Abnormal Lab/Rx Stated Complaint: fractured wrist, swelling and numbness Time Seen by Provider: 08/19/23 22:12 Source: patient Mode of arrival: Ambulatory History of Present Illness HPI narrative: 78-year-old female with a history of atrial fibrillation, ablation and pacemaker on Xarelto who had a fractured her left wrist on 08/09, patient had repair on 08/16/[address] Ceron locally. Raised splint in place with the plan of increased swelling pain and numbness of the left upper extremity. Patient states in the Sunday and Sunday had continuing the increasing pain she had loosened the more distal portion of her wrap but not at the wrist. Patient states her fingers started to turn blue sheeted with tingling and decreased sensation had increasing swelling and discomfort. She has been taking oxycodone every 4 hours she thinks it is oxycodone without any Tylenol. She did have oxycodone with APAP prior. She has not been taking anything in addition. Related Data Home Medications Medication Instructions Recorded Confirmed famotidine 20 mg tablet 20 mg PO BEDTIME 12/21/20 02/27/23 timolol maleate 0.25 % eye drops 0.25 drp EYE-BOTH BID 12/21/20 02/27/23 (Timoptic) rivaroxaban 20 mg tablet (Xarelto) 20 mg PO DAILY 08/22/21 02/27/23 spironolactone 25 mg tablet 25 mg PO DAILY 08/22/21 02/27/23 metoprolol succinate 25 mg 37.5 mg PO BID 08/23/21 02/27/23 tablet,extended release 24 hr gabapentin 300 mg PO DAILY 06/01/22 02/27/23 levothyroxine [Synthroid] 25 mcg PO DAILY 06/01/22 02/27/23 omeprazole 40 mg PO DAILY 06/01/22 02/27/23 rosuvastatin 5 mg PO DAILY 06/01/22 02/27/23 diltiazem HCl 120 mg tablet 120 mg PO DAILY 01/22/23 02/27/23 dofetilide 125 mcg capsule 125 mcg PO Q12H 01/22/23 02/27/23 (Tikosyn) fluticasone propionate 50 1 spray intranasal DAILY 01/22/23 02/27/23 mcg/actuation nasal spray,suspension furosemide 20 mg tablet (Lasix) 20 mg PO Q OTHER DAY 01/22/23 02/27/23 Previous Rx's Medication Instructions Recorded oxycodone-acetaminophen 5 mg-325 1 tab PO Q6H PRN pain #10 tabs 08/12/23 mg tablet (Percocet) hydroxyzine pamoate 25 mg capsule 25 mg PO QID PRN spasm #10 caps 08/19/23 (Vistaril) Allergies Allergy/AdvReac Type Severity Reaction Status Date / Time flecainide Allergy Severe Anaphylaxis Verified 02/27/23 15:06 budesonide Allergy Unknown hives Verified 02/27/23 15:06 chlorhexidine Allergy Unknown Verified 02/27/23 15:06 triamcinolone Allergy Unknown Rash Verified 02/27/23 15:06 apixaban [From Eliquis] AdvReac Mild ITCHING Verified 02/27/23 15:06 epinephrine AdvReac Verified 02/27/23 15:06 Review of Systems Review of Systems ROS Unobtainable: All systems reviewed & are unremarkable except as noted in HPI and below Patient History Medical History 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 History of pneumonia Insomnia History of pancreatitis Hoarseness Gastric reflux Atrial fibrillation Hypertension Surgical History Hx of atrioventricular node ablation Personal history of prior ablation treatment History of arthroscopy History of lumpectomy History of tonsillectomy History of cholecystectomy Family History Mother Sick sinus syndrome Heart attack Colon cancer Father Colon cancer Social History marital status: household members: spouse Smoking Status: Never smoker alcohol intake: current Smoking Status: Never smoker alcohol intake frequency: a few times a week Substance Use Type: does not use Exam Narrative Exam Narrative: GENERAL: Alert and oriented x three, female in mild distress. HEENT: Head normocephalic, atraumatic, EOMI, pupils reactive, face symmetric, moist mucous membranes NECK: Supple, full range of motion EXTREMITIES: Normal range of motion, no clubbing. Neurovascularly intact. Patient has edema of the hand, she had her rapid adjusted she feels much better. She does have swelling, ecchymosis of all 5 fingers. Cap refills less than 2 seconds there has no cyanosis. She is sensation to light touch. She does have some ecchymosis over the elbow that is green discoloration. She states that has been improving although she has a little bit of discomfort. There is no erythema or other skin changes. NEUROLOGICAL: Cranial nerves II through XII grossly intact. Moving all extremities SKIN: Warm, dry, no petechiae, no rashes or lesions. Initial Vital Signs Initial Vital Signs: Vital Signs Temperature 97.1 F L 08/19/23 17:49 Pulse Rate 62 08/19/23 17:49 Respiratory Rate 18 08/19/23 17:49 Blood Pressure 140/60 08/19/23 17:49 Pulse Oximetry 94 08/19/23 17:49 Oxygen Delivery Method Room Air 08/19/23 17:49 Course Orders Ordered: ED Orders 08/19/23 17:49 XR wrist LT min 3V Stat Vital Signs Vital signs: Vital Signs - 8 hr 08/19/23 22:44 Temperature 97.7 F Pulse Rate 60 Blood Pressure 168/72 H Pulse Oximetry 98 Oxygen Delivery Method Room Air MDM - Recheck/Abnormal Lab/Rx Imaging Data Extremity x-ray #1: Radiologist's Impression: [address] [id number] XRay Report Signed Patient: Abby Bartlett MR#: [id number] : 1945 Acct:[id number] Age/Sex: 78 / F Date of Service: 08/19/23 Loc: ED Accession Number: [id number] Procedure: XR wrist LT min 3V Ordering Provider: Sony Johns MD PROCEDURE: XR WRIST LT MIN 3V INDICATIONS: left wrist pain after surgery TECHNIQUE: 3 views of the wrist were acquired. [facility], 17:35. FINDINGS: Bones: Overlying splint obscures the fine osseous soft tissue detail. The patient is status post fixation of comminuted intra-articular distal radial fracture using plate and screw construct. Alignment of fracture is similar compared to prior. Re demonstration of mildly displaced ulnar styloid tip fracture. No new fracture identified. Soft tissues: No suspicious soft tissue calcifications. IMPRESSION: Status post internal fixation of intra-articular comminuted distal radial fracture. No evidence of hardware complication. Mildly displaced ulnar styloid tip fracture. Approved by: Sana Loving M.D.,Ph.D. on 08/19/2023 at 17:56 MDM Narrative Medical decision making narrative: 78-year-old female who had surgical repair of wrist fracture on had increasing pain into Sunday and Sunday, had loose in the more proximal end of her wrap but not the distal portion over the wrist. Was completely unwrapped here in the department and then rewrapped more loosely in her pain has significantly improved. Coloration of her fingers and sensation has improved as well. She does not have any changes consistent with compartment syndrome. She is feeling much better. She has been elevating her hand appropriately using a sling, she has been using ice. She has been taking oxycodone she thinks it is without APAP. We discussed can add some Vistaril if needed and she can do additional Tylenol but maximum mount would be 4000 mg in 24 hours. Discussed return precautions all questions answered. Discharge Plan Departure Patient Disposition: Home Clinical Impression: Left wrist pain, H/O left wrist surgery Activity Restrictions/Additional Instructions: Follow-up with orthopedic surgery at your scheduled appointment, if you are having persistently increased pain please call to set up sooner follow-up. You may continue to take oxycodone 1-2 tablets every 4-6 hours. If there is Tylenol with your oxycodone your maximum amount of Tylenol in 24 hours is 4000 mg. If you are prescription bottle says oxycodone without any APAP or Tylenol you can take Tylenol in addition for up to a 1000 mg every 6 hours. Can take Vistaril 1 tablet every 6 hours as needed. Prescription was sent to [facility] in [place]. Please return for increasing pain, swelling, numbness, discoloration such as blue or pale discoloration, fevers or other new or concerning changes. Prescriptions: New hydroxyzine pamoate [Vistaril] 25 mg capsule 25 mg PO QID PRN (Reason: spasm) Qty: 10 0RF No Action gabapentin 300 mg PO DAILY levothyroxine [Synthroid] 25 mcg PO DAILY omeprazole 40 mg PO DAILY rosuvastatin 5 mg PO DAILY dofetilide [Tikosyn] 125 mcg Capsule 125 mcg PO Q12H diltiazem HCl 120 mg tablet 120 mg PO DAILY furosemide [Lasix] 20 mg Tablet 20 mg PO Q OTHER DAY fluticasone propionate 50 mcg/actuation [place],Suspension 1 spray INTRANASAL DAILY Rx Instructions: administer into each nostril oxycodone-acetaminophen [Percocet] 5-325 mg tablet 1 tab PO Q6H PRN (Reason: pain) Qty: 10 0RF Xarelto 20 mg tablet 20 mg PO DAILY Patient Comments: TAKE ONE TABLET BY MOUTH ONE TIME DAILY WITH FOOD spironolactone 25 mg tablet 25 mg PO DAILY metoprolol succinate 25 mg Tablet Extended Release 24 Hr 37.5 mg PO BID timolol maleate [Timoptic] 0.25 % drops 0.25 drp EYE-BOTH BID Rx Instructions: One drop each eye, morning and night famotidine 20 mg tablet 20 mg PO BEDTIME Referrals: Gita Pabon MD [Primary Care Provider] - Stand Alone Forms: Patient Portal/API
[2023-08-19 22:44] VITALS: BP 168/72; PULSE 60; TEMP 36.5; O2SAT 98
== END 2023-08-19 22:40 | disposition home or self-care (01) ==
PROVIDERS: Emergency Provider Emergency Medicine; PCP Internal Medicine
DX: M25.532 Pain in left wrist (principal); G89.18 Other acute postprocedural pain
CPT/HCPCS: 73110; 99281; 99283

== ENCOUNTER → 2023-09-12 09:48 | Outpatient (CLI) | payer OTHER, SELFPAY ==
[2021-01-18 10:40] VITALS: BMI 27.6
--- NOTE | 2023-09-12 | DI.RAD.S_ITS ---
PROCEDURE: XR DEXA AXIAL SKELETON INDICATIONS: Age-related osteoporosis COMPARISON: [facility], , DEXA AXIAL SKELETON, 02/23/2017, 11:00. FINDINGS: Lumbar Spine: Bone mineral density 0.987 g/cm2, T score -0.5. Left Hip: Bone mineral density 0.719 g/cm2, T score -1.8. Left Femoral Neck: Bone mineral density 0.600 g/cm2, T score -2.2. Right Hip: Bone mineral density 0.660 g/cm2, T score -2.3. Right Femoral Neck: Bone mineral density 0.564 g/cm2, T score -2.6. Fracture Risk Calculation (when applicable): 10-year fracture risk of a major osteoporotic fracture without prior fracture 27%, with prior fracture 37% and of a hip fracture without prior fracture 11%, with prior fracture 14%. (T score greater or equal to -1.0 to: NORMAL) (T score from -1.1 to -2.4: OSTEOPENIA) (T score less than or equal to -2.5: OSTEOPOROSIS) IMPRESSION: 1. Osteopenia of the left hip. 2. Osteoporosis of the right femoral neck. Follow-up guidelines as follows: Osteoporosis: Consider a repeat DEXA and Vertebral Fracture Assessment (VFA) exam in 2 years or sooner if medically necessary, to reassess this patient's status. Osteopenia: Consider a repeat DEXA in 2-3 years to reassess this patient's status, or if there is a new clinical indication. Normal: Consider a repeat DEXA in 5 years or sooner, or if there is a new clinical indication. All treatment decisions require clinical judgment and consideration of individual patient factors, including patient preferences, comorbidities, previous drug use, risk factors not captured in the FRAX model (e.g., frailty, falls, vitamin D deficiency, increased bone turnover, interval significant decline in bone density ) and possible under- or over-estimation of fracture risk by FRAX. In addition, the NOF Guide recommends that FDA-approved medical therapies be considered in postmenopausal women and men age >= 50 years with a: * Hip or vertebral (clinical or morphometric) fracture * T-score of <=-2.5 at the spine or hip * Ten-year fracture probability by FRAX of >= 3% for hip fracture or >=20% for major osteoporotic fracture. People with diagnosed cases of osteoporosis or at high risk for fracture should have regular bone mineral density tests. For patients eligible for Medicare, routine testing is allowed once every 2 years. The testing frequency can be increased to one year for patients who have rapidly progressing disease, those who are receiving or discontinuing medical therapy to restore bone mass, or have additional risk factors. Dictated by: Florinda Gilbert M.D. on 09/12/2023 at 11:48 Approved by: Florinda Gilbert M.D. on 09/12/2023 at 11:53
== END ==
PROVIDERS: PCP Internal Medicine; Referring Provider Internal Medicine; Visit Provider Internal Medicine
DX: M81.0 Age-related osteoporosis without current pathological fracture
CPT/HCPCS: 77080

== ENCOUNTER → 2024-01-14 15:10 | Outpatient (CLI) | payer OTHER, SELFPAY ==
[2021-01-18 10:40] VITALS: BMI 27.6
--- NOTE | 2024-01-14 15:12 | DI.MG.S_ITS ---
BILATERAL DIGITAL SCREENING MAMMOGRAM 3D/2D WITH CAD: 01/14/2024 CLINICAL: Routine screening. Comparison is made to exams dated: 01/12/2023 mammogram, 12/29/2021 mammogram, and 12/23/2020 mammogram - [facility]. There are scattered areas of fibroglandular density (category b / 25%-50% glandular tissue). Current study was also evaluated with a Computer Aided Detection (CAD) system. There are benign post operative findings in the right breast. There also are benign post operative findings and biopsy clip in the left breast. No significant masses, calcifications, or other findings are seen in either breast. There has been no significant interval change. IMPRESSION: BENIGN There is no mammographic evidence of malignancy. A 1 year screening mammogram is recommended. Based on the Tyrer Cuzick model (a risk assessment model) the patient's lifetime risk is 11.3% and her 10 year risk is 0.0%. According to the ACR, ACS, and NCCN guidelines, an annual breast MRI exam along with mammogram is recommended if the patient's lifetime risk is 20% or greater. This exam was interpreted at Station ID: [id number]. NOTE: For mammograms, a report in lay terms will be sent to the patient. Approximately 15% of breast malignancies will not be visualized mammographically. In the management of a palpable breast mass, a negative mammogram must not discourage biopsy of a clinically suspicious lesion. Electronically Signed By: Vsihal conde/toi:01/15/2024 06:40:21 letter sent: Normal Exam ACR BI-RADS Category 2: Benign
== END ==
PROVIDERS: PCP Internal Medicine; Referring Provider Internal Medicine; Visit Provider Internal Medicine
DX: Z12.31 Encounter for screening mammogram for malignant neoplasm of breast (principal)
CPT/HCPCS: 77063; 77067

== ENCOUNTER → 2024-01-28 08:47 | Outpatient (CLI) | payer OTHER, SELFPAY ==
[2021-01-18 10:40] VITALS: BMI 27.6
[2024-01-28 10:29] LABS: Alanine Aminotransferase 13 IU/L (<35); Albumin 4.3 g/dL (3.5-5.0); Albumin Globulin Ratio 1.7 (1.0-2.8); Alkaline Phosphatase 85 U/L (38-126); Aspartate Aminotransferase 28 IU/L (14-36); BUN Creatinine Ratio 17.1 (6-22); Bilirubin Total 0.7 mg/dL (0.2-1.3); Blood Urea Nitrogen 13 mg/dL (7-17); Calcium 9.5 mg/dL (8.4-10.2); Carbon Dioxide 30 mmol/L (22-32); Chloride 102 mmol/L (98-107); Cholesterol 148 mg/dL (140-199); Estimated Glomerular Filt Rate > 60 mL/min (>60); Globulin 2.6 g/dL (1.7-4.1); Glucose 94 mg/dL (80-110); HDL Cholesterol 59 mg/dL (40-60); HEMOLYSIS < 15 (0-50); LDL Cholesterol Calculated 64 mg/dL (<100); Potassium 4.3 mmol/L (3.4-5.1); Sodium 139 mmol/L (137-145); Total Protein 6.9 g/dL (6.3-8.2); Triglycerides 125 mg/dL (35-150)
== END ==
PROVIDERS: PCP Internal Medicine; Referring Provider Internal Medicine Cardiovascular Disease; Visit Provider Internal Medicine Cardiovascular Disease
DX: I10 Essential (primary) hypertension (principal)
CPT/HCPCS: 36415; 80053; 80061

== ENCOUNTER 2024-03-06 06:20 | Emergency (ER) | payer OTHER, SELFPAY ==
[2021-01-18 10:40] VITALS: BMI 27.6
[2024-03-06] VITALS (7 sets, daily range): BP systolic 124–192; BP diastolic 60–77; PULSE 59–60; RESP 16–29; TEMP 36.4; O2SAT 92–100; BMI 23.7
--- NOTE | 2024-03-06 06:39 | ED_ITS ---
HPI - Abdominal Pain <Sony Johns MD - Last Filed: 03/06/24 21:09> General Chief Complaint: Abdominal Pain Stated Complaint: N/V, abd pain Time Seen by Provider: 03/06/24 06:23 Source: patient Mode of arrival: EMS History of Present Illness HPI narrative: 78-year-old female with history of prior remote cholecystectomy, no other abdominopelvic surgeries recalled, last evening was eating dinner 6:00 p.m., a couple hours later felt nauseated, with some epigastric area discomfort, then more generalized abdominal cramping, then having multiple episodes of nonbloody emesis over the last few hours. had similar food at dinner, however patient did have exposure to beets that did not eat, recalled the beets had a funny appearance, no malodor. Takes Xarelto blood thinner for atrial fibrillation. No black or red stools. No black or red emesis. Recent travel to [facility], no camping, no exposure to persons with similar symptoms known. No fevers or chills. Related Data Home Medications Medication Instructions Recorded Confirmed famotidine 20 mg tablet 20 mg PO BEDTIME 12/21/20 02/27/23 timolol maleate 0.25 % eye drops 0.25 drp EYE-BOTH BID 12/21/20 02/27/23 (Timoptic) rivaroxaban 20 mg tablet (Xarelto) 20 mg PO DAILY 08/22/21 02/27/23 spironolactone 25 mg tablet 25 mg PO DAILY 08/22/21 02/27/23 metoprolol succinate 25 mg 37.5 mg PO BID 08/23/21 02/27/23 tablet,extended release 24 hr gabapentin 300 mg PO DAILY 06/01/22 02/27/23 levothyroxine [Synthroid] 25 mcg PO DAILY 06/01/22 02/27/23 omeprazole 40 mg PO DAILY 06/01/22 02/27/23 rosuvastatin 5 mg PO DAILY 06/01/22 02/27/23 diltiazem HCl 120 mg tablet 120 mg PO DAILY 01/22/23 02/27/23 dofetilide 125 mcg capsule 125 mcg PO Q12H 01/22/23 02/27/23 (Tikosyn) fluticasone propionate 50 1 spray intranasal DAILY 01/22/23 02/27/23 mcg/actuation nasal spray,suspension furosemide 20 mg tablet (Lasix) 20 mg PO Q OTHER DAY 01/22/23 02/27/23 Previous Rx's Medication Instructions Recorded oxycodone-acetaminophen 5 mg-325 1 tab PO Q6H PRN pain #10 tabs 08/12/23 mg tablet (Percocet) hydroxyzine pamoate 25 mg capsule 25 mg PO QID PRN spasm #10 caps 08/19/23 (Vistaril) ondansetron 4 mg disintegrating 4 mg PO Q6H PRN nausea and 03/06/24 tablet vomiting #14 tabs Allergies Allergy/AdvReac Type Severity Reaction Status Date / Time flecainide Allergy Severe Anaphylaxis Verified 02/27/23 15:06 budesonide Allergy Unknown hives Verified 02/27/23 15:06 chlorhexidine Allergy Unknown Verified 02/27/23 15:06 triamcinolone Allergy Unknown Rash Verified 02/27/23 15:06 apixaban [From Eliquis] AdvReac Mild ITCHING Verified 02/27/23 15:06 epinephrine AdvReac Verified 02/27/23 15:06 Review of Systems <Sony Johns MD - Last Filed: 03/06/24 21:09> Review of Systems Narrative: See HPI Patient History <Sony Johns MD - Last Filed: 03/06/24 21:09> Medical History 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 History of pneumonia Insomnia History of pancreatitis Hoarseness Gastric reflux Atrial fibrillation Hypertension Surgical History Hx of atrioventricular node ablation Personal history of prior ablation treatment History of arthroscopy History of lumpectomy History of tonsillectomy History of cholecystectomy Family History Mother Sick sinus syndrome Heart attack Colon cancer Father Colon cancer Social History marital status: household members: spouse Smoking Status: Never smoker alcohol intake: current Smoking Status: Never smoker alcohol intake frequency: a few times a week Exam <Sony Johns MD - Last Filed: 03/06/24 21:09> Narrative Exam Narrative: GENERAL: Well-developed patient, in mild distress. HEAD: Atraumatic. Normocephalic. EYES: Pupils equal round and reactive. Extraocular motions intact. No scleral icterus. No injection or drainage. ENT: Nose without bleeding, purulent drainage. Throat without erythema, tonsillar hypertrophy or exudate. Airway patent. NECK: Trachea midline. Non tender CARDIOVASCULAR: Regular rate and rhythm without murmurs, gallops, or rubs. RESPIRATORY: Clear to auscultation. Breath sounds equal bilaterally. No wheezes, rales, or rhonchi. GASTROINTESTINAL: Abdomen soft, non-tender, nondistended. EXTREMITIES: No edema or joint tenderness. BACK: Nontender without deformity or crepitance. No flank tenderness. NEURO: AOx3. Motor functions grossly nonfocal SKIN: No rash or erythema of visible areas Initial Vital Signs Initial Vital Signs: Vital Signs Temperature 97.6 F 03/06/24 06:27 Pulse Rate 60 03/06/24 06:27 Respiratory Rate 16 03/06/24 06:27 Blood Pressure 192/77 H 03/06/24 06:27 Pulse Oximetry 97 03/06/24 06:27 Oxygen Delivery Method Room Air 03/06/24 06:27 <Italo Smith DO - Last Filed: 03/06/24 08:00> Initial Vital Signs Initial Vital Signs: Vital Signs Temperature 97.6 F 03/06/24 06:27 Pulse Rate 60 03/06/24 06:27 Respiratory Rate 16 03/06/24 06:27 Blood Pressure 192/77 H 03/06/24 06:27 Pulse Oximetry 97 03/06/24 06:27 Oxygen Delivery Method Room Air 03/06/24 06:27 Course <Sony Johns MD - Last Filed: 03/06/24 21:09> Orders Ordered: Discontinued Medications Ondansetron HCl (Ondansetron 4 Mg/2 Ml Inj) 4 mg IV NOW ONE Stop: 03/06/24 07:34 Last Admin: 03/06/24 07:41 Dose: 4 mg Documented By: GALEN Vital Signs Vital signs: Vital Signs - 8 hr 03/06/24 06:27 03/06/24 06:29 03/06/24 06:30 Temperature 97.6 F Pulse Rate 60 59 L 59 L Respiratory Rate 16 Blood Pressure 192/77 H Pulse Oximetry 97 92 92 Oxygen Delivery Method Room Air 03/06/24 06:31 03/06/24 06:31 03/06/24 07:00 Temperature Pulse Rate 60 Respiratory Rate Blood Pressure 155/67 H 132/61 Pulse Oximetry 92 Oxygen Delivery Method 03/06/24 07:00 03/06/24 07:30 03/06/24 07:30 Temperature Pulse Rate 60 60 Respiratory Rate 28 H 29 H Blood Pressure 124/60 Pulse Oximetry 100 99 Oxygen Delivery Method <Italo Smith DO - Last Filed: 03/06/24 08:00> Orders Ordered: Discontinued Medications Ondansetron HCl (Ondansetron 4 Mg/2 Ml Inj) 4 mg IV NOW ONE Stop: 03/06/24 07:34 Last Admin: 03/06/24 07:41 Dose: 4 mg Documented By: GALEN Vital Signs Vital signs: Vital Signs - 8 hr 03/06/24 06:27 03/06/24 06:29 03/06/24 06:30 Temperature 97.6 F Pulse Rate 60 59 L 59 L Respiratory Rate 16 Blood Pressure 192/77 H Pulse Oximetry 97 92 92 Oxygen Delivery Method Room Air 03/06/24 06:31 03/06/24 06:31 03/06/24 07:00 Temperature Pulse Rate 60 Respiratory Rate Blood Pressure 155/67 H 132/61 Pulse Oximetry 92 Oxygen Delivery Method 03/06/24 07:00 03/06/24 07:30 03/06/24 07:30 Temperature Pulse Rate 60 60 Respiratory Rate 28 H 29 H Blood Pressure 124/60 Pulse Oximetry 100 99 Oxygen Delivery Method MDM - Abdominal Pain <Sony Johns MD - Last Filed: 03/06/24 21:09> Lab Data 03/06/24 06:30 03/06/24 06:30 Labs: Lab Results 03/06/24 Range/Units 06:30 WBC 11.6 H (4.5-11.0) X10^3/uL RBC 4.59 (4.0-5.2) X10^6/uL Hgb 14.6 (12.0-16.0) g/dL Hct 43.3 (36-46) % MCV 94.2 (80-100) fL MCH 31.8 (26-34) PG MCHC 33.7 (30-36) % RDW 13.5 (11.6-14.8) % Plt Count 230 (150-400) X10^3/uL Neut % (Auto) 88.7 H (50-75) % Lymph % (Auto) 4.8 L (25-40) % [place] % (Auto) 5.7 (3-14) % Eos % (Auto) 0.5 L (2-4) % Baso % (Auto) 0.3 (0-2) % Neut # (Auto) 21572 H (6824-2639) /uL Lymph # (Auto) 600 L (8680-2516) /uL [place] # (Auto) 700 (0-900) /uL Eos # (Auto) 100 (0-450) /uL Baso # (Auto) 0 (0-100) /uL Sodium 137 (137-145) mmol/L Potassium 3.7 (3.4-5.1) mmol/L Chloride 101 (98-107) mmol/L Carbon Dioxide 27 (22-32) mmol/L BUN 17 (7-17) mg/dL Creatinine 0.83 (0.52-1.04) mg/dL Estimated GFR > 60 (>60) mL/min BUN/Creatinine Ratio 20.5 (6-22) Glucose 144 H (80-110) mg/dL Calcium 9.3 (8.4-10.2) mg/dL Total Bilirubin 0.9 (0.2-1.3) mg/dL AST 35 (14-36) IU/L ALT 19 (<35) IU/L Alkaline Phosphatase 102 (38-126) U/L Total Protein 7.9 (6.3-8.2) g/dL Albumin 4.8 (3.5-5.0) g/dL Globulin 3.1 (1.7-4.1) g/dL Albumin/Globulin Ratio 1.5 (1.0-2.8) Lipase 117 (23-300) U/L MDM Narrative Medical decision making narrative: 78-year-old female with nausea and vomiting nonbloody, might have been exposed to food-borne illness, felt that sugar beets and can looked funny to him that patient had consumed but he had not, arrival by EMS, given oral dissolvable Zofran during transport, improved nausea, still with abdominal discomfort. Afebrile, sirs screen negative. Patient points to supraumbilical epigastric region, did not seem to have tenderness on palpation there. History of remote cholecystectomy noted. Labs pending. Pain medications offered, declined for now. She has not feel like she needs an additional doses Zofran for now. Await lab results. <Italo Smith, DO - Last Filed: 03/06/24 08:00> Lab Data Labs: Lab Results 03/06/24 Range/Units 06:30 WBC 11.6 H (4.5-11.0) X10^3/uL RBC 4.59 (4.0-5.2) X10^6/uL Hgb 14.6 (12.0-16.0) g/dL Hct 43.3 (36-46) % MCV 94.2 (80-100) fL MCH 31.8 (26-34) PG MCHC 33.7 (30-36) % RDW 13.5 (11.6-14.8) % Plt Count 230 (150-400) X10^3/uL Neut % (Auto) 88.7 H (50-75) % Lymph % (Auto) 4.8 L (25-40) % [place] % (Auto) 5.7 (3-14) % Eos % (Auto) 0.5 L (2-4) % Baso % (Auto) 0.3 (0-2) % Neut # (Auto) 88994 H (9247-5862) /uL Lymph # (Auto) 600 L (0692-5182) /uL [place] # (Auto) 700 (0-900) /uL Eos # (Auto) 100 (0-450) /uL Baso # (Auto) 0 (0-100) /uL Sodium 137 (137-145) mmol/L Potassium 3.7 (3.4-5.1) mmol/L Chloride 101 (98-107) mmol/L Carbon Dioxide 27 (22-32) mmol/L BUN 17 (7-17) mg/dL Creatinine 0.83 (0.52-1.04) mg/dL Estimated GFR > 60 (>60) mL/min BUN/Creatinine Ratio 20.5 (6-22) Glucose 144 H (80-110) mg/dL Calcium 9.3 (8.4-10.2) mg/dL Total Bilirubin 0.9 (0.2-1.3) mg/dL AST 35 (14-36) IU/L ALT 19 (<35) IU/L Alkaline Phosphatase 102 (38-126) U/L Total Protein 7.9 (6.3-8.2) g/dL Albumin 4.8 (3.5-5.0) g/dL Globulin 3.1 (1.7-4.1) g/dL Albumin/Globulin Ratio 1.5 (1.0-2.8) Lipase 117 (23-300) U/L [facility] Narrative Medical decision making narrative: 78-year-old female with nausea and vomiting nonbloody, might have been exposed to food-borne illness, felt that sugar beets and can looked funny to him that patient had consumed but he had not, arrival by EMS, given oral dissolvable Zofran during transport, improved nausea, still with abdominal discomfort. Afebrile, sirs screen negative. Patient points to supraumbilical epigastric region, did not seem to have tenderness on palpation there. History of remote cholecystectomy noted. Labs pending. Pain medications offered, declined for now. She has not feel like she needs an additional doses Zofran for now. Await lab results. Dr smith: Received turned over. Review patient's history and physical exam. Labs are unremarkable. States she was feeling much better. Is tolerating oral intake. I do suspect that her symptoms that brought her in were related to something that she ate last evening. There was no indication for antibiotics. Based on her exam I do think that we can hold on any advanced radiologic studies for now. She actually has not had any episodes of diarrhea. Patient was given return precautions and follow-up instructions. She expressed understanding and agreement. Discharge Plan Departure Patient Disposition: Home Clinical Impression: Nausea and vomiting Instructions: Nausea and Vomiting-Adult Activity Restrictions/Additional Instructions: Continue to take all of your medications as directed. I do recommend a bland diet for the next 24 hours that you can advance as tolerated. Return to the emergency department for new or worsening symptoms. Prescriptions: New ondansetron 4 mg tablet,disintegrating 4 mg PO Q6H PRN (Reason: nausea and vomiting) Qty: 14 0RF No Action gabapentin 300 mg PO DAILY levothyroxine [Synthroid] 25 mcg PO DAILY omeprazole 40 mg PO DAILY rosuvastatin 5 mg PO DAILY dofetilide [Tikosyn] 125 mcg Capsule 125 mcg PO Q12H diltiazem HCl 120 mg tablet 120 mg PO DAILY furosemide [Lasix] 20 mg Tablet 20 mg PO Q OTHER DAY fluticasone propionate 50 mcg/actuation [place],Suspension 1 spray INTRANASAL DAILY Rx Instructions: administer into each nostril oxycodone-acetaminophen [Percocet] 5-325 mg tablet 1 tab PO Q6H PRN (Reason: pain) Qty: 10 0RF Xarelto 20 mg tablet 20 mg PO DAILY Patient Comments: TAKE ONE TABLET BY MOUTH ONE TIME DAILY WITH FOOD spironolactone 25 mg tablet 25 mg PO DAILY metoprolol succinate 25 mg Tablet Extended Release 24 Hr 37.5 mg PO BID hydroxyzine pamoate [Vistaril] 25 mg capsule 25 mg PO QID PRN (Reason: spasm) Qty: 10 0RF timolol maleate [Timoptic] 0.25 % drops 0.25 drp EYE-BOTH BID Rx Instructions: One drop each eye, morning and night famotidine 20 mg tablet 20 mg PO BEDTIME Referrals: Gita Pabon MD [Primary Care Provider] - Stand Alone Forms: Patient Portal/API/Survey
[2024-03-06 06:50] LABS: Add Manual Diff / Slide Review NO; Basophils Absolute Auto 0 /uL (0-100); Basophils Percent Auto 0.3 % (0-2); Eosinophils Absolute Auto 100 /uL (0-450); Eosinophils Percent Auto 0.5 % (2-4); Hematocrit 43.3 % (36-46); Hemoglobin 14.6 g/dL (12.0-16.0); Lymphocytes Absolute Auto 600 /uL (1100-4500); Lymphocytes Percent Auto 4.8 % (25-40); Mean Corpuscular HGB Conc 33.7 % (30-36); Mean Corpuscular Hemoglobin 31.8 PG (26-34); Mean Corpuscular Volume 94.2 fL (80-100); Monocytes Absolute Auto 700 /uL (0-900); Monocytes Percent Auto 5.7 % (3-14); Neutrophils Absolute Auto 10300 /uL (1500-7000); Neutrophils Percent Auto 88.7 % (50-75); Platelet Count 230 X10^3/uL (150-400); Red Blood Cell Count 4.59 X10^6/uL (4.0-5.2); Red Cell Distribution Width 13.5 % (11.6-14.8); White Blood Cell Count 11.6 X10^3/uL (4.5-11.0)
[2024-03-06 06:56] LABS: Alanine Aminotransferase 19 IU/L (<35); Albumin 4.8 g/dL (3.5-5.0); Albumin Globulin Ratio 1.5 (1.0-2.8); Alkaline Phosphatase 102 U/L (38-126); Aspartate Aminotransferase 35 IU/L (14-36); BUN Creatinine Ratio 20.5 (6-22); Bilirubin Total 0.9 mg/dL (0.2-1.3); Blood Urea Nitrogen 17 mg/dL (7-17); Calcium 9.3 mg/dL (8.4-10.2); Carbon Dioxide 27 mmol/L (22-32); Chloride 101 mmol/L (98-107); Estimated Glomerular Filt Rate > 60 mL/min (>60); Globulin 3.1 g/dL (1.7-4.1); Glucose 144 mg/dL (80-110); HEMOLYSIS < 15 (0-50); Lipase 117 U/L (23-300); Potassium 3.7 mmol/L (3.4-5.1); Sodium 137 mmol/L (137-145); Total Protein 7.9 g/dL (6.3-8.2)
[2024-03-06] MEDS: ONDANSETRON 4 MG/2 ML INJ IV (07:41)
--- NOTE | 2024-03-06 08:16 | PC.NURSE ---
Patients 's wallet found after discharge. Called patient's cell phone and had to leave a message. 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
== END 2024-03-06 08:06 | disposition home or self-care (01) ==
PROVIDERS: Emergency Medicine; Emergency Provider Emergency Medicine; PCP Internal Medicine
DX: R11.2 Nausea with vomiting, unspecified (principal)
CPT/HCPCS: 80053; 83690; 85025; 96374; 99284; J2405

== ENCOUNTER → 2025-01-14 14:40 | Outpatient (CLI) | payer OTHER, SELFPAY ==
[2021-01-18 10:40] VITALS: BMI 27.6
--- NOTE | 2025-01-14 14:41 | DI.MG.S_ITS ---
MM screening mammo BI: 01/14/2025. BI-RADS: 2 CLINICAL: 79-year old female for bilateral screening mammogram. No Tyrer-Cuzick risk score calculation due to the patient's personal history of breast cancer. 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 Status-post bilateral lumpectomies. No first-degree family history of breast cancer. The patient had prior bilateral breast biopsies. PRIOR EXAMS 01/14/2024, 01/12/2023, 12/29/2021, 12/23/2020, MAMMOGRAPHY TECHNIQUE: 2D and 3D (tomosynthesis) digital mammographic views obtained, with additional images as needed for full coverage. Current study was also evaluated with a Computer Aided Detection (CAD) system. DENSITY B. There are scattered areas of fibroglandular density. MAMMOGRAPHY FINDINGS Right: Benign-appearing post-surgical changes noted on the right. There are no suspicious masses, calcifications, or other findings in the breast. Left: Surgical clips present on the left. Benign-appearing post-surgical changes noted on the left. There are no suspicious masses, calcifications, or other findings in the breast. IMPRESSION: * No evidence of malignancy with benign findings. RECOMMENDATIONS Bilateral * Annual screening mammography. OVERALL ASSESSMENT CATEGORY BI-RADS-2: Benign. [employer] recommends annual screening mammography beginning at age 40 for women with average risk of breast cancer. ELECTRONICALLY SIGNED: Vishal Chau M.D. on 01/15/2025 at 09:18:43 AM PT Interpreting Station ID: [id number]
== END ==
LOC: MAMMO 14:41
PROVIDERS: PCP Internal Medicine; Referring Provider Internal Medicine; Visit Provider Internal Medicine
DX: Z12.31 Encounter for screening mammogram for malignant neoplasm of breast (principal); Z85.3 Personal history of malignant neoplasm of breast
CPT/HCPCS: 77063; 77067